=== PATIENT | female | born 1965 | race Caucasian/White ===

== ENCOUNTER → 2020-03-28 | Outpatient (CLI) | payer OTHER ==
--- NOTE | 2020-03-28 10:11 | US ---
EXAMINATION TYPE: US abdomen limited DATE OF EXAM: 03/28/2020 COMPARISON: NONE CLINICAL HISTORY: Cellulitis RLQ L03.90. Patient states possible bug bite on RLQ abdomen. Area appea rs red with scab. Area of concern scanned. No masses or fluid collections visualized at time of scan. IMPRESSION: No evidence of mass or fluid collection.
== END | disposition home or self-care (01) ==
LOC: RADUSWWP 09:42
PROVIDERS: ATTEND Pediatrics
DX: L03.90 Cellulitis, unspecified (principal)
CPT/HCPCS: 76705

== ENCOUNTER 2020-09-26 09:57 | Emergency (ER) | payer OTHER ==
[2020-09-26] MEDS ORDERED: SODIUM CHLORIDE 0.9% 1,000 ML IV STA ×2 (10:41)
--- NOTE | 2020-09-26 10:44 | ED ---
General Adult HPI - General Chief complaint: Neuro Symptoms/Deficit Stated complaint: numbness in legs & arms Time Seen by Provider: 09/26/20 10:32 Source: patient, RN notes reviewed, old records reviewed Mode of arrival: wheelchair Limitations: no limitations - History of Present Illness Initial comments: [id number] female presents to the ER today for evaluation with complaints of left arm shooting pain from her elbow towards her shoulder and neck. Patient states that she has had 2 weeks of intermittent bilateral leg numbness and tingling. Patient states that last week she also had shooting similar pains down her right arm. Patient denies any chest pain or shortness of breath. Denies any acute headaches. She states she hasn't seen her PCP for migraines. She does report history of TIAs in the past. - Related Data Home Medications Medication Instructions Recorded Confirmed Ibuprofen [Motrin] 800 mg PO TID PRN 07/04/15 09/26/20 Albuterol Inhaler [Ventolin Hfa 1 puff INHALATION RT-Q4H PRN 09/26/20 09/26/20 Inhaler] Aspirin EC [Ecotrin Low Dose] 81 mg PO DAILY 09/26/20 09/26/20 Atorvastatin [Lipitor] 40 mg PO HS 09/26/20 09/26/20 Beclomethasone Dip 80 Mcg/Puff 2 puff INHALATION RT-BID PRN 09/26/20 09/26/20 [Qvar 80 mcg] Enalapril [Vasotec] 10 mg PO BID 09/26/20 09/26/20 Nitroglycerin Sl Tabs [Nitrostat] 0.4 mg SL Q5M PRN 09/26/20 09/26/20 SUMAtriptan succinate [Imitrex] 50 mg PO BID PRN 09/26/20 09/26/20 Topiramate [Topamax] 100 mg PO BID 09/26/20 09/26/20 Venlafaxine HCl ER [Effexor Xr] 75 mg PO DAILY 09/26/20 09/26/20 Previous Rx's Medication Instructions Recorded Metoprolol Tartrate [Lopressor] 25 mg PO BID #60 tab 07/07/15 Allergies Allergy/AdvReac Type Severity Reaction Status Date / Time amoxicillin trihydrate AdvReac Nausea & Verified 09/26/20 12:04 [From Augmentin] Vomiting potassium clavulanate AdvReac Nausea & Verified 09/26/20 12:04 [From Augmentin] Vomiting Review of Systems ROS Statement: Those systems with pertinent positive or pertinent negative responses have been documented in the HPI. ROS Other: All systems not noted in ROS Statement are negative. Past Medical History Past Medical History: CVA/TIA, Fibromyalgia, Hyperlipidemia, Osteoarthritis (OA) Additional Past Medical History / Comment(s): 07-04-15 ADMITTED TO [facility] WITH NSTEMI. PAST MEDICAL HX: MIGRAINES, HEMORRHOIDS, INCONT OF URINE, TIA X2, fibromyalgia, hypercholesterolemia. History of Any Multi-Drug Resistant Organisms: None Reported Past Surgical History: Hysterectomy, Tubal Ligation Additional Past Surgical History / Comment(s): RECENTLT HAD TEETH EXTRACTED AND HAS NEW DENTURES ,MYRINGTOMY/TUBES 03 LOST 30% OF HEARING EV, SINUS SX 04, COLONOSCOPY CLEAR, Past Anesthesia/Blood Transfusion Reactions: Previous Problems w/ Anesthesia Additional Past Anesthesia/Blood Transfusion Reaction / Comment(s): DIFFICULTY WAKING FROM AA. Past Psychological History: No Psychological Hx Reported Smoking Status: Current every day smoker Past Alcohol Use History: Rare Past Drug Use History: None Reported - Past Family History Father Family Medical History: Diabetes Mellitus (Father at age 77 from diabetes mellitus competition.) Mother Family Medical History: Cancer (Mother at age of 67 from lung cancer) Additional Family Medical History / Comment(s): LUNG CANCER Brother(s) Family Medical History: Coronary Artery Disease (CAD) (Patient has 4 brothers one of her brothers has history of coronary artery disease underwent coronary artery bypass graft) Sister(s) Family Medical History: No Reported History (Patient has 6 sisters no major med ical problems.) Son(s) Family Medical History: No Reported History (Patient has 2 sons no major medical problems.) General Exam - General Exam Comments Initial Comments: 55-year-old female. Alert and oriented. No distress. Limitations: no limitations General appearance: alert, in no apparent distress Head exam: Present: atraumatic, normocephalic, normal inspection Eye exam: Present: normal appearance, PERRL, EOMI. Absent: scleral icterus, conjunctival injection, periorbital swelling ENT exam: Present: normal exam, mucous membranes moist Neck exam: Present: normal inspection. Absent: tenderness, meningismus, lymphadenopathy Respiratory exam: Present: normal lung sounds bilaterally. Absent: respiratory distress, wheezes, rales, rhonchi, stridor Cardiovascular Exam: Present: regular rate, normal rhythm, normal heart sounds. Absent: systolic murmur, diastolic murmur, rubs, gallop, clicks GI/Abdominal exam: Present: soft, normal bowel sounds. Absent: distended, tenderness, guarding, rebound, rigid Extremities exam: Present: normal inspection, full ROM, normal capillary refill, other (She describes shooting pain down left elbow towards his shoulder. Full range of motion noted. Radial pulse is 2+ bilaterally. She has normal sens ation to light touch. No erythema. No rashes.). Absent: tenderness, pedal edema, joint swelling, calf tenderness Back exam: Present: normal inspection Neurological exam: Present: alert, oriented X3, CN II-XII intact Psychiatric exam: Present: normal affect, normal mood Skin exam: Present: warm, dry, intact, normal color. Absent: rash Course Vital Signs 09/26/20 09/26/20 09/26/20 10:03 10:41 11:00 Temperature 98.1 F Pulse Rate 65 Respiratory 18 Rate Blood Pressure 154/88 135/76 O2 Sat by Pulse 100 100 Oximetry 09/26/20 09/26/20 09/26/20 11:30 12:00 12:50 Temperature 98.2 F Pulse Rate 57 L 58 L 60 Respiratory 17 13 18 Rate Blood Pressure 132/80 148/78 139/72 O2 Sat by Pulse 98 98 99 Oximetry EKG Findings - EKG Comments: EKG Findings:: EKG performed at 1042 shows sinus bradycardia septal infarct age- indeterminate. Abnormal EKG ventricular rate of 57 bpm. Was 192 ms. QRS duration 76 ms. QT QTc is 426/440 ms. No evidence of ST elevation. Medical Decision Making - Medical Decision Making 55-year-old feel presents respiratory 2 weeks of bilateral lower extremity tingling usual weakness intermittently as well as shooting pain is bilateral arms. She reports sedation shooting pain in her left arm. She has no signs of falls or trauma. She is no rashes reproducible tenderness with them. Patient has history of TIAs head CT scan completed showing no acute process. Patient has no palsies or other neurological deficits. I discussed findings Patient is a neurologic nature and may benefit from EMG studies but no acute neuro deficits or concerns for stroke or she did this time. Patient understands this plan. Labs are otherwise unremarkable EKG was reviewed and normal. Discussed return parameters. - Lab Data Result diagrams: 09/26/20 10:41 09/26/20 10:41 Lab Results 09/26/20 09/26/20 09/26/20 Range/Units 10:41 10:41 10:41 WBC 7.7 (3.8-10.6) k/uL RBC 4.39 (3.80-5.40) m/uL Hgb 14.1 (11.4-16.0) gm/dL Hct 41.4 (34.0-46.0) % MCV 94.3 (80.0-100.0) fL MCH 32.0 (25.0-35.0) pg MCHC 33.9 (31.0-37.0) g/dL RDW 13.1 (11.5-15.5) % Plt Count 311 (150-450) k/uL MPV 6.9 Neutrophils % 70 % Lymphocytes % 22 % Monocytes % 4 % Eosinophils % 2 % Basophils % 1 % Neutrophils # 5.4 (1.3-7.7) k/uL Lymphocytes # 1.7 (1.0-4.8) k/uL Monocytes # 0.3 (0-1.0) k/uL Eosinophils # 0.2 (0-0.7) k/uL Basophils # 0.0 (0-0.2) k/uL PT 9.8 (9.0-12.0) sec INR 0.9 (<1.2) APTT 26.5 (22.0-30.0) sec Sodium 133 L (137-145) mmol/L Potassium 4.3 (3.5-5.1) mmol/L Chloride 103 (98-107) mmol/L Carbon Dioxide 24 (22-30) mmol/L Anion Gap 6 mmol/L BUN 11 (7-17) mg/dL Creatinine 0.75 (0.52-1.04) mg/dL Est GFR (CKD-EPI)AfAm >90 (>60 ml/min/1.73 sqM) Est GFR (CKD-EPI)NonAf >90 (>60 ml/min/1.73 sqM) Glucose 124 H (74-99) mg/dL POC Glucose (mg/dL) (75-99) mg/dL POC Glu Ornament Maker Hand ID Calcium 9.2 (8.4-10.2) mg/dL Total Bilirubin 0.4 (0.2-1.3) mg/dL AST 30 (14-36) U/L ALT 33 (4-34) U/L Alkaline Phosphatase 67 (38-126) U/L Troponin I (0.000-0.034) ng/mL Total Protein 7.0 (6.3-8.2) g/dL Albumin 4.2 (3.5-5.0) g/dL 09/26/20 09/26/20 Range/Units 10:41 10:46 WBC (3.8-10.6) k/uL RBC (3.80-5.40) m/uL Hgb (11.4-16.0) gm/dL Hct (34.0-46.0) % MCV (80.0-100.0) fL MCH (25.0-35.0) pg MCHC (31.0-37.0) g/dL RDW (11.5-15.5) % Plt Count (150-450) k/uL MPV Neutrophils % % Lymphocytes % % Monocytes % % Eosinophils % % Basophils % % Neutrophils # (1.3-7.7) k/uL Lymphocytes # (1.0-4.8) k/uL Monocytes # (0-1.0) k/uL Eosinophils # (0-0.7) k/uL Basophils # (0-0.2) k/uL PT (9.0-12.0) sec INR (<1.2) APTT (22.0-30.0) sec Sodium (137-145) mmol/L Potassium (3.5-5.1) mmol/L Chloride (98-107) mmol/L Carbon Dioxide (22-30) mmol/L Anion Gap mmol/L BUN (7-17) mg/dL Creatinine (0.52-1.04) mg/dL Est GFR (CKD-EPI)AfAm (>60 ml/min/1.73 sqM) Est GFR (CKD-EPI)NonAf (>60 ml/min/1.73 sqM) Glucose (74-99) mg/dL POC Glucose (mg/dL) 112 H (75-99) mg/dL POC Glu Ornament Maker Hand ID Jeffrey Beck Calcium (8.4-10.2) mg/dL Total Bilirubin (0.2-1.3) mg/dL AST (14-36) U/L ALT (4-34) U/L Alkaline Phosphatase (38-126) U/L Troponin I <0.012 (0.000-0.034) ng/mL Total Protein (6.3-8.2) g/dL Albumin (3.5-5.0) g/dL - Radiology Data Radiology results: report reviewed Normal CT brain. If symptoms persist MRI can be performed for additional evaluation. Disposition Clinical Impression: Paresthesia of bilateral legs, Paresthesia and pain of left extremity Disposition: HOME SELF-CARE Condition: Good Instructions (If sedation given, give patient instructions): Paresthesia (ED) Additional Instructions: Patient advised follow-up with neurology and PCP. Return to the ED if any alarming signs or symptoms occur. Is patient prescribed a controlled substance at d/c from ED?: No Referrals: Nish Lew MD [Primary Care Provider] - 1-2 days Time of Disposition: 12:59
[2020-09-26 10:48] LABS: Glucose,Whole Blood 112 mg/dL (75-99)
[2020-09-26 11:04] LABS: Basophils % (A) 1 %; Eosinophils # (A) 0.2 k/uL (0-0.7); Eosinophils % (A) 2 %; HCT 41.4 % (34.0-46.0); HGB 14.1 gm/dL (11.4-16.0); Lymphocytes # (A) 1.7 k/uL (1.0-4.8); Lymphocytes % (A) 22 %; MCHC 33.9 g/dL (31.0-37.0); MCV 94.3 fL (80.0-100.0); Mean Platelet Volume 6.9; Monocytes # (A) 0.3 k/uL (0-1.0); Monocytes % (A) 4 %; Neutrophils # (A) 5.4 k/uL (1.3-7.7); Neutrophils % (A) 70 %; Platelet Count 311 k/uL (150-450); RBC 4.39 m/uL (3.80-5.40); RDW 13.1 % (11.5-15.5); WBC 7.7 k/uL (3.8-10.6)
--- NOTE | 2020-09-26 11:13 | CT ---
EXAMINATION TYPE: CT brain wo con DATE OF EXAM: 09/26/2020 COMPARISON: 11/29/2008 INDICATION: Neuro deficit DLP: 1082.4 mGycm, Automated exposure control for dose reduction was used. CONTRAST: None CT of the brain is performed utilizing 3 mm thick sections through the posterior fossa and 3 mm thick sections through the remaining calvarium. Study is performed within 24 hours of arrival to the hosp ital. No abnormal hyperdensity is present to suggest an acute intracranial hemorrhage. No mass lesion is evident. No acute infarcts are evident. Ventricles and sulci are appropriate for the patient age. Paranasal sinuses and mastoid air cells within the [id number] are clear. IMPRESSIONS: 1. Normal CT Brain 2. If symptoms persist, MRI could be performed for additional evaluation.
--- NOTE | 2020-09-26 11:24 | XR ---
EXAMINATION TYPE: XR chest 2V DATE OF EXAM: 09/26/2020 COMPARISON: NONE TECHNIQUE: PA and lateral views submitted. HISTORY: altered mental status FINDINGS: The lungs are clear and there is no pneumothorax, pleural effusion, or focal pneumonia. IMPRESSION: 1. No acute process.
[2020-09-26 11:33] LABS: ALT 33 U/L (4-34); AST 30 U/L (14-36); African American GFR (CKD) >90 (>60 ml/min/1.73 sqM); Albumin 4.2 g/dL (3.5-5.0); Alkaline Phosphatase 67 U/L (38-126); Anion Gap 6 mmol/L; Blood Urea Nitrogen 11 mg/dL (7-17); Calcium 9.2 mg/dL (8.4-10.2); Carbon Dioxide 24 mmol/L (22-30); Chloride 103 mmol/L (98-107); Glucose 124 mg/dL (74-99); Non-African American GFR(CKD) >90 (>60 ml/min/1.73 sqM); Potassium 4.3 mmol/L (3.5-5.1); Sodium 133 mmol/L (137-145); Total Bilirubin 0.4 mg/dL (0.2-1.3)
[2020-09-26 11:37] LABS: INR 0.9 (<1.2); Partial Thromboplastin Time 26.5 sec (22.0-30.0); Prothrombin Time 9.8 sec (9.0-12.0)
[2020-09-26 12:51] VITALS: RESP 18
[2020-09-26 13:50] VITALS: BP 152/80; PULSE 62; TEMP 97.1
== END 2020-09-26 13:50 | disposition home or self-care (01) ==
LOC: EC 09:57
DX: R20.2 Paresthesia of skin (principal); R20.0 Anesthesia of skin; E78.5 Hyperlipidemia, unspecified; E78.00 Pure hypercholesterolemia, unspecified; F17.200 Nicotine dependence, unspecified, uncomplicated; Z79.82 Long term (current) use of aspirin; Z79.899 Other long term (current) drug therapy; Z88.0 Allergy status to penicillin; Z88.1 Allergy status to other antibiotic agents; Z86.73 Personal history of transient ischemic attack (TIA), and cerebral infarction without residual deficits
CPT/HCPCS: 36415; 70450; 71046; 80053; 84484; 85025; 85610; 85730; 93005; 96360; 96361; 99285

== ENCOUNTER → 2021-06-21 | Outpatient (CLI) | payer OTHER ==
--- NOTE | 2021-06-26 08:25 | MM ---
Reason for exam: screening (asymptomatic). Last mammogram was performed 2 years and 10 months ago. History: Patient is postmenopausal. Took estrogen for 1 year 6 months beginning at age 42. Took progesterone for 1 year 6 months beginning at age 42. Physical Findings: A clinical breast exam by your physician is recommended on an annual basis and results should be correlated with mammographic findings. MG 3D Screening Mammo W/Cad Bilateral CC and MLO view(s) were taken. Prior study comparison: August 31, 2018, bilateral MG screening mammo w CAD. There are scattered fibroglandular densities. There is chronic nodularity in the right breast. Focal asymmetry left upper MLO view. ASSESSMENT: Probably benign, BI-RAD 3 RECOMMENDATION: Follow-up diagnostic mammogram of the left breast in 6 months.
== END | disposition home or self-care (01) ==
LOC: RADMAMWWP 12:44
PROVIDERS: ATTEND Pediatrics
DX: Z12.31 Encounter for screening mammogram for malignant neoplasm of breast (principal); Z78.0 Asymptomatic menopausal state; Z79.818 Long term (current) use of other agents affecting estrogen receptors and estrogen levels
CPT/HCPCS: 77063; 77067

== ENCOUNTER → 2021-11-26 | Outpatient (CLI) | payer BC ==
--- NOTE | 2021-11-26 12:03 | XR ---
EXAMINATION TYPE: XR chest 2V DATE OF EXAM: 11/26/2021 COMPARISON: 10/06/2020 TECHNIQUE: PA and lateral views submitted. HISTORY: Cough FINDINGS: The lungs are clear and there is no pneumothorax, pleural effusion, or focal pneumonia. Heart size normal. No overt failure. IMPRESSION: 1. No acute process.
== END | disposition home or self-care (01) ==
LOC: RADXRMAIN 11:41
PROVIDERS: ATTEND Pediatrics
DX: J44.1 Chronic obstructive pulmonary disease with (acute) exacerbation (principal)
CPT/HCPCS: 71046

== ENCOUNTER → 2021-12-24 | Outpatient (CLI) | payer BC ==
--- NOTE | 2021-12-24 09:04 | MM ---
Reason for exam: follow-up at short interval from prior study. Last mammogram was performed 6 months ago. History: Patient is postmenopausal. Took estrogen for 1 year 6 months beginning at age 42. Took progesterone for 1 year 6 months beginning at age 42. Physical Findings: A clinical breast exam by your physician is recommended on an annual basis and results should be correlated with mammographic findings. MG 3D Diag Mammo W/Cad LT CC, MLO, LM, and spot compression CC view(s) were taken of the left breast. Prior study comparison: June 21, 2021, bilateral MG 3d screening mammo w/cad. August 31, 2018, bilateral MG screening mammo w CAD. There are scattered fibroglandular densities. The superior global asymmetry is less defined. Lateral anterior asymmetric density disperses on additional view. These results were verbally communicated with the patient and result sheet given to the patient on 12/24/21. ASSESSMENT: Benign, BI-RAD 2 RECOMMENDATION: Return to routine screening mammogram schedule for both breasts. Back on schedule for June 2022.
== END | disposition home or self-care (01) ==
LOC: RADMAMWWP 08:03
PROVIDERS: ATTEND Pediatrics
DX: R92.8 Other abnormal and inconclusive findings on diagnostic imaging of breast (principal); Z78.0 Asymptomatic menopausal state
CPT/HCPCS: 77061; 77065

== ENCOUNTER → 2023-06-05 | Outpatient (CLI) | payer BC ==
--- NOTE | 2023-06-08 20:41 | MM ---
Reason for Exam: Screening (asymptomatic). Last mammogram was performed 1 year(s) and 11 month(s) ago. Patient History: Menarche at age 11. First Full-Term at age 18. Left ovary removed at age 42. Right ovary removed at age 42. Hysterectomy at age 42. Postmenopausal. Estrogen, starting at age 42 for 1 year, 6 months. Progesterone, starting at age 42 for 1 year, 6 months. Risk Values: Lucy 5 year model risk: 1.1%. NCI Lifetime model risk: 6.1%. Prior Study Comparison: 08/31/2018 Bilateral Screening Mammogram, [facility]. 06/21/2021 Bilateral Screening Mammogram, [facility]. 12/24/2021 Left Diagnostic Mammogram, [facility]. Tissue Density: There are scattered fibroglandular densities. Findings: Analyzed By CAD. There is no suspicious group of microcalcifications or new suspicious mass in either breast. Overall Assessment: Negative, BI-RAD 1 Management: Screening Mammogram of both breasts in 1 year. . Patient should continue monthly self-breast exams. A clinical breast exam by your physician is recommended on an annual basis. This exam should not preclude additional follow-up of suspicious palpable abnormalities. Note on Lucy scores and lifetime risk: 1. A Lucy score greater than 3% is considered moderate risk. If this is the case, consider specialist referral to assess eligibility for a risk reducing agent. 2. If overall lifetime risk for the development of breast cancer is 20% or higher, the patient may qualify for future screening with alternating mammogram and breast MRI. Electronically signed and approved by: Tariq Ashraf M.D. Radiologist
== END | disposition home or self-care (01) ==
LOC: RADMAMWWP 13:07
PROVIDERS: ATTEND Pediatrics
DX: Z12.31 Encounter for screening mammogram for malignant neoplasm of breast (principal); Z78.0 Asymptomatic menopausal state
CPT/HCPCS: 77063; 77067

== ENCOUNTER 2023-06-10 10:03 | Day surgery (SDC) | payer BC ==
[~2023-06-10 10:03] MED LIST: LACTATED RINGERS 1,000 ML IV SCH
[2023-06-10 11:02] VITALS: TEMP 97
[2023-06-10] MEDS ORDERED: MIDAZOLAM 2 MG/2 ML VIAL IVP ONE (11:10)
[2023-06-10] MEDS ORDERED: LIDOCAINE 2% INJ 20 MG/ML (2 ML VIAL) ONE (12:05)
[2023-06-10] MEDS ORDERED: PROPOFOL 10 MG/ML 20 ML VIAL IV ONE (12:05)
--- NOTE | 2023-06-10 12:21 | P.PCN ---
Date of Procedure: 06/10/23 Procedure(s) Performed: BRIEF HISTORY: Patient is a 58-year-old pleasant white female scheduled for an elective colonoscopy as a part of screening for colon cancer/positive cologuard. PROCEDURE PERFORMED: Colonoscopy with snare polypectomy. PREOPERATIVE DIAGNOSIS: Screening for colon cancer/positive cologuard. IV sedation per Anesthesia. PROCEDURE: After informed consent was obtained, the patient, was brought into the endoscopy unit. IV sedation was administered by Anesthesia under continuous monitoring. Digital rectal examination was normal. Initially the Olympus CF-160 flexible video colonoscope was then inserted in the rectum, gradually advanced into the cecum without any difficulty. Careful examination was performed as the scope was gradually being withdrawn. Ileocecal valve and the appendiceal orifice were visualized and appeared normal. Prep was excellent. Mucosa of the cecum, ascending colon, transverse colon, descending colon, sigmoid colon, and rectum appeared normal. The proximal rectum there was a 1 cm polyp removed by snare polypectomy. Retroflexion was performed in the rectum and no lesions were seen. The patient tolerated the procedure well. IMPRESSION: 1 cm proximal rectal polyp status post polypectomy Rest of the colon appeared normal. RECOMMENDATIONS: Findings of this examination were discussed with the patient as well as a family. She was advised to follow with the biopsy. The biopsy result adenoma she can have a repeat colonoscopy in 3 years.
[2023-06-10 12:29] VITALS: RESP 16
[2023-06-10 12:54] VITALS: BP 148/70; PULSE 59
== END 2023-06-10 13:21 | disposition home or self-care (01) ==
LOC: ORWHC2ENDO 10:03
PROVIDERS: ATTEND Internal Medicine Gastroenterology
DX: D12.8 Benign neoplasm of rectum (principal); I25.2 Old myocardial infarction; I10 Essential (primary) hypertension; E78.5 Hyperlipidemia, unspecified; J44.9 Chronic obstructive pulmonary disease, unspecified; Z79.899 Other long term (current) drug therapy; Z86.73 Personal history of transient ischemic attack (TIA), and cerebral infarction without residual deficits; Z90.710 Acquired absence of both cervix and uterus
CPT/HCPCS: 88305; 45385; J2250; J2704; J2001

== ENCOUNTER → 2023-06-25 | Outpatient (CLI) | payer BC ==
--- NOTE | 2023-06-25 11:56 | US ---
EXAMINATION TYPE: US abdomen complete DATE OF EXAM: 06/25/2023 COMPARISON: NONE CLINICAL INDICATION: Female, 58 years old with history of K76.0 FATTY (CHANGE OF) LIVER, NOT ELSEWHER E CLASS; elevated LFTs TECHNIQUE: Multiple sonographic images of the abdomen are obtained. FINDINGS: EXAM MEASUREMENTS: Liver Length: 12.4 cm Gallbladder Wall: 0.2 cm CBD: 0.5 cm Spleen: 7.8 cm Right Kidney: 9.0x3.6x4.1 cm Left Kidney: 9.5x4.5x4.3 cm Pancreas: Tail partially obscured by overlying bowel gas. Visualized portions show no gross abnormal ity. Liver: Some images suggest slight contour nodularity. Unclear if this is technical. No focal lesion. Gallbladder: wnl Evidence for sonographic Mora's sign: No CBD: wnl Spleen: wnl Right Kidney: Inferior pole partially obscured by bowel gas Left Kidney: Inferior pole partially obscured by bowel gas, mild fullness of the renal pelvis. No hy dronephrosis on either side. Upper IVC: wnl Abd Aorta: Mild atherosclerotic irregularity. IMPRESSION: 1. Some images of the liver suggests slight contour nodularity. Unclear if this is technical. Correla te to exclude the possibility of underlying cirrhosis. No focal lesion seen. 2. No gallstones or biliary ductal dilatation.
== END | disposition home or self-care (01) ==
LOC: RADUSWWP 06:47
PROVIDERS: ATTEND Pediatrics
DX: K76.0 Fatty (change of) liver, not elsewhere classified (principal); R79.89 Other specified abnormal findings of blood chemistry
CPT/HCPCS: 76700

== ENCOUNTER → 2023-08-17 | Outpatient (CLI) | payer BC ==
[2023-08-17 16:04] LABS: % Iron Saturation 25.17 (12.00-45.00); ALT 33 U/L (8-44); AST 23 U/L (13-35); Alkaline Phosphatase 70 U/L (41-126); Blood Urea Nitrogen 13.2 mg/dL (9.0-27.0); Carbon Dioxide 29.6 mmol/L (21.6-31.8); Chloride 96 mmol/L (96-109); Globulin 2.5 d/dL (1.6-3.3); Glucose 108 mg/dL (70-110); Iron 75 UG/DL (50-170); Potassium 4.7 mmol/L (3.5-5.5); Sodium 136 mmol/L (135-145); Total Bilirubin 0.5 mg/dL (0.3-1.2); Total Iron Binding Capacity 298 UG/DL (228-460); Total Protein 6.5 d/dL (6.2-8.2)
[2023-08-17 16:07] LABS: Ceruloplasmin 26.2 mg/dL (20.0-60.0)
[2023-08-17 16:09] LABS: Protein, Total 6.4 d/dL (6.2-8.2)
[2023-08-17 16:18] LABS: Basophils # (A) 0.04 X 10*3/uL (0.00-0.10); Basophils % (A) 0.4 %; Eosinophils # (A) 0.21 X 10*3/uL (0.04-0.35); Eosinophils % (A) 2.2 %; HCT 45.7 % (37.2-46.3); HGB 14.6 d/dL (12.0-15.0); Lymphocytes # (A) 1.89 X 10*3/uL (0.90-5.00); Lymphocytes % (A) 20.2 %; MCH 31.5 pg (27.0-32.0); MCHC 31.9 d/dL (32.0-37.0); MCV 98.5 FL (80.0-97.0); Mean Platelet Volume 10.1 FL (9.5-12.2); Monocytes # (A) 0.71 X 10*3/uL (0.20-1.00); Monocytes % (A) 7.6 %; NRBC Per 100 WBC 0 X 10*3/uL (0.00-0.01); Neutrophils # (A) 6.45 X 10*3/uL (1.80-7.70); Neutrophils % (A) 69.1 %; Platelet Count 325 X 10*3/uL (140-440); RBC 4.64 X 10*6/uL (4.10-5.20); RDW 14.6 % (11.5-14.5); WBC 9.35 X 10*3/uL (4.50-10.00)
[2023-08-17 16:54] LABS: Hepatitis C IgG Antibody Nonreactive
[2023-08-18 17:40] LABS: Gamma Globulin 0.81 d/dL (0.70-1.50)
== END | disposition home or self-care (01) ==
LOC: LABWHC1 09:32
PROVIDERS: ATTEND Internal Medicine Gastroenterology
DX: R94.5 Abnormal results of liver function studies (principal)
CPT/HCPCS: 36415; 80053; 82103; 82390; 82728; 83516; 83540; 83550; 84165; 85025; 86038; 86803

== ENCOUNTER 2024-02-24 12:55 | Inpatient (IN) | payer BC ==
--- NOTE | 2024-02-24 14:49 | CT ---
EXAMINATION TYPE: CT brain wo con CT DLP: 1103.4 mGycm, Automated exposure control for dose reduction was used. DATE OF EXAM: 02/24/2024 2:43 PM COMPARISON: 09/26/2020. CLINICAL INDICATION:Female, 58 years old with history of Neuro deficit, acute, stroke suspected, blur ry vision and balance issues TECHNIQUE: Brain: Axial CT images of the brain were obtained with coronal and sagittal reformats created and rev iewed. Contrast used: None. Oral contrast used: None. FINDINGS: Brain: Extra-axial spaces: No abnormal extra-axial fluid collections. Ventricular system: Within normal limits Cerebral parenchyma: No acute intraparenchymal hemorrhage or mass effect. The duarte-white junction is well differentiated. Cerebellum: Unremarkable. Mass effect: No evidence of midline shift. Intracranial vasculature: unremarkable Soft tissues: Normal. Calvarium/osseous structures: No depressed skull fracture. Paranasal sinuses and mastoid air cells: Mild scattered paranasal sinus disease. Visualized orbits: Orbital contents are intact. IMPRESSION: No acute intracranial process.
[2024-02-24 15:03] LABS: Basophils # (A) 0.1 k/uL (0-0.2); Basophils % (A) 1 %; Eosinophils # (A) 0.3 k/uL (0-0.7); Eosinophils % (A) 6 %; HCT 43.7 % (34.0-46.0); HGB 14.3 gm/dL (11.4-16.0); Lymphocytes # (A) 1.8 k/uL (1.0-4.8); Lymphocytes % (A) 35 %; MCH 30.2 pg (25.0-35.0); MCHC 32.6 g/dL (31.0-37.0); MCV 92.5 fL (80.0-100.0); Mean Platelet Volume 7.7; Monocytes # (A) 0.3 k/uL (0-1.0); Monocytes % (A) 5 %; Neutrophils # (A) 2.6 k/uL (1.3-7.7); Neutrophils % (A) 51 %; Platelet Count 259 k/uL (150-450); RBC 4.73 m/uL (3.80-5.40); RDW 13.2 % (11.5-15.5); WBC 5.1 k/uL (3.8-10.6)
--- NOTE | 2024-02-24 15:10 | ED ---
General Adult HPI - General Chief complaint: Recheck/Abnormal Lab/Rx Stated complaint: Visual issue/dizziness Time Seen by Provider: 02/24/24 13:57 Source: patient, RN notes reviewed Mode of arrival: wheelchair Limitations: no limitations - History of Present Illness Initial comments: 58-year female presents emergency department with multiple complaints. Patient states that this started several months ago with hand and feet pain which is no ascended up for her extremities she states she gets sharp stabbing type pain that comes and goes. Unprovoked. Patient states since the weekend she has now developed blurred vision bilaterally. She states she has difficulty ambulating and is extremely dizzy. She states that she does not feel like she can walk straight she states she has difficulty ambulating she denies any fevers no trauma no rashes she has any focal weakness no complaints of chest pain or shortness of breath she states she is seeing neurology for extremity symptoms is scheduled for an MRI states it keeps getting canceled. She had no prior CT. - Related Data Home Medications Medication Instructions Recorded Confirmed Albuterol Inhaler [Ventolin Hfa 1 puff INHALATION RT-Q4H PRN 09/26/20 02/24/24 Inhaler] Aspirin EC [Ecotrin Low Dose] 81 mg PO W/BRKFST 09/26/20 02/24/24 Nitroglycerin Sl Tabs [Nitrostat] 0.4 mg SL Q5M PRN 09/26/20 02/24/24 Albuterol Nebulized [Ventolin 2.5 mg INHALATION RT-Q6H PRN 06/08/23 02/24/24 Nebulized] amLODIPine [Norvasc] 5 mg PO W/BRKFST 06/08/23 02/24/24 lisinopriL [Zestril] 20 mg PO W/BRKFST 06/08/23 02/24/24 Baclofen [Lioresal] 10 mg PO BID 02/24/24 02/24/24 Cholecalciferol [Vitamin D3 (25 50 mcg PO W/LUNCH 02/24/24 02/24/24 Mcg = 1000 Iu)] Cyanocobalamin (Vitamin B-12) 1,000 mcg PO W/LUNCH 02/24/24 02/24/24 [Vitamin B-12] Esomeprazole Magnesium [NexIUM 20 mg PO W/BRKFST 02/24/24 02/24/24 24Hr] Ezetimibe [Zetia] 10 mg PO W/BRKFST 02/24/24 02/24/24 Formoterol Fumarate [Perforomist] 20 mcg INHALATION RT-BID 02/24/24 02/24/24 Ibuprofen [Motrin] 800 mg PO Q8H PRN 02/24/24 02/24/24 Magnesium 250 mg PO W/LUNCH 02/24/24 02/24/24 Meclizine [Antivert] 12.5 - 25 mg PO BID-W/MEALS 02/24/24 02/24/24 Metoprolol Tartrate [Lopressor] 50 mg PO BID 02/24/24 02/24/24 Potassium Gluconate 90 mg PO W/LUNCH 02/24/24 02/24/24 Pregabalin [Lyrica] 150 mg PO TID 02/24/24 02/24/24 Pyridoxine [Vitamin B-6] 25 mg PO W/LUNCH 02/24/24 02/24/24 Ubidecarenone [Coenzyme Q10] 200 mg PO W/LUNCH 02/24/24 02/24/24 Allergies Allergy/AdvReac Type Severity Reaction Status Date / Time amoxicillin trihydrate AdvReac Nausea & Verified 02/24/24 13:59 [From Augmentin] Vomiting potassium clavulanate AdvReac Nausea & Verified 02/24/24 13:59 [From Augmentin] Vomiting Review of Systems ROS Statement: Those systems with pertinent positive or pertinent negative responses have been documented in the HPI. ROS Other: All systems not noted in ROS Statement are negative. Past Medical History Past Medical History: CVA/TIA, Fibromyalgia, Hyperlipidemia, Osteoarthritis (OA) Additional Past Medical History / Comment(s): 07-04-15 ADMITTED TO [facility] WITH NSTEMI. PAST MEDICAL HX: MIGRAINES, HEMORRHOIDS, INCONT OF URINE, TIA X2, fibromyalgia, hypercholesterolemia. History of Any Multi-Drug Resistant Organisms: None Reported Past Surgical History: Hysterectomy, Tubal Ligation Additional Past Surgical History / Comment(s): RECENTLT HAD TEETH EXTRACTED AND HAS NEW DENTURES ,MYRINGTOMY/TUBES 03 LOST 30% OF HEARING EV, SINUS SX 04, COLONOSCOPY CLEAR, Past Anesthesia/Blood Transfusion Reactions: Previous Problems w/ Anesthesia Additional Past Anesthesia/Blood Transfusion Reaction / Comment(s): DIFFICULTY WAKING FROM AA. Past Psychological History: No Psychological Hx Reported Smoking Status: Current every day smoker Past Alcohol Use History: None Reported Past Drug Use History: Marijuana - Past Family History Father Family Medical History: Diabetes Mellitus Mother Family Medical History: Cancer Additional Family Medical History / Comment(s): LUNG CANCER Brother(s) Family Medical History: Coronary Artery Disease (CAD) Sister(s) Family Medical History: No Reported History Son(s) Family Medical History: No Reported History General Exam Limitations: no limitations General appearance: alert, in no apparent distress Head exam: Present: atraumatic, normocephalic, normal inspection Eye exam: Present: normal appearance, PERRL, EOMI. Absent: scleral icterus, conjunctival injection, periorbital swelling ENT exam: Present: normal exam, normal oropharynx, mucous membranes moist Neck exam: Present: normal inspection, full ROM. Absent: tenderness, m eningismus, lymphadenopathy Respiratory exam: Present: normal lung sounds bilaterally. Absent: respiratory distress, wheezes, rales, rhonchi, stridor Cardiovascular Exam: Present: regular rate, normal rhythm, normal heart sounds. Absent: systolic murmur, diastolic murmur, rubs, gallop, clicks GI/Abdominal exam: Present: soft, normal bowel sounds. Absent: distended, tenderness, guarding, rebound, rigid Neurological exam: Present: alert, oriented X3, CN II-XII intact, reflexes normal. Absent: motor sensory deficit Skin exam: Present: warm, dry, intact, normal color. Absent: rash Course Vital Signs 02/24/24 02/24/24 02/24/24 13:06 15:15 18:19 Temperature 97.9 F 98.1 F Pulse Rate 66 63 70 Respiratory 18 18 18 Rate Blood Pressure 104/60 120/78 155/86 O2 Sat by Pulse 97 99 98 Oximetry 02/24/24 02/24/24 02/24/24 20:03 20:34 20:41 Temperature Pulse Rate 68 76 74 Respiratory 16 Rate Blood Pressure 140/81 O2 Sat by Pulse 97 Oximetry Medical Decision Making - Medical Decision Making Was pt. sent in by a medical professional or institution (, PA, TRACTOR MECHANIC APPRENTICE, urgent care, hospital, or retirement...) When possible be specific @ -No Did you speak to anyone other than the patient for history (EMS, parent, family, police, friend...)? What history was obtained from this source @ -No Did you review nursing and triage notes (agree or disagree)? Why? @ -I reviewed and agree with nursing and triage notes Were old charts reviewed (outside hosp., previous admission, EMS record, old EKG, old radiological studies, urgent care reports/EKG's, retirement records)? Report findings @ -No old charts were reviewed Differential Diagnosis (chest pain, altered mental status, abdominal pain women, abdominal pain men, vaginal bleeding, weakness, fever, dyspnea, syncope, headache, dizziness, GI bleed, back pain, seizure, CVA, palpatations, mental health, musculoskeletal)? @ -Differential CVA Ischemic stroke, hemorrhagic stroke, brain tumor, atypical migraine, Wernicke's encephalopathy, seizure, multiple sclerosis, meningitis, encephalitis, hypoglycemia, Guillain-Lewis, electrolytes disturbance, myasthenia gravis.... This is not meant to be an all-inclusive list EKG interpreted by me (3pts min.). @ -As above X-rays interpreted by me (1pt min.). @ -Chest x-ray shows no acute cardiopulmonary process CT interpreted by me (1pt min.). @ -CT brain without contrast showing no intracranial hemorrhage, mass effect or acute process U/S interpreted by me (1pt. min.). @ -None done What testing was considered but not performed or refused? (CT, X-rays, U/S, labs)? Why? @ -None What meds were considered but not given or refused? Why? @ -None Did you discuss the management of the patient with other professionals ( professionals i.e. , PA, TRACTOR MECHANIC APPRENTICE, lab, RT, psych nurse, social media campaign manager, custom frame assembler, teacher, cavalry officer, behavioral health case manager)? Give summary @ -EM H for admission Was smoking cessation discussed for >3mins.? @ -No Was critical care preformed (if so, how long)? @ -No Were there social determinants of health that impacted care today? How? (Homelessness, low income, unemployed, alcoholism, drug addiction, trans portation, low edu. Level, literacy, decrease access to med. care, correction, rehab)? @ -No Was there de-escalation of care discussed even if they declined (Discuss DNR or withdrawal of care, Hospice)? DNR status @ -No What co-morbidities impacted this encounter? (DM, HTN, Smoking, COPD, CAD, Cancer, CVA, ARF, Chemo, Hep., AIDS, mental health diagnosis, sleep apnea, morbid obesity)? @ -None Was patient admitted / discharged? Hospital course, mention meds given and route, prescriptions, significant lab abnormalities, going to OR and other pertinent info. @ -[Admitted patient presented for dizziness, ataxia and visual disturbance concerning for CVA or underlying logical issue symptoms started over the weekend code stroke was not called as is greater than 24 hours. Patient will be admitted with neurology consult possible MRI and further testing. Undiagnosed new problem with uncertain prognosis? @ -No Drug Therapy requiring intensive monitoring for toxicity (Heparin, Nitro, Insulin, Cardizem)? @ -No Were any procedures done? @ -No Diagnosis/symptom? @ -Dizziness, ataxia, visual disturbance Acute, or Chronic, or Acute on Chronic? @ -Acute Uncomplicated (without systemic symptoms) or Complicated (systemic symptoms)? @ -Complicated Side effects of treatment? @ -No Exacerbation, Progression, or Severe Exacerbation? @ -No Poses a threat to life or bodily function? How? (Chest pain, [place], [place], pneumonia, PE, COPD, DKA, ARF, appy, cholecystitis, CVA, Diverticulitis, Homicidal, Suicidal, threat to staff... and all critical care pts) @Yes CVA - Lab Data Result diagrams: 02/24/24 14:50 02/24/24 14:50 Lab Results 02/24/24 02/24/24 02/24/24 Range/Units 14:50 14:50 14:50 WBC 5.1 (3.8-10.6) k/uL RBC 4.73 (3.80-5.40) m/uL Hgb 14.3 (11.4-16.0) gm/dL Hct 43.7 (34.0-46.0) % MCV 92.5 (80.0-100.0) fL MCH 30.2 (25.0-35.0) pg MCHC 32.6 (31.0-37.0) g/dL RDW 13.2 (11.5-15.5) % Plt Count 259 (150-450) k/uL MPV 7.7 Neutrophils % 51 % Lymphocytes % 35 % Monocytes % 5 % Eosinophils % 6 % Basophils % 1 % Neutrophils # 2.6 (1.3-7.7) k/uL Lymphocytes # 1.8 (1.0-4.8) k/uL Monocytes # 0.3 (0-1.0) k/uL Eosinophils # 0.3 (0-0.7) k/uL Basophils # 0.1 (0-0.2) k/uL PT 10.4 (10.0-12.5) sec INR 0.9 (<1.2) APTT 24.0 (22.0-30.0) sec Sodium 139 (137-145) mmol/L Potassium 4.4 (3.5-5.1) mmol/L Chloride 107 (98-107) mmol/L Carbon Dioxide 28 (22-30) mmol/L Anion Gap 4 mmol/L BUN 17 (7-17) mg/dL Creatinine 0.83 (0.52-1.04) mg/dL Est GFR (CKD-EPI)AfAm >90 (>60 ml/min/1.73 sqM) Est GFR (CKD-EPI)NonAf 78 (>60 ml/min/1.73 sqM) Glucose 101 H (74-99) mg/dL Calcium 9.4 (8.4-10.2) mg/dL Magnesium 2.1 (1.6-2.3) mg/dL Total Bilirubin 0.6 (0.2-1.3) mg/dL AST 22 (14-36) U/L ALT 14 (4-34) U/L Alkaline Phosphatase 53 (38-126) U/L Creatine Kinase 75 (30-135) U/L Troponin I (0.000-0.034) ng/mL Total Protein 6.6 (6.3-8.2) g/dL Albumin 3.9 (3.5-5.0) g/dL 02/24/24 Range/Units 14:50 WBC (3.8-10.6) k/uL RBC (3.80-5.40) m/uL Hgb (11.4-16.0) gm/dL Hct (34.0-46.0) % MCV (80.0-100.0) fL MCH (25.0-35.0) pg MCHC (31.0-37.0) g/dL RDW (11.5-15.5) % Plt Count (150-450) k/uL MPV Neutrophils % % Lymphocytes % % Monocytes % % Eosinophils % % Basophils % % Neutrophils # (1.3-7.7) k/uL Lymphocytes # (1.0-4.8) k/uL Monocytes # (0-1.0) k/uL Eosinophils # (0-0.7) k/uL Basophils # (0-0.2) k/uL PT (10.0-12.5) sec INR (<1.2) APTT (22.0-30.0) sec Sodium (137-145) mmol/L Potassium (3.5-5.1) mmol/L Chloride (98-107) mmol/L Carbon Dioxide (22-30) mmol/L Anion Gap mmol/L BUN (7-17) mg/dL Creatinine (0.52-1.04) mg/dL Est GFR (CKD-EPI)AfAm (>60 ml/min/1.73 sqM) Est GFR (CKD-EPI)NonAf (>60 ml/min/1.73 sqM) Glucose (74-99) mg/dL Calcium (8.4-10.2) mg/dL Magnesium (1.6-2.3) mg/dL Total Bilirubin (0.2-1.3) mg/dL AST (14-36) U/L ALT (4-34) U/L Alkaline Phosphatase (38-126) U/L Creatine Kinase (30-135) U/L Troponin I <0.012 (0.000-0.034) ng/mL Total Protein (6.3-8.2) g/dL Albumin (3.5-5.0) g/dL - EKG Data -: EKG Interpreted by Me EKG Comments: EKG performed at 15: 07 sinus bradycardia rate of 57 [place] 193 QRS 78 QT/QTc 412/406 Disposition Clinical Impression: Ataxia, Dizziness, Visual disturbance Disposition: ADMITTED IP TO THIS [facility] Condition: Fair Time of Disposition: 16:06
[2024-02-24 15:11] LABS: INR 0.9 (<1.2); Prothrombin Time 10.4 sec (10.0-12.5)
[2024-02-24 15:14] LABS: ALT 14 U/L (4-34); AST 22 U/L (14-36); African American GFR (CKD) >90 (>60 ml/min/1.73 sqM); Albumin 3.9 g/dL (3.5-5.0); Alkaline Phosphatase 53 U/L (38-126); Anion Gap 4 mmol/L; Blood Urea Nitrogen 17 mg/dL (7-17); Calcium 9.4 mg/dL (8.4-10.2); Carbon Dioxide 28 mmol/L (22-30); Chloride 107 mmol/L (98-107); Creatine Kinase 75 U/L (30-135); Glucose 101 mg/dL (74-99); Magnesium 2.1 mg/dL (1.6-2.3); Non-African American GFR(CKD) 78 (>60 ml/min/1.73 sqM); Potassium 4.4 mmol/L (3.5-5.1); Sodium 139 mmol/L (137-145); Total Bilirubin 0.6 mg/dL (0.2-1.3); Total Protein 6.6 g/dL (6.3-8.2)
--- NOTE | 2024-02-24 15:21 | XR ---
EXAMINATION TYPE: XR chest 2V DATE OF EXAM: 02/24/2024 COMPARISON: 08/01/2023 TECHNIQUE: PA and lateral views submitted. HISTORY: Altered mental status FINDINGS: The lungs are clear and there is no pneumothorax, pleural effusion, or focal pneumonia. Heart size normal and no overt failure. Osseous structures demonstrate hypertrophic and degenerative changes of the spine. IMPRESSION: 1. No acute process.
[2024-02-24] MEDS ORDERED: NALOXONE 0.4 MG/ML 1 ML VIAL IV PRN (16:06)
[2024-02-24] MEDS ORDERED: ALBUTEROL HFA INHALER INHALATION PRN (16:09)
[2024-02-24] MEDS ORDERED: ALBUTEROL NEBULIZED 2.5 MG/3 ML INHALATION PRN (16:09)
[2024-02-24] MEDS: METOPROLOL TARTRATE 50 MG TAB PO SCH (19:59)
[2024-02-24] MEDS: BACLOFEN 10 MG TAB PO SCH (19:59)
[2024-02-24] MEDS: PREGABALIN 75 MG CAP PO SCH (19:59)
[2024-02-24] MEDS: FORMOTEROL FUMARATE 20 MCG/2 ML NEBU INHALATION SCH (20:32)
[2024-02-24] MEDS: ALBUTEROL NEBULIZED 2.5 MG/3 ML INHALATION PRN (20:32)
[2024-02-25] MEDS: PANTOPRAZOLE 40 MG TABLET PO SCH (06:23)
[2024-02-25] MEDS: EZETIMIBE 10 MG TAB PO SCH (06:23)
[2024-02-25] MEDS: amLODIPine 5 MG TAB PO SCH (06:23)
[2024-02-25] MEDS: lisinopriL 20 MG TAB PO SCH (06:23)
[2024-02-25] MEDS: ASPIRIN 81 MG PO SCH (06:23)
[2024-02-25] MEDS ORDERED: POTASSIUM GLUCONATE 90 MG PO SCH (12:30)
[2024-02-25] MEDS ORDERED: NON FORMULARY DRUG (Ubidecarenone [Coenzyme Q10] 200 MG Capsule) PO SCH (12:30)
[2024-02-25] MEDS: MAGNESIUM OXIDE 400 MG TAB PO SCH (12:51)
[2024-02-25] MEDS: ENOXAPARIN 40 MG/0.4 ML SYRINGE SQ SCH (12:51)
[2024-02-25] MEDS: PYRIDOXINE 50 MG TAB PO SCH (12:51)
--- NOTE | 2024-02-25 17:10 | P.CNNES ---
History of Present Illness Consult date: 02/25/24 Requesting physician: Sushant Cruz Reason for Consult: visual disturbance, dizziness, ataxia History of Present Illness: This is a 58-year-old woman who presents emergency department because of blurred vision since this past Thursday with unsteady gait. Is accompanied with her who is at bedside. She also has unsteady gait for the last 1 month and the stated in his own words " equilibrium is off". She feels both her eyes and she is having blurry vision since Thursday. She denies any focal weakness, difficulty getting words out, difficulty swallowing. She stated that she follows up with neurology team, Dr. Ramirez's P.A. and that she had the MRI canceled because the machine is a maintenance. She denies any history of stroke or seizure. She does have underlying history of hypertension hype rcholesteremia. She is on aspirin 81 mg daily. Patient stated that she has pain in the hands and feet since 2022 and she had EMG with nerve conduction of upper and lower and that she was on it was normal. She denies any history of diabetes Some of the workup during this hospital visit consisted of: CBC with differential is unremarkable Chemistry panel is unremarkable next CT of the head is reported as no acute intracranial process. Patient reviewed the CT and agree with the report. Review of Systems The positive and negative as per HPI. Past Medical History Past Medical History: CVA/TIA, Fibromyalgia, Hyperlipidemia, Osteoarthritis (OA) Additional Past Medical History / Comment(s): 07-04-15 ADMITTED TO [facility] WITH NSTEMI. PAST MEDICAL HX: MIGRAINES, HEMORRHOIDS, INCONT OF URINE, TIA X2, fibromyalgia, hypercholesterolemia. History of Any Multi-Drug Resistant Organisms: None Reported Past Surgical History: Hysterectomy, Tubal Ligation Additional Past Surgical History / Comment(s): RECENTLT HAD TEETH EXTRACTED AND HAS NEW DENTURES ,MYRINGTOMY/TUBES 03 LOST 30% OF HEARING EV, SINUS SX 04, COLONOSCOPY CLEAR, Past Anesthesia/Blood Transfusion Reactions: Previous Problems w/ Anesthesia Additional Past Anesthesia/Blood Transfusion Reaction / Comment(s): DIFFICULTY WAKING FROM AA. Past Psychological History: No Psychological Hx Reported Smoking Status: Current every day smoker Past Alcohol Use History: None Reported Past Drug Use History: Marijuana - Past Family History Father Family Medical History: Diabetes Mellitus Mother Family Medical History: Cancer Additional Family Medical History / Comment(s): LUNG CANCER Brother(s) Family Medical History: Coronary Artery Disease (CAD) Sister(s) Family Medical History: No Reported History Son(s) Family Medical History: No Reported History Medications and Allergies Home Medications Medication Instructions Recorded Confirmed Type Albuterol Inhaler [Ventolin Hfa 1 puff INHALATION RT-Q4H PRN 09/26/20 02/24/24 History Inhaler] Aspirin EC [Ecotrin Low Dose] 81 mg PO W/BRKFST 09/26/20 02/24/24 History Nitroglycerin Sl Tabs [Nitrostat] 0.4 mg SL Q5M PRN 09/26/20 02/24/24 History Albuterol Nebulized [Ventolin 2.5 mg INHALATION RT-Q6H PRN 06/08/23 02/24/24 History Nebulized] amLODIPine [Norvasc] 5 mg PO W/BRKFST 06/08/23 02/24/24 History lisinopriL [Zestril] 20 mg PO W/BRKFST 06/08/23 02/24/24 History Baclofen [Lioresal] 10 mg PO BID 02/24/24 02/24/24 History Cholecalciferol [Vitamin D3 (25 50 mcg PO W/LUNCH 02/24/24 02/24/24 History Mcg = 1000 Iu)] Cyanocobalamin (Vitamin B-12) 1,000 mcg PO W/LUNCH 02/24/24 02/24/24 History [Vitamin B-12] Esomeprazole Magnesium [NexIUM 20 mg PO W/BRKFST 02/24/24 02/24/24 History 24Hr] Ezetimibe [Zetia] 10 mg PO W/BRKFST 02/24/24 02/24/24 History Formoterol Fumarate [Perforomist] 20 mcg INHALATION RT-BID 02/24/24 02/24/24 History Ibuprofen [Motrin] 800 mg PO Q8H PRN 02/24/24 02/24/24 History Magnesium 250 mg PO W/LUNCH 02/24/24 02/24/24 History Meclizine [Antivert] 12.5 - 25 mg PO BID-W/MEALS 02/24/24 02/24/24 History Metoprolol Tartrate [Lopressor] 50 mg PO BID 02/24/24 02/24/24 History Potassium Gluconate 90 mg PO W/LUNCH 02/24/24 02/24/24 History Pregabalin [Lyrica] 150 mg PO TID 02/24/24 02/24/24 History Pyridoxine [Vitamin B-6] 25 mg PO W/LUNCH 02/24/24 02/24/24 History Ubidecarenone [Coenzyme Q10] 200 mg PO W/LUNCH 02/24/24 02/24/24 History Allergies Allergy/AdvReac Type Severity Reaction Status Date / Time amoxicillin trihydrate AdvReac Nausea & Verified 02/24/24 13:59 [From Augmentin] Vomiting potassium clavulanate AdvReac Nausea & Verified 02/24/24 13:59 [From Augmentin] Vomiting Physical Examination - Vital Signs Vital Signs: Vital Signs Temp Pulse Pulse Resp BP BP Pulse Ox 02/25/24 15:23 68 02/25/24 15:17 64 02/25/24 14:47 97.6 F 65 16 127/77 97 02/25/24 11:51 64 02/25/24 11:43 60 02/25/24 09:26 61 15 02/25/24 08:53 61 02/25/24 08:45 60 02/25/24 07:10 98.2 F 61 15 133/77 97 02/25/24 02:38 78 02/25/24 02:28 68 02/25/24 02:21 61 16 02/25/24 02:00 98.7 F 20 117/63 97 02/24/24 21:33 98.4 F 61 16 113/62 96 02/24/24 21:30 98.4 F 61 16 113/62 96 02/24/24 20:41 74 02/24/24 20:34 76 02/24/24 20:03 68 16 140/81 97 02/24/24 18:19 98.1 F 70 18 155/86 98 Intake and Output 02/25/24 02/25/24 02/25/24 06:59 14:59 22:59 Intake Total 480 118 Balance 480 118 Intake: Oral 480 118 Other: Voiding Method Toilet Toilet # Voids 2 2 GENERAL: The patient is lying in bed and is not in acute distress. NEUROLOGICAL: Higher mental function: The patient is awake, alert, oriented to self, place and time. Patient is following commands. No aphasia and no neglect. Cranial nerves: The pupils are round, equal and reactive to light and accommoda tion. Visual [place] are full to confrontation throughout. Extraocular movement is rotatory nystagmus is noted looking to right and left. Facial sensation is normal to touch throughout. The facial strength is normal throughout. Hearing is normal bilaterally to hand rub. Tongue is midline and moved [id number] without any difficulty. No dysarthria is noted. Shoulder shrug is normal bilaterally. Motor: Gait is unsteady walking but does not need any assistance. The strength is 5 over 5 throughout. Normal tone and bulk. Cerebellum: Normal finger to nose heel to brown bilaterally. Sensation: Sensation is normal to touch throughout. Reflexes (right/left):2+ throughout Plantars is unable to assess because of her cooperation even with multiple tries. Results - Laboratory Findings CBC and BMP: 02/24/24 14:50 02/24/24 14:50 Abnormal Lab Findings: Abnormal Labs 02/24/24 14:50 Glucose 101 H Assessment and Plan Assessment: This a 58-year-old woman who presents because of unsteady gait for the last 1 month with blurred vision since this past Thursday. feels her equilibrium is off. On examination she had nystagmus looking to the right as well as left and that she had unsteady gait. Unsteady gait with nystagmus looking to the right and left and symptoms: Rule out any subacute cerebellar lesion Underlying history of hypertension Hypercholesterolemia Plan: I ordered MRI of the brain with and without I ordered carotid duplex Currently the patient is on aspirin 81 mg daily. Patient does have a stroke we will get rest of the stroke workup 2D echo, lipid panel. I consulted PT and OT Order TSH, vitamin B12 and folate. I also ordered hemoglobin A1c for Will defer the rest of the medical management to primary team Plan discussed with the patient and her is at bedside Thank for the consultation. Time with Patient: Greater than 30
--- NOTE | 2024-02-25 19:44 | US ---
EXAMINATION TYPE: US carotid duplex BILAT DATE OF EXAM: 02/25/2024 COMPARISON: NONE CLINICAL INDICATION: Female, 58 years old with history of stroke; vision issues TECHNIQUE: Carotid duplex ultrasound examination. Indirect Doppler criteria was utilized. FINDINGS: EXAM MEASUREMENTS: RIGHT: Peak Systolic Velocity (PSV) cm/sec ----- Right CCA: 55.6 ----- Right ICA: 81.3 ----- Right ECA: 83.4 ICA/CCA ratio: 1.46 RIGHT: End Diastole cm/sec ----- Right CCA: 19.4 ----- Right ICA: 34.1 ----- Right ECA: 16.3 LEFT: Peak Systolic Velocity (PSV) cm/sec ----- Left CCA: 71.9 ----- Left ICA: 116 ----- Left ECA: 80.3 ICA/CCA ratio: 1.6 LEFT: End Diastole cm/sec ----- Left CCA: 21.5 ----- Left ICA: 38.0 ----- Left ECA: 17.8 VERTEBRALS (direction of flow): Right Vertebral: Antegrade Left Vertebral: Antegrade Rhythm: Normal IMPRESSION: Scattered atherosclerotic disease without sonographic evidence of significant stenosis.
--- NOTE | 2024-02-25 20:20 | P.HPIM ---
History of Present Illness H&P Date: 02/25/24 Chief Complaint: Unsteady This is a 58-year-old patient, follows with Dr. Lew. Patient is accompanied by at the bedside. 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 CAD with stent, fibromyalgia, hyperlipidemia, osteoarthritis, migraines hemorrhoids urine incontinence. Patient is also following with DUDE WRANGLER Swapna Pathak at Dr. Ramirez's office. Unable to have MRI as the machine has been broken down there. Patient presented with them somewhere before September. Patient been having burning sensation in the hand and feet. Sometimes gets sharp pains in the legs. For more than a month patient is also having some blurry vision. 5 6 days ago patient noticed some double vision. Denies any fever and chills. Gilbert es any headaches. Has decided to come in. Patient is also having trouble walking and balance is not good. Is also going on for some time. Review of systems: GEN.: None EYES: As above e HEENT: None NECK: None RESPIRATORY: None CARDIOVASCULAR: None GASTROINTESTINAL: None GENITOURINARY: None MUSCULOSKELETAL: None LYMPHATICS: None HEMATOLOGICAL: None PSYCHIATRY: None NEUROLOGICAL: As above e Social history: Smoked a pack a day for 34 years. Stopped a year ago. . No alcohol. Physical examination: VITAL SIGNS: 97.6, 65, 16, 127 x 77, 97% room air GENERAL: BMI 26.1, reclining in bed. EYES: Pupils equal. Conjunctiva kami l. HEENT: External appearance of nose and ears normal, oral cavity grossly normal. NECK: JVD not raised; masses not palpable. HEART: First and second heart sounds are normal; no edema. LUNGS: Respiratory rate normal; decreased breath sounds. ABDOMEN: Soft, nontender, liver spleen not palpable, no masses palpable. PSYCH: Alert and oriented x3; mood and affect kami l. MUSCULOSKELETAL:No Clubbing/cyanosis;muscles-grossly intact NEUROLOGICAL: Cranial nerves grossly intact; no facial asymmetry, decreased motion picture equipment supervisor in both the hands. Some hyperreflexia noted in all 4 limbs. Sensation grossly normal. LYMPHATICS: No lymph nodes palpable in the axilla and neck INVESTIGATIONS, reviewed in the clinical context: February 24, 2024: White count 5.1 hemoglobin 14.3 platelets 259 sodium 139 potassium 4.4 creatinine 0.83 Troponin I less than 0.012 EKG tracing personally reviewed by me-normal sinus rhythm. Poor R wave progression. Chest x-ray film personally reviewed by me-hyperinflation CT brain without contrast: Unremarkable Assessment plan: -Patient has neurological symptoms going on for few months. Apparently before September. Some have been progressive. She has been following at Dr. Ramirez neurology's office. MRI was pending outpatient. Finally decided to come in. Currently no clear-cut diagnosis. Neurology consulted. MRI brain with and without contrast. -Chronic fibromyalgia Lyrica 150 mg 3 times daily -Hyperlipidemia Zetia 10 mg with breakfast -Primary osteoarthritis Motrin as needed -Chronic urine incontinence -COPD in a previous smoker Peroforomist-nebulizer. Albuterol as needed. -CAD with stent Lopressor. Aspirin. -Essential hypertension Amlodipine 5 mg. Zestril 20 mg. Lopressor 50 mg twice daily -GERD PPI Care was discussed with the patient and . Questions answered. Follow-up with neurology. Past Medical History Past Medical History: CVA/TIA, Fibromyalgia, Hyperlipidemia, Osteoarthritis (OA) Additional Past Medical History / Comment(s): 07-04-15 ADMITTED TO [facility] WITH NSTEMI. PAST MEDICAL HX: MIGRAINES, HEMORRHOIDS, INCONT OF URINE, TIA X2, fibromyalgia, hypercholesterolemia. History of Any Multi-Drug Resistant Organisms: None Reported Past Surgical History: Hysterectomy, Tubal Ligation Additional Past Surgical History / Comment(s): RECENTLT HAD TEETH EXTRACTED AND HAS NEW DENTURES ,MYRINGTOMY/TUBES 03 LOST 30% OF HEARING EV, SINUS SX 04, COLONOSCOPY CLEAR, Past Anesthesia/Blood Transfusion Reactions: Previous Problems w/ Anesthesia Additional Past Anesthesia/Blood Transfusion Reaction / Comment(s): DIFFICULTY WAKING FROM AA. Past Psychological History: No Psychological Hx Reported Smoking Status: Current every day smoker Past Alcohol Use History: None Reported Past Drug Use History: Marijuana - Past Family History Father Family Medical History: Diabetes Mellitus Mother Family Medical History: Cancer Additional Family Medical History / Comment(s): LUNG CANCER Brother(s) Family Medical History: Coronary Artery Disease (CAD) Sister(s) Family Medical History: No Reported History Son(s) Family Medical History: No Reported History Medications and Allergies Home Medications Medication Instructions Recorded Confirmed Type Albuterol Inhaler [Ventolin Hfa 1 puff INHALATION RT-Q4H PRN 09/26/20 02/24/24 History Inhaler] Aspirin EC [Ecotrin Low Dose] 81 mg PO W/BRKFST 09/26/20 02/24/24 History Nitroglycerin Sl Tabs [Nitrostat] 0.4 mg SL Q5M PRN 09/26/20 02/24/24 History Albuterol Nebulized [Ventolin 2.5 mg INHALATION RT-Q6H PRN 06/08/23 02/24/24 History Nebulized] amLODIPine [Norvasc] 5 mg PO W/BRKFST 06/08/23 02/24/24 History lisinopriL [Zestril] 20 mg PO W/BRKFST 06/08/23 02/24/24 History Baclofen [Lioresal] 10 mg PO BID 02/24/24 02/24/24 History Cholecalciferol [Vitamin D3 (25 50 mcg PO W/LUNCH 02/24/24 02/24/24 History Mcg = 1000 Iu)] Cyanocobalamin (Vitamin B-12) 1,000 mcg PO W/LUNCH 02/24/24 02/24/24 History [Vitamin B-12] Esomeprazole Magnesium [NexIUM 20 mg PO W/BRKFST 02/24/24 02/24/24 History 24Hr] Ezetimibe [Zetia] 10 mg PO W/BRKFST 02/24/24 02/24/24 History Formoterol Fumarate [Perforomist] 20 mcg INHALATION RT-BID 02/24/24 02/24/24 History Ibuprofen [Motrin] 800 mg PO Q8H PRN 02/24/24 02/24/24 History Magnesium 250 mg PO W/LUNCH 02/24/24 02/24/24 History Meclizine [Antivert] 12.5 - 25 mg PO BID-W/MEALS 02/24/24 02/24/24 History Metoprolol Tartrate [Lopressor] 50 mg PO BID 02/24/24 02/24/24 History Potassium Gluconate 90 mg PO W/LUNCH 02/24/24 02/24/24 History Pregabalin [Lyrica] 150 mg PO TID 02/24/24 02/24/24 History Pyridoxine [Vitamin B-6] 25 mg PO W/LUNCH 02/24/24 02/24/24 History Ubidecarenone [Coenzyme Q10] 200 mg PO W/LUNCH 02/24/24 02/24/24 History Allergies Allergy/AdvReac Type Severity Reaction Status Date / Time amoxicillin trihydrate AdvReac Nausea & Verified 02/24/24 13:59 [From Augmentin] Vomiting potassium clavulanate AdvReac Nausea & Verified 02/24/24 13:59 [From Augmentin] Vomiting Physical Exam Vitals: Vital Signs Temp Pulse Pulse Resp BP BP Pulse Ox 02/25/24 09:26 61 15 02/25/24 08:53 61 02/25/24 07:10 98.2 F 61 15 133/77 97 02/25/24 02:38 78 02/25/24 02:28 68 02/25/24 02:21 61 16 02/25/24 02:00 98.7 F 20 117/63 97 02/24/24 21:33 98.4 F 61 16 113/62 96 02/24/24 21:30 98.4 F 61 16 113/62 96 02/24/24 20:41 74 02/24/24 20:34 76 02/24/24 20:03 68 16 140/81 97 02/24/24 18:19 98.1 F 70 18 155/86 98 02/24/24 15:15 63 18 120/78 99 02/24/24 13:06 97.9 F 66 18 104/60 97 Intake and Output 02/24/24 02/25/24 02/25/24 22:59 06:59 14:59 Intake Total 480 118 Balance 480 118 Intake: Oral 480 118 Other: Voiding Method Toilet Toilet Toilet # Voids 2 Weight 68.946 kg Results CBC & Chem 7: 02/24/24 14:50 02/24/24 14:50 Labs: Abnormal Lab Results - Last 24 Hours (Table) 02/24/24 Range/Units 14:50 Glucose 101 H (74-99) mg/dL Thrombosis Risk Factor Assmnt - Choose All That Apply Any of the Below Risk Factors Present?: Yes Each Factor Represents 1 point: Age 41-60 years Other Risk Factors: No Thrombosis Risk Factor Assessment Total Risk Factor Score: 1 Thrombosis Risk Factor Assessment Level: Low Risk
--- NOTE | 2024-02-26 11:42 | P.PN ---
Subjective Progress Note Date: 02/26/24 I am following-up with patient and feels about the same. Denies any worsening of her neurological issues. She is asking if she can go home today after MRI Brain. Objective - Vital Signs Vital signs: Vital Signs Temp 97.9 F 02/26/24 07:30 Pulse 75 02/26/24 10:31 Resp 16 02/26/24 07:30 BP 127/73 02/26/24 07:30 Pulse Ox 97 02/26/24 07:30 FiO2 Intake & Output 02/25/24 02/26/24 02/26/24 18:59 06:59 18:59 Intake Total 354 480 236 Balance 354 480 236 Intake: Oral 354 480 236 Other: Voiding Method Toilet Toilet # Voids 2 1 - Exam Some of the workup during this hospital visit consisted of: CBC with differential is unremarkable Chemistry panel is unremarkable Vitamin B12: 1139 Serum folate: 4.70 (normal is 4.4-31) TSH: 3.62 HbA1c: 5.9 CT of the head is reported as no acute intracranial process. Patient reviewed the CT and agree with the report. Carotid duplex: It is reported as scattered atherosclerotic disease without sonographic evidence of significant stenosis. - Labs CBC & Chem 7: 02/24/24 14:50 02/24/24 14:50 Labs: Abnormal Lab Results - Last 24 Hours (Table) 02/25/24 Range/Units 18:13 Vitamin B12 1139.0 H (200.0-944.0) pg/mL Assessment and Plan Assessment: This a 58-year-old woman who presents because of unsteady gait for the last 1 month with blurred vision since this past Thursday. feels her equilibrium is off. On examination she had nystagmus looking to the right as well as left and that she had unsteady gait. Unsteady gait with nystagmus looking to the right and left and symptoms: Rule out any subacute cerebellar lesion Very low folate and is borderline normal level is 4.70 (normal is 4.4-31) Underlying history of hypertension Hypercholesterolemia Plan: MRI of the brain with and without is pending. Currently the patient is on aspirin 81 mg daily. If patient does have a stroke we will get rest of the stroke workup 2D echo, lipid panel. PT and OT are consulted. Very low folate and is borderline normal level is 4.70 (normal is 4.4-31). I started the patient on folic acid 1mg daily. Will defer the rest of the medical management to primary team Plan discussed with the patient Dr. De León will resume neurology service tomorrow A.M. Time with Patient: Less than 30
--- NOTE | 2024-02-26 14:48 | MR ---
EXAMINATION TYPE: MR brain wo/w con DATE OF EXAM: 02/26/2024 1:08 PM CLINICAL INDICATION:Female, 58 years old with history of visual disturbance and dizzy; PHH, Visual di sturbance, dizziness. COMPARISON: 02/24/2024. TECHNIQUE: Multi planar, multi sequence imaging was performed through the brain including: T1, T2, In version recovery, susceptibility weighted imaging and gradient echo imaging and Diffusion weighted im aging. The patient was then given intravenous contrast and multi planar, T1 fat-saturation images wer e obtained. IV Contrast: 7 cc Gadavist FINDINGS: The duarte-white junctions, ventricular system, basal cisterns appear unremarkable. Diffusion-weighted imaging shows no evidence of restricted diffusion to suggest acute/subacute infarct. Intracranial ar terial flow voids are maintained. Midline structures show no abnormality. The susceptibility weighted images do not reveal any evidence for micro-hemorrhage. After administration of gadolinium, no abnor mal enhancement is seen. The bone marrow signal is within normal limits. Paranasal sinuses and mastoid air cells: No significant paranasal sinus disease. Visualized orbits: Orbital contents are intact. IMPRESSION: 1. No evidence of intracranial mass, acute/subacute infarct, or abnormal enhancement.
--- NOTE | 2024-02-26 16:40 | P.PN ---
Progress Note - Text Progress Note Date: 02/26/24 Chief Complaint: Unsteady This is a 58-year-old patient, follows with Dr. Lew. Patient is accompanied by at the bedside. 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 CAD with stent, fibromyalgia, hyperlipidemia, osteoarthritis, migraines hemorrhoids urine incontinence. Patient is also following with AUTOMOTIVE PARTS MANAGER Swapna Pathak at Dr. Ramirez's office. Unable to have MRI as the machine has been broken down there. Patient presented with them somewhere before September. Patient been having burning sensation in the hand and feet. Sometimes gets sharp pains in the legs. For more than a month patient is also having some blurry vision. 5 6 days ago patient noticed some double vision. Denies any fever and chills. Denies any headaches. Has decided to come in. Patient is also having trouble walking and balance is not good. Is also going on for some time. February 25: MRI of the brain came back to be negative. Dr. RAYMOND neurologist ordered a MRI C-spine. Other medications to continue. Active Medications Albuterol Sulfate (Albuterol Nebulized 2.5 Mg/3 Ml) 2.5 mg INHALATION RT-Q4H PRN PRN Reason: Shortness Of Breath Last Admin: 02/26/24 15:47 Dose: 2.5 mg Amlodipine Besylate (Amlodipine 5 Mg Tab) 5 mg PO W/BRKFST [facility] Last Admin: 02/26/24 06:15 Dose: 5 mg Aspirin (Aspirin 81 Mg) 81 mg PO W/BRKFST [facility] Last Admin: 02/26/24 06:15 Dose: 81 mg Baclofen (Baclofen 10 Mg Tab) 10 mg PO BID [facility] Last Admin: 02/26/24 10:34 Dose: 10 mg Ezetimibe (Ezetimibe 10 Mg Tab) 10 mg PO W/BRKFST [facility] Last Admin: 02/26/24 06:15 Dose: 10 mg Enoxaparin Sodium (Enoxaparin 40 Mg/0.4 Ml Syringe) 40 mg SQ DAILY [facility] Last Admin: 02/26/24 10:34 Dose: 40 mg Folic Acid (Folic Acid 1 Mg Tab) 1 mg PO DAILY [facility] Formoterol Fumarate (Formoterol Fumarate 20 Mcg/2 Ml Nebu) 20 mcg INHALATION RT-BID [facility] Last Admin: 02/26/24 09:48 Dose: Not Given Ibuprofen (Ibuprofen 800 Mg Tab) 800 mg PO Q8H PRN PRN Reason: Pain Lisinopril (Lisinopril 20 Mg Tab) 20 mg PO W/BRKFST [facility] Last Admin: 02/26/24 06:15 Dose: 20 mg Magnesium Oxide (Magnesium Oxide 400 Mg Tab) 400 mg PO W/LUNCH [facility] Last Admin: 02/26/24 13:48 Dose: 400 mg Metoprolol Tartrate (Metoprolol Tartrate 50 Mg Tab) 50 mg PO BID [facility] Last Admin: 02/26/24 10:34 Dose: 50 mg Naloxone HCl (Naloxone 0.4 Mg/Ml 1 Ml Vial) 0.2 mg IV Q2M PRN PRN Reason: Opioid Reversal Pantoprazole Sodium (Pantoprazole 40 Mg Tablet) 40 mg PO W/BRKFST [facility] Last Admin: 02/26/24 06:15 Dose: 40 mg Pregabalin (Pregabalin 75 Mg Cap) 150 mg PO TID [facility] Last Admin: 02/26/24 10:34 Dose: 150 mg Pyridoxine HCl (Pyridoxine 50 Mg Tab) 25 mg PO W/LUNCH [facility] Last Admin: 02/26/24 13:48 Dose: 25 mg Social history: Smoked a pack a day for 34 years. Stopped a year ago. . No alcohol. Physical examination: VITAL SIGNS: 97.3, 62, 17, 142 x 78, 98% room air GENERAL: Resting in bed EYES: Pupils equal. Conjunctiva kami l. HEENT: External appearance of nose and ears normal, oral cavity grossly normal. NECK: JVD not raised; masses not palpable. HEART: First and second heart sounds are normal; no edema. LUNGS: Respiratory rate normal; decreased breath sounds. ABDOMEN: Soft, nontender, liver spleen not palpable, no masses palpable. PSYCH: Alert and oriented x3; mood and affect kami l. MUSCULOSKELETAL:No Clubbing/cyanosis;muscles-grossly intact NEUROLOGICAL: Cranial nerves grossly intact; no facial asymmetry, decreased glass cutter in both the hands. Some hyperreflexia noted in all 4 limbs. Sensation grossly normal. INVESTIGATIONS, reviewed in the clinical context: MRI brain-unremarkable February 24, 2024: White count 5.1 hemoglobin 14.3 platelets 259 sodium 139 potassium 4.4 creatinine 0.83 Troponin I less than 0.012 EKG tracing personally reviewed by me-normal sinus rhythm. Poor R wave progression. Chest x-ray film personally reviewed by me-hyperinflation CT brain without contrast: Unremarkable Assessment plan: -Patient has neurological symptoms going on for few months. Apparently before September. Some have been progressive. She has been following at Dr. Ramirez neurology's office. MRI was pending outpatient. Finally decided to come in. Currently no clear-cut diagnosis. Neurology following MRI brain: Unremarkable MRI C-spine ordered -Chronic fibromyalgia Lyrica 150 mg 3 times daily -Hyperlipidemia Zetia 10 mg with breakfast -Primary osteoarthritis Motrin as needed -Chronic urine incontinence -COPD in a previous smoker Peroforomist-nebulizer. Albuterol as needed. -CAD with stent Lopressor. Aspirin. -Essential hypertension Amlodipine 5 mg. Zestril 20 mg. Lopressor 50 mg twice daily -GERD PPI -Full code Per neurology MRI C-spine ordered. Other medications to continue. Past Medical History Past Medical History: CVA/TIA, Fibromyalgia, Hyperlipidemia, Osteoarthritis (OA) Additional Past Medical History / Comment(s): 07-04-15 ADMITTED TO [facility] WITH NSTEMI. PAST MEDICAL HX: MIGRAINES, HEMORRHOIDS, INCONT OF URINE, TIA X2, fibromyalgia, hypercholesterolemia. History of Any Multi-Drug Resistant Organisms: None Reported Past Surgical History: Hysterectomy, Tubal Ligation Additional Past Surgical History / Comment(s): RECENTLT HAD TEETH EXTRACTED AND HAS NEW DENTURES ,MYRINGTOMY/TUBES 03 LOST 30% OF HEARING EV, SINUS SX 04, COLONOSCOPY CLEAR, Past Anesthesia/Blood Transfusion Reactions: Previous Problems w/ Anesthesia Additional Past Anesthesia/Blood Transfusion Reaction / Comment(s): DIFFICULTY WAKING FROM AA. Past Psychological History: No Psychological Hx Reported Smoking Status: Current every day smoker Past Alcohol Use History: None Reported Past Drug Use History: Marijuana
[2024-02-26] MEDS: FOLIC ACID 1 MG TAB PO SCH (18:06)
[2024-02-26] MEDS: IBUPROFEN 800 MG TAB PO PRN (21:33)
--- NOTE | 2024-02-27 15:45 | P.PN ---
Progress Note - Text Progress Note Date: 02/27/24 Chief Complaint: Unsteady This is a 58-year-old patient, follows with Dr. Lew. Patient is accompanied by at the bedside. 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 CAD with stent, fibromyalgia, hyperlipidemia, osteoarthritis, migraines hemorrhoids urine incontinence. Patient is also following with MEASUREMENT PSYCHOLOGIST Swapna Pathak at Dr. Ramirez's office. Unable to have MRI as the machine has been broken down there. Patient presented with them somewhere before September. Patient been having burning sensation in the hand and feet. Sometimes gets sharp pains in the legs. For more than a month patient is also having some blurry vision. 5 6 days ago patient noticed some double vision. Denies any fever and chills. Denies any headaches. Has decided to come in. Patient is also having trouble walking and balance is not good. Is also going on for some time. February 25: MRI of the brain came back to be negative. Dr. RAYMOND neurologist ordered a MRI C-spine. Other medications to continue. February 26: at the bedside. Pending MRI C-spine. I have been informed possibly will take up till Thursday. Getting sharp pains in the left arm. Active Medications Albuterol Sulfate (Albuterol Nebulized 2.5 Mg/3 Ml) 2.5 mg INHALATION RT-Q4H PRN PRN Reason: Shortness Of Breath Last Admin: 02/27/24 07:37 Dose: 2.5 mg Amlodipine Besylate (Amlodipine 5 Mg Tab) 5 mg PO W/BRKFST [facility] Last Admin: 02/27/24 06:25 Dose: 5 mg Aspirin (Aspirin 81 Mg) 81 mg PO W/BRKFST [facility] Last Admin: 02/27/24 06:25 Dose: 81 mg Baclofen (Baclofen 10 Mg Tab) 10 mg PO BID [facility] Last Admin: 02/27/24 10:08 Dose: 10 mg Ezetimibe (Ezetimibe 10 Mg Tab) 10 mg PO W/BRKFST [facility] Last Admin: 02/27/24 06:25 Dose: 10 mg Enoxaparin Sodium (Enoxaparin 40 Mg/0.4 Ml Syringe) 40 mg SQ DAILY [facility] Last Admin: 02/27/24 10:08 Dose: 40 mg Folic Acid (Folic Acid 1 Mg Tab) 1 mg PO DAILY [facility] Last Admin: 02/27/24 10:08 Dose: 1 mg Formoterol Fumarate (Formoterol Fumarate 20 Mcg/2 Ml Nebu) 20 mcg INHALATION RT-BID [facility] Last Admin: 02/27/24 07:37 Dose: 20 mcg Ibuprofen (Ibuprofen 800 Mg Tab) 800 mg PO Q8H PRN PRN Reason: Pain Last Admin: 02/27/24 10:03 Dose: 800 mg Lisinopril (Lisinopril 20 Mg Tab) 20 mg PO W/BRKFST [facility] Last Admin: 02/27/24 06:25 Dose: 20 mg Magnesium Oxide (Magnesium Oxide 400 Mg Tab) 400 mg PO W/LUNCH [facility] Last Admin: 02/27/24 15:03 Dose: 400 mg Metoprolol Tartrate (Metoprolol Tartrate 50 Mg Tab) 50 mg PO BID [facility] Last Admin: 02/27/24 10:08 Dose: 50 mg Naloxone HCl (Naloxone 0.4 Mg/Ml 1 Ml Vial) 0.2 mg IV Q2M PRN PRN Reason: Opioid Reversal Pantoprazole Sodium (Pantoprazole 40 Mg Tablet) 40 mg PO W/BRKFST [facility] Last Admin: 02/27/24 06:25 Dose: 40 mg Pregabalin (Pregabalin 75 Mg Cap) 150 mg PO TID [facility] Last Admin: 02/27/24 10:08 Dose: 150 mg Pyridoxine HCl (Pyridoxine 50 Mg Tab) 25 mg PO W/LUNCH [facility] Last Admin: 02/27/24 15:03 Dose: 25 mg Social history: Smoked a pack a day for 34 years. Stopped a year ago. . No alcohol. Physical examination: VITAL SIGNS: 97.7, 65, 16, 90/59, 96% room air GENERAL: Resting in bed EYES: Pupils equal. Conjunctiva kami l. HEENT: External appearance of nose and ears normal, oral cavity grossly normal. NECK: JVD not raised; masses not palpable. HEART: First and second heart sounds are normal; no edema. LUNGS: Respiratory rate normal; decreased breath sounds. ABDOMEN: Soft, nontender, liver spleen not palpable, no masses palpable. PSYCH: Alert and oriented x3; mood and affect kami l. MUSCULOSKELETAL:No Clubbing/cyanosis;muscles-grossly intact NEUROLOGICAL: Cranial nerves grossly intact; no facial asymmetry, decreased rate reviewer in both the hands. Some hyperreflexia noted in all 4 limbs. Sensation grossly normal. INVESTIGATIONS, reviewed in the clinical context: MRI brain-unremarkable February 24, 2024: White count 5.1 hemoglobin 14.3 platelets 259 sodium 139 potassium 4.4 creatinine 0.83 Troponin I less than 0.012 EKG tracing personally reviewed by me-normal sinus rhythm. Poor R wave progression. Chest x-ray film personally reviewed by me-hyperinflation CT brain without contrast: Unremarkable Assessment plan: -Patient has neurological symptoms going on for few months. Apparently before September. Some have been progressive. She has been following at Dr. Ramirez neurology's office. MRI was pending outpatient. Finally decided to come in. Currently no clear-cut diagnosis. Neurology following MRI brain: Unremarkable MRI C-spine pending -Chronic fibromyalgia Lyrica 150 mg 3 times daily -Hyperlipidemia Zetia 10 mg with breakfast -Primary osteoarthritis Motrin as needed -Chronic urine incontinence -COPD in a previous smoker Peroforomist-nebulizer. Albuterol as needed. -CAD with stent Lopressor. Aspirin. -Essential hypertension Amlodipine 5 mg. Zestril 20 mg. Lopressor 50 mg twice daily -GERD PPI -Full code Poke to patient and . Pending C-spine MRI. Follow-up with neurology. Past Medical History Past Medical History: CVA/TIA, Fibromyalgia, Hyperlipidemia, Osteoarthritis (OA) Additional Past Medical History / Comment(s): 07-04-[address] [facility] WITH NSTEMI. PAST MEDICAL HX: MIGRAINES, HEMORRHOIDS, INCONT OF URINE, TIA X2, fibromyalgia, hypercholesterolemia. History of Any Multi-Drug Resistant Organisms: None Reported Past Surgical History: Hysterectomy, Tubal Ligation Additional Past Surgical History / Comment(s): RECENTLT HAD TEETH EXTRACTED AND HAS NEW DENTURES ,MYRINGTOMY/TUBES 03 LOST 30% OF HEARING EV, SINUS SX 04, COLONOSCOPY CLEAR, Past Anesthesia/Blood Transfusion Reactions: Previous Problems w/ Anesthesia Additional Past Anesthesia/Blood Transfusion Reaction / Comment(s): DIFFICULTY WAKING FROM AA. Past Psychological History: No Psychological Hx Reported Smoking Status: Current every day smoker Past Alcohol Use History: None Reported Past Drug Use History: Marijuana
--- NOTE | 2024-02-28 16:28 | P.PN ---
Progress Note - Text Progress Note Date: 02/28/24 Chief Complaint: Unsteady This is a 58-year-old patient, follows with Dr. Lew. Patient is accompanied by at the bedside. 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 CAD with stent, fibromyalgia, hyperlipidemia, osteoarthritis, migraines hemorrhoids urine incontinence. Patient is also following with DISCOUNT CLERK Swapna Pathak at Dr. Ramirez's office. Unable to have MRI as the machine has been broken down there. Patient presented with them somewhere before September. Patient been having burning sensation in the hand and feet. Sometimes gets sharp pains in the legs. For more than a month patient is also having some blurry vision. 5 6 days ago patient noticed some double vision. Denies any fever and chills. Denies any headaches. Has decided to come in. Patient is also having trouble walking and balance is not good. Is also going on for some time. February 25: MRI of the brain came back to be negative. Dr. RAYMOND neurologist ordered a MRI C-spine. Other medications to continue. February 26: at the bedside. Pending MRI C-spine. I have been informed possibly will take up till Thursday. Getting sharp pains in the left arm. February 27: Pending MRI C-spine. Having sharp pains in different limbs at different times. at the bedside. Being followed by neurology. Active Medications Albuterol Sulfate (Albuterol Nebulized 2.5 Mg/3 Ml) 2.5 mg INHALATION RT-Q4H PRN PRN Reason: Shortness Of Breath Last Admin: 02/28/24 07:19 Dose: 2.5 mg Amlodipine Besylate (Amlodipine 5 Mg Tab) 5 mg PO W/BRKFST [facility] Last Admin: 02/28/24 06:12 Dose: 5 mg Aspirin (Aspirin 81 Mg) 81 mg PO W/BRKFST [facility] Last Admin: 02/28/24 06:12 Dose: 81 mg Baclofen (Baclofen 10 Mg Tab) 10 mg PO BID [facility] Last Admin: 02/28/24 08:53 Dose: 10 mg Ezetimibe (Ezetimibe 10 Mg Tab) 10 mg PO W/BRKFST [facility] Last Admin: 02/28/24 06:12 Dose: 10 mg Enoxaparin Sodium (Enoxaparin 40 Mg/0.4 Ml Syringe) 40 mg SQ DAILY [facility] Last Admin: 02/28/24 08:53 Dose: 40 mg Folic Acid (Folic Acid 1 Mg Tab) 1 mg PO DAILY [facility] Last Admin: 02/28/24 08:53 Dose: 1 mg Formoterol Fumarate (Formoterol Fumarate 20 Mcg/2 Ml Nebu) 20 mcg INHALATION RT-BID [facility] Last Admin: 02/28/24 07:19 Dose: 20 mcg Ibuprofen (Ibuprofen 800 Mg Tab) 800 mg PO Q8H PRN PRN Reason: Pain Last Admin: 02/27/24 10:03 Dose: 800 mg Lisinopril (Lisinopril 20 Mg Tab) 20 mg PO W/BRKFST [facility] Last Admin: 02/28/24 06:12 Dose: 20 mg Magnesium Oxide (Magnesium Oxide 400 Mg Tab) 400 mg PO W/LUNCH [facility] Last Admin: 02/28/24 13:15 Dose: 400 mg Metoprolol Tartrate (Metoprolol Tartrate 50 Mg Tab) 50 mg PO BID [facility] Last Admin: 02/28/24 08:52 Dose: 50 mg Naloxone HCl (Naloxone 0.4 Mg/Ml 1 Ml Vial) 0.2 mg IV Q2M PRN PRN Reason: Opioid Reversal Pantoprazole Sodium (Pantoprazole 40 Mg Tablet) 40 mg PO W/BRKFST [facility] Last Admin: 02/28/24 06:11 Dose: 40 mg Pregabalin (Pregabalin 75 Mg Cap) 150 mg PO TID [facility] Last Admin: 02/28/24 16:22 Dose: 150 mg Pyridoxine HCl (Pyridoxine 50 Mg Tab) 25 mg PO W/LUNCH [facility] Last Admin: 02/28/24 13:15 Dose: 25 mg Social history: Smoked a pack a day for 34 years. Stopped a year ago. . No alcohol. Physical examination: VITAL SIGNS: T7.7, 62, 16, 132 x 77, 97% room air GENERAL: Resting in bed EYES: Pupils equal. Conjunctiva kami l. HEENT: External appearance of nose and ears normal, oral cavity grossly normal. NECK: JVD not raised; masses not palpable. HEART: First and second heart sounds are normal; no edema. LUNGS: Respiratory rate normal; decreased breath sounds. ABDOMEN: Soft, nontender, liver spleen not palpable, no masses palpable. PSYCH: Alert and oriented x3; mood and affect kami l. MUSCULOSKELETAL:No Clubbing/cyanosis;muscles-grossly intact NEUROLOGICAL: Cranial nerves grossly intact; no facial asymmetry, decreased sweeper driver in both the hands. Some hyperreflexia noted in all 4 limbs. Sensation grossly normal. INVESTIGATIONS, reviewed in the clinical context: MRI brain-unremarkable February 24, 2024: White count 5.1 hemoglobin 14.3 platelets 259 sodium 139 potassium 4.4 creatinine 0.83 Troponin I less than 0.012 EKG tracing personally reviewed by me-normal sinus rhythm. Poor R wave progression. Chest x-ray film personally reviewed by me-hyperinflation CT brain without contrast: Unremarkable Assessment plan: -Patient has neurological symptoms going on for few months. Apparently before September. Some have been progressive. She has been following at Dr. Ramirez neurology's office. MRI was pending outpatient. Finally decided to come in. Currently no clear-cut diagnosis. Neurology following MRI brain: Unremarkable MRI C-spine pending -Chronic fibromyalgia Lyrica 150 mg 3 times daily -Hyperlipidemia Zetia 10 mg with breakfast -Primary osteoarthritis Motrin as needed -Chronic urine incontinence -COPD in a previous smoker Peroforomist-nebulizer. Albuterol as needed. -CAD with stent Lopressor. Aspirin. -Essential hypertension Amlodipine 5 mg. Zestril 20 mg. Lopressor 50 mg twice daily -GERD PPI -Full code Pending MRI C-spine. Other medications to continue. Past Medical History Past Medical History: CVA/TIA, Fibromyalgia, Hyperlipidemia, Osteoarthritis (OA) Additional Past Medical History / Comment(s): 07-04-15 ADMITTED TO [facility] WITH NSTEMI. PAST MEDICAL HX: MIGRAINES, HEMORRHOIDS, INCONT OF URINE, TIA X2, fibromyalgia, hypercholesterolemia. History of Any Multi-Drug Resistant Organisms: None Reported Past Surgical History: Hysterectomy, Tubal Ligation Additional Past Surgical History / Comment(s): RECENTLT HAD TEETH EXTRACTED AND HAS NEW DENTURES ,MYRINGTOMY/TUBES 03 LOST 30% OF HEARING EV, SINUS SX 04, COL ONOSCOPY CLEAR, Past Anesthesia/Blood Transfusion Reactions: Previous Problems w/ Anesthesia Additional Past Anesthesia/Blood Transfusion Reaction / Comment(s): DIFFICULTY WAKING FROM AA. Past Psychological History: No Psychological Hx Reported Smoking Status: Current every day smoker Past Alcohol Use History: None Reported Past Drug Use History: Marijuana
[2024-02-28] MEDS: ZOLPIDEM 5 MG TAB PO SCH (21:22)
--- NOTE | 2024-02-29 16:19 | P.PN ---
Subjective Progress Note Date: 02/29/24 Patient initially seen by Dr. Eyal Liz. Please refer to his note for details. Patient is a 58-year-old female came to the hospital with unsteady gait and nystagmus for 1 month. MRI of the brain was negative. Patient awaiting MRI of the cervical spine. Came to see patient, her was also present. Patient is in no acute distress but intermittently gets lancinating pain in the left arm and hand. Patient states that her symptoms started around Thanksgi time, when she developed burning and itching of hands, like hands were on fire. By October 2023, it turned to pain. She developed new onset of diplopia, nystagmus last 02/20/2024. The double vision resolves, if she closes 1 or the other eye. The diplopia is present in all gazes. She continues to have arm and leg pains bilaterally, left much more worse than right. If it is 100% on the left, it is about 10 to 20% on the right side. Both feet feels numb and cold. No history of diabetes, or any history of cancers. Objective - Vital Signs Vital signs: Vital Signs Temp 97.7 F 02/29/24 08:00 Pulse 62 02/29/24 08:00 Resp 16 02/29/24 10:00 BP 125/61 02/29/24 08:00 Pulse Ox 97 02/29/24 08:00 FiO2 Intake & Output 02/28/24 02/29/24 02/29/24 18:59 06:59 18:59 Intake Total 480 Balance 480 Intake: Oral 480 Other: Voiding Method Toilet Toilet # Voids 3 1 - Exam Mental status, speech and language functions are normal.'s voice is slightly hoarse. On cranial examination pupils are equal, round and reactive to light, visual rowland are full, with no neglect, extraocular muscles although intact, but patient has very mild horizontal nystagmus bilaterally on the end gaze. Slight nystagmus in the up-and-down gaze also. Patient has diplopia in the primary gaze. Face is symmetric and tongue protrudes to midline. On muscle strength testing there is no pronator drift and the strength is normal in arms and legs distally and proximally. Sensory to touch is equal. No neglect. No ataxia for [id number] or qarz-[id number] testing bilaterally. Deep tendon reflexes are 2 at the biceps, 2 brachioradialis, 2 at the knees, 0 ankles and plantars are withdrawal. - Labs CBC & Chem 7: 02/24/24 14:50 02/24/24 14:50 Assessment and Plan Assessment: This a 58-year-old woman who developed symptoms of possible peripheral neuropathy since 2022, symptoms have progressed with lancinating pain, left side more than right. Also has developed new onset significant nystagmus and diplopia in the primary gaze, without significant extraocular muscle weakness. Also has developed unsteady gait. Rule out metabolic/inflammatory/nutritional deficiency. Unsteady gait with nystagmus looking to the right and left and symptoms: No evidence of cerebellar mass, CVA or demyelination. Very low folate and is borderline normal level is 4.70 (normal is 4.4-31) Underlying history of hypertension Hypercholesterolemia Plan: MRI of the brain with and without contrast revealed no intracranial mass, acute/subacute infarct or abnormal enhancement. I personally reviewed MRI, agree with the findings. Continue aspirin 81 mg daily. Carotid Doppler revealed scattered atherosclerotic disease without sonographic evidence of significant stenosis. Antegrade flow in both vertebral arteries. Patient has very low folate level, started on folate replacement. Awaiting MRI of the cervical spine. Ordered detailed blood test to evaluate for inflammatory or nutritional deficiency. Vitamin B12: 1139 Serum folate: 4.70 (normal is 4.4-31) TSH: 3.62 HbA1c: 5.9 CT of the head is reported as no acute intracranial process. If the above workup is unrevealing, patient may need lumbar puncture to rule out any inflammatory polyradiculoneuropathy. Patient still has very good preserved reflexes except absent ankle reflexes. No significant ataxia noted of the upper or lower extremities. Patient may need paraneoplastic workup.
--- NOTE | 2024-02-29 17:10 | MR ---
EXAMINATION TYPE: MR cervical spine wo/w con DATE OF EXAM: 02/29/2024 4:55 PM CLINICAL INDICATION:Female, 58 years old with history of ataxia; PHH, Ataxia, COMPARISON: None. TECHNIQUE: Multi planar, multi sequence imaging was performed utilizing: T1-weighted, T2-weighted, an d turbo inversion recovery imaging of the cervical spine. IV Contrast: 7 cc Gadavist (none if empty) FINDINGS: Alignment: The cervical vertebral bodies have preserved heights. Alignment is within normal limits gi edward patient positioning. Bones: Osteophytes and disc space narrowing most pronounced at the C5-C7 vertebral levels. Cord: The spinal cord is unremarkable with regards to their signal intensity and morphology. Discs: Intervertebral disc signal is maintained. C2-C3: No significant disc pathology. The spinal canal is patent. No neural foraminal stenosis. C3-C4: No significant disc pathology. The spinal canal is patent. No neural foraminal stenosis. C4-C5: No significant disc pathology. The spinal canal is patent. No neural foraminal stenosis. C5-C6: No significant disc pathology. The spinal canal is patent. No neural foraminal stenosis. C6-C7: No significant disc pathology. The spinal canal is patent. No neural foraminal stenosis. C7-T1: No significant disc pathology. The spinal canal is patent. No neural foraminal stenosis. Other: None. IMPRESSION: 1. No evidence for disc herniation or significant spinal canal stenosis. No abnormal postcontrast enh ancement. 2. Minimal disc degeneration with associated osteoarthritic changes.
--- NOTE | 2024-02-29 17:52 | P.PN ---
Progress Note - Text Progress Note Date: 02/29/24 Chief Complaint: Unsteady This is a 58-year-old patient, follows with Dr. Lew. Patient is accompanied by at the bedside. 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 CAD with stent, fibromyalgia, hyperlipidemia, osteoarthritis, migraines hemorrhoids urine incontinence. Patient is also following with TRIMMING CUTTER Swapna Pathak at Dr. Ramirez's office. Unable to have MRI as the machine has been broken down there. Patient presented with them somewhere before September. Patient been having burning sensation in the hand and feet. Sometimes gets sharp pains in the legs. For more than a month patient is also having some blurry vision. 5 6 days ago patient noticed some double vision. Denies any fever and chills. Denies any headaches. Has decided to come in. Patient is also having trouble walking and balance is not good. Is also going on for some time. February 25: MRI of the brain came back to be negative. Dr. RAYMOND neurologist ordered a MRI C-spine. Other medications to continue. February 26: at the bedside. Pending MRI C-spine. I have been informed possibly will take up till Thursday. Getting sharp pains in the left arm. February 27: Pending MRI C-spine. Having sharp pains in different limbs at different times. at the bedside. Being followed by neurology. February 28: MRI C-spine came back unremarkable. Lumbar puncture has been ordered by neurology including other testing. Active Medications Albuterol Sulfate (Albuterol Nebulized 2.5 Mg/3 Ml) 2.5 mg INHALATION RT-Q4H PRN PRN Reason: Shortness Of Breath Last Admin: 02/29/24 07:41 Dose: 2.5 mg Amlodipine Besylate (Amlodipine 5 Mg Tab) 5 mg PO W/BRKFST [facility] Last Admin: 02/29/24 06:30 Dose: 5 mg Aspirin (Aspirin 81 Mg) 81 mg PO W/BRKFST [facility] Last Admin: 02/29/24 06:31 Dose: 81 mg Baclofen (Baclofen 10 Mg Tab) 10 mg PO BID [facility] Last Admin: 02/29/24 10:03 Dose: 10 mg Ezetimibe (Ezetimibe 10 Mg Tab) 10 mg PO W/BRKFST [facility] Last Admin: 02/29/24 06:31 Dose: 10 mg Folic Acid (Folic Acid 1 Mg Tab) 1 mg PO DAILY [facility] Last Admin: 02/29/24 10:03 Dose: 1 mg Formoterol Fumarate (Formoterol Fumarate 20 Mcg/2 Ml Nebu) 20 mcg INHALATION RT-BID [facility] Last Admin: 02/29/24 07:40 Dose: 20 mcg Ibuprofen (Ibuprofen 800 Mg Tab) 800 mg PO Q8H PRN PRN Reason: Pain Last Admin: 02/29/24 13:25 Dose: 800 mg Lisinopril (Lisinopril 20 Mg Tab) 20 mg PO W/BRKFST [facility] Last Admin: 02/29/24 06:31 Dose: 20 mg Magnesium Oxide (Magnesium Oxide 400 Mg Tab) 400 mg PO W/LUNCH [facility] Last Admin: 02/29/24 13:20 Dose: 400 mg Metoprolol Tartrate (Metoprolol Tartrate 50 Mg Tab) 50 mg PO BID [facility] Last Admin: 02/29/24 10:04 Dose: 50 mg Naloxone HCl (Naloxone 0.4 Mg/Ml 1 Ml Vial) 0.2 mg IV Q2M PRN PRN Reason: Opioid Reversal Pantoprazole Sodium (Pantoprazole 40 Mg Tablet) 40 mg PO W/BRKFST [facility] Last Admin: 02/29/24 06:31 Dose: 40 mg Pregabalin (Pregabalin 75 Mg Cap) 150 mg PO TID [facility] Last Admin: 02/29/24 17:12 Dose: 150 mg Pyridoxine HCl (Pyridoxine 50 Mg Tab) 25 mg PO W/LUNCH [facility] Last Admin: 02/29/24 13:20 Dose: 25 mg Zolpidem Tartrate (Zolpidem 5 Mg Tab) 5 mg PO HS [facility] Last Admin: 02/28/24 21:22 Dose: 5 mg Social history: Smoked a pack a day for 34 years. Stopped a year ago. . No alcohol. Physical examination: VITAL SIGNS: 98.2, 71, 16, 1 one 9 x 76, 95% room air GENERAL: Resting in bed EYES: Pupils equal. Conjunctiva kami l. HEENT: External appearance of nose and ears normal, oral cavity grossly normal. NECK: JVD not raised; masses not palpable. HEART: First and second heart sounds are normal; no edema. LUNGS: Respiratory rate normal; decreased breath sounds. ABDOMEN: Soft, nontender, liver spleen not palpable, no masses palpable. PSYCH: Alert and oriented x3; mood and affect kami l. MUSCULOSKELETAL:No Clubbing/cyanosis;muscles-grossly intact NEUROLOGICAL: Cranial nerves grossly intact; no facial asymmetry, decreased joint supervisor in both the hands. Some hyperreflexia noted in all 4 limbs. Sensation grossly normal. INVESTIGATIONS, reviewed in the clinical context: MRI C-spine: Negative MRI brain-unremarkable February 24, 2024: White count 5.1 hemoglobin 14.3 platelets 259 sodium 139 potassium 4.4 creatinine 0.83 Troponin I less than 0.012 EKG tracing personally reviewed by me-normal sinus rhythm. Poor R wave progression. Chest x-ray film personally reviewed by me-hyperinflation CT brain without contrast: Unremarkable Assessment plan: -Patient has neurological symptoms going on for few months. Apparently before September. Some have been progressive. She has been following at Dr. Ramirez neurology's office. MRI was pending outpatient. Finally decided to come in. Currently no clear-cut diagnosis. Neurology following MRI brain: Unremarkable MRI [id number] -Chronic fibromyalgia Lyrica 150 mg 3 times daily -Hyperlipidemia Zetia 10 mg with breakfast -Primary osteoarthritis Motrin as needed -Chronic urine incontinence -COPD in a previous smoker Peroforomist-nebulizer. Albuterol as needed. -CAD with stent Lopressor. Aspirin. -Essential hypertension Amlodipine 5 mg. Zestril 20 mg. Lopressor 50 mg twice daily -GERD PPI -Full code LP ordered for tomorrow by neurology. Other blood work ordered. Follow Past Medical History Past Medical History: CVA/TIA, Fibromyalgia, Hyperlipidemia, Osteoarthritis (OA) Additional Past Medical History / Comment(s): 07-04-15 ADMITTED TO [facility] WITH NSTEMI. PAST MEDICAL HX: MIGRAINES, HEMORRHOIDS, INCONT OF URINE, TIA X2, fibromyalgia, hypercholesterolemia. History of Any Multi-Drug Resistant Organisms: None Reported Past Surgical History: Hysterectomy, Tubal Ligation Additional Past Surgical History / Comment(s): RECENTLT HAD TEETH EXTRACTED AND HAS NEW DENTURES ,MYRINGTOMY/TUBES 03 LOST 30% OF HEARING EV, SINUS SX 04, COLONOSCOPY CLEAR, Past Anesthesia/Blood Transfusion Reactions: Previous Problems w/ Anesthesia Additional Past Anesthesia/Blood Transfusion Reaction / Comment(s): DIFFICULTY WAKING FROM AA. Past Psychological History: No Psychological Hx Reported Smoking Status: Current every day smoker Past Alcohol Use History: None Reported Past Drug Use History: Marijuana
[2024-03-01] MEDS: LORazepam 1 MG/0.5 ML VIAL IV STA (12:51)
[2024-03-01] MEDS: LIDOCAINE 1% INJ 10MG/ML (20 ML MDV) SQ ONE (13:43)
--- NOTE | 2024-03-01 15:17 | P.PN ---
Progress Note - Text Progress Note Date: 03/01/24 Chief Complaint: Unsteady This is a 58-year-old patient, follows with Dr. Lew. Patient is accompanied by at the bedside. 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 CAD with stent, fibromyalgia, hyperlipidemia, osteoarthritis, migraines hemorrhoids urine incontinence. Patient is also following with AIRCRAFT PAINTER Swapna Pathak at Dr. Ramirez's office. Unable to have MRI as the machine has been broken down there. Patient presented with them somewhere before September. Patient been having burning sensation in the hand and feet. Sometimes gets sharp pains in the legs. For more than a month patient is also having some blurry vision. 5 6 days ago patient noticed some double vision. Denies any fever and chills. Denies any headaches. Has decided to come in. Patient is also having trouble walking and balance is not good. Is also going on for some time. February 25: MRI of the brain came back to be negative. Dr. RAYMOND neurologist ordered a MRI C-spine. Other medications to continue. February 26: at the bedside. Pending MRI C-spine. I have been informed possibly will take up till Thursday. Getting sharp pains in the left arm. February 27: Pending MRI C-spine. Having sharp pains in different limbs at different times. at the bedside. Being followed by neurology. February 28: MRI C-spine came back unremarkable. Lumbar puncture has been ordered by neurology including other testing. March 01: Seen the patient this morning. Pending lumbar puncture. Neurosymptoms otherwise unchanged. Active Medications Albuterol Sulfate (Albuterol Nebulized 2.5 Mg/3 Ml) 2.5 mg INHALATION RT-Q4H PRN PRN Reason: Shortness Of Breath Last Admin: 03/01/24 03:20 Dose: 2.5 mg Amlodipine Besylate (Amlodipine 5 Mg Tab) 5 mg PO W/BRKFST [facility] Last Admin: 03/01/24 06:30 Dose: 5 mg Aspirin (Aspirin 81 Mg) 81 mg PO W/BRKFST [facility] Last Admin: 03/01/24 06:30 Dose: 81 mg Baclofen (Baclofen 10 Mg Tab) 10 mg PO BID [facility] Last Admin: 03/01/24 09:34 Dose: 10 mg Ezetimibe (Ezetimibe 10 Mg Tab) 10 mg PO W/BRKFST [facility] Last Admin: 03/01/24 06:30 Dose: 10 mg Folic Acid (Folic Acid 1 Mg Tab) 1 mg PO DAILY [facility] Last Admin: 03/01/24 09:34 Dose: 1 mg Formoterol Fumarate (Formoterol Fumarate 20 Mcg/2 Ml Nebu) 20 mcg INHALATION RT-BID [facility] Last Admin: 03/01/24 09:08 Dose: 20 mcg Ibuprofen (Ibuprofen 800 Mg Tab) 800 mg PO Q8H PRN PRN Reason: Pain Last Admin: 03/01/24 06:32 Dose: 800 mg Lisinopril (Lisinopril 20 Mg Tab) 20 mg PO W/BRKFST [facility] Last Admin: 03/01/24 06:30 Dose: 20 mg Magnesium Oxide (Magnesium Oxide 400 Mg Tab) 400 mg PO W/LUNCH [facility] Last Admin: 03/01/24 12:53 Dose: 400 mg Metoprolol Tartrate (Metoprolol Tartrate 50 Mg Tab) 50 mg PO BID [facility] Last Admin: 03/01/24 09:34 Dose: 50 mg Naloxone HCl (Naloxone 0.4 Mg/Ml 1 Ml Vial) 0.2 mg IV Q2M PRN PRN Reason: Opioid Reversal Pantoprazole Sodium (Pantoprazole 40 Mg Tablet) 40 mg PO W/KT [facility] Last Admin: 03/01/24 06:30 Dose: 40 mg Pregabalin (Pregabalin 75 Mg Cap) 150 mg PO TID [facility] Last Admin: 03/01/24 09:38 Dose: 150 mg Pyridoxine HCl (Pyridoxine 50 Mg Tab) 25 mg PO W/LUNCH [facility] Last Admin: 03/01/24 12:54 Dose: 25 mg Zolpidem Tartrate (Zolpidem 5 Mg Tab) 5 mg PO HS [facility] Last Admin: 02/29/24 20:52 Dose: 5 mg Social history: Smoked a pack a day for 34 years. Stopped a year ago. . No alcohol. Physical examination: VITAL SIGNS: 97.9, 55, 15, 118/71, 96% room air GENERAL: Laying in bed EYES: Pupils equal. Conjunctiva kami l. HEENT: External appearance of nose and ears normal, oral cavity grossly normal. NECK: JVD not raised; masses not palpable. HEART: First and second heart sounds are normal; no edema. LUNGS: Respiratory rate normal; decreased breath sounds. ABDOMEN: Soft, nontender, liver spleen not palpable, no masses palpable. PSYCH: Alert and oriented x3; mood and affect kami l. MUSCULOSKELETAL:No Clubbing/cyanosis;muscles-grossly intact NEUROLOGICAL: Cranial nerves grossly intact; no facial asymmetry, decreased tool planner in both the hands. Some hyperreflexia noted in all 4 limbs. Sensation grossly normal. INVESTIGATIONS, reviewed in the clinical context: 9 IgG 903 IgA 131 IgM 109 Lyme screen IgG and IgM negative Treponema pallidum antibody nonreactive MRI C-spine: Negative MRI brain-unremarkable February 24, 2024: White count 5.1 hemoglobin 14.3 platelets 259 sodium 139 potassium 4.4 creatinine 0.83 Troponin I less than 0.012 EKG tracing personally reviewed by me-normal sinus rhythm. Poor R wave progression. Chest x-ray film personally reviewed by me-hyperinflation CT brain without contrast: Unremarkable Assessment plan: -Patient has neurological symptoms going on for few months. Apparently before September. Some have been progressive. She has been following at Dr. Ramirez neurology's office. MRI was pending outpatient. Finally decided to come in. Currently no clear-cut diagnosis. Neurology following MRI brain: Unremarkable MRI [id number] Lumbar puncture pending -Chronic fibromyalgia Lyrica 150 mg 3 times daily -Hyperlipidemia Zetia 10 mg with breakfast -Primary osteoarthritis Motrin as needed -Chronic urine incontinence -COPD in a previous smoker Peroforomist-nebulizer. Albuterol as needed. -CAD with stent Lopressor. Aspirin. -Essential hypertension Amlodipine 5 mg. Zestril 20 mg. Lopressor 50 mg twice daily -GERD PPI -Full code Workup till now including blood work remains negative. Pending lumbar puncture for CSF. Past Medical History Past Medical History: CVA/TIA, Fibromyalgia, Hyperlipidemia, Osteoarthritis (OA) Additional Past Medical History / Comment(s): 07-04-[address] [facility] WITH NSTEMI. PAST MEDICAL HX: MIGRAINES, HEMORRHOIDS, INCONT OF URINE, TIA X2, fibromyalgia, hypercholesterolemia. History of Any Multi-Drug Resistant Organisms: None Reported Past Surgical History: Hysterectomy, Tubal Ligation Additional Past Surgical History / Comment(s): RECENTLT HAD TEETH EXTRACTED AND HAS NEW DENTURES ,MYRINGTOMY/TUBES 03 LOST 30% OF HEARING EV, SINUS SX 04, COLONOSCOPY CLEAR, Past Anesthesia/Blood Transfusion Reactions: Previous Problems w/ Anesthesia Additional Past Anesthesia/Blood Transfusion Reaction / Comment(s): DIFFICULTY WAKING FROM AA. Past Psychological History: No Psychological Hx Reported Smoking Status: Current every day smoker Past Alcohol Use History: None Reported Past Drug Use History: Marijuana
[2024-03-01 15:41] LABS: Glucose,CSF 65 mg/dL (40-70); Total Protein,CSF 139 mg/dL (12-60)
[2024-03-01 18:20] LABS: Appearance,CSF Clear; CSF Tube Number 1; CSF Tube Volume 2.5; Nucleated Cells, CSF 0 u/L (0-5)
[2024-03-01 18:21] LABS: Red Blood Cell,CSF 350 u/L (0-10)
--- NOTE | 2024-03-02 11:16 | P.PN ---
Subjective Progress Note Date: 03/01/24 03/01/2024: Patient was seen for a follow-up. Patient states that since 2:30 AM this morning, the pain is worse, everywhere its rating, from neck to head. Patient feels her symptoms are getting worse, no improvement. She is using a glove in the left hand because it hurts so much. It feels cold. 02/29/2024: Patient initially seen by Dr. Eyal Liz. Please refer to his note for details. Patient is a 58-year-old female came to the hospital with unsteady gait and nystagmus for 1 month. MRI of the brain was negative. Patient awaiting MRI of the cervical spine. Came to see patient, her was also present. Patient is in no acute distress but intermittently gets lancinating pain in the left arm and hand. Patient states that her symptoms started around Thanksgiving time, when she developed burning and itching of hands, like hands were on fire. By October 2023, it turned to pain. She developed new onset of diplopia, nystagmus last 02/20/2024. The double vision resolves, if she closes 1 or the other eye. The diplopia is present in all gazes. She continues to have arm and leg pains bilaterally, left much more worse than right. If it is 100% on the left, it is about 10 to 20% on the right side. Both feet feels numb and cold. No history of diabetes, or any history of cancers. Objective - Vital Signs Vital signs: Vital Signs Temp 97.9 F 03/01/24 07:15 Pulse 62 03/01/24 09:20 Resp 15 03/01/24 08:00 BP 118/71 03/01/24 07:15 Pulse Ox 96 03/01/24 07:15 FiO2 Intake & Output 02/29/24 03/01/24 03/01/24 18:59 06:59 18:59 Intake Total 236 Balance 236 Intake: Oral 236 Other: Voiding Method Toilet Toilet Toilet # Voids 1 - Exam Mental status, speech and language functions are normal.'s voice is slightly hoarse. On cranial examination pupils are equal, round and reactive to light, visual rowland are full, with no neglect, extraocular muscles although intact, but patient has very mild horizontal nystagmus bilaterally on the end gaze. Slight nystagmus in the up-and-down gaze also. Patient has diplopia in the primary gaze. Face is symmetric and tongue protrudes to midline. Patient is using gauze over the left eye for diplopia. On muscle strength testing there is no pronator drift and the strength is normal in arms and legs distally and proximally. Sensory to touch is equal. No neglect. No ataxia for twthyb-nu-covi or mgze-vr-ulim testing bilaterally. Deep tendon reflexes are 2 at the biceps, 2 brachioradialis, 2 at the knees, 0 ankles and plantars are withdrawal. - Labs CBC & Chem 7: 02/24/24 14:50 02/24/24 14:50 Assessment and Plan Assessment: This a 58-year-old woman who developed symptoms of possible peripheral neuropathy since 2022, symptoms have progressed with lancinating pain, left side more than right. Also has developed new onset significant nystagmus and diplopia in the primary gaze, without significant extraocular muscle weakness. Also has developed unsteady gait. Rule out metabolic/inflammatory/nutritional deficiency. Unsteady gait with nystagmus looking to the right and left and symptoms: No evidence of cerebellar mass, CVA or demyelination. Very low folate and is borderline normal level is 4.70 (normal is 4.4-31) Underlying history of hypertension Hypercholesterolemia Ex tobacco use Plan: MRI of the brain with and without contrast revealed no intracranial mass, acute/subacute infarct or abnormal enhancement. I personally reviewed MRI, agree with the findings. Continue aspirin 81 mg daily. Carotid Doppler revealed scattered atherosclerotic disease without sonographic evidence of significant stenosis. Antegrade flow in both vertebral arteries. Patient has very low folate level, started on folate replacement. MRI of the cervical spine revealed no evidence for disc herniation or significant spinal canal stenosis. No abnormal postcontrast enhancement. Minimal disc degeneration with associated osteoarthritic changes. I personally reviewed MRI agree with the findings.. ESR 7, CRP <0.5, quantitative immunoglobulins are normal. Serum immunofixation electrophoresis negative for any monoclonal protein. Sjogren's antibodies negative. RPR negative. Lyme titer negative. Vitamin B12: 1139 Serum folate: 4.70 (normal is 4.4-31) TSH: 3.62 HbA1c: 5.9 Lumbar puncture to evaluate for inflammatory polyneuropathy. Discussed with patient as well as primary physician and agree with proceeding with lumbar puncture. Patient may need paraneoplastic workup.
--- NOTE | 2024-03-02 11:23 | P.PCN ---
Date of Procedure: 03/01/24 Preoperative Diagnosis: Inflammatory polyneuropathy Postoperative Diagnosis: Inflammatory polyneuropathy Procedure(s) Performed: Lumbar puncture Anesthesia: local Surgeon: Christina De León Estimated Blood Loss (ml): 0 Pathology: none sent Condition: stable Disposition: floor Indications for Procedure: Progressive neuropathic pain, rule out polyneuropathy Description of Procedure: Informed consent was obtained from patient. Very detailed risks and benefits of the procedure, and the indication of procedure was explained to the patient in detail in the presence of nurse. She was informed of the risk of infection, bleeding, numbness, back pain, and the features of post spinal headache and the treatment. Patient was given 2 mg Ativan IV 15 minutes prior to procedure because of her severe anxiety. Patient was very groggy during the procedure. Patient was placed in the right lateral recumbent position. The procedure was performed under strict aseptic conditions. L4 lumbar space was identified and marked. Low back region was sterilized with ChloraPrep and then with Betadine, and anesthetized with 1% lidocaine. A spinal needle 20-gauge, 3.5 inch inserted at L4 lumbar space. I was able to enter subarachnoid space in 2nd pass. The spinal fluid was very mildly traumatic, but then cleared up in the second and subsequent tubes. Opening pressure was not checked. About 10 to 12 cc of spinal fluid was collected in 4 tubes. Stylette was reintroduced, spinal needle withdrawn. Band-Aid applied. Patient was recommended to lay flat for half an hour. Patient tolerated the procedure very well.
[2024-03-02] MEDS ORDERED: IOPAMIDOL CONTRAST (ORAL USE) VIAL PO PRN (11:45)
[2024-03-02] MEDS: IMMUNE GLOBULIN (GAMMAGARD) 5 GM in EMPTY BAG 1 BAG IV ONE (15:14)
[2024-03-02] MEDS: ENOXAPARIN 40 MG/0.4 ML SYRINGE SQ SCH (15:43)
[2024-03-02] MEDS: IOPAMIDOL CONTRAST (ORAL USE) VIAL PO PRN (16:11)
--- NOTE | 2024-03-02 16:42 | P.PN ---
Progress Note - Text Progress Note Date: 03/02/24 Chief Complaint: Unsteady This is a 58-year-old patient, follows with Dr. Lew. Patient is accompanied by at the bedside. 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 CAD with stent, fibromyalgia, hyperlipidemia, osteoarthritis, migraines hemorrhoids urine incontinence. Patient is also following with WELFARE CASE WORKER Swapna Pathak at Dr. Ramirez's office. Unable to have MRI as the machine has been broken down there. Patient presented with them somewhere before September. Patient been having burning sensation in the hand and feet. Sometimes gets sharp pains in the legs. For more than a month patient is also having some blurry vision. 5 6 days ago patient noticed some double vision. Denies any fever and chills. Denies any headaches. Has decided to come in. Patient is also having trouble walking and balance is not good. Is also going on for some time. February 25: MRI of the brain came back to be negative. Dr. RAYMOND neurologist ordered a MRI C-spine. Other medications to continue. February 26: at the bedside. Pending MRI C-spine. I have been informed possibly will take up till Thursday. Getting sharp pains in the left arm. February 27: Pending MRI C-spine. Having sharp pains in different limbs at different times. at the bedside. Being followed by neurology. February 28: MRI C-spine came back unremarkable. Lumbar puncture has been ordered by neurology including other testing. March 01: Seen the patient this morning. Pending lumbar puncture. Neurosymptoms otherwise unchanged. March 02: Patient has been out of bed. Does get this sharp pain not constant but different times. In the left arm. Sometimes in both the legs. She also has numbness in both the feet. Discussed with Dr. De León from neurology. Will get a vascular opinion. The patient's pulses are palpable. Could be a small vessel problem. Patient CSF came back showing high protein. Immunoglobulin be started by neurology. Will order a CT scan chest abdomen pelvis to rule out any malignancy for paraneoplastic syndrome. Discussed with patient and . Active Medications Albuterol Sulfate (Albuterol Nebulized 2.5 Mg/3 Ml) 2.5 mg INHALATION RT-Q4H PRN PRN Reason: Shortness Of Breath Last Admin: 03/02/24 12:38 Dose: 2.5 mg Amlodipine Besylate (Amlodipine 5 Mg Tab) 5 mg PO W/BRKFST [facility] Last Admin: 03/02/24 06:03 Dose: 5 mg Aspirin (Aspirin 81 Mg) 81 mg PO W/BRKFST [facility] Last Admin: 03/02/24 06:03 Dose: 81 mg Baclofen (Baclofen 10 Mg Tab) 10 mg PO BID [facility] Last Admin: 03/02/24 08:54 Dose: 10 mg Ezetimibe (Ezetimibe 10 Mg Tab) 10 mg PO W/BRKFST [facility] Last Admin: 03/02/24 06:03 Dose: 10 mg Enoxaparin Sodium (Enoxaparin 40 Mg/0.4 Ml Syringe) 40 mg SQ DAILY [facility] Last Admin: 03/02/24 15:43 Dose: Not Given Folic Acid (Folic Acid 1 Mg Tab) 1 mg PO DAILY [facility] Last Admin: 03/02/24 08:54 Dose: 1 mg Formoterol Fumarate (Formoterol Fumarate 20 Mcg/2 Ml Nebu) 20 mcg INHALATION RT-BID [facility] Last Admin: 03/02/24 08:43 Dose: Not Given Immune Globulin 20 gm/ IV (Solution) 200 mls @ 0 mls/hr IV .Q0M ONE; Protocol Stop: 03/03/24 12:01 Immune Globulin 5 gm/ IV (Solution) 50 mls @ 0 mls/hr IV .Q0M ONE; Protocol Stop: 03/03/24 12:01 Immune Globulin 20 gm/ IV (Solution) 200 mls @ 0 mls/hr IV .Q0M ONE; Protocol Stop: 03/04/24 12:01 Immune Globulin 5 gm/ IV (Solution) 50 mls @ 0 mls/hr IV .Q0M ONE; Protocol Stop: 03/04/24 12:01 Immune Globulin 20 gm/ IV (Solution) 200 mls @ 0 mls/hr IV .Q0M ONE; Protocol Stop: 03/05/24 12:01 Immune Globulin 5 gm/ IV (Solution) 50 mls @ 0 mls/hr IV .Q0M ONE; Protocol Stop: 03/05/24 12:01 Immune Globulin 20 gm/ IV (Solution) 200 mls @ 0 mls/hr IV .Q0M ONE; Protocol Stop: 03/06/24 12:01 Immune Globulin 5 gm/ IV (Solution) 50 mls @ 0 mls/hr IV .Q0M ONE; Protocol Stop: 03/06/24 12:01 Ibuprofen (Ibuprofen 800 Mg Tab) 800 mg PO Q8H PRN PRN Reason: Pain Last Admin: 03/02/24 06:03 Dose: 800 mg Iopamidol (Iopamidol Contrast (Oral Use) Vial) 30 ml PO Q60M PRN PRN Reason: CT Scan Stop: 03/03/24 11:46 Lisinopril (Lisinopril 20 Mg Tab) 20 mg PO W/BRKFST [facility] Last Admin: 03/02/24 06:03 Dose: 20 mg Magnesium Oxide (Magnesium Oxide 400 Mg Tab) 400 mg PO W/LUNCH [facility] Last Admin: 03/02/24 15:43 Dose: Not Given Metoprolol Tartrate (Metoprolol Tartrate 50 Mg Tab) 50 mg PO BID [facility] Last Admin: 03/02/24 08:54 Dose: 50 mg Naloxone HCl (Naloxone 0.4 Mg/Ml 1 Ml Vial) 0.2 mg IV Q2M PRN PRN Reason: Opioid Reversal Pantoprazole Sodium (Pantoprazole 40 Mg Tablet) 40 mg PO W/BRKFST [facility] Last Admin: 03/02/24 06:03 Dose: 40 mg Pregabalin (Pregabalin 75 Mg Cap) 150 mg PO TID [facility] Last Admin: 03/02/24 16:10 Dose: 150 mg Pyridoxine HCl (Pyridoxine 50 Mg Tab) 25 mg PO W/LUNCH [facility] Last Admin: 03/02/24 08:53 Dose: 25 mg Zolpidem Tartrate (Zolpidem 5 Mg Tab) 5 mg PO HS [facility] Last Admin: 03/01/24 20:58 Dose: Not Given Social history: Smoked a pack a day for 34 years. Stopped a year ago. . No alcohol. Physical examination: VITAL SIGNS: 97.5, 64, 16, 100/62, 96% room air Pulse ox: Left radial left ulnar, both dorsalis pedal palpable GENERAL: Laying in bed EYES: Pupils equal. Conjunctiva kami l. HEENT: External appearance of nose and ears normal, oral cavity grossly normal. NECK: JVD not raised; masses not palpable. HEART: First and second heart sounds are normal; no edema. LUNGS: Respiratory rate normal; decreased breath sounds. ABDOMEN: Soft, nontender, liver spleen not palpable, no masses palpable. PSYCH: Alert and oriented x3; mood and affect kami l. MUSCULOSKELETAL:No Clubbing/cyanosis;muscles-grossly intact NEUROLOGICAL: Cranial nerves grossly intact; no facial asymmetry, decreased body hanger in both the hands. Some hyperreflexia noted in all 4 limbs. Sensation grossly normal. INVESTIGATIONS, reviewed in the clinical context: 9 IgG 903 IgA 131 IgM 109 Lyme screen IgG and IgM negative Treponema pallidum antibody nonreactive CSF: Total protein 139 glucose 65 nucleated cells 0 RBC 350 MRI C-spine: Negative MRI brain-unremarkable February 24, 2024: White count 5.1 hemoglobin 14.3 platelets 259 sodium 139 potassium 4.4 creatinine 0.83 Troponin I less than 0.012 EKG tracing personally reviewed by me-normal sinus rhythm. Poor R wave progression. Chest x-ray film personally reviewed by me-hyperinflation CT brain without contrast: Unremarkable Assessment plan: -Patient has neurological symptoms going on for few months. Apparently before September. Some have been progressive. She has been following at Dr. Ramirez neurology's office. MRI was pending outpatient. Finally decided to come in. Differential includes paraneoplastic syndrome. Etc. Neurology following CSF: High protein. MRI brain: Unremarkable MRI [id number] Lumbar puncture pending -Chronic fibromyalgia Lyrica 150 mg 3 times daily -Hyperlipidemia Zetia 10 mg with breakfast -Primary osteoarthritis Motrin as needed -Chronic urine incontinence -COPD in a previous smoker Peroforomist-nebulizer. Albuterol as needed. -CAD with stent Lopressor. Aspirin. -Essential hypertension Amlodipine 5 mg. Zestril 20 mg. Lopressor 50 mg twice daily -GERD PPI -Full code Discussed at length with Dr. De León. Start immunoglobulins. Order CT chest abdo men pelvis for paraneoplastic syndrome. Consult vascular to evaluate small vessel disease. Past Medical History Past Medical History: CVA/TIA, Fibromyalgia, Hyperlipidemia, Osteoarthritis (OA) Additional Past Medical History / Comment(s): 07-04-15 ADMITTED TO [facility] WITH NSTEMI. PAST MEDICAL HX: MIGRAINES, HEMORRHOIDS, INCONT OF URINE, TIA X2, fibromyalgia, hypercholesterolemia. History of Any Multi-Drug Resistant Organisms: None Reported Past Surgical History: Hysterectomy, Tubal Ligation Additional Past Surgical History / Comment(s): RECENTLT HAD TEETH EXTRACTED AND HAS NEW DENTURES ,MYRINGTOMY/TUBES 03 LOST 30% OF HEARING EV, SINUS SX 04, COLONOSCOPY CLEAR, Past Anesthesia/Blood Transfusion Reactions: Previous Problems w/ Anesthesia Additional Past Anesthesia/Blood Transfusion Reaction / Comment(s): DIFFICULTY WAKING FROM AA. Past Psychological History: No Psychological Hx Reported Smoking Status: Current every day smoker Past Alcohol Use History: None Reported Past Drug Use History: Marijuana
--- NOTE | 2024-03-02 17:49 | P.GSCN ---
History of Present Illness Consult date: 03/02/24 Reason for Consult: Numbness/pain bilateral lower extremity, right upper extremity Requesting physician: Nolan Narvaez History of present illness: This is a pleasant 58-year-old female who we were asked to see in consultation regarding numbness and pain to bilateral lower extremity and reported right upper extremity. Patient reports it is numbness and tingling to her left hand. She also states numbness to the bottom of both of her feet. She has a past medical history of coronary artery disease with stenting, fibromyalgia, hyperlipidemia, osteoarthritis, migraines, and former smoker for 40 years. States she quit about 1 year ago. Patient was having weakness in her lower extremities and some difficulty with walking. Apparently she was also having some visual changes. Neurology was consulted and she has had multiple workups including brain CT, carotid duplex and brain as well as cervical spine MRI that shows no acute findings. Patient also underwent lumbar puncture yesterday with neurology for inflammatory polyneuropathy. She is also on IV immunoglobulins. Review of Systems A 14 point review systems was completed all pertinent positives and negatives as stated in the HPI. Past Medical History Past Medical History: CVA/TIA, Fibromyalgia, Hyperlipidemia, Osteoarthritis (OA) Additional Past Medical History / Comment(s): 07-04-15 ADMITTED TO [facility] WITH NSTEMI. PAST MEDICAL HX: MIGRAINES, HEMORRHOIDS, INCONT OF URINE, TIA X2, fibromyalgia, hypercholesterolemia. History of Any Multi-Drug Resistant Organisms: None Reported Past Surgical History: Hysterectomy, Tubal Ligation Additional Past Surgical History / Comment(s): RECENTLT HAD TEETH EXTRACTED AND HAS NEW DENTURES ,MYRINGTOMY/TUBES 03 LOST 30% OF HEARING EV, SINUS SX 04, COLONOSCOPY CLEAR, Past Anesthesia/Blood Transfusion Reactions: Previous Problems w/ Anesthesia Additional Past Anesthesia/Blood Transfusion Reaction / Comm: DIFFICULTY WAKING FROM AA. Past Psychological History: No Psychological Hx Reported Smoking Status: Current every day smoker Past Alcohol Use History: None Reported Past Drug Use History: Marijuana - Past Family History Father Family Medical History: Diabetes Mellitus Mother Family Medical History: Cancer Additional Family Medical History / Comment(s): LUNG CANCER Brother(s) Family Medical History: Coronary Artery Disease (CAD) Sister(s) Family Medical History: No Reported History Son(s) Family Medical History: No Reported History Medications and Allergies Home Medications Medication Instructions Recorded Confirmed Type Albuterol Inhaler [Ventolin Hfa 1 puff INHALATION RT-Q4H PRN 09/26/20 02/24/24 History Inhaler] Aspirin EC [Ecotrin Low Dose] 81 mg PO W/BRKFST 09/26/20 02/24/24 History Nitroglycerin Sl Tabs [Nitrostat] 0.4 mg SL Q5M PRN 09/26/20 02/24/24 History Albuterol Nebulized [Ventolin 2.5 mg INHALATION RT-Q6H PRN 06/08/23 02/24/24 History Nebulized] amLODIPine [Norvasc] 5 mg PO W/BRKFST 06/08/23 02/24/24 History lisinopriL [Zestril] 20 mg PO W/BRKFST 06/08/23 02/24/24 History Baclofen [Lioresal] 10 mg PO BID 02/24/24 02/24/24 History Cholecalciferol [Vitamin D3 (25 50 mcg PO W/LUNCH 02/24/24 02/24/24 History Mcg = 1000 Iu)] Cyanocobalamin (Vitamin B-12) 1,000 mcg PO W/LUNCH 02/24/24 02/24/24 History [Vitamin B-12] Esomeprazole Magnesium [NexIUM 20 mg PO W/BRKFST 02/24/24 02/24/24 History 24Hr] Ezetimibe [Zetia] 10 mg PO W/BRKFST 02/24/24 02/24/24 History Formoterol Fumarate [Perforomist] 20 mcg INHALATION RT-BID 02/24/24 02/24/24 History Ibuprofen [Motrin] 800 mg PO Q8H PRN 02/24/24 02/24/24 History Magnesium 250 mg PO W/LUNCH 02/24/24 02/24/24 History Meclizine [Antivert] 12.5 - 25 mg PO BID-W/MEALS 02/24/24 02/24/24 History Metoprolol Tartrate [Lopressor] 50 mg PO BID 02/24/24 02/24/24 History Potassium Gluconate 90 mg PO W/LUNCH 02/24/24 02/24/24 History Pregabalin [Lyrica] 150 mg PO TID 02/24/24 02/24/24 History Pyridoxine [Vitamin B-6] 25 mg PO W/LUNCH 02/24/24 02/24/24 History Ubidecarenone [Coenzyme Q10] 200 mg PO W/LUNCH 02/24/24 02/24/24 History Allergies Allergy/AdvReac Type Severity Reaction Status Date / Time amoxicillin trihydrate AdvReac Nausea & Verified 02/24/24 13:59 [From Augmentin] Vomiting potassium clavulanate AdvReac Nausea & Verified 02/24/24 13:59 [From Augmentin] Vomiting Surgical - Exam Vital Signs Temp Pulse Resp BP Pulse Ox 97.9 F 66 18 104/60 97 02/24/24 13:06 02/24/24 13:06 02/24/24 13:06 02/24/24 13:06 02/24/24 13:06 General appearance: The patient is alert, oriented, appears in no acute distress. HET: Head is normocephalic and atraumatic. Pupils are equal and reactive. Neck: Supple. Heart: Regular. Lungs: Equal expansion, normal respiratory effort. Abdomen: Soft, nontender, nondistended. Extremities: Normal skin color and turgor. Palpable bilateral radial pulses. 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 Bilateral PT and DP pulses with good capillary refill. Neurological: No focal deficits. Strength and sensation are grossly intact. Results - Labs 02/24/24 14:50 02/24/24 14:50 Abnormal Lab Results - Last 24 Hours (Table) 03/01/24 Range/Units 13:36 CSF RBC 350 H (0-10) u/L CSF Total Protein 139 H (12-60) mg/dL Microbiology - Last 24 Hours (Table) 03/01/24 13:36 CSF Gram Stain - Preliminary Cerebral Spinal Fluid Assessment and Plan Assessment: 1. Left hand numbness and tingling 2. Bilateral lower extremity numbness and tingling to feet 3. Unsteady gait 4. Former nicotine dependence 5. Coronary artery disease 6. History hyperlipidemia Plan: Nursing was asked to take bilateral upper extremity blood pressures at the same time to compare. Patient has palpable radial, PT and DP pulses. Likely we are not dealing with any arterial etiology for symptoms. Will follow-up tomorrow. Continue with recommendations from neurology. Thank you for this consultation. The impression and plan of care has been dictated as directed. Dr. Holguin I performed a history and examination of this patient, discussed the same with the dictator. I agree with the dictator's note ,documented as a scribe. Any additional findings or plans will be noted.
[2024-03-02] MEDS: IMMUNE GLOBULIN (GAMMAGARD) 20 GM in EMPTY BAG 1 BAG IV ONE (18:36)
--- NOTE | 2024-03-02 18:37 | CT ---
EXAMINATION TYPE: CT ChestAbdPelvis wo con CT DLP: 1235 mGycm, Automated exposure control for dose reduction was used. DATE OF EXAM: 03/02/2024 6:10 PM COMPARISON: 07/04/2015 CLINICAL INDICATION:Female, 58 years old with history of r/o malignancy; PHH, r/o malignancy Technique: CT ChestAbdPelvis wo con; Multiple axial images were obtained. Two-dimensional coronal and sagittal reconstructions were obtained. Contrast used: mL of , Oral contrast used: with Oral Contrast Findings: CHEST: LUNGS/ PLEURA: Right middle lobe somewhat groundglass 9 mm pulmonary nodule series 3 image 48 no foca l consolidation, pneumothorax or pleural effusion. AIRWAY: Patent and unremarkable. HEART: Size within normal limits. MEDIASTINUM: No gross evidence of adenopathy. VASCULATURE: No aortic aneurysm. MUSCULOSKELETAL: No acute osseous abnormalities. SOFT TISSUES/LYMPH NODES: Unremarkable. LOWER NECK: No significant findings. ABDOMEN: ABDOMEN LIVER: Unremarkable GALLBLADDER AND BILE DUCTS: Unremarkable. PANCREAS: Unremarkable. SPLEEN: Unremarkable. ADRENAL GLANDS: Unremarkable. KIDNEYS AND URETERS: No evidence of hydronephrosis or renal calculus. The ureters are unremarkable. PELVIS BLADDER: Unremarkable REPRODUCTIVE: Unremarkable. ABDOMEN & PELVIS STOMACH AND BOWEL: No evidence of bowel obstruction. PERITONEUM: No evidence of pneumoperitoneum or free fluid. VASCULATURE: Moderate atherosclerotic calcifications are present throughout the abdominal aorta and i ts branches. MUSCULOSKELETAL: No acute osseous abnormalities LYMPH NODES: No gross evidence for lymphadenopathy. SOFT TISSUE/ABDOMINAL WALL: Unremarkable IMPRESSION: 1. No mass or lymphadenopathy identified within the chest abdomen or pelvis. 2. Right middle lobe subsolid/groundglass 9 mm pulmonary nodule. Further evaluation with CT in 3 mon ths versus PET/CTs recommended. Follow up recommendations for incidental pulmonary nodules are per [employer] or [employer].
[2024-03-03 08:22] VITALS: BMI 26.1
--- NOTE | 2024-03-03 08:24 | P.PN ---
Subjective Progress Note Date: 03/03/24 Principal diagnosis: Right hand pain, numbness tingling, lower extremity numbness tingling. Patient is seen and examined today as a follow-up. Vascular surgery was consulted regarding patient having left upper extremity hand pain numbness and tingling as well as bilateral feet numbness and tingling. Patient is with good palpable radial pulses as well as DP pulses. She was up and ambulating with a walker, semiunsteady on her feet. She currently has her left eye covered with a patch and states that it does help with her double vision. Blood pressures were obtained yesterday and both left and right upper extremities without any significant discrepancy or difference. Objective - Vital Signs Vital signs: Vital Signs Temp 98.1 F 03/03/24 07:39 Pulse 64 03/03/24 07:39 Resp 17 03/03/24 07:39 BP 144/84 03/03/24 07:39 Pulse Ox 98 03/03/24 07:39 FiO2 Intake & Output 03/02/24 03/03/24 03/03/24 18:59 06:59 18:59 Intake Total 610 Balance 610 Intake: Oral 610 Other: Voiding Method Toilet # Voids 2 - Exam General appearance: The patient is alert, oriented, appears in no acute distress. HET: Head is normocephalic and atraumatic. Patient with left eye patch. Neck: Supple. Abdomen: Soft, nondistended. Extremities: Normal skin color and turgor. Bilateral +2 palpable radial pulses, bilateral DP pulses. Upper and lower extremities warm to touch with good capillary refill. Neurological: Patient is alert and oriented x 3. - Labs CBC & Chem 7: 02/24/24 14:50 02/24/24 14:50 Labs: Microbiology - Last 24 Hours (Table) 03/01/24 13:36 CSF Gram Stain - Preliminary Cerebral Spinal Fluid Assessment and Plan Assessment: 1. Left hand numbness and tingling 2. Bilateral lower extremity numbness and tingling to feet 3. Unsteady gait 4. Former nicotine dependence 5. Coronary artery disease 6. History hyperlipidemia Plan: Bilateral upper extremity blood pressures without any major discrepancy, unlikely any subclavian stenosis to cause left hand numbness tingling. Also carotid duplex reviewed with no indication of subclavian stenosis. Patient has palpable radial, PT and DP pulses. Likely we are not dealing with any peripheral arterial disease causing symptoms. No further workup indicated by vascular surgery. We will sign off at this time. Thank you for this consultation. The impression and plan of care has been dictated as directed. Dr. Holguin I performed a history and examination of this patient, discussed the same with the dictator. I agree with the dictator's note ,documented as a scribe. Any additional findings or plans will be noted.
--- NOTE | 2024-03-03 08:46 | P.PN ---
Subjective Progress Note Date: 03/02/24 03/02/2024: Patient was seen for a follow-up. Patient states that her whole left hand up to the upper two third of the forearm gets numb and cold. On the right side, only right index finger gets numb and cold and seldom involves the other fingers. She also has numbness and cold sensation in the feet retirement up the calf. Symptoms have been present since October 2023. Patient admits to have smoked 1 pack/day for 42 years, quit 1 year ago. 03/01/2024: Patient was seen for a follow-up. Patient states that since 2:30 AM this morning, the pain is worse, everywhere its rating, from neck to head. Patient feels her symptoms are getting worse, no improvement. She is using a g love in the left hand because it hurts so much. It feels cold. 02/29/2024: Patient initially seen by Dr. Eyal Liz. Please refer to his note for details. Patient is a 58-year-old female came to the hospital with unsteady gait and nystagmus for 1 month. MRI of the brain was negative. Patient awaiting MRI of the cervical spine. Came to see patient, her was also present. Patient is in no acute distress but intermittently gets lancinating pain in the left arm and hand. Patient states that her symptoms started around Thanksgi time, when she developed burning and itching of hands, like hands were on fire. By October 2023, it turned to pain. She developed new onset of diplopia, nystagmus last 02/20/2024. The double vision resolves, if she closes 1 or the other eye. The diplopia is present in all gazes. She continues to have arm and leg pains bilaterally, left much more worse than right. If it is 100% on the left, it is about 10 to 20% on the right side. Both feet feels numb and cold. No history of diabetes, or any history of cancers. Objective - Vital Signs Vital signs: Vital Signs Temp 97.6 F 03/02/24 08:24 Pulse 62 03/02/24 08:24 Resp 17 03/02/24 08:24 BP 132/79 03/02/24 08:24 Pulse Ox 95 03/02/24 08:24 FiO2 Intake & Output 03/01/24 03/02/24 03/02/24 18:59 06:59 18:59 Intake Total 236 130 Balance 236 130 Intake: Oral 236 130 Other: Voiding Method Toilet # Voids 2 2 - Exam Mental status, speech and language functions are normal.'s voice is slightly hoarse. On cranial examination pupils are equal, round and reactive to light, visual rowland are full, with no neglect, extraocular muscles although intact, but patient has very mild horizontal nystagmus bilaterally on the end gaze. Slight nystagmus in the up-and-down gaze also. Patient has diplopia in the primary gaze. Face is symmetric and tongue protrudes to midline. Patient is using gauz e over the left eye for diplopia. On muscle strength testing there is no pronator drift and the strength is normal in arms and legs distally and proximally. Sensory to touch is equal. No neglect. No ataxia for [id number] or [id number] testing bilaterally. Deep tendon reflexes are 2 at the biceps, 2 brachioradialis, 2 at the knees, 0 ankles and plantars are withdrawal. - Labs CBC & Chem 7: 02/24/24 14:50 02/24/24 14:50 Labs: Abnormal Lab Results - Last 24 Hours (Table) 03/01/24 Range/Units 13:36 CSF RBC 350 H (0-10) u/L CSF Total Protein 139 H (12-60) mg/dL Microbiology - Last 24 Hours (Table) 03/01/24 13:36 CSF Gram Stain - Preliminary Cerebral Spinal Fluid Assessment and Plan Assessment: This a 58-year-old woman who developed symptoms of possible peripheral neuropathy since 2022, symptoms have progressed with lancinating pain, left side more than right. Also has developed new onset significant nystagmus and diplopia in the primary gaze, without significant extraocular muscle weakness. Also has developed unsteady gait. Rule out metabolic/inflammatory/nutritional/paraneoplastic etiology. Unsteady gait with nystagmus looking to the right and left and symptoms: No evidence of cerebellar mass, CVA or demyelination. Very low folate and is borderline normal level is 4.70 (normal is 4.4-31) Underlying history of hypertension Hypercholesterolemia Ex tobacco use Plan: MRI of the brain with and without contrast revealed no intracranial mass, ac edi/subacute infarct or abnormal enhancement. I personally reviewed MRI, agree with the findings. Continue aspirin 81 mg daily. Carotid Doppler revealed scattered atherosclerotic disease without sonographic evidence of significant stenosis. Antegrade flow in both vertebral arteries. Patient has very low folate level, started on folate replacement. MRI of the cervical spine revealed no evidence for disc herniation or significant spinal canal stenosis. No abnormal postcontrast enhancement. Min imal disc degeneration with associated osteoarthritic changes. I personally reviewed MRI agree with the findings.. ESR 7, CRP <0.5, quantitative immunoglobulins are normal. Serum immunofixation electrophoresis negative for any monoclonal protein. Sjogren's antibodies negative. RPR negative. Lyme titer negative. Vitamin B12: 1139, methylmalonic acid 0.15 normal Serum folate: 4.70 (normal is 4.4-31) TSH: 3.62 HbA1c: 5.9 CSF with WBC 0, RBC 350, CSF glucose 65 normal, CSF protein 139 (12-60). Patient probably had inflammatory polyneuropathy with burning paresthesias involving the hands feet, and perhaps involving some cranial nerves. Patient needs CT scan of chest abdomen pelvis rule out any occult cancer. Patient is complaining of significant pain and cold sensation in the left hand in the feet. Suggest vascular surgery rule out PAD. As patient's symptoms have been progressing, we will empirically start her on IVIG. Possible side effects were discussed with the patient. Discussed with primary physician. DVT prophylaxis: Lovenox 40 mg subcu daily.
[2024-03-03] MEDS: IMMUNE GLOBULIN (GAMMAGARD) 20 GM in EMPTY BAG 1 BAG IV ONE (12:25)
[2024-03-03 12:43] LABS: IgG - CSF 13.2 mg/dL (0.0 - 3.4); IgG Synthesis Rate 28.55 mg/day (0.00 - 3.00); IgG/Albumin Index (CSF) 0.83 (0.00 - 0.77); Immunoglobulin G 779 mg/dL (700 - 1600)
[2024-03-03] MEDS: IMMUNE GLOBULIN (GAMMAGARD) 5 GM in EMPTY BAG 1 BAG IV ONE (17:14)
--- NOTE | 2024-03-03 20:50 | P.PN ---
Progress Note - Text Progress Note Date: 03/03/24 Chief Complaint: Unsteady This is a 58-year-old patient, follows with Dr. Lew. Patient is accompanied by at the bedside. 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 CAD with stent, fibromyalgia, hyperlipidemia, osteoarthritis, migraines hemorrhoids urine incontinence. Patient is also following with [facility] Swapna Pathak at Dr. Ramirez's office. Unable to have MRI as the machine has been broken down there. Patient presented with them somewhere before September. Patient been having burning sensation in the hand and feet. Sometimes gets sharp pains in the legs. For more than a month patient is also having some blurry vision. 5 6 days ago patient noticed some double vision. Denies any fever and chills. Denies any headaches. Has decided to come in. Patient is also having trouble walking and balance is not good. Is also going on for some time. February 25: MRI of the brain came back to be negative. Dr. RAYMOND neurologist ordered a MRI C-spine. Other medications to continue. February 26: at the bedside. Pending MRI C-spine. I have been informed possibly will take up till Thursday. Getting sharp pains in the left arm. February 27: Pending MRI C-spine. Having sharp pains in different limbs at different times. at the bedside. Being followed by neurology. February 28: MRI C-spine came back unremarkable. Lumbar puncture has been ordered by neurology including other testing. March 01: Seen the patient this morning. Pending lumbar puncture. Neurosymptoms otherwise unchanged. March 02: Patient has been out of bed. Does get this sharp pain not constant but different times. In the left arm. Sometimes in both the legs. She also has numbness in both the feet. Discussed with Dr. De León from neurology. Will get a vascular opinion. The patient's pulses are palpable. Could be a small vessel problem. Patient CSF came back showing high protein. Immunoglobulin be started by neurology. Will order a CT scan chest abdomen pelvis to rule out any malignancy for paraneoplastic syndrome. Discussed with patient and . March 03: Getting immunoglobulins. Patient sharp pains are better. 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 Plan is to give a total of 5 days that is through Thursday. CT scan survey showed a nodule in the lung. Will have the patient follow-up outpatient with pulmonary. Patient seen by vascular Dr. Holguin. No vascular issues. Patient is using a rolling walker to get up to the bathroom. Active Medications Albuterol Sulfate (Albuterol Nebulized 2.5 Mg/3 Ml) 2.5 mg INHALATION RT-Q4H PRN PRN Reason: Shortness Of Breath Last Admin: 03/03/24 19:42 Dose: 2.5 mg Amlodipine Besylate (Amlodipine 5 Mg Tab) 5 mg PO W/[facility] Last Admin: 03/03/24 06:23 Dose: 5 mg Aspirin (Aspirin 81 Mg) 81 mg PO W/[facility] Last Admin: 03/03/24 06:22 Dose: 81 mg Baclofen (Baclofen 10 Mg Tab) 10 mg PO BID [facility] Last Admin: 03/03/24 20:03 Dose: 10 mg Ezetimibe (Ezetimibe 10 Mg Tab) 10 mg PO W/[facility] Last Admin: 03/03/24 06:23 Dose: 10 mg Enoxaparin Sodium (Enoxaparin 40 Mg/0.4 Ml Syringe) 40 mg SQ DAILY [facility] Last Admin: 03/03/24 08:48 Dose: 40 mg Folic Acid (Folic Acid 1 Mg Tab) 1 mg PO DAILY [facility] Last Admin: 03/03/24 08:48 Dose: 1 mg Formoterol Fumarate (Formoterol Fumarate 20 Mcg/2 Ml Nebu) 20 mcg INHALATION RT-BID [facility] Last Admin: 03/03/24 19:42 Dose: 20 mcg Immune Globulin 20 gm/ IV (Solution) 200 mls @ 0 mls/hr IV .Q0M ONE; Protocol Stop: 03/04/24 12:01 Immune Globulin 5 gm/ IV (Solution) 50 mls @ 0 mls/hr IV .Q0M ONE; Protocol Stop: 03/04/24 12:01 Immune Globulin 20 gm/ IV (Solution) 200 mls @ 0 mls/hr IV .Q0M ONE; Protocol Stop: 03/05/24 12:01 Immune Globulin 5 gm/ IV (Solution) 50 mls @ 0 mls/hr IV .Q0M ONE; Protocol Stop: 03/05/24 12:01 Immune Globulin 20 gm/ IV (Solution) 200 mls @ 0 mls/hr IV .Q0M ONE; Protocol Stop: 03/06/24 12:01 Immune Globulin 5 gm/ IV (Solution) 50 mls @ 0 mls/hr IV .Q0M ONE; Protocol Stop: 03/06/24 12:01 Ibuprofen (Ibuprofen 800 Mg Tab) 800 mg PO Q8H PRN PRN Reason: Pain Last Admin: 03/03/24 14:14 Dose: 800 mg Lisinopril (Lisinopril 20 Mg Tab) 20 mg PO W/[facility] Last Admin: 03/03/24 06:23 Dose: 20 mg Magnesium Oxide (Magnesium Oxide 400 Mg Tab) 400 mg PO W/LUNCH [facility] Last Admin: 03/03/24 14:07 Dose: 400 mg Metoprolol Tartrate (Metoprolol Tartrate 50 Mg Tab) 50 mg PO BID [facility] Last Admin: 03/03/24 20:02 Dose: 50 mg Naloxone HCl (Naloxone 0.4 Mg/Ml 1 Ml Vial) 0.2 mg IV Q2M PRN PRN Reason: Opioid Reversal Pantoprazole Sodium (Pantoprazole 40 Mg Tablet) 40 mg PO W/[facility] Last Admin: 03/03/24 06:23 Dose: 40 mg Pregabalin (Pregabalin 75 Mg Cap) 150 mg PO TID [facility] Last Admin: 03/03/24 20:03 Dose: 150 mg Pyridoxine HCl (Pyridoxine 50 Mg Tab) 25 mg PO W/L[facility]CH [facility] Last Admin: 03/03/24 14:07 Dose: 25 mg Zolpidem Tartrate (Zolpidem 5 Mg Tab) 5 mg PO HS [facility] Last Admin: 03/03/24 20:02 Dose: 5 mg Social history: Smoked a pack a day for 34 years. Stopped a year ago. . No alcohol. Physical examination: VITAL SIGNS: 97.8, 60, 16, 137 x 70, 96% room air GENERAL: Comfortable EYES: Pupils equal. Conjunctiva kami l. HEENT: External appearance of nose and ears normal, oral cavity grossly normal. NECK: JVD not raised; masses not palpable. HEART: First and second heart sounds are normal; no edema. LUNGS: Respiratory rate normal; decreased breath sounds. ABDOMEN: Soft, nontender, liver spleen not palpable, no masses palpable. PSYCH: Alert and oriented x3; mood and affect kami l. MUSCULOSKELETAL:No Clubbing/cyanosis;muscles-grossly intact NEUROLOGICAL: Cranial nerves grossly intact; no facial asymmetry, and witnessed to use a rolling walker. INVESTIGATIONS, reviewed in the clinical context: 9 IgG 903 IgA 131 IgM 109 Lyme screen IgG and IgM negative Treponema pallidum antibody nonreactive CSF: IgG MS 13.2 serum albumin 3.7 CSF IgG albumin ratio MS 0.83 CSF IgG synthetic rate MS 28.55 CSF: Total protein 139 glucose 65 nucleated cells 0 RBC 350 MRI C-spine: Negative MRI brain-unremarkable February 24, 2024: White count 5.1 hemoglobin 14.3 platelets 259 sodium 139 potassium 4.4 creatinine 0.83 Troponin I less than 0.012 EKG tracing personally reviewed by me-normal sinus rhythm. Poor R wave progression. Chest x-ray film personally reviewed by me-hyperinflation CT brain without contrast: Unremarkable Assessment plan: -Patient has neurological symptoms going on for few months. Apparently before September. Some have been progressive. She has been following at Dr. Ramirez neurology's office. MRI was pending outpatient. Finally decided to come in. 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 Started on IV immunoglobulins yesterday.-For 5-day course Neurology following CSF: High protein. MRI brain: Unremarkable MRI [id number] Lumbar puncture pending -Chronic fibromyalgia Lyrica 150 mg 3 times daily -Hyperlipidemia Zetia 10 mg with breakfast -Primary osteoarthritis Motrin as needed -Lung nodule Follow-up outpatient with Dr. Brady -Chronic urine incontinence -COPD in a previous smoker Peroforomist-nebulizer. Albuterol as needed. -CAD with stent Lopressor. Aspirin. -Essential hypertension Amlodipine 5 mg. Zestril 20 mg. Lopressor 50 mg twice daily -GERD PPI -Full code Discussed with Dr. De León. Continue immunoglobulins. Past Medical History Past Medical History: CVA/TIA, Fibromyalgia, Hyperlipidemia, Osteoarthritis (OA) Additional Past Medical History / Comment(s): 07-04-15 ADMITTED TO [facility] WITH NSTEMI. PAST MEDICAL HX: MIGRAINES, HEMORRHOIDS, INCONT OF URINE, TIA X2, fibromyalgia, hypercholesterolemia. History of Any Multi-Drug Resistant Organisms: None Reported Past Surgical History: Hysterectomy, Tubal Ligation Additional Past Surgical History / Comment(s): RECENTLT HAD TEETH EXTRACTED AND HAS NEW DENTURES ,MYRINGTOMY/TUBES 03 LOST 30% OF HEARING EV, SINUS SX 04, COLONOSCOPY CLEAR, Past Anesthesia/Blood Transfusion Reactions: Previous Problems w/ Anesthesia Additional Past Anesthesia/Blood Transfusion Reaction / Comment(s): DIFFICULTY WAKING FROM AA. Past Psychological History: No Psychological Hx Reported Smoking Status: Current every day smoker Past Alcohol Use History: None Reported Past Drug Use History: Marijuana
--- NOTE | 2024-03-04 11:20 | P.PN ---
Subjective Progress Note Date: 03/03/24 03/03/2024: Patient was seen for a follow-up. Patient states that she is doing much better. The neuropathic pain is not as sharp and not as lingering. Still has diplopia. Patient is using eye patch only with the left eye. The numbness in the lower limbs has also improved, and only involves from toes up to just above the ankles. Previously up to mid calves. Patient has numbness of the index and middle finger of both hands, left more than right. The left hand is not as symptomatic. Feet are not as numb as was before. 03/02/2024: Patient was seen for a follow-up. Patient states that her whole left hand up to the upper two third of the forearm gets numb and cold. On the right side, only right index finger gets numb and cold and seldom involves the other fingers. She also has numbness and cold sensation in the feet fdc up the calf. Symptoms have been present since October 2023. Patient admits to have smoked 1 pack/day for 42 years, quit 1 year ago. 03/01/2024: Patient was seen for a follow-up. Patient states that since 2:30 AM this morning, the pain is worse, everywhere its rating, from neck to head. Patient feels her symptoms are getting worse, no improvement. She is using a glove in the left hand because it hurts so much. It feels cold. 02/29/2024: Patient initially seen by Dr. Eyal Liz. Please refer to his note for details. Patient is a 58-year-old female came to the hospital with unsteady gait and nystagmus for 1 month. MRI of the brain was negative. Patient awaiting MRI of the cervical spine. Came to see patient, her was also present. Patient is in no acute distress but intermittently gets lancinating pain in the left arm and hand. Patient states that her symptoms started around Thanksgi time, when she developed burning and itching of hands, like hands were on fire. By October 2023, it turned to pain. She developed new onset of diplopia, nystagmus last , 02/20/2024. The double vision resolves, if she closes 1 or the other eye. The diplopia is present in all gazes. She continues to have arm and leg pains bilaterally, left much more worse than right. If it is 100% on the left, it is about 10 to 20% on the right side. Both feet feels numb and cold. No history of diabetes, or any history of cancers. Objective - Vital Signs Vital signs: Vital Signs Temp 97.8 F 03/03/24 14:00 Pulse 60 03/03/24 14:00 Resp 16 03/03/24 14:00 BP 137/70 03/03/24 14:00 Pulse Ox 96 03/03/24 14:00 FiO2 Intake & Output 03/02/24 03/03/24 03/03/24 18:59 06:59 18:59 Intake Total 610 750.000 Balance 610 750.000 Weight 68.946 kg Intake: Intake, IV Titration 250.000 Amount Immune Globulin ( 200.000 Gammagard) 20 gm In Empty Bag 1 bag @ Titrate IV . Q0M ONE Rx#:[id number] Immune Globulin ( 50 Gammagard) 5 gm In Empty Bag 1 bag @ Titrate IV . Q0M ONE Rx#:[id number] Oral 610 500 Other: Voiding Method Toilet Toilet # Voids 2 5 - Exam Mental status, speech and language functions are normal.'s voice is slightly hoarse. On cranial examination pupils are equal, round and reactive to light, visual rowland are full, with no neglect, extraocular muscles although intact, but patient has very mild horizontal nystagmus bilaterally on the end gaze. Slight nystagmus in the up-and-down gaze also. Patient has diplopia in the primary gaze. Face is symmetric and tongue protrudes to midline. Patient is using gauze over the left eye for diplopia. On muscle strength testing there is no pronator drift and the strength is normal in arms and legs distally and proximally. Sensory to touch is equal. No neglect. Patient has mild ataxia for [id number] bilaterally. Patient has mild to moderate ataxia for [id number] testing bilaterally. Deep tendon reflexes are 2 at the biceps, 2 brachioradialis, 2 at the knees, 0 ankles and plantars are downgoing bilaterally. - Labs CBC & Chem 7: 02/24/24 14:50 02/24/24 14:50 Labs: Abnormal Lab Results - Last 24 Hours (Table) 03/01/24 Range/Units 13:36 CSF Albumin 75.5 H (0.0 - 35.0) mg/dL CSF IgG (MS) 13.2 H (0.0 - 3.4) mg/dL CSF IgG/Alb Ratio MS 0.83 H (0.00 - 0.77) CSF IgG Synth Rate MS 28.55 H (0.00 - 3.00) mg/day Microbiology - Last 24 Hours (Table) 03/01/24 13:36 CSF Gram Stain - Preliminary Cerebral Spinal Fluid CSF Culture - Preliminary Assessment and Plan Assessment: 58-year-old female who has developed paresthesias of the hands and feet since 2022. Symptoms suggestive of possible peripheral neuropathy. New onset nystagmus, diplopia and gait ataxia since 02/20/2024. Patient has elevated CSF proteins. Patient has bilateral nystagmus, and ataxia. Possible atypical variant of [place]. MRI of the brain and cervical spine negative for demyelinating disease. Very low folate and is borderline normal level is 4.70 (normal is 4.4-31) Underlying history of hypertension Hypercholesterolemia Ex tobacco use Plan: MRI of the brain with and without contrast revealed no intracranial mass, acute/subacute infarct or abnormal enhancement. I personally reviewed MRI, agree with the findings. Continue aspirin 81 mg daily. Carotid Doppler revealed scattered atherosclerotic disease without sonographic evidence of significant stenosis. Antegrade flow in both vertebral arteries. Patient has very low folate level, started on folate replacement. MRI of the cervical spine revealed no evidence for disc herniation or significant spinal canal stenosis. No abnormal postcontrast enhancement. Minimal disc degeneration with associated osteoarthritic changes. I personally reviewed MRI agree with the findings.. ESR 7, CRP <0.5, quantitative immunoglobulins are normal. Serum immunofixation electrophoresis negative for any monoclonal protein. Sjogren's antibodies negative. RPR negative. Lyme titer negative. Vitamin B12: 1139, methylmalonic acid 0.15 normal Serum folate: 4.70 (normal is 4.4-31) TSH: 3.62 HbA1c: 5.9 CSF with WBC 0, RBC 350, CSF glucose 65 normal, CSF protein 139 (12-60). Await MS panel, viral cultures, CSF BARBIE and CSF NMDA antibodies. CT of the chest abdomen pelvis revealed right middle lobe subsolid/groundglass 9 mm pulmonary nodule. Further evaluation with CT in 3 months versus PET/CT recommended. We will defer to IM. Vascular surgery input appreciated. No evidence of PAD. Patient's symptoms have remarkably improved with IVIG so far. She has completed 2/5 doses of IVIG. We will complete the course. She is tolerating it very well. DVT prophylaxis: Lovenox 40 mg subcu daily.
[2024-03-04] MEDS: SODIUM CHLORIDE 0.9% 1,000 ML IV SCH (11:45)
--- NOTE | 2024-03-04 17:36 | P.PN ---
Progress Note - Text Progress Note Date: 03/04/24 Chief Complaint: Unsteady This is a 58-year-old patient, follows with Dr. Lew. Patient is accompanied by at the bedside. 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 CAD with stent, fibromyalgia, hyperlipidemia, osteoarthritis, migraines hemorrhoids urine incontinence. Patient is also following with [facility] Swapna Pathak at Dr. Ramirez's office. Unable to have MRI as the machine has been broken down there. Patient presented with them somewhere before September. Patient been having burning sensation in the hand and feet. Sometimes gets sharp pains in the legs. For more than a month patient is also having some blurry vision. 5 6 days ago patient noticed some double vision. Denies any fever and chills. Denies any headaches. Has decided to come in. Patient is also having trouble walking and balance is not good. Is also going on for some time. February 25: MRI of the brain came back to be negative. Dr. RAYMOND neurologist ordered a MRI C-spine. Other medications to continue. February 26: at the bedside. Pending MRI C-spine. I have been informed possibly will take up till Thursday. Getting sharp pains in the left arm. February 27: Pending MRI C-spine. Having sharp pains in different limbs at different times. at the bedside. Being followed by neurology. February 28: MRI C-spine came back unremarkable. Lumbar puncture has been ordered by neurology including other testing. March 01: Seen the patient this morning. Pending lumbar puncture. Neurosymptoms otherwise unchanged. February 15: Patient has been out of bed. Does get this sharp pain not constant but different times. In the left arm. Sometimes in both the legs. She also has numbness in both the feet. Discussed with Dr. De León from neurology. Will get a vascular opinion. The patient's pulses are palpable. Could be a small vessel problem. Patient CSF came back showing high protein. Immunoglobulin be started by neurology. Will order a CT scan chest abdomen pelvis to rule out any malignancy for paraneoplastic syndrome. Discussed with patient and . March 03: Getting immunoglobulins. Patient sharp pains are better. 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 Plan is to give a total of 5 days that is through Thursday. CT scan survey showed a nodule in the lung. Will have the patient follow-up outpatient with pulmonary. Patient seen by vascular Dr. Holguin. No vascular issues. Patient is using a rolling walker to get up to the bathroom. March 04: Discussed CSF results with Dr. De León. He feels this is a variant of Guillain-Lewis syndrome. MS was discussed. But he reviewed the images again both of the spine and the brain there is no white matter changes. Patient's blood pressure running low recent unknown. No other new symptoms. Will have recheck manual and automatic blood pressures again. Patient has no other symptoms. Patient does state that her pain is better. Using a walker. Active Medications Albuterol Sulfate (Albuterol Nebulized 2.5 Mg/3 Ml) 2.5 mg INHALATION RT-Q4H PRN PRN Reason: Shortness Of Breath Last Admin: 03/04/24 08:41 Dose: 2.5 mg Amlodipine Besylate (Amlodipine 5 Mg Tab) 5 mg PO W/BRKFST [facility] Last Admin: 03/04/24 05:47 Dose: 5 mg Aspirin (Aspirin 81 Mg) 81 mg PO W/BRKFST [facility] Last Admin: 03/04/24 05:46 Dose: 81 mg Baclofen (Baclofen 10 Mg Tab) 10 mg PO BID [facility] Last Admin: 03/04/24 10:00 Dose: Not Given Ezetimibe (Ezetimibe 10 Mg Tab) 10 mg PO W/BRKFST [facility] Last Admin: 03/04/24 05:46 Dose: 10 mg Enoxaparin Sodium (Enoxaparin 40 Mg/0.4 Ml Syringe) 40 mg SQ DAILY [facility] Last Admin: 03/04/24 10:03 Dose: 40 mg Folic Acid (Folic Acid 1 Mg Tab) 1 mg PO DAILY [facility] Last Admin: 03/04/24 10:02 Dose: 1 mg Formoterol Fumarate (Formoterol Fumarate 20 Mcg/2 Ml Nebu) 20 mcg INHALATION RT-BID [facility] Last Admin: 03/04/24 08:41 Dose: 20 mcg Immune Globulin 20 gm/ IV (Solution) 200 mls @ 0 mls/hr IV .Q0M ONE; Protocol Stop: 03/05/24 12:01 Immune Globulin 5 gm/ IV (Solution) 50 mls @ 0 mls/hr IV .Q0M ONE; Protocol Stop: 03/05/24 12:01 Immune Globulin 20 gm/ IV (Solution) 200 mls @ 0 mls/hr IV .Q0M ONE; Protocol Stop: 03/06/24 12:01 Immune Globulin 5 gm/ IV (Solution) 50 mls @ 0 mls/hr IV .Q0M ONE; Protocol Stop: 03/06/24 12:01 Sodium Chloride (Saline 0.9%) 1,000 mls @ 75 mls/hr IV .[id number] [facility] Last Admin: 03/04/24 11:45 Dose: 75 mls/hr Ibuprofen (Ibuprofen 800 Mg Tab) 800 mg PO Q8H PRN PRN Reason: Pain Last Admin: 03/04/24 10:01 Dose: 800 mg Lisinopril (Lisinopril 20 Mg Tab) 20 mg PO W/BRKFST [facility] Last Admin: 03/04/24 05:46 Dose: 20 mg Magnesium Oxide (Magnesium Oxide 400 Mg Tab) 400 mg PO W/LUNCH [facility] Last Admin: 03/04/24 13:14 Dose: 400 mg Metoprolol Tartrate (Metoprolol Tartrate 50 Mg Tab) 50 mg PO BID [facility] Last Admin: 03/04/24 10:00 Dose: Not Given Naloxone HCl (Naloxone 0.4 Mg/Ml 1 Ml Vial) 0.2 mg IV Q2M PRN PRN Reason: Opioid Reversal Pantoprazole Sodium (Pantoprazole 40 Mg Tablet) 40 mg PO W/BRKFST [facility] Last Admin: 03/04/24 05:47 Dose: 40 mg Pregabalin (Pregabalin 75 Mg Cap) 150 mg PO TID [facility] Last Admin: 03/04/24 16:15 Dose: 150 mg Zolpidem Tartrate (Zolpidem 5 Mg Tab) 5 mg PO HS [facility] Last Admin: 03/03/24 20:02 Dose: 5 mg Social history: Smoked a pack a day for 34 years. Stopped a year ago. . No alcohol. Physical examination: VITAL SIGNS: 8.2, 73, 16, 99 x 49, 96% room air GENERAL: Comfortable EYES: Pupils equal. Conjunctiva kami l. HEENT: External appearance of nose and ears normal, oral cavity grossly normal. NECK: JVD not raised; masses not palpable. HEART: First and second heart sounds are normal; no edema. LUNGS: Respiratory rate normal; decreased breath sounds. ABDOMEN: Soft, nontender, liver spleen not palpable, no masses palpable. PSYCH: Alert and oriented x3; mood and affect kami l. MUSCULOSKELETAL:No Clubbing/cyanosis;muscles-grossly intact NEUROLOGICAL: Cranial nerves grossly intact; no facial asymmetry, and witnessed to use a rolling walker. INVESTIGATIONS, reviewed in the clinical context: 9 IgG 903 IgA 131 IgM 109 Lyme screen IgG and IgM negative Treponema pallidum antibody nonreactive CSF: IgG MS 13.2 serum albumin 3.7 CSF IgG albumin ratio MS 0.83 CSF IgG synthetic rate MS 28.55 CSF: Total protein 139 glucose 65 nucleated cells 0 RBC 350 MRI C-spine: Negative MRI brain-unremarkable February 24, 2024: White count 5.1 hemoglobin 14.3 platelets 259 sodium 139 potassium 4.4 creatinine 0.83 Troponin I less than 0.012 EKG tracing personally reviewed by me-normal sinus rhythm. Poor R wave progression. Chest x-ray film personally reviewed by me-hyperinflation CT brain without contrast: Unremarkable Assessment plan: -Patient has neurological symptoms going on for few months. Apparently before September. Some have been progressive. She has been following at Dr. Ramirez neurology's office. MRI was pending outpatient. Finally decided to come in. 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 Started on IV immunoglobulins yesterday.-For 5-day course Neurology following CSF: High protein. MRI brain: Unremarkable MRI [id number] Lumbar puncture pending -Chronic fibromyalgia Lyrica 150 mg 3 times daily -Hyperlipidemia Zetia 10 mg with breakfast -Primary osteoarthritis Motrin as needed -Lung nodule Follow-up outpatient with Dr. Brady -Chronic urine incontinence -COPD in a previous smoker Peroforomist-nebulizer. Albuterol as needed. -CAD with stent Lopressor. Aspirin. -Essential hypertension: Blood pressure running low. Amlodipine and Zestril. Hold Lopressor 50 mg twice daily -GERD PPI -Full code Stop amlodipine and Zestril. Hold Lopressor. EKG. Recheck blood pressure. Patient has no other symptoms. Past Medical History Past Medical History: CVA/TIA, Fibromyalgia, Hyperlipidemia, Osteoarthritis (OA) Additional Past Medical History / Comment(s): 07-04-15 ADMITTED TO [facility] WITH NSTEMI. PAST MEDICAL HX: MIGRAINES, HEMORRHOIDS, INCONT OF URINE, TIA X2, fibromyalgia, hypercholesterolemia. History of Any Multi-Drug Resistant Organisms: None Reported Past Surgical History: Hysterectomy, Tubal Ligation Additional Past Surgical History / Comment(s): RECENTLT HAD TEETH EXTRACTED AND HAS NEW DENTURES ,MYRINGTOMY/TUBES 03 LOST 30% OF HEARING EV, SINUS SX 04, COLONOSCOPY CLEAR, Past Anesthesia/Blood Transfusion Reactions: Previous Problems w/ Anesthesia Additional Past Anesthesia/Blood Transfusion Reaction / Comment(s): DIFFICULTY WAKING FROM AA. Past Psychological History: No Psychological Hx Reported Smoking Status: Current every day smoker Past Alcohol Use History: None Reported Past Drug Use History: Marijuana
[2024-03-04 18:25] LABS: Basophils % (A) 1 %; Eosinophils # (A) 0.2 k/uL (0-0.7); Eosinophils % (A) 3 %; HCT 40.2 % (34.0-46.0); HGB 13.3 gm/dL (11.4-16.0); Lymphocytes # (A) 1.4 k/uL (1.0-4.8); Lymphocytes % (A) 25 %; MCH 30.8 pg (25.0-35.0); MCV 93.4 fL (80.0-100.0); Mean Platelet Volume 7.8; Monocytes # (A) 0.4 k/uL (0-1.0); Monocytes % (A) 7 %; Neutrophils # (A) 3.5 k/uL (1.3-7.7); Neutrophils % (A) 63 %; Platelet Count 220 k/uL (150-450); RDW 13.3 % (11.5-15.5); WBC 5.6 k/uL (3.8-10.6)
[2024-03-04 18:37] LABS: ALT 16 U/L (4-34); AST 22 U/L (14-36); African American GFR (CKD) 66 (>60 ml/min/1.73 sqM); Albumin 3.2 g/dL (3.5-5.0); Albumin/Globulin Ratio 0.9; Alkaline Phosphatase 49 U/L (38-126); Anion Gap 3 mmol/L; Blood Urea Nitrogen 24 mg/dL (7-17); Calcium 8.7 mg/dL (8.4-10.2); Carbon Dioxide 25 mmol/L (22-30); Chloride 110 mmol/L (98-107); Globulin 3.4 g/dL; Glucose 103 mg/dL (74-99); Non-African American GFR(CKD) 57 (>60 ml/min/1.73 sqM); Potassium 4.1 mmol/L (3.5-5.1); Sodium 138 mmol/L (137-145); Total Bilirubin 0.4 mg/dL (0.2-1.3); Total Protein 6.6 g/dL (6.3-8.2)
[2024-03-04] MEDS: IMMUNE GLOBULIN (GAMMAGARD) 20 GM in EMPTY BAG 1 BAG IV ONE (18:58)
[2024-03-04] MEDS: IMMUNE GLOBULIN (GAMMAGARD) 5 GM in EMPTY BAG 1 BAG IV ONE (18:58)
[2024-03-04] MEDS: METOPROLOL TARTRATE 12.5 MG TAB PO SCH (20:12)
[2024-03-04] MEDS: LACTATED RINGERS 1,000 ML IV SCH (22:54)
[2024-03-05 09:59] LABS: Blood Urea Nitrogen 16.4 mg/dL (9.0-27.0); Calcium 8.6 mg/dL (8.7-10.3); Chloride 108 mmol/L (96-109); Glucose 94 mg/dL (70-110); Potassium 3.8 mmol/L (3.5-5.5); Sodium 141 mmol/L (135-145)
--- NOTE | 2024-03-05 11:12 | P.PN ---
Subjective Progress Note Date: 03/04/24 03/04/2024: Patient was seen for a follow-up. 11:22 AM that patient's blood pressure was very low 84/58. I came to see patient, she and she was very somnolent, allergic. Patient would respond to calling her name but very groggy. Patient was started on normal saline at 75 cc/h. Manual blood pressure was 88/62. After 4 hours of IV fluid, the blood pressure improved to 99/49. I did order stat CBC and CMP to consider before IVIG can be resumed. CBC was normal, but CMP showed BUN was 24, creatinine 1.08. Troponin negative. Due to worsening renal function, IVIG was put on hold and patient was continued on IV fluids. We will repeat basic metabolic panel in the morning and if stable, will resume IVIG. 03/03/2024: Patient was seen for a follow-up. Patient states that she is doing much better. The neuropathic pain is not as sharp and not as lingering. Still has diplopia. Patient is using eye patch only with the left eye. The numbness in the lower limbs has also improved, and only involves from toes up to just above the ankles. Previously up to mid calves. Patient has numbness of the index and middle finger of both hands, left more than right. The left hand is not as symptomatic. Feet are not as numb as was before. 03/02/2024: Patient was seen for a follow-up. Patient states that her whole left hand up to the upper two third of the forearm gets numb and cold. On the right side, only right index finger gets numb and cold and seldom involves the other fingers. She also has numbness and cold sensation in the feet retirement up the calf. Symptoms have been present since October 2023. Patient admits to have smoked 1 pack/day for 42 years, quit 1 year ago. 03/01/2024: Patient was seen for a follow-up. Patient states that since 2:30 AM this morning, the pain is worse, everywhere its rating, from neck to head. Patient feels her symptoms are getting worse, no improvement. She is using a glove in the left hand because it hurts so much. It feels cold. 02/29/2024: Patient initially seen by Dr. Eyal Liz. Please refer to his note for details. Patient is a 58-year-old female came to the hospital with unsteady gait and nystagmus for 1 month. MRI of the brain was negative. Patient awaiting MRI of the cervical spine. Came to see patient, her was also present. Patient is in no acute distress but intermittently gets lancinating pain in the left arm and hand. Patient states that her symptoms started around Thanksgiving time, when she developed burning and itching of hands, like hands were on fire. By October 2023, it turned to pain. She developed new onset of diplopia, nystagmus last 02/20/2024. The double vision resolves, if she closes 1 or the other eye. The diplopia is present in all gazes. She continues to have arm and leg pains bilaterally, left much more worse than right. If it is 100% on the left, it is about 10 to 20% on the right side. Both feet feels numb and cold. No history of diabetes, or any history of cancers. Objective - Vital Signs Vital signs: Vital Signs Temp 97.8 F 03/04/24 07:15 Pulse 64 03/04/24 09:06 Resp 17 03/04/24 07:15 BP 88/62 03/04/24 11:38 Pulse Ox 95 03/04/24 07:15 FiO2 Intake & Output 03/03/24 03/04/24 03/04/24 18:59 06:59 18:59 Intake Total 868.000 236 Balance 868.000 236 Weight 68.946 kg Intake: Intake, IV Titration 250.000 Amount Immune Globulin ( 200.000 Gammagard) 20 gm In Empty Bag 1 bag @ Titrate IV . Q0M ONE Rx#:[id number] Immune Globulin ( 50 Gammagard) 5 gm In Empty Bag 1 bag @ Titrate IV . Q0M ONE Rx#:[id number] Oral 618 236 Other: Voiding Method Toilet # Voids 5 2 - Exam Mental status, patient is very somnolent, lethargic. Patient does wake up, but very somnolent. On cranial examination pupils are equal, round and reactive to light, visual rowland are full, with no neglect, extraocular muscles although intact, but patient has very prominent horizontal nystagmus bilaterally on the end gaze. Slight nystagmus in the up-and-down gaze also. Patient has diplopia in the primary gaze. Face is symmetric and tongue protrudes to midline. Patient is using gauze over the left eye for diplopia. On muscle strength testing there is no pronator drift and the strength is normal in arms and legs distally and proximally. Sensory to touch is equal. No neglect. Patient has mild ataxia for [id number]-[id number] bilaterally. Patient has mild to moderate ataxia for vbvi-lx-jvhe testing bilaterally. Deep tendon reflexes are 2 at the biceps, 2 brachioradialis, 2 at the knees, 0 ankles and plantars are downgoing bilaterally. - Labs CBC & Chem 7: 03/04/24 18:11 03/05/24 05:39 Labs: Abnormal Lab Results - Last 24 Hours (Table) 02/29/24 Range/Units 20:33 Vitamin B6 145 H (5-50) ug/L Microbiology - Last 24 Hours (Table) 03/01/24 13:36 CSF Gram Stain - Preliminary Cerebral Spinal Fluid CSF Culture - Preliminary Assessment and Plan Assessment: 58-year-old female who has developed paresthesias of the hands and feet since 2022. Symptoms suggestive of possible peripheral neuropathy. New onset nystagmus, diplopia and gait ataxia since 02/20/2024. Patient has elevated CSF proteins. Patient has bilateral nystagmus, and ataxia. 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 Abnormal CSF, with positive oligoclonal bands, IgG index and IgG synthesis rate. MRI of the brain and cervical spine negative for demyelinating disease. Very low folate and is borderline normal level is 4.70 (normal is 4.4-31) Underlying history of hypertension Hypercholesterolemia Ex tobacco use Plan: MRI of the brain with and without contrast revealed no intracranial mass, acute/subacute infarct or abnormal enhancement. I personally reviewed MRI, agree with the findings. Continue aspirin 81 mg daily. Carotid Doppler revealed scattered atherosclerotic disease without sonographic evidence of significant stenosis. Antegrade flow in both vertebral arteries. Patient has very low folate level, started on folate replacement. MRI of the cervical spine revealed no evidence for disc herniation or sig nificant spinal canal stenosis. No abnormal postcontrast enhancement. Minimal disc degeneration with associated osteoarthritic changes. I personally reviewed MRI agree with the findings.. ESR 7, CRP <0.5, quantitative immunoglobulins are normal. Serum immunofixation electrophoresis negative for any monoclonal protein. Sjogren's antibodies negative. RPR negative. Lyme titer negative. Vitamin B12: 1139, methylmalonic acid 0.15 normal Serum folate: 4.70 (normal is 4.4-31) TSH: 3.62 HbA1c: 5.9 CSF with WBC 0, RBC 350, CSF glucose 65 normal, CSF protein 139 (12-60). MS panel came positive for oligoclonal bands. They were 2 or more oligoclonal bands seen, which were not seen in the corresponding serum therefore is considered a positive oligoclonal banding study. IgG index 0.83/0.77, IgG synthesis rate 28.55/3.0. Although MS panel is positive in the CSF, but radiographically, there are no lesions to support central demyelination. Question is between Lowndes Lewis syndrome versus MS. 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 Hold off on steroids. Await viral cultures, CSF BARBIE and CSF NMDA antibodies. CT of the chest abdomen pelvis revealed right middle lobe subsolid/groundglass 9 mm pulmonary nodule. Further evaluation with CT in 3 months versus PET/CT recommended. We will defer to IM. Vascular surgery input appreciated. No evidence of PAD. Patient's symptoms have remarkably improved with IVIG so far. She has completed 2/5 doses of IVIG. We will hold off on IVIG today and if the renal functions improve tomorrow, then we will resume IVIG. Discussed with the nursing staff, primary physician multiple times during the day. DVT prophylaxis: Lovenox 40 mg subcu daily. Time with Patient: Greater than 30
[2024-03-05] MEDS: IMMUNE GLOBULIN (GAMMAGARD) 20 GM in EMPTY BAG 1 BAG IV ONE (13:55)
--- NOTE | 2024-03-05 16:01 | P.PN ---
Subjective Progress Note Date: 03/05/24 This is a pleasant 58-year-old female with medical history of stroke, coronary artery disease, fibromyalgia. Patient is currently admitted secondary to upper and lower extremity paresthesias and weakness. 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 Patient did miss her dose yesterday and has having worsening symptoms today with pain and paresthesias up to her knees now. Patient reports the pain is sharp in nature. Review of Systems Constitutional: Denied any fatigue denied any fever. Cardio vascular: denied any chest pain, palpitations Gastrointestinal: denied any nausea, vomiting, diarrhea Pulmonary: Denied any shortness of breath cough Neurologic denied any new focal deficits All inpatient medications were reviewed and appropriate changes in these medications as dictated in the interval history and assessment and plan. PHYSICAL EXAMINATION: GENERAL: The patient is alert and oriented x3, not in any acute distress. Well developed, well nourished. HEENT: Pupils are round and equally reacting to light. EOMI. No scleral icterus. No conjunctival pallor. Normocephalic, atraumatic. No pharyngeal erythema. No thyromegaly. CARDIOVASCULAR: S1 and S2 present. No murmurs, rubs, or gallops. PULMONARY: Chest is clear to auscultation, no wheezing or crackles. ABDOMEN: Soft, nontender, nondistended, normoactive bowel sounds. No palpable organomegaly. MUSCULOSKELETAL: No joint swelling or deformity. EXTREMITIES: No cyanosis, clubbing, or pedal edema. NEUROLOGICAL: Gross neurological examination did not reveal any focal deficits. SKIN: No rashes. Assessment and Plan -Patient has neurological symptoms going on for few months. Apparently before September. Some have been progressive. She has been following at Dr. Ramirez neurology's office. MRI was pending outpatient. Finally decided to come in. 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 Started on IV immunoglobulins -For 5-day course missed a day yesterday and had worsening symptoms. Resumed on IVIG Neurology following CSF: High protein. MRI brain: Unremarkable MRI [id number] Lumbar puncture pending -Chronic fibromyalgia Lyrica 150 mg 3 times daily -Hyperlipidemia Zetia 10 mg with breakfast -Primary osteoarthritis Motrin as needed -Lung nodule Follow-up outpatient with Dr. Brady -Chronic urine incontinence -COPD in a previous smoker Peroforomist-nebulizer. Albuterol as needed. -CAD with stent Lopressor. Aspirin. -Essential hypertension: Blood pressure running low. Amlodipine and Zestril. Hold Lopressor 50 mg twice daily -GERD PPI -Full code Continue on amlodipine, lisinopril and lopressor, blood pressure 120s systolic. Patient to continue on course of IVIG and neurology following closely. The impression and plan of care has been dictated by Meredith Carter, Nurse Practitioner as directed. Dr. Tereza MD I have performed a history and physical examination and medical decision making of this patient, discussed the same with the dictator, and agree with the dictators assessment and plan as written, documented as a scribe. Based on total visit time, I have performed more than 50% of this visit. Objective - Vital Signs Vital signs: Vital Signs Temp 97.9 F 03/05/24 07:15 Pulse 66 03/05/24 07:57 Resp 15 03/05/24 07:15 BP 132/80 03/05/24 07:15 Pulse Ox 94 L 03/05/24 07:15 FiO2 Intake & Output 03/04/24 03/05/24 03/05/24 18:59 06:59 18:59 Intake Total 354 118 Balance 354 118 Intake: Oral 354 118 Other: Voiding Method Toilet # Voids 3 1 # Bowel Movements 4 - Labs CBC & Chem 7: 03/04/24 18:11 03/05/24 05:39 Labs: Abnormal Lab Results - Last 24 Hours (Table) 02/29/24 03/04/24 Range/Units 20:33 18:11 Chloride 110 H (98-107) mmol/L BUN 24 H (7-17) mg/dL Creatinine 1.08 H (0.52-1.04) mg/dL Glucose 103 H (74-99) mg/dL Albumin 3.2 L (3.5-5.0) g/dL Vitamin B6 145 H (5-50) ug/L Microbiology - Last 24 Hours (Table) 03/01/24 13:36 CSF Gram Stain - Preliminary Cerebral Spinal Fluid CSF Culture - Preliminary Assessment and Plan Time with Patient: Less than 30
[2024-03-05] MEDS: IMMUNE GLOBULIN (GAMMAGARD) 5 GM in EMPTY BAG 1 BAG IV ONE (16:16)
--- NOTE | 2024-03-05 17:56 | CA ---
Transthoracic Echo Report Name: Xiao Mckeon Age: 58 Gender: F : 1965 Exam Date: 03/05/2024 12:23 Exam Location: [facility] Ht (in): 64 Wt (lb): 152 Ordering Physician: Nolan Narvaez MD Attending/Referring Phys: Registered Nurse Surgical Services Jade Canchola RDCS Procedure CPT: Indications: decreased BP Cardiac Hx: Technical Quality: Fair Contrast 1: Total Dose (mL): Contrast 2: Total Dose (mL): MEASUREMENTS (Male / Female) Normal Values 2D ECHO LV Diastolic Diameter PLAX 4.0 cm 4.2 - 5.9 / 3.9 - 5.3 cm LV Systolic Diameter PLAX 3.0 cm IVS Diastolic Thickness 1.0 cm 0.6 - 1.0 / 0.6 - 0.9 cm LVPW Diastolic Thickness 1.1 cm 0.6 - 1.0 / 0.6 - 0.9 cm LV Relative Wall Thickness 0.5 RV Internal Dim ED PLAX 2.2 cm LVOT Diameter 2.0 cm LA Systolic Diameter LX 2.8 cm 3.0 - 4.0 / 2.7 - 3.8 cm LV Diastolic Volume MOD BP 46.6 cm??? 67 - 155 / 56 - 104 cm??? LV Systolic Volume MOD BP 15.7 cm??? - 58 / 19 - 49 cm??? LV Ejection Fraction MOD BP 66.2 % >= 55 % LV Cardiac Index MOD BP 1212.5 cm???/min???m??? LV Diastolic Volume MOD 4C 42.2 cm??? LV Systolic Volume MOD 4C 15.0 cm??? LV Ejection Fraction MOD 4C 64.3 % LV Cardiac Index MOD 4C 1068.2 cm???/min???m??? LV Diastolic Length 4C 6.9 cm LV Systolic Length 4C 5.2 cm LV Diastolic Volume MOD 2C 48.3 cm??? LV Systolic Volume MOD 2C 15.6 cm??? LV Ejection Fraction MOD 2C 67.7 % LV Cardiac Index MOD 2C 1287.1 cm???/min???m??? LV Diastolic Length 2C 7.5 cm LV Systolic Length 2C 5.7 cm LA Volume 47.4 cm??? 18 - 58 / 22 - 52 cm??? LA Volume Index 26.6 cm???/m??? 16 - 28 cm???/m??? M-MODE Aortic Root Diameter MM 2.5 cm LA Systolic Diameter MM 2.7 cm LA Ao Ratio MM 1.1 AV Cusp Separation MM 1.6 cm DOPPLER AV Peak Velocity 194.0 cm/s AV Peak Gradient 15.1 mmHg AV Mean Velocity 121.7 cm/s AV Mean Gradient 7.2 mmHg AV Velocity Time Integral 39.4 cm MV Area PHT 3.2 cm??? Mitral E Point Velocity 64.6 cm/s Mitral A Point Velocity 87.4 cm/s Mitral E to A Ratio 0.7 MV Deceleration Time 237.4 ms FINDINGS Left Ventricle Left ventricular ejection fraction is estimated at 55-60 %. Mildly increased septal wall thickness. Mildly increased posterior wall thickness. Normal left ventricular systolic function with no obvious regional wall motion abnormalities. Left ventricular cavity size normal. Right Ventricle Normal right ventricular size and function. Right Atrium Normal right atrial size. Left Atrium Normal left atrial size. Mitral Valve Structurally normal mitral valve. Trace to mild mitral regurgitation. Aortic Valve Trileaflet aortic valve. Trileaflet aortic valve. Diffuse thickening (sclerosis) of the aortic valve cusps without reduced excursion. Tricuspid Valve Structurally normal tricuspid valve. Trace tricuspid regurgitation. Pulmonic Valve Structurally normal pulmonic valve. Trace pulmonic regurgitation. No pulmonic stenosis. Pericardium No pericardial or pleural effusion. Aorta Normal size aortic root and proximal ascending aorta. CONCLUSIONS Left ventricular ejection fraction is estimated at 55-60 %. Normal left ventricular systolic function with no obvious regional wall motion abnormalities. Aortic sclerosis but no stenosis Normal right ventricular size and function. Previewed by: Dr Fish Samuel (Electronically Signed) Final Date: 05 Mar 2024 17:55
--- NOTE | 2024-03-06 11:56 | P.PN ---
Subjective Progress Note Date: 03/05/24 03/05/2024: Patient was seen for a follow-up. Patient is laying in the bed. She is much more alert and awake. Patient complaining of neuropathic pain in the arms and legs. She keeps on changing her symptoms. Now she is complaining of both hands and feet affected. 03/04/2024: Patient was seen for a follow-up. 11:22 AM that patient's blood pressure was very low 84/58. I came to see patient, she and she was very somnolent, allergic. Patient would respond to calling her name but very groggy. Patient was started on normal saline at 75 cc/h. Manual blood pressure was 88/62. After 4 hours of IV fluid, the blood pressure improved to 99/49. I did order stat CBC and CMP to consider before IVIG can be resumed. CBC was normal, but CMP showed BUN was 24, creatinine 1.08. Troponin negative. Due to worsening renal function, IVIG was put on hold and patient was continued on IV fluids. We will repeat basic metabolic panel in the morning and if stable, will resume IVIG. 03/03/2024: Patient was seen for a follow-up. Patient states that she is doing much better. The neuropathic pain is not as sharp and not as lingering. Still has diplopia. Patient is using eye patch only with the left eye. The numbness in the lower limbs has also improved, and only involves from toes up to just above the ankles. Previously up to mid calves. Patient has numbness of the index and middle finger of both hands, left more than right. The left hand is not as symptomatic. Feet are not as numb as was before. 03/02/2024: Patient was seen for a follow-up. Patient states that her whole left hand up to the upper two third of the forearm gets numb and cold. On the right side, only right index finger gets numb and cold and seldom involves the other fingers. She also has numbness and cold sensation in the feet skilled nursing up the calf. Symptoms have been present since October 2023. Patient admits to have smoked 1 pack/day for 42 years, quit 1 year ago. 03/01/2024: Patient was seen for a follow-up. Patient states that since 2:30 AM this morning, the pain is worse, everywhere its rating, from neck to head. Patient feels her symptoms are getting worse, no improvement. She is using a glove in the left hand because it hurts so much. It feels cold. 02/29/2024: Patient initially seen by Dr. Eyal Liz. Please refer to his note for details. Patient is a 58-year-old female came to the hospital with unsteady gait and nystagmus for 1 month. MRI of the brain was negative. Patient awaiting MRI of the cervical spine. Came to see patient, her was also present. Patient is in no acute distress but intermittently gets lancinating pain in the left arm and hand. Patient states that her symptoms started around Thanksgi time, when she developed burning and itching of hands, like hands were on fire. By October 2023, it turned to pain. She developed new onset of diplopia, nystagmus last 02/20/2024. The double vision resolves, if she closes 1 or the other eye. The diplopia is present in all gazes. She continues to have arm and leg pains bilaterally, left much more worse than right. If it is 100% on the left, it is about 10 to 20% on the right side. Both feet feels numb and cold. No history of diabetes, or any history of cancers. Objective - Vital Signs Vital signs: Vital Signs Temp 97.9 F 03/05/24 07:15 Pulse 66 03/05/24 11:50 Resp 15 03/05/24 07:15 BP 132/80 03/05/24 07:15 Pulse Ox 94 L 03/05/24 07:15 FiO2 Intake & Output 03/04/24 03/05/24 03/05/24 18:59 06:59 18:59 Intake Total 354 118 Balance 354 118 Intake: Oral 354 118 Other: Voiding Method Toilet # Voids 3 1 # Bowel Movements 4 - Exam Mental status, patient is very somnolent, lethargic. Patient does wake up, but very somnolent. On cranial examination pupils are equal, round and reactive to light, visual rowland are full, with no neglect, extraocular muscles although intact, but p atient has very prominent horizontal nystagmus bilaterally on the end gaze. Slight nystagmus in the up-and-down gaze also. Patient has diplopia in the primary gaze. Face is symmetric and tongue protrudes to midline. Patient is using gauze over the left eye for diplopia. On muscle strength testing there is no pronator drift and the strength is normal in arms and legs distally and proximally. Sensory to touch is equal. No neglect. Patient has mild ataxia for [id number] bilaterally. Patient has mild to moderate ataxia for [id number] testing bilaterally. Deep tendon reflexes are 2 at the biceps, 2 brachioradialis, 2 at the knees, 0 ankles and plantars are downgoing bilaterally. - Labs CBC & Chem 7: 03/04/24 18:11 03/05/24 05:39 Labs: Abnormal Lab Results - Last 24 Hours (Table) 03/04/24 03/05/24 Range/Units 18:11 05:39 Chloride 110 H (98-107) mmol/L BUN 24 H (7-17) mg/dL Creatinine 1.08 H (0.52-1.04) mg/dL BUN/Creatinine Ratio 20.50 H (12.00-20.00) Ratio Glucose 103 H (74-99) mg/dL Calcium 8.6 L (8.7-10.3) mg/dL Albumin 3.2 L (3.5-5.0) g/dL Microbiology - Last 24 Hours (Table) 03/01/24 13:36 CSF Gram Stain - Preliminary Cerebral Spinal Fluid CSF Culture - Preliminary Assessment and Plan Assessment: 58-year-old female who has developed paresthesias of the hands and feet since 2022. Symptoms suggestive of possible peripheral neuropathy. New onset nystagmus, diplopia and gait ataxia since 02/20/2024. Patient has elevated CSF proteins. Patient has bilateral nystagmus, and ataxia. Possible atypical variant of [place] Lewis. Abnormal CSF, with positive oligoclonal bands, IgG index and IgG synthesis rate, suggestive of multiple sclerosis. No abnormal lesions seen in the brain MRI however. MRI of the brain and cervical spine negative for demyelinating disease. Very low folate and is borderline normal level is 4.70 (normal is 4.4-31) Underlying history of hypertension Hypercholesterolemia Ex tobacco use Plan: MRI of the brain with and without contrast revealed no intracranial mass, acute/subacute infarct or abnormal enhancement. I personally reviewed MRI, agree with the findings. Continue aspirin 81 mg daily. Carotid Doppler revealed scattered atherosclerotic disease without sonographic evidence of significant stenosis. Antegrade flow in both vertebral arteries. Patient has very low folate level, started on folate replacement. MRI of the cervical spine revealed no evidence for disc herniation or significant spinal canal stenosis. No abnormal postcontrast enhancement. Minimal disc degeneration with associated osteoarthritic changes. I personally reviewed MRI agree with the findings.. ESR 7, CRP <0.5, quantitative immunoglobulins are normal. Serum immunofixation electrophoresis negative for any monoclonal protein. Sjogren's antibodies negative. RPR negative. Lyme titer negative. Vitamin B12: 1139, methylmalonic acid 0.15 normal Serum folate: 4.70 (normal is 4.4-31) TSH: 3.62 HbA1c: 5.9 CSF with WBC 0, RBC 350, CSF glucose 65 normal, CSF protein 139 (12-60). MS panel came positive for oligoclonal bands. They were 2 or more oligoclonal bands seen, which were not seen in the corresponding serum therefore is considered a positive oligoclonal banding study. IgG index 0.83/0.77, IgG synthesis rate 28.55/3.0. Although MS panel is positive in the CSF, but radiographically, there are no lesions to support central demyelination. 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 Hold off on steroids. CSF BARBIE level normal <5. Await viral cultures and CSF NMDA antibodies. CT of the chest abdomen pelvis revealed right middle lobe subsolid/groundglass 9 mm pulmonary nodule. Further evaluation with CT in 3 months versus PET/CT recommended. We will defer to IM. Vascular surgery input appreciated. No evidence of PAD. Patient's symptoms have remarkably improved with IVIG so far. Today patient will receive 3/5 doses of IVIG. Renal functions back to normal. BUN 16, creatinine 0.8. Discussed with the nursing staff, and cleared for IVIG. DVT prophylaxis: Lovenox 40 mg subcu daily.
[2024-03-06] MEDS: IMMUNE GLOBULIN (GAMMAGARD) 20 GM in EMPTY BAG 1 BAG IV ONE (12:47)
--- NOTE | 2024-03-06 14:22 | P.PN ---
Subjective Progress Note Date: 03/06/24 03/06/2024: Patient was seen for a follow-up. Patient feels the IVIG is helping. The pain is not as often, and not as long-lasting. Patient states the left hand is involved from mid forearm down to the fingertips. The right hand is not involved. She has sharp pain in the feet from toes up to just above the ankles bilaterally. But then said that it "comes and goes". She patient continues to have nystagmus and diplopia, using eye patch over the right eye now. She is tolerating IVIG very well with no side effect. 03/05/2024: Patient was seen for a follow-up. Patient is laying in the bed. She is much more alert and awake. Patient complaining of neuropathic pain in the arms and legs. She keeps on changing her symptoms. Now she is complaining of both hands and feet affected. 03/04/2024: Patient was seen for a follow-up. 11:22 AM that patient's blood pressure was very low 84/58. I came to see patient, she and she was very somnolent, allergic. Patient would respond to calling her name but very groggy. Patient was started on normal saline at 75 cc/h. Manual blood pressure was 88/62. After 4 hours of IV fluid, the blood pressure improved to 99/49. I did order stat CBC and CMP to consider before IVIG can be resumed. CBC was normal, but CMP showed BUN was 24, creatinine 1.08. Troponin negative. Due to worsening renal function, IVIG was put on hold and patient was continued on IV fluids. We will repeat basic metabolic panel in the morning and if stable, will resume IVIG. 03/03/2024: Patient was seen for a follow-up. Patient states that she is doing much better. The neuropathic pain is not as sharp and not as lingering. Still has diplopia. Patient is using eye patch only with the left eye. The numbness in the lower limbs has also improved, and only involves from toes up to just above the ankles. Previously up to mid calves. Patient has numbness of the index and middle finger of both hands, left more than right. The left hand is not as symptomatic. Feet are not as numb as was before. 03/02/2024: Patient was seen for a follow-up. Patient states that her whole left hand up to the upper two third of the forearm gets numb and cold. On the right side, only right index finger gets numb and cold and seldom involves the other fingers. She also has numbness and cold sensation in the feet prison up the calf. Symptoms have been present since October 2023. Patient admits to have smoked 1 pack/day for 42 years, quit 1 year ago. 03/01/2024: Patient was seen for a follow-up. Patient states that since 2:30 AM this morning, the pain is worse, everywhere its rating, from neck to head. Patient feels her symptoms are getting worse, no improvement. She is using a glove in the left hand because it hurts so much. It feels cold. 02/29/2024: Patient initially seen by Dr. Eyal Liz. Please refer to his note for details. Patient is a 58-year-old female came to the hospital with unsteady gait and nystagmus for 1 month. MRI of the brain was negative. Patient awaiting MRI of the cervical spine. Came to see patient, her was also present. Patient is in no acute distress but intermittently gets lancinating pain in the left arm and hand. Patient states that her symptoms started around Thanksgiving time, when she developed burning and itching of hands, like hands were on fire. By October 2023, it turned to pain. She developed new onset of diplopia, nystagmus last 02/20/2024. The double vision resolves, if she closes 1 or the other eye. The diplopia is present in all gazes. She continues to have arm and leg pains bilaterally, left much more worse than right. If it is 100% on the left, it is about 10 to 20% on the right side. Both feet feels numb and cold. No history of diabetes, or any history of cancers. Objective - Vital Signs Vital signs: Vital Signs Temp 97.8 F 03/06/24 07:10 Pulse 72 03/06/24 13:20 Resp 14 03/06/24 13:20 BP 134/81 03/06/24 13:20 Pulse Ox 97 03/06/24 13:20 FiO2 Intake & Output 03/05/24 03/06/24 03/06/24 18:59 06:59 18:59 Intake Total 401.042 164.291 Balance 401.042 164.291 Intake: Intake, IV Titration 165.042 46.291 Amount Immune Globulin ( 115.042 Gammagard) 20 gm In Empty Bag 1 bag @ Titrate IV . Q0M ONE Rx#:[id number] Immune Globulin ( 46.291 Gammagard) 20 gm In Empty Bag 1 bag @ Titrate IV . Q0M ONE Rx#:[id number] Immune Globulin ( 50 Gammagard) 5 gm In Empty Bag 1 bag @ Titrate IV . Q0M ONE Rx#:[id number] Oral 236 118 Other: Voiding Method Toilet # Voids 3 1 - Exam Mental status, patient is fully alert and awake. Speech and language functions are normal. Her speech is slightly hoarse at baseline. On cranial examination pupils are equal, round and reactive to light, visual rowland are full, with no neglect, extraocular muscles although intact, but patient has very prominent horizontal nystagmus bilaterally on the end gaze. Slight nystagmus in the down gaze also, but not noted in the upgaze. Patient has diplopia in the primary gaze. Face is symmetric and tongue protrudes to midline. Patient is using gauze over the right eye for diplopia. On muscle strength testing there is no pronator drift and the strength is normal in arms and legs distally and proximally. Sensory to touch is equal. No neglect. Patient has mild ataxia for [id number] bilaterally. Patient has mild ataxia for [id number]-[id number] testing bilaterally. The ataxia is better in the arms and legs. Deep tendon reflexes are 2 at the biceps, 2 brachioradialis, 2 at the knees, 0 ankles and plantars are downgoing bilaterally. - Labs CBC & Chem 7: 03/04/24 18:11 03/05/24 05:39 Labs: Microbiology - Last 24 Hours (Table) 03/01/24 13:36 CSF Gram Stain - Final Cerebral Spinal Fluid CSF Culture - Final Assessment and Plan Assessment: 58-year-old female who has developed paresthesias of the hands and feet since 2022. Symptoms suggestive of possible peripheral neuropathy. New onset nystagmus, diplopia and gait ataxia since 02/20/2024. Patient has elevated CSF proteins. Patient has bilateral nystagmus, and ataxia. Possible atypical variant of [place] Lewis. Abnormal CSF, with positive oligoclonal bands, IgG index and IgG synthesis rate, suggestive of multiple sclerosis. No abnormal lesions seen in the brain MRI however. MRI of the brain and cervical spine negative for demyelinating disease. Very low folate and is borderline normal level is 4.70 (normal is 4.4-31) Vitamin B6 toxicity with B6 level 145. Underlying history of hypertension Hypercholesterolemia Ex tobacco use Plan: MRI of the brain with and without contrast revealed no intracranial mass, acute/subacute infarct or abnormal enhancement. I personally reviewed MRI, agree with the findings. Continue aspirin 81 mg daily. Carotid Doppler revealed scattered atherosclerotic disease without sonographic evidence of significant stenosis. Antegrade flow in both vertebral arteries. Patient has very low folate level, started on folate replacement. MRI of the cervical spine revealed no evidence for disc herniation or significant spinal canal stenosis. No abnormal postcontrast enhancement. Minimal disc degeneration with associated osteoarthritic changes. I personally reviewed MRI agree with the findings.. ESR 7, CRP <0.5, quantitative immunoglobulins are normal. Serum immunofixation electrophoresis negative for any monoclonal protein. Sjogren's antibodies negative. RPR negative. Lyme titer negative. Vitamin B6 145 (5-50). Vitamin B6 level is in toxic range. B6 toxicity can produce significant neuropathy/paresthesia. Stop vitamin B6 replacement. Check vitamin B1 level. Empirically started on thiamine 100 mg daily. Vitamin B12: 1139, methylmalonic acid 0.15 normal Serum folate: 4.70 (normal is 4.4-31) TSH: 3.62 HbA1c: 5.9 CSF with WBC 0, RBC 350, CSF glucose 65 normal, CSF protein 139 (12-60). MS panel came positive for oligoclonal bands. They were 2 or more oligoclonal bands seen, which were not seen in the corresponding serum therefore is considered a positive oligoclonal banding study. IgG index 0.83/0.77, IgG synthesis rate 28.55/3.0. Although MS panel is positive in the CSF, but radiographically, there are no lesions to support central demyelination. 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 Patient's nystagmus is not getting better. Consider empiric treatment with high-dose steroids. CSF BARBIE level normal <5. Await viral cultures and CSF NMDA antibodies. CT of the chest abdomen pelvis revealed right middle lobe subsolid/groundglass 9 mm pulmonary nodule. Further evaluation with CT in 3 months versus PET/CT recommended. We will defer to IM. Vascular surgery input appreciated. No evidence of PAD. Patient's symptoms have remarkably improved with IVIG so far. Today patient will receive 4/5 doses of IVIG. Renal functions back to normal. BUN 16, creatinine 0.8. DVT prophylaxis: Lovenox [address] Eyal Liz to start neurology service from the morning.
[2024-03-06] MEDS: IMMUNE GLOBULIN (GAMMAGARD) 5 GM in EMPTY BAG 1 BAG IV ONE (14:29)
--- NOTE | 2024-03-06 14:32 | P.PN ---
Subjective Progress Note Date: 03/06/24 This is a pleasant 58-year-old female with medical history of stroke, coronary artery disease, fibromyalgia. Patient is currently admitted secondary to upper and lower extremity paresthesias and weakness. 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 Patient did miss her dose yesterday and has having worsening symptoms today with pain and paresthesias up to her knees now. Patient reports the pain is sharp in nature. 03/06/2024 Patient is evaluated in follow-up today on the medical floor. She is status post IVIG and does report improvement in her lower extremity and left hand paresthesias. Patient was taken off her amlodipine and lisinopril due to low blood pressures currently 134/81. Echocardiogram reveals an EF of 55-60%, normal LV systolic function, aortic sclerosis but no stenosis. Review of Systems Constitutional: Denied any fatigue denied any fever. Cardio vascular: denied any chest pain, palpitations Gastrointestinal: denied any nausea, vomiting, diarrhea Pulmonary: Denied any shortness of breath cough Neurologic denied any new focal deficits All inpatient medications were reviewed and appropriate changes in these medications as dictated in the interval history and assessment and plan. PHYSICAL EXAMINATION: GENERAL: The patient is alert and oriented x3, not in any acute distress. Well developed, well nourished. HEENT: Pupils are round and equally reacting to light. EOMI. No scleral icterus. No conjunctival pallor. Normocephalic, atraumatic. No pharyngeal erythema. No thyromegaly. CARDIOVASCULAR: S1 and S2 present. No murmurs, rubs, or gallops. PULMONARY: Chest is clear to auscultation, no wheezing or crackles. ABDOMEN: Soft, nontender, nondistended, normoactive bowel sounds. No palpable organomegaly. MUSCULOSKELETAL: No joint swelling or deformity. EXTREMITIES: No cyanosis, clubbing, or pedal edema. NEUROLOGICAL: Gross neurological examination did not reveal any focal deficits. SKIN: No rashes. Assessment and Plan -Patient has neurological symptoms going on for few months. Apparently before September. Some have been progressive. She has been following at Dr. Ramirez neurology's office. MRI was pending outpatient. Finally decided to come in. 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 Started on IV immunoglobulins -For 5-day course missed a day yesterday and had worsening symptoms. Resumed on IVIG Neurology following CSF: High protein. MRI brain: Unremarkable MRI [id number] Lumbar puncture pending -Chronic fibromyalgia Lyrica 150 mg 3 times daily -Hyperlipidemia Zetia 10 mg with breakfast -Primary osteoarthritis Motrin as needed -Lung nodule Follow-up outpatient with Dr. Brady -Chronic urine incontinence -COPD in a previous smoker Peroforomist-nebulizer. Albuterol as needed. -CAD with stent Lopressor. Aspirin. -Essential hypertension: Blood pressure running low, now improved Resumed on amlodipine, continue to hold lisinopril. Hold Lopressor 50 mg twice daily -GERD PPI -Full code Continue on course of IVIG, neurology following closely. Resume amlodipine. The impression and plan of care has been dictated by Meredith Carter, Nurse Practitioner as directed. Dr. Tereza MD I have performed a history and physical examination and medical decision making of this patient, discussed the same with the dictator, and agree with the dictators assessment and plan as written, documented as a scribe. Based on total visit time, I have performed more than 50% of this visit. Objective - Vital Signs Vital signs: Vital Signs Temp 97.8 F 03/06/24 07:10 Pulse 72 03/06/24 13:20 Resp 14 03/06/24 13:20 BP 134/81 03/06/24 13:20 Pulse Ox 97 03/06/24 13:20 FiO2 Intake & Output 03/05/24 03/06/24 03/06/24 18:59 06:59 18:59 Intake Total 401.042 164.291 Balance 401.042 164.291 Intake: Intake, IV Titration 165.042 46.291 Amount Immune Globulin ( 115.042 Gammagard) 20 gm In Empty Bag 1 bag @ Titrate IV . Q0M ONE Rx#:[id number] Immune Globulin ( 46.291 Gammagard) 20 gm In Empty Bag 1 bag @ Titrate IV . Q0M ONE Rx#:[id number] Immune Globulin ( 50 Gammagard) 5 gm In Empty Bag 1 bag @ Titrate IV . Q0M ONE Rx#:[id number] Oral 236 118 Other: Voiding Method Toilet # Voids 3 1 - Labs CBC & Chem 7: 03/04/24 18:11 03/05/24 05:39 Labs: Microbiology - Last 24 Hours (Table) 03/01/24 13:36 CSF Gram Stain - Final Cerebral Spinal Fluid CSF Culture - Final Assessment and Plan Time with Patient: Less than 30
[2024-03-06] MEDS: THIAMINE 100 MG TAB PO SCH (14:35)
[2024-03-06] MEDS: amLODIPine 5 MG TAB PO SCH (15:15)
[2024-03-07 09:08] VITALS: RESP 15; TEMP 97.9
[2024-03-07 11:52] LABS: African American GFR (CKD) >90 (>60 ml/min/1.73 sqM); Anion Gap 9 mmol/L; Blood Urea Nitrogen 11 mg/dL (7-17); Calcium 9.2 mg/dL (8.4-10.2); Carbon Dioxide 21 mmol/L (22-30); Chloride 110 mmol/L (98-107); Glucose 90 mg/dL (74-99); Non-African American GFR(CKD) 85 (>60 ml/min/1.73 sqM); Sodium 140 mmol/L (137-145)
[2024-03-07] MEDS: IMMUNE GLOBULIN (GAMMAGARD) 20 GM in EMPTY BAG 1 BAG IV ONE (14:21)
[2024-03-07] MEDS: IMMUNE GLOBULIN (GAMMAGARD) 5 GM in EMPTY BAG 1 BAG IV ONE (16:44)
[2024-03-07 17:04] VITALS: BP 171/78; PULSE 67
--- NOTE | 2024-03-08 16:09 | P.DS ---
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 Patient needs to follow-up with pulmonology regarding the lung nodule and is given information for Dr. Brady's office. Patient to follow-up with her known counsellors at [facility] in 1 to 2 weeks. Patient to also follow-up with her primary care provider Dr. Nish Lew 1 to 2 days. Patient does continue with symptoms of diplopia and nystagmus she is recommended to continue to patch the alternating left and right eyes as the diplopia resolves with eye patching. She is given information for Dr. Price's office recommended to follow-up within the next week. Hospital Course This is a pleasant 58-year-old female with medical history of stroke, coronary artery disease, fibromyalgia. Patient is currently admitted secondary to upper and lower extremity paresthesias and weakness. Undergone significant evaluation by neurology. Patient had a brain CT on admission showing no acute intracranial process. Carotid Doppler showing scattered atherosclerotic disease without sonographic evidence of significant stenosis. MRI reveals no evidence of intracranial mass/subacute/acute infarct or abnormal enhancement. MRI reveals no evidence for disc herniation or significant spinal canal stenosis there is no abnormal postcontrast enhancement. There is minimal disc generation with associated osteoarthritic changes. On March 01 patient had a lumbar puncture performed by neurology with a suspected diagnosis of an inflammatory polyneuropathy. Diagnostics from the lumbar puncture reveal a red blood cell count of 350, total protein 139, albumin of 75.5, IgG of 13.2. She also had mild acute kidney injury on admission which has been improved with IV hydration. 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 Patient received 3 doses and then a dose was held due to hypotension which then improved. R Patient did miss her dose yesterday and has having worsening symptoms today with pain and paresthesias up to her knees now. Patient reports the pain is sharp in nature. This has improved after 2 more doses of IVIG. Patient needs close follow up with neurologist at [facility] on discharge. She was also evaluated by vascular due to the parasthesia with no current recommendations for further diagnostics ordered. A CT of the chest abdomen and pelvis was done to rule out underlying malignancy which reveals no mass or lymphadenopathy identified within the chest abdomen or pelvis. Right middle lobe subsolid groundglass 9 mm pulmonary nodule was noted further evaluation with CT in 3 months versus PET/CT recommended. Patient was referred to Attending pulmonary services on discharge. Cardiogram was done which reveals LV function of 55 to 60% ejection fraction aortic sclerosis but no stenosis. Not reporting any chest pain no shortness of breath no nausea vomiting or diarrhea. The pain to her lower extremities has improved as well as the numbness to her left hand has improved. Patient will be discharged home with close follow-up with her neurologist and primary care provider. Please see medication reconciliation for a list of current medications. Thank you for allowing us to participate in the care of this patient. The impression and plan of care has been dictated by Meredith Carter, Nurse Practitioner as directed. Dr. Tereza MD I have performed a history and physical examination and medical decision making of this patient, discussed the same with the dictator, and agree with the dictators assessment and plan as written, documented as a scribe. Based on total visit time, I have performed more than 50% of this visit. Patient Condition at Discharge: Good Plan - Discharge Summary Discharge Rx Participant: No New Discharge Prescriptions: New Folic Acid 1 mg PO DAILY #30 tab Thiamine [Vitamin B-1] 100 mg PO DAILY #30 tab Continue Albuterol Inhaler [Ventolin Hfa Inhaler] 1 puff INHALATION RT-Q4H PRN PRN Reason: Shortness Of Breath Nitroglycerin Sl Tabs [Nitrostat] 0.4 mg SL Q5M PRN PRN Reason: Chest Pain Aspirin EC [Ecotrin Low Dose] 81 mg PO W/BRKFST amLODIPine [Norvasc] 5 mg PO W/BRKFST lisinopriL [Zestril] 20 mg PO W/BRKFST Albuterol Nebulized [Ventolin Nebulized] 2.5 mg INHALATION RT-Q6H PRN PRN Reason: Shortness Of Breath Ubidecarenone [Coenzyme Q10] 200 mg PO W/LUNCH Magnesium 250 mg PO W/LUNCH Pyridoxine [Vitamin B-6] 25 mg PO W/LUNCH Cyanocobalamin (Vitamin B-12) [Vitamin B-12] 1,000 mcg PO W/LUNCH Metoprolol Tartrate [Lopressor] 50 mg PO BID Ibuprofen [Motrin] 800 mg PO Q8H PRN PRN Reason: Pain Pregabalin [Lyrica] 150 mg PO TID Ezetimibe [Zetia] 10 mg PO W/BRKFST Baclofen [Lioresal] 10 mg PO BID Formoterol Fumarate [Perforomist] 20 mcg INHALATION RT-BID Esomeprazole Magnesium [NexIUM 24Hr] 20 mg PO W/BRKFST Cholecalciferol [Vitamin D3 (25 Mcg = 1000 Iu)] 50 mcg PO W/LUNCH Meclizine [Antivert] 12.5 - 25 mg PO BID-W/MEALS Potassium Gluconate 90 mg PO W/LUNCH Discharge Medication List Albuterol Inhaler [Ventolin Hfa Inhaler] 1 puff INHALATION RT-Q4H PRN 09/26/20 [ History] Aspirin EC [Ecotrin Low Dose] 81 mg PO W/BRKFST 09/26/20 [History] Nitroglycerin Sl Tabs [Nitrostat] 0.4 mg SL Q5M PRN 09/26/20 [History] Albuterol Nebulized [Ventolin Nebulized] 2.5 mg INHALATION RT-Q6H PRN 06/08/23 [History] amLODIPine [Norvasc] 5 mg PO W/BRKFST 06/08/23 [History] lisinopriL [Zestril] 20 mg PO W/BRKFST 06/08/23 [History] Baclofen [Lioresal] 10 mg PO BID 02/24/24 [History] Cholecalciferol [Vitamin D3 (25 Mcg = 1000 Iu)] 50 mcg PO W/LUNCH 02/24/24 [History] Cyanocobalamin (Vitamin B-12) [Vitamin B-12] 1,000 mcg PO W/LUNCH 02/24/24 [History] Esomeprazole Magnesium [NexIUM 24Hr] 20 mg PO W/BRKFST 02/24/24 [History] Ezetimibe [Zetia] 10 mg PO W/BRKFST 02/24/24 [History] Formoterol Fumarate [Perforomist] 20 mcg INHALATION RT-BID 02/24/24 [History] Ibuprofen [Motrin] 800 mg PO Q8H PRN 02/24/24 [History] Magnesium 250 mg PO W/LUNCH 02/24/24 [History] Meclizine [Antivert] 12.5 - 25 mg PO BID-W/MEALS 02/24/24 [History] Metoprolol Tartrate [Lopressor] 50 mg PO BID 02/24/24 [History] Potassium Gluconate 90 mg PO W/LUNCH 02/24/24 [History] Pregabalin [Lyrica] 150 mg PO TID 02/24/24 [History] Pyridoxine [Vitamin B-6] 25 mg PO W/LUNCH 02/24/24 [History] Ubidecarenone [Coenzyme Q10] 200 mg PO W/LUNCH 02/24/24 [History] Folic Acid 1 mg PO DAILY #30 tab 03/07/24 [Rx] Thiamine [Vitamin B-1] 100 mg PO DAILY #30 tab 03/07/24 [Rx] Follow up Appointment(s)/Referral(s): Coni Price MD [STAFF PHYSICIAN] - 1 Week (diplopia and nystagmus) Nish Lew MD [Primary Care Provider] - 1-2 days Britany Ramirez MD [Medical Doctor] - 1 Week Chely Brady MD [STAFF PHYSICIAN] - 2 Weeks (Follow-up pulmonary nodule) Ambulatory/Diagnostic Orders: Basic Metabolic Panel [LAB.AMB] Time Frame: 3 Days, Location: None Selected Patient Instructions/Handouts: Guillain-Fordyce Syndrome (ED) Discharge Disposition: HOME SELF-CARE
== END 2024-03-07 18:14 | disposition home or self-care (01) | DRG 96 ==
LOC: EC 12:55 → 6NMEDSUR 15:49 → OBSVTOIN 02-25 10:19 → 3SCARD 03-02 15:13 → 6NMEDSUR 03-02 15:21
PROVIDERS: ADMIT Hospitalist; ATTEND Hospitalist
PROC: 009U3ZX Drainage of Spinal Canal, Percutaneous Approach, Diagnostic (ICD-10-PCS; principal; 2024-03-01)
DX: G61.0 Guillain-Barre syndrome (principal); E78.00 Pure hypercholesterolemia, unspecified; I95.9 Hypotension, unspecified; J44.9 Chronic obstructive pulmonary disease, unspecified; I10 Essential (primary) hypertension; H55.00 Unspecified nystagmus; R26.9 Unspecified abnormalities of gait and mobility; R32 Unspecified urinary incontinence; E78.5 Hyperlipidemia, unspecified; M79.7 Fibromyalgia; F41.9 Anxiety disorder, unspecified; H91.93 Unspecified hearing loss, bilateral; K21.9 Gastro-esophageal reflux disease without esophagitis; I25.10 Atherosclerotic heart disease of native coronary artery without angina pectoris; Z95.5 Presence of coronary angioplasty implant and graft; R91.1 Solitary pulmonary nodule; M19.91 Primary osteoarthritis, unspecified site; Z71.3 Dietary counseling and surveillance; Z28.21 Immunization not carried out because of patient refusal; Z86.73 Personal history of transient ischemic attack (TIA), and cerebral infarction without residual deficits; Z79.82 Long term (current) use of aspirin; Z87.891 Personal history of nicotine dependence; Z79.899 Other long term (current) drug therapy; Z79.51 Long term (current) use of inhaled steroids; Z88.0 Allergy status to penicillin; Z88.8 Allergy status to other drugs, medicaments and biological substances
CPT/HCPCS: 36415; 70450; 70553; 71046; 71250; 72156; 74176; 80048; 80053; 82040; 82042; 82164; 82550; 82607; 82746; 82784; 82945; 83036; 83735; 83916; 83921; 84157; 84207; 84425; 84443; 84484; 85025; 85610; 85652; 85730; 86140; 86235; 86255; 86334; 86618; 86780; 87070; 87205; 89050; 93005; 93306; 93880; 94640; 99285

== ENCOUNTER 2024-04-04 11:02 | Inpatient (IN) | payer BC ==
[2024-04-04 11:22] LABS: Glucose,Whole Blood 110 mg/dL (70-110)
[2024-04-04 12:04] LABS: Basophils # (A) 0.1 k/uL (0-0.2); Basophils % (A) 1 %; Eosinophils # (A) 0.2 k/uL (0-0.7); Eosinophils % (A) 4 %; HCT 38.5 % (34.0-46.0); HGB 12.7 gm/dL (11.4-16.0); Lymphocytes # (A) 1.2 k/uL (1.0-4.8); Lymphocytes % (A) 29 %; MCH 31.8 pg (25.0-35.0); MCHC 32.9 g/dL (31.0-37.0); MCV 96.8 fL (80.0-100.0); Macrocytosis Slight; Mean Platelet Volume 7.8; Monocytes # (A) 0.2 k/uL (0-1.0); Monocytes % (A) 5 %; Neutrophils # (A) 2.3 k/uL (1.3-7.7); Neutrophils % (A) 59 %; Platelet Count 267 k/uL (150-450); Poikilocytosis Slight; RBC 3.98 m/uL (3.80-5.40); RDW 15.9 % (11.5-15.5)
--- NOTE | 2024-04-04 12:07 | ED ---
General Adult HPI - General Chief complaint: Weakness Stated complaint: Neuro Symptoms Time Seen by Provider: 04/04/24 11:22 Source: patient, family, RN notes reviewed, old records reviewed Mode of arrival: wheelchair - History of Present Illness Initial comments: 59-year-old female with progressive weakness over the past 1 to 2 months. Patient has been following with neurology as an outpatient and was admitted with the same symptoms recently. Patient states she has received outpatient testing including MRI. Patient was informed that she is being worked up for Guillain-B arr syndrome and possible MS. She had developed slurred speech at least 2 weeks ago this is according to the patient and her . No fever. No chest pain. Legs are more weak than her arms. - Related Data Home Medications Medication Instructions Recorded Confirmed Albuterol Inhaler [Ventolin Hfa 1 puff INHALATION RT-Q4H PRN 09/26/20 04/04/24 Inhaler] Aspirin EC [Ecotrin Low Dose] 81 mg PO W/BRKFST 09/26/20 04/04/24 Nitroglycerin Sl Tabs [Nitrostat] 0.4 mg SL Q5M PRN 09/26/20 04/04/24 Albuterol Nebulized [Ventolin 2.5 mg INHALATION RT-Q6H PRN 06/08/23 04/04/24 Nebulized] amLODIPine [Norvasc] 5 mg PO W/BRKFST 06/08/23 04/04/24 lisinopriL [Zestril] 20 mg PO W/BRKFST 06/08/23 04/04/24 Baclofen [Lioresal] 10 mg PO BID 02/24/24 04/04/24 Cholecalciferol [Vitamin D3 (25 50 mcg PO W/LUNCH 02/24/24 04/04/24 Mcg = 1000 Iu)] Cyanocobalamin (Vitamin B-12) 1,000 mcg PO W/LUNCH 02/24/24 04/04/24 [Vitamin B-12] Esomeprazole Magnesium [NexIUM 20 mg PO W/BRKFST 02/24/24 04/04/24 24Hr] Ezetimibe [Zetia] 10 mg PO W/BRKFST 02/24/24 04/04/24 Formoterol Fumarate [Perforomist] 20 mcg INHALATION RT-BID 02/24/24 04/04/24 Ibuprofen [Motrin] 800 mg PO Q8H PRN 02/24/24 04/04/24 Magnesium 250 mg PO W/LUNCH 02/24/24 04/04/24 Meclizine [Antivert] 12.5 - 25 mg PO BID-W/MEALS 02/24/24 04/04/24 Metoprolol Tartrate [Lopressor] 50 mg PO BID 02/24/24 04/04/24 Potassium Gluconate 90 mg PO W/LUNCH 02/24/24 04/04/24 Pregabalin [Lyrica] 150 mg PO TID 02/24/24 04/04/24 Pyridoxine [Vitamin B-6] 25 mg PO W/LUNCH 02/24/24 04/04/24 Ubidecarenone [Coenzyme Q10] 200 mg PO W/LUNCH 02/24/24 04/04/24 Previous Rx's Medication Instructions Recorded Folic Acid 1 mg PO DAILY #30 tab 03/07/24 Thiamine [Vitamin B-1] 100 mg PO DAILY #30 tab 03/07/24 Allergies Allergy/AdvReac Type Severity Reaction Status Date / Time amoxicillin trihydrate AdvReac Nausea & Verified 04/04/24 11:20 [From Augmentin] Vomiting potassium clavulanate AdvReac Nausea & Verified 04/04/24 11:20 [From Augmentin] Vomiting Review of Systems ROS Statement: Those systems with pertinent positive or pertinent negative responses have been documented in the HPI. ROS Other: All systems not noted in ROS Statement are negative. Past Medical History Past Medical History: CVA/TIA, Fibromyalgia, Hyperlipidemia, Osteoarthritis (OA) Additional Past Medical History / Comment(s): 07-04-15 ADMITTED TO [facility] WITH NSTEMI. PAST MEDICAL HX: MIGRAINES, HEMORRHOIDS, INCONT OF URINE, TIA X2, fibromyalgia, hypercholesterolemia. History of Any Multi-Drug Resistant Organisms: None Reported Past Surgical History: Hysterectomy, Tubal Ligation Additional Past Surgical History / Comment(s): RECENTLT HAD TEETH EXTRACTED AND HAS NEW DENTURES ,MYRINGTOMY/TUBES 03 LOST 30% OF HEARING EV, SINUS SX 04, COLONOSCOPY CLEAR, Past Anesthesia/Blood Transfusion Reactions: Previous Problems w/ Anesthesia Additional Past Anesthesia/Blood Transfusion Reaction / Comment(s): DIFFICULTY WAKING FROM AA. Past Psychological History: No Psychological Hx Reported Smoking Status: Current every day smoker Past Alcohol Use History: None Reported Past Drug Use History: None Reported - Past Family History Father Family Medical History: Diabetes Mellitus Mother Family Medical History: Cancer Additional Family Medical History / Comment(s): LUNG CANCER Brother(s) Family Medical History: Coronary Artery Disease (CAD) Sister(s) Family Medical History: No Reported History Son(s) Family Medical History: No Reported History General Exam General appearance: alert, in no apparent distress Head exam: Present: atraumatic, normocephalic Eye exam: Present: PERRL, other (Patient wearing a patch over her left eye because she has had double vision over the past several weeks as well) Neck exam: Present: normal inspection Respiratory exam: Present: normal lung sounds bilaterally. Absent: respiratory distress, wheezes Cardiovascular Exam: Present: regular rate, normal rhythm GI/Abdominal exam: Present: soft. Absent: distended, tenderness, guarding, rebound Extremities exam: Present: normal inspection, normal capillary refill Neurological exam: Present: alert, motor sensory deficit (Patient has dy sarthria. She has weakness in the upper extremities with bilateral ataxia. Patient is barely able to lift her lower extremities off the bed.). Absent: CN II-XII intact Skin exam: Present: warm, dry, intact Course Vital Signs 04/04/24 04/04/24 04/04/24 11:13 11:19 13:02 Temperature 97.9 F Pulse Rate 58 L 68 52 L Respiratory 18 16 20 Rate Blood Pressure 114/72 131/76 130/68 O2 Sat by Pulse 99 97 98 Oximetry Medical Decision Making - Medical Decision Making Was pt. sent in by a medical professional or institution (, PA, TRIAL MANAGER, urgent care, hospital, or residential...) When possible be specific @ -No Did you speak to anyone other than the patient for history (EMS, parent, family, police, friend...)? What history was obtained from this source @ -No Did you review nursing and triage notes (agree or disagree)? Why? @ -I reviewed and agree with nursing and triage notes Were old charts reviewed (outside hosp., previous admission, EMS record, old EKG, old radiological studies, urgent care reports/EKG's, residential records)? Report findings @ -No old charts were reviewed Differential CVA Ischemic stroke, hemorrhagic stroke, brain tumor, atypical migraine, Wernicke's encephalopathy, seizure, multiple sclerosis, meningitis, encephalitis, hypoglycemia, Guillain-Lewis, electrolytes disturbance, myasthenia gravis.... This is not meant to be an all-inclusive list EKG interpreted by me (3pts min.). @EKG: Sinus bradycardia rate of 56, MI interval 183, QRS duration 80, QTc 414, T wave inversion in lead III no ST segment elevation. X-rays interpreted by me (1pt min.). @Chest x-ray negative for acute cardiopulmonary finding CT interpreted by me (1pt min.). @ -CT brain without contrast negative for acute hemorrhage or mass effect U/S interpreted by me (1pt. min.). @ -None done What testing was considered but not performed or refused? (CT, X-rays, U/S, labs)? Why? @ -None What meds were considered but not given or refused? Why? @ -None Did you discuss the management of the patient with other professionals (professionals i.e. , PA, TRIAL MANAGER, lab, RT, psych nurse, healthcare social worker, brazer controlled atmospheric furnace, teacher, recreation officer, casework manager)? Give summary @ -No Was smoking cessation discussed for >3mins.? @ -No Was critical care preformed (if so, how long)? @ -No Were there social determinants of health that impacted care today? How? (Homelessness, low income, unemployed, alcoholism, drug addiction, transportation, low edu. Level, literacy, decrease access to med. care, long-term, rehab)? @ -No Was there de-escalation of care discussed even if they declined (Discuss DNR or withdrawal of care, Hospice)? DNR status @ -No What co-morbidities impacted this encounter? (DM, HTN, Smoking, COPD, CAD, Cancer, CVA, ARF, Chemo, Hep., AIDS, mental health diagnosis, sleep apnea, morbid obesity)? @ -None Was patient admitted / discharged? Hospital course, mention meds given and route, prescriptions, significant lab abnormalities, going to OR and other pertinent info. @ -59 yo female presents with progressive weakness over the past 1 month. Patient has global weakness but this is worse in the lower extremities. She has upper extremity drift and ataxia. She can barely lift her legs off the bed. She is having increased difficulty ambulating. Patient has slurred speech on exam her states this has been present for at least the past 2 weeks. Patient is on several potential sedating medications and these medications sh ould be held. She will be admitted with neurology on consult for evaluation of this progressive weakness and dysarthria. Case discussed with Dr. Curtis who will admit. Undiagnosed new problem with uncertain prognosis? @ -No Drug Therapy requiring intensive monitoring for toxicity (Heparin, Nitro, In sulin, Cardizem)? @ -No Were any procedures done? @ -No Diagnosis/symptom? @ -[Progressive weakness, ataxia, dysarthria Acute, or Chronic, or Acute on Chronic? @ -Acute Uncomplicated (without systemic symptoms) or Complicated (systemic symptoms)? @ -Default Side effects of treatment? @ -No Exacerbation, Progression, or Severe Exacerbation? @ -No Poses a threat to life or bodily function? How? (Chest pain, USA, ME, pneumonia, PE, COPD, DKA, ARF, appy, cholecystitis, CVA, Diverticulitis, Homicidal, Suicidal, threat to staff... and all critical care pts) @ -Yes, progressive weakness - Lab Data Result diagrams: 04/04/24 11:47 04/04/24 11:47 Lab Results 04/04/24 04/04/24 04/04/24 Range/Units 11:20 11:47 11:47 WBC 4.0 (3.8-10.6) k/uL RBC 3.98 (3.80-5.40) m/uL Hgb 12.7 (11.4-16.0) gm/dL Hct 38.5 (34.0-46.0) % MCV 96.8 (80.0-100.0) fL MCH 31.8 (25.0-35.0) pg MCHC 32.9 (31.0-37.0) g/dL RDW 15.9 H (11.5-15.5) % Plt Count 267 (150-450) k/uL MPV 7.8 Neutrophils % 59 % Lymphocytes % 29 % Monocytes % 5 % Eosinophils % 4 % Basophils % 1 % Neutrophils # 2.3 (1.3-7.7) k/uL Lymphocytes # 1.2 (1.0-4.8) k/uL Monocytes # 0.2 (0-1.0) k/uL Eosinophils # 0.2 (0-0.7) k/uL Basophils # 0.1 (0-0.2) k/uL Poikilocytosis Slight Macrocytosis Slight PT 10.0 (10.0-12.5) sec INR 0.9 (<1.2) APTT 22.7 (22.0-30.0) sec Sodium (137-145) mmol/L Potassium (3.5-5.1) mmol/L Chloride (98-107) mmol/L Carbon Dioxide (22-30) mmol/L Anion Gap mmol/L BUN (7-17) mg/dL Creatinine (0.52-1.04) mg/dL Est GFR (CKD-EPI)AfAm (>60 ml/min/1.73 sqM) Est GFR (CKD-EPI)NonAf (>60 ml/min/1.73 sqM) Glucose (74-99) mg/dL POC Glucose (mg/dL) 110 (70-110) mg/dL POC Glu Electric[employer] ID Jade Franklin Plasma Lactic Acid Nishant (0.7-2.0) mmol/L Calcium (8.4-10.2) mg/dL Magnesium (1.6-2.3) mg/dL Total Bilirubin (0.2-1.3) mg/dL AST (14-36) U/L ALT (4-34) U/L Alkaline Phosphatase (38-126) U/L Troponin I (0.000-0.034) ng/mL Total Protein (6.3-8.2) g/dL Albumin (3.5-5.0) g/dL Urine Color Urine Appearance (Clear) Urine pH (5.0-8.0) Ur Specific [place] (1.001-1.035) Urine Protein (Negative) Urine Glucose (UA) (Negative) Urine Ketones (Negative) Urine Blood (Negative) Urine Nitrite (Negative) Urine Bilirubin (Negative) Urine Urobilinogen (<2.0) mg/dL Ur Leukocyte Esterase (Negative) 04/04/24 04/04/24 04/04/24 Range/Units 11:47 11:47 11:47 WBC (3.8-10.6) k/uL RBC (3.80-5.40) m/uL Hgb (11.4-16.0) gm/dL Hct (34.0-46.0) % MCV (80.0-100.0) fL MCH (25.0-35.0) pg MCHC (31.0-37.0) g/dL RDW (11.5-15.5) % Plt Count (150-450) k/uL MPV Neutrophils % % Lymphocytes % % Monocytes % % Eosinophils % % Basophils % % Neutrophils # (1.3-7.7) k/uL Lymphocytes # (1.0-4.8) k/uL Monocytes # (0-1.0) k/uL Eosinophils # (0-0.7) k/uL Basophils # (0-0.2) k/uL Poikilocytosis Macrocytosis PT (10.0-12.5) sec INR (<1.2) APTT (22.0-30.0) sec Sodium 140 (137-145) mmol/L Potassium 4.1 (3.5-5.1) mmol/L Chloride 108 H (98-107) mmol/L Carbon Dioxide 27 (22-30) mmol/L Anion Gap 5 mmol/L BUN 14 (7-17) mg/dL Creatinine 0.85 (0.52-1.04) mg/dL Est GFR (CKD-EPI)AfAm 87 (>60 ml/min/1.73 sqM) Est GFR (CKD-EPI)NonAf 76 (>60 ml/min/1.73 sqM) Glucose 130 H (74-99) mg/dL POC Glucose (mg/dL) (70-110) mg/dL POC Glu Electrician Control Equipment ID Plasma Lactic Acid Nishant 1.1 (0.7-2.0) mmol/L Calcium 9.4 (8.4-10.2) mg/dL Magnesium 2.0 (1.6-2.3) mg/dL Total Bilirubin 0.7 (0.2-1.3) mg/dL AST 25 (14-36) U/L ALT 13 (4-34) U/L Alkaline Phosphatase 54 (38-126) U/L Troponin I <0.012 (0.000-0.034) ng/mL Total Protein 7.3 (6.3-8.2) g/dL Albumin 4.0 (3.5-5.0) g/dL Urine Color Urine Appearance (Clear) Urine pH (5.0-8.0) Ur Specific [place] (1.001-1.035) Urine Protein (Negative) Urine Glucose (UA) (Negative) Urine Ketones (Negative) Urine Blood (Negative) Urine Nitrite (Negative) Urine Bilirubin (Negative) Urine Urobilinogen (<2.0) mg/dL Ur Leukocyte Esterase (Negative) 04/04/24 Range/Units 13:02 WBC (3.8-10.6) k/uL RBC (3.80-5.40) m/uL Hgb (11.4-16.0) gm/dL Hct (34.0-46.0) % MCV (80.0-100.0) fL MCH (25.0-35.0) pg MCHC (31.0-37.0) g/dL RDW (11.5-15.5) % Plt Count (150-450) k/uL MPV Neutrophils % % Lymphocytes % % Monocytes % % Eosinophils % % Basophils % % Neutrophils # (1.3-7.7) k/uL Lymphocytes # (1.0-4.8) k/uL Monocytes # (0-1.0) k/uL Eosinophils # (0-0.7) k/uL Basophils # (0-0.2) k/uL Poikilocytosis Macrocytosis PT (10.0-12.5) sec INR (<1.2) APTT (22.0-30.0) sec Sodium (137-145) mmol/L Potassium (3.5-5.1) mmol/L Chloride (98-107) mmol/L Carbon Dioxide (22-30) mmol/L Anion Gap mmol/L BUN (7-17) mg/dL Creatinine (0.52-1.04) mg/dL Est GFR (CKD-EPI)AfAm (>60 ml/min/1.73 sqM) Est GFR (CKD-EPI)NonAf (>60 ml/min/1.73 sqM) Glucose (74-99) mg/dL POC Glucose (mg/dL) (70-110) mg/dL POC Glu Electrician Control Equipment ID Plasma Lactic Acid Nishant (0.7-2.0) mmol/L Calcium (8.4-10.2) mg/dL Magnesium (1.6-2.3) mg/dL Total Bilirubin (0.2-1.3) mg/dL AST (14-36) U/L ALT (4-34) U/L Alkaline Phosphatase (38-126) U/L Troponin I (0.000-0.034) ng/mL Total Protein (6.3-8.2) g/dL Albumin (3.5-5.0) g/dL Urine Color Light Yellow Urine Appearance Clear (Clear) Urine pH 6.0 (5.0-8.0) Ur Specific [place] 1.018 (1.001-1.035) Urine Protein Negative (Negative) Urine Glucose (UA) Negative (Negative) Urine Ketones Negative (Negative) Urine Blood Negative (Negative) Urine Nitrite Negative (Negative) Urine Bilirubin Negative (Negative) Urine Urobilinogen <2.0 (<2.0) mg/dL Ur Leukocyte Esterase Negative (Negative) Disposition Clinical Impression: Ataxia, Dysarthria, Weakness Disposition: ADMITTED IP TO THIS [facility] Condition: Stable Is patient prescribed a controlled substance at d/c from ED?: No Referrals: Nish Lew MD [Primary Care Provider] - 1-2 days Time of Disposition: 14:07
[2024-04-04 12:15] LABS: ALT 13 U/L (4-34); AST 25 U/L (14-36); African American GFR (CKD) 87 (>60 ml/min/1.73 sqM); Alkaline Phosphatase 54 U/L (38-126); Anion Gap 5 mmol/L; Blood Urea Nitrogen 14 mg/dL (7-17); Calcium 9.4 mg/dL (8.4-10.2); Carbon Dioxide 27 mmol/L (22-30); Chloride 108 mmol/L (98-107); Glucose 130 mg/dL (74-99); Non-African American GFR(CKD) 76 (>60 ml/min/1.73 sqM); Potassium 4.1 mmol/L (3.5-5.1); Sodium 140 mmol/L (137-145); Total Bilirubin 0.7 mg/dL (0.2-1.3); Total Protein 7.3 g/dL (6.3-8.2)
--- NOTE | 2024-04-04 12:21 | CT ---
EXAMINATION TYPE: CT brain wo con DATE OF EXAM: 04/04/2024 COMPARISON: 824 HISTORY: weakness. poss gullian barre syndrome prior on pacs. CT DLP: 1119.[address] of the brain was performed. The ventricles, basal cisterns and sulci overlying the cerebral convexities demonstrate mild enlargem ent. There is no evidence for intracranial hemorrhage or sulcal effacement. There is decreased attenuation about the periventricular white matter and deep white matter of both c erebral hemispheres, compatible with chronic small vessel ischemia. Differential diagnosis does inclu de demyelination. No mass effects are seen.No midline shift. Osseous calvarium is intact. If symptoms persist consider MRI. IMPRESSION: 1. Age related atrophic and chronic small vessel ischemic change without acute intracranial process s een at this time.
[2024-04-04 12:26] LABS: INR 0.9 (<1.2); Partial Thromboplastin Time 22.7 sec (22.0-30.0)
--- NOTE | 2024-04-04 12:40 | XR ---
EXAMINATION TYPE: XR chest 2V DATE OF EXAM: 04/04/2024 12:11 PM CLINICAL INDICATION:Female, 59 years old with history of Weakness; [facility] COMPARISON: Chest radiographs from 02/24/2024 TECHNIQUE: XR chest 2V Frontal and lateral views of the chest. FINDINGS: Lungs/Pleura: There is no evidence of pleural effusion, focal consolidation, or pneumothorax. Pulmonary vascularity: Unremarkable. Heart/mediastinum: Cardiomediastinal silhouette is unremarkable. Musculoskeletal: No acute osseous pathology. IMPRESSION: No acute cardiopulmonary disease/process.
[2024-04-04 13:22] LABS: Appearance,Urine Clear (Clear); Bilirubin,Urine Negative (Negative); Blood,Urine Negative (Negative); Color,Urine Light Yellow; Glucose,Urine (UA) Negative (Negative); Ketones,Urine Negative (Negative); Leukocyte Esterase,Urine Negative (Negative); Nitrite,Urine Negative (Negative); Protein,Urine Negative (Negative); Specific Gravity,Urine 1.018 (1.001-1.035); Urobilinogen,Urine <2.0 mg/dL (<2.0)
[2024-04-04] MEDS ORDERED: NALOXONE 0.4 MG/ML 1 ML VIAL IV PRN (13:53)
[2024-04-04] MEDS: ASPIRIN 325 MG TAB PO STA (14:43)
[2024-04-04] MEDS: SODIUM CHLORIDE 0.9% 1,000 ML IV SCH (14:43)
[2024-04-04] MEDS: methylPREDNISolone SOD SUCCI 125 MG/2 ML VIAL IV STA (14:44)
[2024-04-04] MEDS ORDERED: ALBUTEROL HFA INHALER INHALATION PRN (17:49)
[2024-04-04] MEDS ORDERED: NITROGLYCERIN SL TABS 0.4 MG TAB SUBLINGUAL PRN (17:49)
[2024-04-04] MEDS: methylPREDNISolone SOD SUCCIN 750 MG in SODIUM CHLORIDE 0.9% 250 ML IVPB STA (18:31)
[2024-04-04] MEDS: PANTOPRAZOLE 40 MG/10 ML VIAL IVP SCH (18:32)
[2024-04-04] MEDS: ALBUTEROL NEBULIZED 2.5 MG/3 ML INHALATION PRN (19:45)
[2024-04-04] MEDS: FORMOTEROL FUMARATE 20 MCG/2 ML NEBU INHALATION SCH (19:45)
[2024-04-04] MEDS: METOPROLOL TARTRATE 50 MG TAB PO SCH (19:58)
[2024-04-04] MEDS: BACLOFEN 10 MG TAB PO SCH (19:58)
[2024-04-04] MEDS: PREGABALIN 75 MG CAP PO SCH (19:58)
[2024-04-05] MEDS: PANTOPRAZOLE 40 MG TABLET PO SCH (08:19)
[2024-04-05] MEDS: THIAMINE 100 MG TAB PO SCH (08:21)
[2024-04-05] MEDS: EZETIMIBE 10 MG TAB PO SCH (08:21)
[2024-04-05] MEDS: lisinopriL 20 MG TAB PO SCH (08:22)
[2024-04-05] MEDS: GABAPENTIN 300 MG CAP PO SCH (11:04)
[2024-04-05] MEDS: PYRIDOXINE 50 MG TAB PO SCH (13:12)
[2024-04-05] MEDS: CHOLECALCIFEROL 25 MCG (1000 IU) TABLET PO SCH (13:12)
[2024-04-05] MEDS: CYANOCOBALAMIN 500 MCG TAB PO SCH (13:12)
--- NOTE | 2024-04-05 14:11 | P.CNNES ---
History of Present Illness Consult date: 04/05/24 Requesting physician: Teo Tanner Reason for Consult: progressive weakness and dysarthria History of Present Illness: This is a 59 year-old woman who presents to the emergency department because of worsening speech difficulty in which more slurred, balance problems and feels her legs are weak. Patient is known to our neurology team and she had extensive workup in the past and was last seen by Dr. 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 He stated that she followed up with Dr. Blanco's nurse practitioner and she was supposed to have MRI but unable to be performed since the machine was down. She stated recently for the last month to couple weeks she feels her speech is worse and she is learning more and very slow is hard to get her words out. She is having visual disturbance and she feels her vision is blurry and cannot see things. She also feels her legs are very weak. Patient notified me that she has paresthesia of the left ulnar distribution in the last 3 fingers up to the elbows as well as paresthesia of the right index finger and on the left lateral aspect of the foot. She is on Lyrica but is not improving. And she had EMG with nerve conduction study in January [address] Ramirez and was told normal. She denies any infection prior to the symptoms or her original symptoms that started in August or September 2023. Of note patient developed paresthesia of the hands and feet since 2022 patient has done which was suggestive of peripheral neuropathy. Then she had new onset nystagmus, diplopia, gait ataxia on 02/20/2024 and she had CSF study which showed elevated protein. Also the CSF was positive for oligoclonal bands IgG index and IgG synthesis rate. She had MRI of the brain and cervical spine which was negative for demyelinating disease. She had vitamin B6 toxicity level 145. Very low folate. 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 She was treated with IVIG for possible GBS but seems the patient's symptoms moving other than nystagmus. Please note he stated that she was receiving her 4/5 dose of IVIG and she was making remarkable improvement so far per his note but in his note also he mentioned nystagmus not get getting better so consider empiric treatment with high-dose steroids. It seems that the patient had CT chest abdomen pelvis which revealed right mid dle lobe subsolid/groundglass 9 mm pulmonary nodule and further evaluation with a CT within 3 months versus PET scan. Please refer to Dr. De León's note for further details . Some of the workup during this hospital visit consisted of: CBC with differential is unremarkable. ESR is 12 CK level is 87 Chemistry panel sodium is 140, glucose is 130, calcium is 9.4 Magnesium is 2.0 AST ALT is within normal limits CT of the head is reported as age-related atrophy and chronic small vessel ischemic change without acute intracranial process seen at this time. I personally reviewed CT and agree with report. Review of Systems The positive and negative as per HPI. Past Medical History Past Medical History: CVA/TIA, Fibromyalgia, Hyperlipidemia, Myocardial Infarction ([place]), Osteoarthritis (OA) Additional Past Medical History / Comment(s): 07-04-15 ADMITTED TO [facility] WITH NSTEMI. PAST MEDICAL HX: MIGRAINES, HEMORRHOIDS, INCONT OF URINE, TIA X2 Last Myocardial Infarction Date:: 2013 History of Any Multi-Drug Resistant Organisms: None Reported Past Surgical History: Hysterectomy, Tubal Ligation Additional Past Surgical History / Comment(s): RECENTLT HAD TEETH EXTRACTED AND HAS NEW DENTURES ,MYRINGTOMY/TUBES 03 LOST 30% OF HEARING EV, SINUS SX 04, COLONOSCOPY CLEAR, heart cath with stent Past Anesthesia/Blood Transfusion Reactions: Previous Problems w/ Anesthesia Additional Past Anesthesia/Blood Transfusion Reaction / Comment(s): DIFFICULTY WAKING FROM AA. Past Psychological History: No Psychological Hx Reported Additional Psychological History / Comment(s): PT LIVES AT HOME WITH HER SPOUSE SANCHEZ, IS INDEPENDANT, NO OUTSIDE SERVICES. Smoking Status: Former smoker Past Alcohol Use History: None Reported Past Drug Use History: None Reported - Past Family History Father Family Medical History: Diabetes Mellitus Mother Family Medical History: Cancer Additional Family Medical History / Comment(s): LUNG CANCER Brother(s) Family Medical History: Coronary Artery Disease (CAD) Sister(s) Family Medical History: No Reported History Son(s) Family Medical History: No Reported History Medications and Allergies Home Medications Medication Instructions Recorded Confirmed Type Albuterol Inhaler [Ventolin Hfa 1 puff INHALATION RT-Q4H PRN 09/26/20 04/04/24 History Inhaler] Aspirin EC [Ecotrin Low Dose] 81 mg PO W/BRKFST 09/26/20 04/04/24 History Nitroglycerin Sl Tabs [Nitrostat] 0.4 mg SL Q5M PRN 09/26/20 04/04/24 History Albuterol Nebulized [Ventolin 2.5 mg INHALATION RT-Q6H PRN 06/08/23 04/04/24 History Nebulized] lisinopriL [Zestril] 20 mg PO W/BRKFST 06/08/23 04/04/24 History Baclofen [Lioresal] 10 mg PO BID 02/24/24 04/04/24 History Cholecalciferol [Vitamin D3 (25 50 mcg PO W/LUNCH 02/24/24 04/04/24 History Mcg = 1000 Iu)] Cyanocobalamin (Vitamin B-12) 1,000 mcg PO W/LUNCH 02/24/24 04/04/24 History [Vitamin B-12] Esomeprazole Magnesium [NexIUM 20 mg PO W/BRKFST 02/24/24 04/04/24 History 24Hr] Ezetimibe [Zetia] 10 mg PO W/BRKFST 02/24/24 04/04/24 History Formoterol Fumarate [Perforomist] 20 mcg INHALATION RT-BID 02/24/24 04/04/24 History Ibuprofen [Motrin] 800 mg PO Q8H PRN 02/24/24 04/04/24 History Magnesium 250 mg PO W/LUNCH 02/24/24 04/04/24 History Meclizine [Antivert] 12.5 - 25 mg PO BID-W/MEALS 02/24/24 04/04/24 History Metoprolol Tartrate [Lopressor] 50 mg PO BID 02/24/24 04/04/24 History Potassium Gluconate 90 mg PO W/LUNCH 02/24/24 04/04/24 History Pregabalin [Lyrica] 150 mg PO TID 02/24/24 04/04/24 History Pyridoxine [Vitamin B-6] 25 mg PO W/LUNCH 02/24/24 04/04/24 History Ubidecarenone [Coenzyme Q10] 200 mg PO W/LUNCH 02/24/24 04/04/24 History Folic Acid 1 mg PO DAILY #30 tab 03/07/24 04/04/24 Rx Thiamine [Vitamin B-1] 100 mg PO DAILY #30 tab 03/07/24 04/04/24 Rx Allergies Allergy/AdvReac Type Severity Reaction Status Date / Time amoxicillin trihydrate AdvReac Nausea & Verified 04/04/24 11:20 [From Augmentin] Vomiting potassium clavulanate AdvReac Nausea & Verified 04/04/24 11:20 [From Augmentin] Vomiting Physical Examination - Vital Signs Vital Signs: Vital Signs Temp Pulse Pulse Resp BP BP Pulse Ox 04/05/24 12:37 97.2 F L 70 16 134/67 98 04/05/24 11:41 72 04/05/24 11:33 71 04/05/24 07:32 97.4 F L 63 16 159/75 95 04/05/24 00:56 97.6 F 68 17 154/71 98 04/04/24 20:11 65 04/04/24 20:02 20 04/04/24 19:55 64 04/04/24 19:54 64 04/04/24 19:44 60 04/04/24 19:28 98.0 F 60 17 149/70 96 04/04/24 17:07 97.8 F 58 L 16 146/90 97 04/04/24 16:41 998.1 F H 68 16 148/89 98 04/04/24 15:00 68 16 140/68 98 04/04/24 14:00 68 16 141/68 98 Intake and Output 04/04/24 04/05/24 04/05/24 22:59 06:59 14:59 Other: Voiding Method Bedside Commode # Voids 2 Weight 63.049 kg GENERAL: The patient is lying in bed and is not in acute distress. HENT: Supple neck. NEUROLOGICAL: Higher mental function: The patient is awake, alert, oriented to self, place and time. Patient is following commands. No aphasia and no neglect. I feels speech is delayed because of severe spastic voice. Cranial nerves: The pupils are round, equal and reactive to light and accommodation. Visual [place] seems diplopia side to side and sees two of everything but normal to confrontation throughout. Primary gaze has nystagmus up and down. EOM has nystamgus that is rotatory looking to right then looking to left. Has no appreciable nystagmus looking upward by had some nystagmus looking downward. Has mild to moderate facial weakness (when puffed her cheeks it seems somewhat weak). Tongue is midline and moves side to side without difficulty. Shoulder shrug is normal bilaterally. Motor: The strength is left hand electrician locomotive is 4+. Lowers strength knee extension is 4+ to 5- but otherwise 5/5. Has atrophy in hand muscles. Normal tone. Cerebellum: Has ataxia and dysmetria over the bilateral finger to nose and heel to brown (appear left a bit more worse than right). Sensation: Sensation is decrease to touch over the left lateral aspect of ulnar distribution to touch.. Reflexes (right/left): Biceps 2+/1+; triceps 1+/1+; brachioradialis1-2+/2-3+; patellar 3+; ankles 1+. Plantars are down going bilaterally. Results - Laboratory Findings CBC and BMP: 04/04/24 11:47 04/04/24 11:47 Abnormal Lab Findings: Abnormal Labs 04/04/24 04/04/24 11:47 11:47 RDW 15.9 H Chloride 108 H Glucose 130 H Assessment and Plan Assessment: Is a 58-year-old woman who developed paresthesia of the hands and feet since 2022 then had new onset nystagmus, diplopia and ataxia on 02/20/2024. She had a stroke workup on 02/2024 in our facility and had CSF study in which showed elevated CSF protein of 139 0 nucleated. Patient had positive oligoclonal band, IgG index and IgG synthesis rate. 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 Patient had IVIG in which she had improvement in her symptoms except nystagmus. She presents because of worsening of her speech, progressive weakness in her legs and visual disturbance in the last 1 month to couple weeks. She notified me that she has paresthesia over the left ulnar distribution as well as right index finger as well as the left lateral aspect of the foot. She had EMG with nerve conduction study there is extremity in January 2024 by her outpatient neurologist and she was notified was normal. She also had a CT of the abdomen which revealed right middle lobe subsolid/groundglass 9 mm pulmonary nodule at that time and 02/2024. Had NDMDA receptor ab which is negative Ataxia of the upper and lower extremity bilaterally, diplopia, nystagmus, dysarthria seems more cerebellar: My differential is multiple sclerosis. Also rule out paraneoplastic especially with reported pulmonary nodule on her recent CT of the abdomen on 02/2024. I cannot exclude atypical Chronic inflammatory polyneuropathy (CIDP) but I doubt it since some of her reflexes were hyper- reflexia and her symptoms does not seem it is clear for that condition. Had vitamin B6 toxicity on 02/2024 as high as 145. Her neuropathy can be due to Vitamin B6 toxicity. History of very low folate of 4.7 History of right middle lobe subsolid/groundglass 9 mm pulmonary nodule at that time and 02/[address] History of NSTEMI Plan: * on 02/2024 work-up: SSA/SSB negative, Serum immunofixation was no monoclonal paraprotein, NMDA negative, B12: 1139, TSH: 3.620. CSF is clear, colorless, nucleated cells 0, rbc 350, total protein is 139 (normal is 12-60), glucose 65. Positive oligoclonal band, BARBIE <5. Syphilis negative, Lyme negative, HSV, VZV, CMV are negative. HbA1c: 5.9, MMA was normal * Will obtain repeat Brain MRI of the brain and cervical spine with and without is ordered and pending. * If MRI is negative then will order paraneosplastic panel. * I ordered HERVE, antiDNA, C-ANCA. * Patient received methylprednisone 125 mg IV by the ED physician and then in addition I also added another 750 mg for concern of MS. I will hold any further steroids until MRI of the brain and cervical spine comes back. * I ordered repeat vitamin B6 level. I stopped Vitamin B6 supplement since was toxic last month. * I started patient on folic acid 1mg daily for her very low normal folic acid recently. * Recommend EMG with NCS as outpatient of uppers and lowers. I understand she had EMG of uppers in 01/2024 of uppers by her neurologist as outpatient and she stated was told normal. 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 * PT and OT are consulted * Inpatient rehab is consulted * I stop Lyrica since patient is not having any benefit and I started the patient on gabapentin 300 mg 1 tablet 3 times daily * Defer the rest of the medical management to primary team and other specialist The plan is discussed with the patient, primary attending and her nurse Thank for the consultation Total care was 60 minutes. Time with Patient: Greater than 30
--- NOTE | 2024-04-05 15:10 | P.HPIM ---
History of Present Illness H&P Date: 04/05/24 History of present illness; patient is a 58-year-old female with medical history of stroke, coronary artery disease, fibromyalgia who presented to the ER with complaint of progressive weakness. Patient was recently admitted to the hospital couple of weeks ago with similar complaints at which time patient had brain CT showing no acute intracranial process,Carotid Doppler showing scattered atherosclerotic disease without sonographic evidence of significant stenosis, MRI brain reviewed reveals no evidence of intracranial mass/subacute/acute infarct or abnormal enhancement, MRI cervical spine revealed no evidence for disc herniation or significant spinal canal stenosis there is no abnormal post contrast enhancement. Patient did had an LP done at the time and was given IVIG for suspicion of Guillain-Lewis syndrome. Patient was discharged but states that ever since discharge she has having worsening slurred speech. Patient also having problems with her balance. Patient also complaining of blurred vision. Patient denies any weakness of any extremity. Patient is complaining of numbness of her left hand. Because of the symptoms, patient came to the ER Initial lab work done in the ER showed WBC 4, hemoglobin 12.7, platelet count 267, sodium 140, potassium 4.1, BUN 14, creatinine 0.85, lactate 1.1 calcium 9.4, magnesium 2, AST 25, ALT 13, UA negative for infection EKG done in the ER showed heart rate of56 , no ST segment elevation or depression seen, no T-wave inversions seen. Chest x-ray done in the ER no acute cardiopulmonary process CT head done showed age-related atrophic and chronic small vessel ischemic changes without acute intracranial process Patient admitted to internal medicine service REVIEW OF SYSTEMS: CONSTITUTIONAL: No fever, no malaise, no fatigue. HEENT: No recent visual problems or hearing problems. Denied any sore throat. CARDIOVASCULAR: No chest pain, orthopnea, PND, no palpitations, no syncope. PULMONARY: No shortness of breath, no cough, no hemoptysis. GASTROINTESTINAL: No diarrhea, no nausea, no vomiting, no abdominal pain. NEUROLOGICAL: As mentioned above HEMATOLOGICAL: Denies any bleeding or petechiae. GENITOURINARY: Denies any burning micturition, frequency, or urgency. MUSCULOSKELETAL/RHEUMATOLOGICAL: Denies any joint pain, swelling, or any muscle pain. ENDOCRINE: Denies any polyuria or polydipsia. The rest of the 14-point review of systems is negative. PHYSICAL EXAMINATION: GENERAL: The patient is alert and oriented x3, not in any acute distress. Well developed, well nourished. HEENT: Pupils are round and equally reacting to light. EOMI. No scleral icterus. No conjunctival pallor. Normocephalic, atraumatic. No pharyngeal erythema. No thyromegaly. CARDIOVASCULAR: S1 and S2 present. No murmurs, rubs, or gallops. PULMONARY: Chest is clear to auscultation, no wheezing or crackles. ABDOMEN: Soft, nontender, nondistended, normoactive bowel sounds. No palpable organomegaly. MUSCULOSKELETAL: No joint swelling or deformity. EXTREMITIES: No cyanosis, clubbing, or pedal edema. NEUROLOGICAL: Muscle strength is 5 x 5 in all extremities. Bilateral nystagmus seen. Cranial nerves II to XII intact, reflexes are symmetrical bilaterally SKIN: No rashes. Assessment and plan Paresthesias of upper extremities Blurred vision Ataxia History of vitamin B6 toxicity right middle lobe subsolid/groundglass 9 mm pulmonary nodule Hyperlipidemia hypertension Monitor vital signs Monitor CBC Monitor CMP Continue telemetry monitoring Continue neurochecks MRI brain ordered MRI cervical spine ordered PT ordered OT ordered speech ordered Neurology consulted Labs and medication were reviewed.. Continue same treatment. Continue with symptomatic treatment. Resume home medication. Monitor labs and vitals. DVT and GI prophylaxis. Further recommendations as per clinical course of the patient Dictation was produced using [employer] dictation software. please excuse any grammatical, word or spelling errors. Past Medical History Past Medical History: CVA/TIA, Fibromyalgia, Hyperlipidemia, Myocardial Infarction ([place]), Osteoarthritis (OA) Additional Past Medical History / Comment(s): 07-04-15 ADMITTED TO [facility] WITH NSTEMI. PAST MEDICAL HX: MIGRAINES, HEMORRHOIDS, INCONT OF URINE, TIA X2 Last Myocardial Infarction Date:: 2013 History of Any Multi-Drug Resistant Organisms: None Reported Past Surgical History: Hysterectomy, Tubal Ligation Additional Past Surgical History / Comment(s): RECENTLT HAD TEETH EXTRACTED AND HAS NEW DENTURES ,MYRINGTOMY/TUBES 03 LOST 30% OF HEARING EV, SINUS SX 04, COLONOSCOPY CLEAR, heart cath with stent Past Anesthesia/Blood Transfusion Reactions: Previous Problems w/ Anesthesia Additional Past Anesthesia/Blood Transfusion Reaction / Comment(s): DIFFICULTY WAKING FROM AA. Past Psychological History: No Psychological Hx Reported Additional Psychological History / Comment(s): PT LIVES AT HOME WITH HER SPOUSE SANCHEZ, IS INDEPENDANT, NO OUTSIDE SERVICES. Smoking Status: Former smoker Past Alcohol Use History: None Reported Past Drug Use History: None Reported - Past Family History Father Family Medical History: Diabetes Mellitus Mother Family Medical History: Cancer Additional Family Medical History / Comment(s): LUNG CANCER Brother(s) Family Medical History: Coronary Artery Disease (CAD) Sister(s) Family Medical History: No Reported History Son(s) Family Medical History: No Reported History Medications and Allergies Home Medications Medication Instructions Recorded Confirmed Type Albuterol Inhaler [Ventolin Hfa 1 puff INHALATION RT-Q4H PRN 09/26/20 04/04/24 History Inhaler] Aspirin EC [Ecotrin Low Dose] 81 mg PO W/BRKFST 09/26/20 04/04/24 History Nitroglycerin Sl Tabs [Nitrostat] 0.4 mg SL Q5M PRN 09/26/20 04/04/24 History Albuterol Nebulized [Ventolin 2.5 mg INHALATION RT-Q6H PRN 06/08/23 04/04/24 History Nebulized] lisinopriL [Zestril] 20 mg PO W/BRKFST 06/08/23 04/04/24 History Baclofen [Lioresal] 10 mg PO BID 02/24/24 04/04/24 History Cholecalciferol [Vitamin D3 (25 50 mcg PO W/LUNCH 02/24/24 04/04/24 History Mcg = 1000 Iu)] Cyanocobalamin (Vitamin B-12) 1,000 mcg PO W/LUNCH 02/24/24 04/04/24 History [Vitamin B-12] Esomeprazole Magnesium [NexIUM 20 mg PO W/BRKFST 02/24/24 04/04/24 History 24Hr] Ezetimibe [Zetia] 10 mg PO W/BRKFST 02/24/24 04/04/24 History Formoterol Fumarate [Perforomist] 20 mcg INHALATION RT-BID 02/24/24 04/04/24 History Ibuprofen [Motrin] 800 mg PO Q8H PRN 02/24/24 04/04/24 History Magnesium 250 mg PO W/LUNCH 02/24/24 04/04/24 History Meclizine [Antivert] 12.5 - 25 mg PO BID-W/MEALS 02/24/24 04/04/24 History Metoprolol Tartrate [Lopressor] 50 mg PO BID 02/24/24 04/04/24 History Potassium Gluconate 90 mg PO W/LUNCH 02/24/24 04/04/24 History Pregabalin [Lyrica] 150 mg PO TID 02/24/24 04/04/24 History Pyridoxine [Vitamin B-6] 25 mg PO W/LUNCH 02/24/24 04/04/24 History Ubidecarenone [Coenzyme Q10] 200 mg PO W/LUNCH 02/24/24 04/04/24 History Folic Acid 1 mg PO DAILY #30 tab 03/07/24 04/04/24 Rx Thiamine [Vitamin B-1] 100 mg PO DAILY #30 tab 03/07/24 04/04/24 Rx Allergies Allergy/AdvReac Type Severity Reaction Status Date / Time amoxicillin trihydrate AdvReac Nausea & Verified 04/04/24 11:20 [From Augmentin] Vomiting potassium clavulanate AdvReac Nausea & Verified 04/04/24 11:20 [From Augmentin] Vomiting Physical Exam Vitals: Vital Signs Temp Pulse Pulse Resp BP BP Pulse Ox 04/05/24 12:37 97.2 F L 70 16 134/67 98 04/05/24 11:41 72 04/05/24 11:33 71 04/05/24 07:32 97.4 F L 63 16 159/75 95 04/05/24 00:56 97.6 F 68 17 154/71 98 04/04/24 20:11 65 04/04/24 20:02 20 04/04/24 19:55 64 04/04/24 19:54 64 04/04/24 19:44 60 04/04/24 19:28 98.0 F 60 17 149/70 96 04/04/24 17:07 97.8 F 58 L 16 146/90 97 04/04/24 16:41 998.1 F H 68 16 148/89 98 04/04/24 15:00 68 16 140/68 98 Intake and Output 04/04/24 04/05/24 04/05/24 22:59 06:59 14:59 Other: Voiding Method Bedside Commode # Voids 2 Weight 63.049 kg Results CBC & Chem 7: 04/04/24 11:47 04/04/24 11:47 Thrombosis Risk Factor Assmnt - Choose All That Apply Any of the Below Risk Factors Present?: Yes Each Factor Represents 1 point: Age 41-60 years, Swollen legs (current) Other Risk Factors: No Other congenital or acquired thrombophilia - If yes, enter type in comment: No Thrombosis Risk Factor Assessment Total Risk Factor Score: 2 Thrombosis Risk Factor Assessment Level: Low Risk
--- NOTE | 2024-04-05 15:34 | P.CNPUL ---
History of Present Illness Consult date: 04/05/24 Requesting physician: Jimi Garcia Reason for consult: other (9 mm lung nodule) Chief complaint: Progressive weakness History of present illness: This is a 59-year-old female, [id number] smoking history, quit smoking few years ago. Patient had history of fibromyalgia, dyslipidemia, degenerative joint disease, previous DC, presented to the hospital with progressive weakness for the last 6 months. Patient also describes slurred speech, weakness in the legs, and she is at a point she cannot even ambulate on her own. Her weakness has been again very progressive over the last 6 months, and she is following up with the neurology clinic supposed to have further workup for her weakness. Donovan emerson considering the worsening of her symptoms, patient was admitted this time and she was seen by neurology again. On her last visit she was seen by Dr. De León, and now she is being seen by Dr. Liz. In addition to her weakness, patient has been complaining of diplopia, poor balance/dysarthria, workup so far included spinal fluid study which showed elevated protein and the CSF was positive for oligoclonal bands. MRI of the brain did not show any evidence of demyelinating disease. Patient did receive IVIG, she received 4 out of 5 doses of IVIG, however no significant improvement. On this admission the patient had a CT of the chest abdomen and pelvis and there was evidence of a right middle lobe nodule, measuring 9 mm in size, hence this consult was initiated. Patient has no significant pulmonary symptoms, she has mostly symptoms of occasional cough and congestion. No hemoptysis no fever no chills no chest pain, no wheezing. I reviewed the CT of the chest, noted 9 mm nodule, and my recommendation for this nodule is to have a PET scan on outpatient basis or possibly repeat CT of the chest in 3 months Review of Systems REVIEW OF SYSTEMS: CONSTITUTIONAL: Generalized weakness EYES: Positive symptoms of diplopia ENT: Negative CARDIAC: Negative. PULMONARY: As noted in HPI. GI: Negative. GENITOURINARY: Negative. MUSCULOSKELETAL: Difficulty with balance, ataxia SKIN: Negative. NEUROPSYCH: Negative. ENDOCRINE: Negative. HEMATOLOGIC: Negative. Past Medical History Past Medical History: CVA/TIA, Fibromyalgia, Hyperlipidemia, Myocardial Infarction (DC), Osteoarthritis (OA) Additional Past Medical History / Comment(s): 07-04-15 ADMITTED TO [facility] WITH NSTEMI. PAST MEDICAL HX: MIGRAINES, HEMORRHOIDS, INCONT OF URINE, TIA X2 Last Myocardial Infarction Date:: 2013 History of Any Multi-Drug Resistant Organisms: None Reported Past Surgical History: Hysterectomy, Tubal Ligation Additional Past Surgical History / Comment(s): RECENTLT HAD TEETH EXTRACTED AND HAS NEW DENTURES ,MYRINGTOMY/TUBES 03 LOST 30% OF HEARING EV, SINUS SX 04, COLONOSCOPY CLEAR, heart cath with stent Past Anesthesia/Blood Transfusion Reactions: Previous Problems w/ Anesthesia Additional Past Anesthesia/Blood Transfusion Reaction / Comment(s): DIFFICULTY WAKING FROM AA. Past Psychological History: No Psychological Hx Reported Additional Psychological History / Comment(s): PT LIVES AT HOME WITH HER SPOUSE SANCHEZ, IS INDEPENDANT, NO OUTSIDE SERVICES. Smoking Status: Former smoker Past Alcohol Use History: None Reported Past Drug Use History: None Reported - Past Family History Father Family Medical History: Diabetes Mellitus Mother Family Medical History: Cancer Additional Family Medical History / Comment(s): LUNG CANCER Brother(s) Family Medical History: Coronary Artery Disease (CAD) Sister(s) Family Medical History: No Reported History Son(s) Family Medical History: No Reported History Medications and Allergies Home Medications Medication Instructions Recorded Confirmed Type Albuterol Inhaler [Ventolin Hfa 1 puff INHALATION RT-Q4H PRN 09/26/20 04/04/24 History Inhaler] Aspirin EC [Ecotrin Low Dose] 81 mg PO W/BRKFST 09/26/20 04/04/24 History Nitroglycerin Sl Tabs [Nitrostat] 0.4 mg SL Q5M PRN 09/26/20 04/04/24 History Albuterol Nebulized [Ventolin 2.5 mg INHALATION RT-Q6H PRN 06/08/23 04/04/24 History Nebulized] lisinopriL [Zestril] 20 mg PO W/BRKFST 06/08/23 04/04/24 History Baclofen [Lioresal] 10 mg PO BID 02/24/24 04/04/24 History Cholecalciferol [Vitamin D3 (25 50 mcg PO W/LUNCH 02/24/24 04/04/24 History Mcg = 1000 Iu)] Cyanocobalamin (Vitamin B-12) 1,000 mcg PO W/LUNCH 02/24/24 04/04/24 History [Vitamin B-12] Esomeprazole Magnesium [NexIUM 20 mg PO W/BRKFST 02/24/24 04/04/24 History 24Hr] Ezetimibe [Zetia] 10 mg PO W/BRKFST 02/24/24 04/04/24 History Formoterol Fumarate [Perforomist] 20 mcg INHALATION RT-BID 02/24/24 04/04/24 History Ibuprofen [Motrin] 800 mg PO Q8H PRN 02/24/24 04/04/24 History Magnesium 250 mg PO W/LUNCH 02/24/24 04/04/24 History Meclizine [Antivert] 12.5 - 25 mg PO BID-W/MEALS 02/24/24 04/04/24 History Metoprolol Tartrate [Lopressor] 50 mg PO BID 02/24/24 04/04/24 History Potassium Gluconate 90 mg PO W/LUNCH 02/24/24 04/04/24 History Pregabalin [Lyrica] 150 mg PO TID 02/24/24 04/04/24 History Pyridoxine [Vitamin B-6] 25 mg PO W/LUNCH 02/24/24 04/04/24 History Ubidecarenone [Coenzyme Q10] 200 mg PO W/LUNCH 02/24/24 04/04/24 History Folic Acid 1 mg PO DAILY #30 tab 03/07/24 04/04/24 Rx Thiamine [Vitamin B-1] 100 mg PO DAILY #30 tab 03/07/24 04/04/24 Rx Allergies Allergy/AdvReac Type Severity Reaction Status Date / Time amoxicillin trihydrate AdvReac Nausea & Verified 04/04/24 11:20 [From Augmentin] Vomiting potassium clavulanate AdvReac Nausea & Verified 04/04/24 11:20 [From Augmentin] Vomiting Physical Exam Vitals: Vital Signs Temp Pulse Pulse Resp BP BP Pulse Ox 04/05/24 12:37 97.2 F L 70 16 134/67 98 04/05/24 11:41 72 04/05/24 11:33 71 04/05/24 07:32 97.4 F L 63 16 159/75 95 04/05/24 00:56 97.6 F 68 17 154/71 98 04/04/24 20:11 65 04/04/24 20:02 20 04/04/24 19:55 64 04/04/24 19:54 64 04/04/24 19:44 60 04/04/24 19:28 98.0 F 60 17 149/70 96 04/04/24 17:07 97.8 F 58 L 16 146/90 97 04/04/24 16:41 998.1 F H 68 16 148/89 98 Intake and Output 04/05/24 04/05/24 04/05/24 06:59 14:59 22:59 Other: # Voids 2 General: Revealed 59-year-old female in no distress, extremely pleasant Head: Atraumatic, normocephalic Skin: Skin is warm and dry and no rashes or lesions are noted. Eye: Patient has a black patch on her left eye to avoid diplopia. Ears, nose, mouth and throat: There are moist mucous membranes and no oral lesions. Neck: The neck is supple, there is no tenderness or JVD. Cardiovascular: There is a regular rate and rhythm. No murmur, rub or gallop is appreciated. Respiratory: Clear throughout no crackles rhonchi or wheezes Gastrointestinal: Soft, non-distended, non-tender abdomen without masses or organomegaly noted. There is no rebound or guarding present. Bowel sounds are unremarkable. Back: There is no tenderness to palpation in the midline. There is no obvious deformity. Musculoskeletal: Normal ROM, no tenderness, There is no pedal edema. There is no calf tenderness or swelling. No cords were appreciated. Neurological: Patient is alert and oriented x 3, no difficulty with the speech, cranial nerves are intact. Patient does have diplopia no evidence of nystagmus patient had generalized weakness 4/5, please refer to detailed neurological exam by neurology Results - Laboratory Findings CBC and BMP: 04/04/24 11:47 04/04/24 11:47 PT/INR, D-dimer PT 10.0 sec (10.0-12.5) 04/04/24 11:47 INR 0.9 (<1.2) 04/04/24 11:47 Abnormal lab findings: Abnormal Labs 04/04/24 04/04/24 11:47 11:47 RDW 15.9 H Chloride 108 H Glucose 130 H - Diagnostic Findings CT scan - chest: image reviewed (As noted in HPI) Assessment and Plan Assessment: Impression: Progressive weakness, strongly suspect multiple sclerosis, workup is in progress, MRI is pending. Doubt paraneoplastic syndrome as the nodule is not highly suspicious for malignancy although malignancy is not entirely ruled out, and my recommendation as far as the nodule is concerned is to either PET scan on outpatient basis or repeat CT of the chest in 3 to 4 months. Solitary lung nodule, needs outpatient workup, low index of suspicion for malignancy, although patient is made aware that malignancy is not entirely ruled out but felt to be less likely and will definitely need further follow-up on outpatient basis History of fibromyalgia Degenerative joint disease Ex-smoker but no clear-cut evidence of COPD symptoms Benign essential hypertension GERD without esophagitis Degenerative joint disease Recommendation: Continue present workup as recommended by neurology Patient to be seen on outpatient basis regarding her right lung nodule paraneoplastic syndrome from lung nodule is felt to be extremely unlikely Will continue to follow Time with Patient: Greater than 30
--- NOTE | 2024-04-05 15:43 | MR ---
EXAMINATION TYPE: MR brain/cspine wo/w DATE OF EXAM: 04/05/2024 3:28 PM CLINICAL INDICATION:Female, 59 years old with history of multiple sclerosis; PHH, MS, weakness. COMPARISON: 02/28 and 02/26/2024. TECHNIQUE: Multi planar, multi sequence imaging was performed through the brain including: T1, T2, Inversion rec overy, Diffusion weighted imaging, and gradient echo imaging. No gadolinium was given. Multi planar, multi sequence imaging was performed utilizing: T1-weighted, T2-weighted, and turbo inv ersion recovery imaging of the cervical spine. IV Contrast: 6 cc Gadavist FINDINGS: The duarte-white junctions, ventricular system, basal cisterns appear unremarkable. Scattered punctat e foci of white matter changes. No abnormal postcontrast enhancement. Midline structures show no abno rmality. Diffusion-weighted imaging shows no evidence of restricted diffusion. Left frontal lobe punc stovall focus of blooming artifact suspicious for microhemorrhage.. The bone marrow signal is within normal limits. Paranasal sinuses and mastoid air cells: No significant paranasal sinus disease. Visualized orbits: Orbital contents are intact. Alignment: The cervical vertebral bodies have preserved heights. Alignment is within normal limits gi edward patient positioning. Bones: Bone signal is within normal limits. No abnormal bone marrow edema on inversion recovery seque nces. Cord: The spinal cord is unremarkable with regards to their signal intensity and morphology. Discs: Intervertebral disc signal is maintained. C2-C3: No significant disc pathology. The spinal canal is patent. No neural foraminal stenosis. C3-C4: No significant disc pathology. The spinal canal is patent. No neural foraminal stenosis. C4-C5: No significant disc pathology. The spinal canal is patent. No neural foraminal stenosis. C5-C6: No significant disc pathology. The spinal canal is patent. No neural foraminal stenosis. C6-C7: A disc osteophyte complex is present with mild spinal canal stenosis. Bilateral facet and unc overtebral joint arthropathy are present with mild bilateral neural foraminal stenosis. C7-T1: No significant disc pathology. The spinal canal is patent. No neural foraminal stenosis. Other: None. IMPRESSION: * Scattered punctate foci of white matter changes. No evidence for active demyelination within the b rain or spine. * No evidence for disc herniation or significant spinal canal stenosis. * Multilevel disc degeneration with associated osteoarthritic changes. * No evidence of intracranial mass or acute/subacute infarct.
[2024-04-05] MEDS: FOLIC ACID 1 MG TAB PO SCH (16:19)
--- NOTE | 2024-04-05 17:06 | P.CONS ---
History of Present Illness - Reason for Consult Consult date: 04/05/24 Rehab Needs - History of Present Illness PMR Consult Mrs. Mckeon is She has a past medical history of stroke, coronary artery disease, fibromyalgia who presented to the ER with complaint of progressive weakness. Patient was recently admitted to the hospital couple of weeks ago with similar complaints at which time patient had brain CT showing no acute intracranial process,Carotid Doppler showing scattered atherosclerotic disease without sonographic evidence of significant stenosis, MRI brain reviewed reveals no evidence of intracranial mass/subacute/acute infarct or abnormal enhancement, MRI cervical spine revealed no evidence for disc herniation or significant spinal canal stenosis there is no abnormal postcontrast enhancement. Patient did had an LP done at the time and was given IVIG for suspicion of Guillain-Lewis syndrome. Patient was discharged but states that ever since discharge she has having worsening slurred speech. Patient also having problems with her balance. Patient also complaining of blurred vision. Patient denies any weakness of any extremity. Patient is complaining of numbness of her left hand. Because of the symptoms, patient came to the ER Initial lab work done in the ER showed WBC 4, hemoglobin 12.7, platelet count 267, sodium 140, potassium 4.1, BUN 14, creatinine 0.85, lactate 1.1 calcium 9.4, magnesium 2, AST 25, ALT 13, UA negative for infection. EKG done in the ER showed heart rate of56 , no ST segment elevation or depression seen, no T-wave inversions seen. Chest x-ray done in the ER no acute cardiopulmonary process CT head done showed age-related atrophic and chronic small vessel ischemic changes without acute intracranial process Per Neurology: Patient seen by neurology team and she had extensive workup in the past and was last seen by Dr. 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 He stated that she followed up with Dr. Blanco's nurse practitioner and she was supposed to have MRI but unable to be performed since the machine was down. She stated recently for the last month to couple weeks she feels her speech is worse and she is learning more and very slow is hard to get her words out. She is having visual disturbance and she feels her vision is blurry and cannot see things. She also feels her legs are very weak. Patient notified me that she has paresthesia of the left ulnar distribution in the last 3 fingers up to the elbows as well as paresthesia of the right index finger and on the left lateral aspect of the foot. She is on Lyrica but is not improving. And she had EMG with nerve conduction study in January [address] Ramirez and was told normal. Of note patient developed paresthesia of the hands and feet since 2022 patient has done which was suggestive of peripheral neuropathy. Then she had new onset nystagmus, diplopia, gait ataxia on 02/20/2024 and she had CSF study which showed elevated protein. Also the CSF was positive for oligoclonal bands IgG index and IgG synthesis rate. She had MRI of the brain and cervical spine which was negative for demyelinating disease. She had vitamin B6 toxicity level 145. Very low folate. 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 She was treated with IVIG for possible GBS but seems the patient's symptoms moving other than nystagmus. Please note he stated that she was receiving her 4/5 dose of IVIG and she was making remarkable improvement so far per his note but in his note also he mentioned nystagmus not get getting better so consider empiric treatment with high-dose steroids. It seems that the patient had CT chest abdomen pelvis which revealed right middle lobe subsolid/groundglass 9 mm pulmonary nodule and further evaluation with a CT within 3 months versus PET scan. PMR consulted for rehab needs. As above, she notes progressive weakness and speech difficulties. She denies pain per se, but as a tightness feeling. Having double vision, is tired, SOB with activity, heartburn and numbness at times in her hands/ankles/feet. Her LBM was 2 days ago. Denies bladder issues. Therapies have just worked with her, needing support for her ataxia. Neurology work up in progress Review of Systems + per above, o/w all systems reviewed negative. Past Medical History Past Medical History: CVA/TIA, Fibromyalgia, Hyperlipidemia, Myocardial Infarction (SD), Osteoarthritis (OA) Additional Past Medical History / Comment(s): 07-04-15 ADMITTED TO [facility] WITH NSTEMI. PAST MEDICAL HX: MIGRAINES, HEMORRHOIDS, INCONT OF URINE, TIA X2 Last Myocardial Infarction Date:: 2013 History of Any Multi-Drug Resistant Organisms: None Reported Past Surgical History: Hysterectomy, Tubal Ligation Additional Past Surgical History / Comment(s): RECENTLT HAD TEETH EXTRACTED AND HAS NEW DENTURES ,MYRINGTOMY/TUBES 03 LOST 30% OF HEARING EV, SINUS SX 04, COLONOSCOPY CLEAR, heart cath with stent Past Anesthesia/Blood Transfusion Reactions: Previous Problems w/ Anesthesia Additional Past Anesthesia/Blood Transfusion Reaction / Comm: DIFFICULTY WAKING FROM AA. Past Psychological History: No Psychological Hx Reported Additional Psychological History / Comment(s): PT LIVES AT HOME WITH HER SPOUSE SANCHEZ, IS INDEPENDANT, NO OUTSIDE SERVICES. Smoking Status: Former smoker Past Alcohol Use History: None Reported Past Drug Use History: None Reported - Past Family History Father Family Medical History: Diabetes Mellitus Mother Family Medical History: Cancer Additional Family Medical History / Comment(s): LUNG CANCER Brother(s) Family Medical History: Coronary Artery Disease (CAD) Sister(s) Family Medical History: No Reported History Son(s) Family Medical History: No Reported History Medications and Allergies Home Medications Medication Instructions Recorded Confirmed Type Albuterol Inhaler [Ventolin Hfa 1 puff INHALATION RT-Q4H PRN 09/26/20 04/04/24 History Inhaler] Aspirin EC [Ecotrin Low Dose] 81 mg PO W/BRKFST 09/26/20 04/04/24 History Nitroglycerin Sl Tabs [Nitrostat] 0.4 mg SL Q5M PRN 09/26/20 04/04/24 History Albuterol Nebulized [Ventolin 2.5 mg INHALATION RT-Q6H PRN 06/08/23 04/04/24 History Nebulized] lisinopriL [Zestril] 20 mg PO W/BRKFST 06/08/23 04/04/24 History Baclofen [Lioresal] 10 mg PO BID 02/24/24 04/04/24 History Cholecalciferol [Vitamin D3 (25 50 mcg PO W/LUNCH 02/24/24 04/04/24 History Mcg = 1000 Iu)] Cyanocobalamin (Vitamin B-12) 1,000 mcg PO W/LUNCH 02/24/24 04/04/24 History [Vitamin B-12] Esomeprazole Magnesium [NexIUM 20 mg PO W/BRKFST 02/24/24 04/04/24 History 24Hr] Ezetimibe [Zetia] 10 mg PO W/BRKFST 02/24/24 04/04/24 History Formoterol Fumarate [Perforomist] 20 mcg INHALATION RT-BID 02/24/24 04/04/24 History Ibuprofen [Motrin] 800 mg PO Q8H PRN 02/24/24 04/04/24 History Magnesium 250 mg PO W/LUNCH 02/24/24 04/04/24 History Meclizine [Antivert] 12.5 - 25 mg PO BID-W/MEALS 02/24/24 04/04/24 History Metoprolol Tartrate [Lopressor] 50 mg PO BID 02/24/24 04/04/24 History Potassium Gluconate 90 mg PO W/LUNCH 02/24/24 04/04/24 History Pregabalin [Lyrica] 150 mg PO TID 02/24/24 04/04/24 History Pyridoxine [Vitamin B-6] 25 mg PO W/LUNCH 02/24/24 04/04/24 History Ubidecarenone [Coenzyme Q10] 200 mg PO W/LUNCH 02/24/24 04/04/24 History Folic Acid 1 mg PO DAILY #30 tab 03/07/24 04/04/24 Rx Thiamine [Vitamin B-1] 100 mg PO DAILY #30 tab 03/07/24 04/04/24 Rx Allergies Allergy/AdvReac Type Severity Reaction Status Date / Time amoxicillin trihydrate AdvReac Nausea & Verified 04/04/24 11:20 [From Augmentin] Vomiting potassium clavulanate AdvReac Nausea & Verified 04/04/24 11:20 [From Augmentin] Vomiting Physical Exam Vitals: Vital Signs Temp Pulse Pulse Resp BP BP Pulse Ox 04/05/24 12:37 97.2 F L 70 16 134/67 98 04/05/24 11:41 72 04/05/24 11:33 71 04/05/24 07:32 97.4 F L 63 16 159/75 95 04/05/24 00:56 97.6 F 68 17 154/71 98 04/04/24 20:11 65 04/04/24 20:02 20 04/04/24 19:55 64 04/04/24 19:54 64 04/04/24 19:44 60 04/04/24 19:28 98.0 F 60 17 149/70 96 04/04/24 17:07 97.8 F 58 L 16 146/90 97 04/04/24 16:41 998.1 F H 68 16 148/89 98 Intake and Output 04/05/24 04/05/24 04/05/24 06:59 14:59 22:59 Other: # Voids 2 GENERAL: NAD, alert, pleasnt HEENT: neck supple CARDIOVASCULAR: Regular rate. PULMONARY: Non-labored respirations ABDOMEN: Soft, nontender, nondistended, MUSCULOSKELETAL: No joint swelling or deformity. EXTREMITIES: No cyanosis, clubbing, or pedal edema. NEUROLOGICAL: A&O x4. Speech dysarthric. Able to repeat no ifs ands or buts. Follows 3 step commands. CN2-12 intact with nystagmus. MMT 4+/5 UE except 4/5 bilateral shoulders, LE 4+/5. Tone normal DTR 2-3+ UE/3+ patellar, 1+ achilles bilaterally Sensation light touch intact UE/LE Finger to nose and heel to brown with dysmetria SKIN: No rashes. Results CBC & Chem 7: 04/04/24 11:47 04/04/24 11:47 Assessment and Plan Assessment: # Gait impairment # Paresthesias of upper extremities # Blurred vision # Ataxia - seen by neurology, work up in progress. Unclear etiology: per their note, differential: is multiple sclerosis. Also rule out paraneoplastic especially with reported pulmonary nodule on her recent CT of the abdomen on 02/2024. I cannot exclude atypical Chronic inflammatory polyneuropathy (CIDP) but I doubt it since some of her reflexes were hyper-reflexia and her symptoms does not seem it is clear for that condition. Had vitamin B6 toxicity on 02/2024 as high as 145. Her neuropathy can be due to Vitamin B6 toxicity. - Lyrica discontinued # History of vitamin B6 toxicity # right middle lobe subsolid/groundglass 9 mm pulmonary nodule # Hyperlipidemia # hypertension Recommendations: - per your medical management - continue therapies Anticipate will need skilled therapies when medically stable. Will continue to follow and reassess as workup continues (ideally most of work up complete before anticipated need for IPR)
[2024-04-05 20:33] LABS: DNA Double-Stranded Negative (Negative)
--- NOTE | 2024-04-06 11:01 | P.PN ---
Subjective Progress Note Date: 04/06/24 This is a 59-year-old female, [id number] smoking history, quit smoking few years ago. Patient had history of fibromyalgia, dyslipidemia, degenerative joint disease, previous [place], presented to the hospital with progressive weakness for the last 6 months. Patient also describes slurred speech, weakness in the legs, and she is at a point she cannot even ambulate on her own. Her weakness has been again very progressive over the last 6 months, and she is following up with the neurology clinic supposed to have further workup for her weakness. However considering the worsening of her symptoms, patient was admitted this time and she was seen by neurology again. On her last visit she was seen by Dr. De León, and now she is being seen by Dr. Liz. In addition to her weakness, patient has been complaining of diplopia, poor balance/dysarthria, workup so far included spinal fluid study which showed elevated protein and the CSF was positive for oligoclonal bands. MRI of the brain did not show any evidence of demyelinating disease. Patient did receive IVIG, she received 4 out of 5 doses of IVIG, however no significant improvement. On this admission the patient had a CT of the chest abdomen and pelvis and there was evidence of a right middle lobe nodule, measuring 9 mm in size, hence this consult was initiated. Patient has no significant pulmonary symptoms, she has mostly symptoms of occasional cough and congestion. No hemoptysis no fever no chills no chest pain, no wheezing. I reviewed the CT of the chest, noted 9 mm nodule, and my recommendation for this nodule is to have a PET scan on outpatient basis or possibly repeat CT of the chest in 3 months The patient is seen today April 06, 2024 in follow-up on the regular medical floor. She is currently sitting up in bed. Awake and alert in no acute distress. Maintaining O2 saturation in the upper 90s on room air. She has been afebrile. Hemodynamically stable. She has been worked up for possible multiple sclerosis. She is feeling a bit stronger today compared to yesterday. She is being initiated on high-dose steroids per neurology. She remains on normal saline at 75 MLS per hour. HERVE screen was negative. Double-stranded DNA antibodies were negative. Anti-DNA antibodies were 1.0. MRI revealed scattered punctate foci of white matter changes. No evidence for active demyelination within the brain or spine. No evidence for disc herniation or significant spinal canal stenosis. No evidence of intracranial mass or acute/subacute infarct. Objective - Vital Signs Vital signs: Vital Signs Temp 97.6 F 04/06/24 07:18 Pulse 56 L 04/06/24 07:18 Resp 16 04/06/24 08:00 BP 183/80 04/06/24 07:18 Pulse Ox 98 04/06/24 07:18 FiO2 Intake & Output 04/05/24 04/06/24 04/06/24 18:59 06:59 18:59 Intake Total 900 1180 Balance 900 1180 Intake: Intake, IV Titration 900 Amount Sodium Chloride 0.9% 1, 900 000 ml @ 75 mls/hr IV . [id number] [facility] Rx#:[id number] Oral 1180 Other: Voiding Method Bedside Commode Bedside Commode # Voids 3 4 - Exam General: Revealed a pleasant 59-year-old female in no distress, on room air Head: Atraumatic, normocephalic Skin: Skin is warm and dry and no rashes or lesions are noted. Eye: Patient has a black patch on her left eye to avoid diplopia. Ears, nose, mouth and throat: There are moist mucous membranes and no oral lesions. Neck: The neck is supple, there is no tenderness or JVD. Cardiovascular: There is a regular rate and rhythm. No murmur, rub or gallop is appreciated. Respiratory: Clear throughout no crackles rhonchi or wheezes Gastrointestinal: Soft, non-distended, non-tender abdomen without masses or organomegaly noted. Bowel sounds are unremarkable. Back: There is no tenderness to palpation in the midline. There is no obvious deformity. Musculoskeletal: Normal ROM, no tenderness, There is no pedal edema. There is no calf tenderness or swelling. Generalized weakness Neurological: Patient is alert and oriented x 3, no difficulty with the speech, cranial nerves are intact. Patient does have diplopia, no evidence of nystagmus - Labs CBC & Chem 7: 04/04/24 11:47 04/04/24 11:47 Assessment and Plan Assessment: Progressive weakness, strongly suspect multiple sclerosis, workup is in progress, MRI revealed scattered punctate foci of white matter changes. No evidence for active demyelination within the brain or spine. No evidence for disc herniation or significant spinal canal stenosis. No evidence of intracranial mass or acute/subacute infarct Doubt paraneoplastic syndrome as the nodule is not highly suspicious for malignancy although malignancy is not entirely ruled out, either a PET scan on outpatient basis or repeat CT of the chest in 3 to 4 months Solitary lung nodule, needs outpatient workup, low index of suspicion for malignancy, although patient is made aware that malignancy is not entirely ruled out but felt to be less likely and will definitely need further follow-up on outpatient basis History of fibromyalgia Degenerative joint disease Ex-smoker but no clear-cut evidence of COPD symptoms Benign essential hypertension GERD without esophagitis Degenerative joint disease Plan: The patient was seen and evaluated MRI of the brain, labs and medications reviewed Initiated on high-dose steroids per neurology Pulmonary nodule measuring 9 mm Doubt neoplastic syndrome Plan is for outpatient PET scan or repeat CT scan in 3 months She remains stable and on room air I have personally seen and examined the patient, performed the documentation and the assessment and plan as written. Number of minutes spent on the visit: 10.
[2024-04-06] MEDS: methylPREDNISolone SOD SUCCIN 500 MG in SODIUM CHLORIDE 0.9% 100 ML IVPB SCH (12:29)
--- NOTE | 2024-04-06 13:41 | P.PN ---
Subjective Progress Note Date: 04/06/24 patient is a 58-year-old female with medical history of stroke, coronary artery disease, fibromyalgia who presented to the ER with complaint of progressive weakness. Patient was recently admitted to the hospital couple of weeks ago with similar complaints at which time patient had brain CT showing no acute intracranial process,Carotid Doppler showing scattered atherosclerotic disease without sonographic evidence of significant stenosis, MRI brain reviewed reveals no evidence of intracranial mass/subacute/acute infarct or abnormal enhancement, MRI cervical spine revealed no evidence for disc herniation or significant spinal canal stenosis there is no abnormal postcontrast enhancement. Patient di gerry had an LP done at the time and was given IVIG for suspicion of Guillain-Lewis syndrome. Patient was discharged but states that ever since discharge she has having worsening slurred speech. Patient also having problems with her balance. Patient also complaining of blurred vision. Patient denies any weakness of any extremity. Patient is complaining of numbness of her left hand. Because of the symptoms, patient came to the ER Initial lab work done in the ER showed WBC 4, hemoglobin 12.7, platelet count 267, sodium 140, potassium 4.1, BUN 14, creatinine 0.85, lactate 1.1 calcium 9.4, magnesium 2, AST 25, ALT 13, UA negative for infection EKG done in the ER showed heart rate of56 , no ST segment elevation or depression seen, no T-wave inversions seen. Chest x-ray done in the ER no acute cardiopulmonary process CT head done showed age-related atrophic and chronic small vessel ischemic changes without acute intracranial process Patient admitted to internal medicine service 04/06. Patient seen and examined. Still have lethargy and weakness. Still complaining of numbness of her extremities. MRI brain done showed scattered punctate foci of white matter changes, no evidence for active demyelination within the brain or spine. MRI cervical spine negative for any evidence of disc herniation or spinal stenosis REVIEW OF SYSTEMS: CONSTITUTIONAL: No fever, no malaise,. CARDIOVASCULAR: No chest pain, no palpitations, no syncope. PULMONARY: No shortness of breath, no cough, GASTROINTESTINAL: No diarrhea, no nausea, no vomiting, no abdominal pain. NEUROLOGICAL: No headaches, no weakness, PHYSICAL EXAMINATION: GENERAL: The patient is alert and oriented x3, not in any acute distress. Well developed, well nourished. HEENT: Pupils are round and equally reacting to light. EOMI. No scleral icterus. No conjunctival pallor. Normocephalic, atraumatic. No pharyngeal erythema. No thyromegaly. CARDIOVASCULAR: S1 and S2 present. No murmurs, rubs, or gallops. PULMONARY: Chest is clear to auscultation, no wheezing or crackles. ABDOMEN: Soft, nontender, nondistended, normoactive bowel sounds. No palpable organomegaly. MUSCULOSKELETAL: No joint swelling or deformity. EXTREMITIES: No cyanosis, clubbing, or pedal edema. NEUROLOGICAL: Muscle strength is 5 x 5 all extremities. Reflexes are symmetrical bilaterally, cranials 2-12 intact SKIN: No rashes. Assessment and plan Paresthesias of upper extremities Blurred vision Ataxia History of vitamin B6 toxicity right middle lobe subsolid/groundglass 9 mm pulmonary nodule Hyperlipidemia hypertension Monitor vital signs Monitor CBC Monitor CMP Continue telemetry monitoring Continue neurochecks Results of MRI brain noted. Currently on high-dose steroids, 5 mg of Solu-Medrol twice a day PT and OT following Neurology following Pulmonology consulted for lung nodule, recommend outpatient PET scan Labs and medication were reviewed.. Continue same treatment. Continue with symptomatic treatment. Resume home medication. Monitor labs and vitals. DVT and GI prophylaxis. Further recommendations as per clinical course of the patient Dictation was produced using [employer] dictation software. please excuse any grammatical, word or spelling errors. Objective - Vital Signs Vital signs: Vital Signs Temp 97.6 F 04/06/24 12:53 Pulse 56 L 04/06/24 12:53 Resp 16 04/06/24 12:53 BP 190/77 04/06/24 12:53 Pulse Ox 97 04/06/24 12:53 FiO2 Intake & Output 04/05/24 04/06/24 04/06/24 18:59 06:59 18:59 Intake Total 900 1180 Balance 900 1180 Intake: Intake, IV Titration 900 Amount Sodium Chloride 0.9% 1, 900 000 ml @ 75 mls/hr IV . [id number] [facility] Rx#:[id number] Oral 1180 Other: Voiding Method Bedside Commode Bedside Commode # Voids 3 4 - Labs CBC & Chem 7: 04/04/24 11:47 04/04/24 11:47
[2024-04-06 14:21] LABS: C-ANCA <1:20 Titer (<1:20)
--- NOTE | 2024-04-06 14:32 | P.PN ---
Subjective Progress Note Date: 04/06/24 I am seeing the patient and she feels about the same. Yesterday very late in afternoon, she was working with physical therapy and she was able to take few step and needed some assistance. Again feels about the same. Had MRI Brain and Cervical which was negative for acute/subacute stroke or any enhancement. I spoke with patient and her and they stated in 02/2024 while she had IVIG treatment for 5 days she had no improvement. Objective - Vital Signs Vital signs: Vital Signs Temp 97.6 F 04/06/24 12:53 Pulse 56 L 04/06/24 12:53 Resp 16 04/06/24 12:53 BP 190/77 04/06/24 12:53 Pulse Ox 97 04/06/24 12:53 FiO2 Intake & Output 04/05/24 04/06/24 04/06/24 18:59 06:59 18:59 Intake Total 900 1180 Balance 900 1180 Intake: Intake, IV Titration 900 Amount Sodium Chloride 0.9% 1, 900 000 ml @ 75 mls/hr IV . [id number] ON LICENSE OF [facility] Rx#:[id number] Oral 1180 Other: Voiding Method Bedside Commode Bedside Commode # Voids 3 4 - Exam GENERAL: The patient is lying in bed and is not in acute distress. NEUROLOGICAL: Higher mental function: The patient is awake, alert, oriented to self, place and time. Patient is following commands. No aphasia and no neglect. I feels speech is delayed because of severe spastic voice. Cranial nerves: The pupils are round, equal and reactive to light and accommodation. Visual rowland seems diplopia side to side and sees two of everything but normal to confrontation throughout. Primary gaze has nystagmus up and down. EOM has nystamgus that is rotatory looking to right then looking to left. Has no appreciable nystagmus looking upward by had some nystagmus looking downward. Has mild to moderate facial weakness (when puffed her cheeks it seems somewhat weak). Tongue is midline and moves side to side without difficulty. Shoulder shrug is normal bilaterally. 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 Lowers strength knee extension is 4+ to 5- but otherwise 5/5. Has atrophy in hand muscles. Normal tone. Cerebellum: Has ataxia and dysmetria over the bilateral finger to nose and heel to brown (appear left a bit more worse than right). Sensation: Sensation is decrease to touch over the left lateral aspect of ulnar distribution to touch.. Reflexes (right/left): Biceps 2+/1+; triceps 1+/1+; brachioradialis1-2+/2-3+; patellar 3+; ankles 1+. Plantars are down going bilaterally. Some of the workup during this hospital visit consisted of: CBC with differential is unremarkable. ESR is 12 CK level is 87 Chemistry panel sodium is 140, glucose is 130, calcium is 9.4 Magnesium is 2.0 AST ALT is within normal limits HERVE and anti-dsDNA is negative. C-ANCA and P-ANCA are negative. CT of the head is reported as age-related atrophy and chronic small vessel ischemic change without acute intracranial process seen at this time. I personally reviewed CT and agree with report. MRI Brain and Cervical spine: Scattered punctated foci of white matter changes. No evidence for acite demyelination within the brain or spine. No evidence for disc herniation or significant spinal canal stenosis. Multilevel disc degeneration with assoiciated osteoarthric changes. No evidence of intracrnail mass or acute/subacute infarct. - Labs CBC & Chem 7: 04/04/24 11:47 04/04/24 11:47 Assessment and Plan Assessment: Is a 58-year-old woman who developed paresthesia of the hands and feet since 2022 then had new onset nystagmus, diplopia and ataxia on 4. She had a stroke workup on 02/2024 in our facility and had CSF study in which showed elevated CSF protein of 139 0 nucleated. Patient had positive oligoclonal band, IgG index and IgG synthesis rate. 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 Patient had IVIG in which she had improvement in her symptoms except nystagmus but per patient and she had no improvement. She presents because of worsening of her speech, progressive weakness in her legs and visual disturbance in the last 1 month to couple weeks. She notified me that she has paresthesia over the left ulnar distribution as well as right index finger as well as the left lateral aspect of the foot. She had EMG with nerve conduction study there is extremity in January 2024 by her outpatient neurologist and she was notified was normal. She also had a CT of the abdomen which revealed right middle lobe subsolid/groundglass 9 mm pulmonary nodule at that time and 02/2024. 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 MRI Brain and Cervical is negative for acute or subacute stroke or any demylination. I cannot exclude viral in etiology leading to Perez Ba Syndrome presenting with cerebellar syndrome but patient is not areflexia or typical GBS picture. Another possibility is Iatrogenic but others causes needs to be rule out first. Had vitamin B6 toxicity on 02/2024 as high as 145. Her neuropathy can be due to Vitamin B6 toxicity. History of very low folate of 4.7 History of right middle lobe subsolid/groundglass 9 mm pulmonary nodule at that time and 02/[address] History of NSTEMI Plan: * on 02/2024 work-up: SSA/SSB negative, Serum immunofixation was no monoclonal paraprotein, NMDA negative, B12: 1139, TSH: 3.620. CSF is clear, colorless, nucleated cells 0, rbc 350, total protein is 139 (normal is 12-60), glucose 65. Positive oligoclonal band, BARBIE <5. Syphilis negative, Lyme negative, HSV, VZV, CMV are negative. HbA1c: 5.9, MMA was normal * Order paraneosplastic panel yesterday and take a porlonged time to come back.. * I ordered HERVE, antiDNA, C-ANCA. * Patient received methylprednisone 125 mg IV by the ED physician and then in addition I also added another 750 mg for concern of MS on 04/04/2024. I will start patient on IV Solumedrol 500mg bid or next 4 days. . * Pending repeat vitamin B6 level. I stopped Vitamin B6 supplement since was toxic last month. * I started patient on folic acid 1mg daily for her very low normal folic acid recently. * Recommend EMG with NCS as outpatient of uppers and lowers. I understand she had EMG of uppers in 01/2024 of uppers by her neurologist as outpatient and she stated was told normal. 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 * PT and OT are consulted * Pulmonary team is consulted for lung nodule. They recommend outpatient PET scan. * Inpatient rehab is consulted * I stopped Lyrica since patient is not having any benefit and I started the patient on gabapentin 300 mg 1 tablet 3 times daily * Defer the rest of the medical management to primary team and other specialist. ADDENDUM: I called the lab and they provided info about the details of paraneoplastic panel. Will also obtain additional antibodies: Ri, Yo, Ma/Ma2, SoX1, Tr, KLH11, P/Q VGCC, SHAILA A, HNK-1, Gly R antibodies I ordered Vitamin E, HIV, Herpes 1/2, Hepatitis panel, thiamine level. The plan is discussed with the patient and primary attending. Time with Patient: Less than 30
[2024-04-06] MEDS: ACETAMINOPHEN TAB 325 MG TAB PO PRN (15:55)
[2024-04-07 02:45] LABS: Hepatitis A Antibody IgM Nonreactive (Nonreactive); Hepatitis B Core IgM Nonreactive (Nonreactive); Hepatitis B Surface Antigen Nonreactive (Nonreactive); Hepatitis C IgG Antibody Nonreactive (Nonreactive)
[2024-04-07 04:31] LABS: Basophils % (A) 0 %; Eosinophils % (A) 0 %; HCT 40.1 % (34.0-46.0); HGB 13.1 gm/dL (11.4-16.0); Lymphocytes # (A) 0.6 k/uL (1.0-4.8); Lymphocytes % (A) 14 %; MCH 31.8 pg (25.0-35.0); MCHC 32.7 g/dL (31.0-37.0); MCV 97.2 fL (80.0-100.0); Macrocytosis Slight; Mean Platelet Volume 8.3; Monocytes # (A) 0.1 k/uL (0-1.0); Monocytes % (A) 3 %; Neutrophils # (A) 3.5 k/uL (1.3-7.7); Neutrophils % (A) 83 %; Platelet Count 312 k/uL (150-450); Poikilocytosis Slight; RBC 4.12 m/uL (3.80-5.40); RDW 15.8 % (11.5-15.5); WBC 4.2 k/uL (3.8-10.6)
[2024-04-07 04:31] LABS: HIV 2 AB Non-Reactive (Non-Reactive); HIV AB P24 Non-Reactive (Non-Reactive); HIV P24 AG Non-Reactive (Non-Reactive)
[2024-04-07 05:00] LABS: Carbon Dioxide 22 mmol/L (22-30); Chloride 108 mmol/L (98-107); Glucose 161 mg/dL (74-99); Potassium 3.7 mmol/L (3.5-5.1); Sodium 138 mmol/L (137-145)
[2024-04-07 05:01] LABS: ALT 19 U/L (4-34); AST 27 U/L (14-36); African American GFR (CKD) >90 (>60 ml/min/1.73 sqM); Albumin 4.2 g/dL (3.5-5.0); Alkaline Phosphatase 55 U/L (38-126); Anion Gap 8 mmol/L; Blood Urea Nitrogen 20 mg/dL (7-17); Non-African American GFR(CKD) >90 (>60 ml/min/1.73 sqM); Total Bilirubin 0.8 mg/dL (0.2-1.3); Total Protein 7.2 g/dL (6.3-8.2)
--- NOTE | 2024-04-07 12:02 | P.PN ---
Subjective Progress Note Date: 04/07/24 Principal diagnosis: Progressive weakness, exact etiology is not clear, solitary lung nodule This is a 59-year-old female, [id number] smoking history, quit smoking few years ago. Patient had history of fibromyalgia, dyslipidemia, degenerative joint disease, previous [place], presented to the hospital with progressive weakness for the last 6 months. Patient also describes slurred speech, weakness in the legs, and she is at a point she cannot even ambulate on her own. Her weakness has been again very progressive over the last 6 months, and she is following up with the neurology clinic supposed to have further workup for her weakness. However considering the worsening of her symptoms, patient was admitted this time and she was seen by neurology again. On her last visit she was seen by Dr. De León, and now she is being seen by Dr. Liz. In addition to her weakness, gil yates has been complaining of diplopia, poor balance/dysarthria, workup so far included spinal fluid study which showed elevated protein and the CSF was positive for oligoclonal bands. MRI of the brain did not show any evidence of demyelinating disease. Patient did receive IVIG, she received 4 out of 5 doses of IVIG, however no significant improvement. On this admission the patient had a CT of the chest abdomen and pelvis and there was evidence of a right middle lobe nodule, measuring 9 mm in size, hence this consult was initiated. Patient has no significant pulmonary symptoms, she has mostly symptoms of occasional cough and congestion. No hemoptysis no fever no chills no chest pain, no wheezing. I reviewed the CT of the chest, noted 9 mm nodule, and my recommendation for this nodule is to have a PET scan on outpatient basis or possibly repeat CT of the chest in 3 months The patient is seen today April 06, 2024 in follow-up on the regular medical floor. She is currently sitting up in bed. Awake and alert in no acute distress. Maintaining O2 saturation in the upper 90s on room air. She has been afebrile. Hemodynamically stable. She has been worked up for possible multiple sclerosis. She is feeling a bit stronger today compared to yesterday. She is being initiated on high-dose steroids per neurology. She remains on normal saline at 75 MLS per hour. HERVE screen was negative. Double-stranded DNA antibodies were negative. Anti-DNA antibodies were 1.0. MRI revealed scattered punctate foci of white matter changes. No evidence for active demyelination within the brain or spine. No evidence for disc herniation or significant spinal canal stenosis. No evidence of intracranial mass or acute/subacute infarct. Patient was evaluated today on 04/07/2024, patient is basically about the same. So far the workup again remains nondiagnostic, there is no evidence of d emyelination noted on the MRI of the brain. Pulmonary guardado, patient has no active pulmonary symptoms whatsoever. No cough no wheezing no shortness of breath, patient continues to develop progressive muscle weakness. CBC is normal basic metabolic profile is normal renal profile is normal Objective - Vital Signs Vital signs: Vital Signs Temp 97.9 F 04/07/24 07:00 Pulse 62 04/07/24 09:00 Resp 18 04/07/24 08:00 BP 186/70 04/07/24 07:00 Pulse Ox 97 04/07/24 08:44 FiO2 Intake & Output 04/06/24 04/07/24 04/07/24 18:59 06:59 18:59 Intake Total 590 Balance 590 Intake: Oral 590 Other: Voiding Method Bedside Commode Bedside Commode Bedside Commode Diaper # Voids 4 3 - Exam General: Revealed 59-year-old female in no distress, extremely pleasant Head: Atraumatic, normocephalic Skin: Skin is warm and dry and no rashes or lesions are noted. Eye: Patient has a black patch on her left eye to avoid diplopia. Ears, nose, mouth and throat: There are moist mucous membranes and no oral lesions. Neck: The neck is supple, there is no tenderness or JVD. Cardiovascular: There is a regular rate and rhythm. No murmur, rub or gallop is appreciated. Respiratory: Clear throughout no crackles rhonchi or wheezes Gastrointestinal: Soft, non-distended, non-tender abdomen without masses or organomegaly noted. There is no rebound or guarding present. Bowel sounds are unremarkable. Back: There is no tenderness to palpation in the midline. There is no obvious deformity. Musculoskeletal: Normal ROM, no tenderness, There is no pedal edema. There is no calf tenderness or swelling. No cords were appreciated. Neurological: Patient is alert and oriented x 3, no difficulty with the speech, cranial nerves are intact. Patient does have diplopia no evidence of nystagmus patient had generalized weakness 4/5, please refer to detailed neurological exam by neurology - Labs CBC & Chem 7: 04/07/24 03:58 04/07/24 03:58 Labs: Abnormal Lab Results - Last 24 Hours (Table) 04/07/24 04/07/24 Range/Units 03:58 03:58 RDW 15.8 H (11.5-15.5) % Lymphocytes # 0.6 L (1.0-4.8) k/uL Chloride 108 H (98-107) mmol/L BUN 20 H (7-17) mg/dL Glucose 161 H (74-99) mg/dL Assessment and Plan Assessment: Impression: Progressive weakness, strongly suspect multiple sclerosis Doubt paraneoplastic syndrome as the nodule is not highly suspicious for malignancy although malignancy is not entirely ruled out, and my recommendation as far as the nodule is concerned is to either PET scan on outpatient basis or repeat CT of the chest in 3 to 4 months. Solitary lung nodule, needs outpatient workup, low index of suspicion for malignancy, although patient is made aware that malignancy is not entirely ruled out but felt to be less likely and will definitely need further follow-up on out patient basis History of fibromyalgia Degenerative joint disease Ex-smoker but no clear-cut evidence of COPD symptoms Benign essential hypertension GERD without esophagitis Degenerative joint disease Recommendation: Continue present workup as recommended by neurology Patient to be seen on outpatient basis regarding her right lung nodule paraneoplastic syndrome from lung nodule is felt to be extremely unlikely Will continue to follow Time with Patient: Less than 30
--- NOTE | 2024-04-07 15:03 | P.PN ---
Subjective Progress Note Date: 04/07/24 I am following-up with patient and she feels minimally better but feels she is worse. The wants to take her to [facility]. Objective - Vital Signs Vital signs: Vital Signs Temp 97.6 F 04/07/24 14:00 Pulse 56 L 04/07/24 14:00 Resp 20 04/07/24 14:00 BP 169/79 04/07/24 14:00 Pulse Ox 98 04/07/24 14:00 FiO2 Intake & Output 04/06/24 04/07/24 04/07/24 18:59 06:59 18:59 Intake Total 590 Balance 590 Intake: Oral 590 Other: Voiding Method Bedside Commode Bedside Commode Bedside Commode Diaper # Voids 4 3 - Exam GENERAL: The patient is lying in bed and is not in acute distress. NEUROLOGICAL: Higher mental function: The patient is awake, alert, oriented to self, place and time. Patient is following commands. No aphasia and no neglect. I feels speech is delayed because of severe spastic voice. Cranial nerves: The pupils are round, equal and reactive to light and accommodation. Visual rowland seems diplopia side to side and sees two of everything but normal to confrontation throughout. Primary gaze has nystagmus up and down. EOM has nystamgus that is rotatory looking to right then looking to left. Has no appreciable nystagmus looking upward by had some nystagmus looking downward. Has mild to moderate facial weakness (when puffed her cheeks it seems somewhat weak). Tongue is midline and moves side to side without difficulty. Shoulder shrug is normal bilaterally. Motor: The strength is left hand treasury associate is 4+. Lowers strength knee extension is 4+ to 5- but otherwise 5/5. Has atrophy in hand muscles. Normal tone. Cerebellum: Has ataxia and dysmetria over the bilateral finger to nose and heel to brown (appear left a bit more worse than right). Sensation: Sensation is decrease to touch over the left lateral aspect of ulnar distribution to touch.. Reflexes (right/left): Biceps 2+/1+; triceps 1+/1+; brachioradialis1-2+/2-3+; patellar 3+; ankles 1+. Plantars are down going bilaterally. Some of the workup during this hospital visit consisted of: CBC with differential is unremarkable. ESR is 12 CK level is 87 Chemistry panel sodium is 140, glucose is 130, calcium is 9.4 Magnesium is 2.0 Vitamin B6: 5 (normal is 5-50). AST ALT is within normal limits HERVE and anti-dsDNA is negative. C-ANCA and P-ANCA are negative. Hepatitis panel are nonreactive HIV is non reactive SARS-CoV-[address] PCR is not detected. CT of the head is reported as age-related atrophy and chronic small vessel ischemic change without acute intracranial process seen at this time. I personally reviewed CT and agree with report. MRI Brain and Cervical spine: Scattered punctated foci of white matter changes. No evidence for acite demyelination within the brain or spine. No evidence for disc herniation or significant spinal canal stenosis. Multilevel disc degeneration with assoiciated osteoarthric changes. No evidence of intracrnail mass or acute/subacute infarct. - Labs CBC & Chem 7: 04/07/24 03:58 04/07/24 03:58 Labs: Abnormal Lab Results - Last 24 Hours (Table) 04/07/24 04/07/24 Range/Units 03:58 03:58 RDW 15.8 H (11.5-15.5) % Lymphocytes # 0.6 L (1.0-4.8) k/uL Chloride 108 H (98-107) mmol/L BUN 20 H (7-17) mg/dL Glucose 161 H (74-99) mg/dL Assessment and Plan Assessment: Is a 58-year-old woman who developed paresthesia of the hands and feet since 2022 then had new onset nystagmus, diplopia and ataxia on 024. She had a stroke workup on 02/2024 in our facility and had CSF study in which showed elevated CSF protein of 139 0 nucleated. Patient had positive oligoclonal band, IgG index and IgG synthesis rate. 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 Patient had IVIG in which she had improvement in her symptoms except nystagmus but per patient and she had no improvement. She presents because of worsening of her speech, progressive weakness in her legs and visual disturbance in the last 1 month to couple weeks. She notified me that she has paresthesia over the left ulnar distribution as well as right index finger as well as the left lateral aspect of the foot. She had EMG with nerve conduction study there is extremity in January 2024 by her outpatient neurologist and she was notified was normal. She also had a CT of the abdomen which revealed right middle lobe subsolid/groundglass 9 mm pulmonary nodule at that time and 02/2024. 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 MRI Brain and Cervical is negative for acute or subacute stroke or any demylination. I cannot exclude viral in etiology leading to Perez Ba Syndrome presenting with cerebellar syndrome but patient is not areflexia or typical GBS picture. Another possibility is idiopathic but others causes needs to be rule out first. Had vitamin B6 toxicity on 02/2024 as high as 145. Her neuropathy can be due to Vitamin B6 toxicity. Repeat level during this admission is borderline normal 5 History of very low folate of 4.7 History of right middle lobe subsolid/groundglass 9 mm pulmonary nodule at that time and 02/[address] History of NSTEMI Plan: * on 02/2024 work-up: SSA/SSB negative, Serum immunofixation was no monoclonal paraprotein, NMDA negative, B12: 1139, TSH: 3.620. CSF is clear, colorless, nucleated cells 0, rbc 350, total protein is 139 (normal is 12-60), glucose 65. Positive oligoclonal band, BARBIE <5. Syphilis negative, Lyme negative, HSV, VZV, CMV are negative. HbA1c: 5.9, MMA was normal * Pending paraneosplastic panel yesterday and take a porlonged time to come back.. Also ordered additional antibodies testing on 04/06/2024 since not tested on paraneoplastic panel: Ri, Yo, Ma/Ma2, SoX1, Tr, KLH11, P/Q VGCC, SHAILA A, HNK-1, Gly R antibodies. * Pending Vitamin E, Herpes 1/2, thiamine level. * Patient received methylprednisone 125 mg IV by the ED physician and then in addition I also added another 750 mg for concern of MS on 04/04/2024 then resumed on 04/06/2024. She will have total of 5 days IV Solumedrol 500mg bid. Today is day#3/5. * Continue folic acid 1mg daily. * Recommend EMG with NCS as outpatient of uppers and lowers. I understand she had EMG of uppers in 01/2024 of uppers by her neurologist as outpatient and she stated was told normal. 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 * PT and OT are consulted * Pulmonary team is consulted for lung nodule. They recommend outpatient PET scan. * Inpatient rehab is consulted * I stopped Lyrica since patient is not having any benefit and I started the patient on gabapentin 300 mg 1 tablet 3 times daily * Defer the rest of the medical management to primary team and other specialist. The plan is discussed with the patient, her who is at bedside and primary attending. The wanted to take the patient to [facility] for further evaluation initially. Then after talking to him he was in agreement by this weekend if not improved then he will take her to [facility]. The patient was in agreement of continuing steroids during this admission. Time with Patient: Less than 30
--- NOTE | 2024-04-07 15:50 | P.PN ---
Progress Note - Text Progress Note Date: 04/07/24 patient is a 58-year-old female with medical history of stroke, coronary artery disease, fibromyalgia who presented to the ER with complaint of progressive weakness. Patient was recently admitted to the hospital couple of weeks ago with similar complaints at which time patient had brain CT showing no acute intracranial process,Carotid Doppler showing scattered atherosclerotic disease without sonographic evidence of significant stenosis, MRI brain reviewed reveals no evidence of intracranial mass/subacute/acute infarct or abnormal enhancement, MRI cervical spine revealed no evidence for disc herniation or significant spinal canal stenosis there is no abnormal postcontrast enhancement. Patient did had an LP done at the time and was given IVIG for suspicion of Guillain- Lewis syndrome. Patient was discharged but states that ever since discharge she has having worsening slurred speech. Patient also having problems with her balance. Patient also complaining of blurred vision. Patient denies any weakness of any extremity. Patient is complaining of numbness of her left hand. Because of the symptoms, patient came to the ER Initial lab work done in the ER showed WBC 4, hemoglobin 12.7, platelet count 267, sodium 140, potassium 4.1, BUN 14, creatinine 0.85, lactate 1.1 calcium 9.4, magnesium 2, AST 25, ALT 13, UA negative for infection EKG done in the ER showed heart rate of56 , no ST segment elevation or depression seen, no T-wave inversions seen. Chest x-ray done in the ER no acute cardiopulmonary process CT head done showed age-related atrophic and chronic small vessel ischemic changes without acute intracranial process Patient admitted to internal medicine service 04/06. Patient seen and examined. Still have lethargy and weakness. Still complaining of numbness of her extremities. MRI brain done showed scattered punctate foci of white matter changes, no evidence for active demyelination within the brain or spine. MRI cervical spine negative for any evidence of disc herniation or spinal stenosis April 07: Recent admission in February to the hospital patient was seen by Dr. De León from neurology. 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 Patient received IV immunoglobulin a 5-day course. Patient CSF had shown high protein. Patient this admission be seen by Dr. RAYMOND from neurology. Getting IV methylprednisolone 500 mg every 12. Paraneoplastic syndrome workup sent out by neurology. Pulmonary nodule for outpatient PET scan by pulmonary. From her left eye patient can visualize shapes. On the right eye she does see double. Speech is slow. Also has paresthesia of hand and feet. Also nystagmus. Ataxia. Active Medications Acetaminophen (Acetaminophen Tab 325 Mg Tab) 650 mg PO Q6HR PRN PRN Reason: Mild Pain or Fever > 100.5 Last Admin: 04/06/24 15:55 Dose: 650 mg Albuterol Sulfate (Albuterol Hfa Inhaler) 1 puff INHALATION RT-Q4H PRN PRN Reason: Shortness Of Breath Albuterol Sulfate (Albuterol Nebulized 2.5 Mg/3 Ml) 2.5 mg INHALATION RT-Q6H PRN PRN Reason: Shortness Of Breath Last Admin: 04/07/24 08:41 Dose: 2.5 mg Baclofen (Baclofen 10 Mg Tab) 10 mg PO BID [facility] Last Admin: 04/07/24 09:14 Dose: 10 mg Cholecalciferol (Cholecalciferol 25 Mcg (1000 Iu) Tablet) 50 mcg PO W/LUNCH [facility] Last Admin: 04/07/24 13:44 Dose: 50 mcg Cyanocobalamin (Cyanocobalamin 500 Mcg Tab) 1,000 mcg PO W/LUNCH [facility] Last Admin: 04/07/24 13:44 Dose: 1,000 mcg Ezetimibe (Ezetimibe 10 Mg Tab) 10 mg PO W/BRKFST [facility] Last Admin: 04/07/24 05:46 Dose: 10 mg Folic Acid (Folic Acid 1 Mg Tab) 1 mg PO DAILY [facility] Last Admin: 04/07/24 09:13 Dose: 1 mg Formoterol Fumarate (Formoterol Fumarate 20 Mcg/2 Ml Nebu) 20 mcg INHALATION RT-BID [facility] Last Admin: 04/07/24 08:41 Dose: 20 mcg Gabapentin (Gabapentin 300 Mg Cap) 300 mg PO TID [facility] Last Admin: 04/07/24 09:13 Dose: 300 mg Sodium Chloride (Saline 0.9%) 1,000 mls @ 75 mls/hr IV .[id number] [facility] Last Admin: 04/07/24 09:12 Dose: 75 mls/hr Methylprednisolone Sodium Succinate 500 mg/ Sodium Chloride 100 mls @ 100 mls/hr IVPB Q12HR [facility] Stop: 04/10/24 11:01 Last Admin: 04/07/24 09:25 Dose: 100 mls/hr Lisinopril (Lisinopril 20 Mg Tab) 20 mg PO W/BRKFST [facility] Last Admin: 04/07/24 05:32 Dose: 20 mg Metoprolol Tartrate (Metoprolol Tartrate 50 Mg Tab) 50 mg PO BID [facility] Last Admin: 04/07/24 09:13 Dose: 50 mg Naloxone HCl (Naloxone 0.4 Mg/Ml 1 Ml Vial) 0.2 mg IV Q2M PRN PRN Reason: Opioid Reversal Nitroglycerin (Nitroglycerin Sl Tabs 0.4 Mg Tab) 0.4 mg SUBLINGUAL Q5M PRN PRN Reason: Chest Pain Pantoprazole Sodium (Pantoprazole 40 Mg/10 Ml Vial) 40 mg IVP DAILY [facility] Last Admin: 04/07/24 09:13 Dose: 40 mg Thiamine HCl (Thiamine 100 Mg Tab) 100 mg PO DAILY [facility] Last Admin: 04/07/24 09:13 Dose: 100 mg Physical examination: VITAL SIGNS: 97.6, 56, 20, 116/79, 98% room air GENERAL: Laying in bed EYES: Pupils equal. Conjunctiva kami l. HEENT: External appearance of nose and ears normal, oral cavity grossly normal. NECK: JVD not raised; masses not palpable. HEART: First and second heart sounds are normal; no edema. LUNGS: Respiratory rate normal; decreased breath sounds. ABDOMEN: Soft, nontender, liver spleen not palpable, no masses palpable. PSYCH: Alert and oriented x3; mood and affect kami l. MUSCULOSKELETAL:No Clubbing/cyanosis;muscles-grossly intact NEUROLOGICAL: Left eye: She can see shapes. Right eye: Double vision. Numbness in hand and feet. INVESTIGATIONS, reviewed in the clinical context: April 07: White count 4.2 hemoglobin 13.1 platelets 312 potassium 3.7 creatinine 0.71 From recent admission IgG 903 IgA 131 IgM 109 Lyme screen IgG and IgM negative Treponema pallidum antibody nonreactive CSF: IgG MS 13.2 serum albumin 3.7 CSF IgG albumin ratio MS 0.83 CSF IgG synthetic rate MS 28.55 CSF: Total protein 139 glucose 65 nucleated cells 0 RBC 350 MRI C-spine: Negative MRI brain-unremarkable Assessment and plan: -Neurological disorder complaining of nystagmus, slurred speech, paresthesia and 11 feet, as ataxia. Extensive workup done on recent admission. Outpatient worked up by Dr. Ramirez. On this admission being followed by Dr. Koo from neurology. On IV steroids. Day 3 of day 5 -History of vitamin B6 toxicity -Right middle lobe subsolid/groundglass 9 mm pulmonary nodule Outpatient PET scan by pulmonary -Chronic fibromyalgia Lyrica switched over to Neurontin -Hyperlipidemia Zetia 10 mg with breakfast -Primary osteoarthritis Motrin as needed -Chronic urine incontinence -COPD in a previous smoker Albuterol as needed. -CAD with stent Lopressor. Resume aspirin -Essential hypertension: Lopressor Zestril -GERD PPI -Full code Follow-up with neurology. Medications to continue. Add subcu Lovenox.
[2024-04-07] MEDS: ASPIRIN 81 MG PO SCH (17:16)
[2024-04-07] MEDS: ENOXAPARIN 40 MG/0.4 ML SYRINGE SQ SCH (17:16)
[2024-04-07] MEDS: lisinopriL 20 MG TAB PO SCH (18:34)
--- NOTE | 2024-04-08 11:01 | P.PN ---
Subjective Progress Note Date: 04/08/24 This is a 59-year-old female, [id number] smoking history, quit smoking few years ago. Patient had history of fibromyalgia, dyslipidemia, degenerative joint disease, previous OR, presented to the hospital with progressive weakness for the last 6 months. Patient also describes slurred speech, weakness in the legs, and she is at a point she cannot even ambulate on her own. Her weakness has been again very progressive over the last 6 months, and she is following up with the neurology clinic supposed to have further workup for her weakness. However considering the worsening of her symptoms, patient was admitted this time and she was seen by neurology again. On her last visit she was seen by Dr. De León, and now she is being seen by Dr. Liz. In addition to her weakness, patient has been complaining of diplopia, poor balance/dysarthria, workup so far included spinal fluid study which showed elevated protein and the CSF was positive for oligoclonal bands. MRI of the brain did not show any evidence of demyelinating disease. Patient did receive IVIG, she received 4 out of 5 doses of IVIG, however no significant improvement. On this admission the patient had a CT of the chest abdomen and pelvis and there was evidence of a right middle lobe nodule, measuring 9 mm in size, hence this consult was initiated. Patient has no significant pulmonary symptoms, she has mostly symptoms of occasional cough and congestion. No hemoptysis no fever no chills no chest pain, no wheezing. I reviewed the CT of the chest, noted 9 mm nodule, and my recommendation for this nodule is to have a PET scan on outpatient basis or possibly repeat CT of the chest in 3 months The patient is seen today April 06, 2024 in follow-up on the regular medical floor. She is currently sitting up in bed. Awake and alert in no acute distress. Maintaining O2 saturation in the upper 90s on room air. She has been afebrile. Hemodynamically stable. She has been worked up for possible multiple sclerosis. She is feeling a bit stronger today compared to yesterday. She is being initiated on high-dose steroids per neurology. She remains on normal saline at 75 MLS per hour. HERVE screen was negative. Double-stranded DNA antibodies were negative. Anti-DNA antibodies were 1.0. MRI revealed scattered punctate foci of white matter changes. No evidence for active demyelination within the brain or spine. No evidence for disc herniation or significant spinal canal stenosis. No evidence of intracranial mass or acute/subacute infarct. Patient was evaluated today on 04/07/2024, patient is basically about the same. So far the workup again remains nondiagnostic, there is no evidence of demyelination noted on the MRI of the brain. Pulmonary guardado, patient has no active pulmonary symptoms whatsoever. No cough no wheezing no shortness of breath, patient continues to develop progressive muscle weakness. CBC is normal basic metabolic profile is normal renal profile is normal The patient is seen today April 08, 2024 in follow-up on the regular medical floor. She is currently awake and alert in no acute distress. Resting in bed. She denies any shortness of breath, cough or congestion. No difficulty in breathing. Afebrile. Hemodynamically stable. Neurologically she has not shown much improvement. She is continued on IV Solu-Medrol 500 mg twice daily. No new labs today. Objective - Vital Signs Vital signs: Vital Signs Temp 98.5 F 04/08/24 07:25 Pulse 64 04/08/24 08:29 Resp 15 04/08/24 07:25 BP 177/77 04/08/24 07:25 Pulse Ox 94 L 04/08/24 08:20 FiO2 21 04/08/24 08:20 Intake & Output 04/07/24 04/08/24 04/08/24 18:59 06:59 18:59 Intake Total 0 Balance 0 Intake: Oral 0 Other: Voiding Method Bedside Commode Bedside Commode Bedside Commode Diaper Diaper Diaper # Voids 1 1 - Exam General: Revealed a pleasant 59-year-old female, sitting up in bed, in no distress, on room air. Head: Atraumatic, normocephalic Skin: Skin is warm and dry and no rashes or lesions are noted. Eye: Patient has a black patch on her right eye to avoid diplopia, nystagmus. Ears, nose, mouth and throat: There are moist mucous membranes and no oral lesions. Neck: The neck is supple, there is no tenderness or JVD. Cardiovascular: There is a regular rate and rhythm. No murmur, rub or gallop is appreciated. Respiratory: Clear throughout no crackles, rhonchi or wheezes Gastrointestinal: Soft, non-distended, non-tender abdomen without masses or organomegaly noted. Bowel sounds are unremarkable. Back: There is no tenderness to palpation in the midline. There is no obvious deformity. Musculoskeletal: Normal ROM, no tenderness, There is no pedal edema. There is no calf tenderness or swelling. Generalized weakness Neurological: A ataxia of the upper and lower extremities bilaterally. Patient does have diplopia, no evidence of nystagmus - Labs CBC & Chem 7: 04/07/24 03:58 04/07/24 03:58 Labs: Abnormal Lab Results - Last 24 Hours (Table) 04/07/24 Range/Units 03:58 Cortisol 26.1 H (3.1-22.4) UG/DL Assessment and Plan Assessment: Progressive weakness, ataxia of the upper and lower extremities bilaterally, diplopia, nystagmus, suspect multiple sclerosis, workup is in progress, MRI revealed scattered punctate foci of white matter changes. No evidence for active demyelination within the brain or spine. No evidence for disc herniation or significant spinal canal stenosis. No evidence of intracranial mass or acute/subacute infarct. Currently on IV Solu-Medrol 500 mg twice daily Doubt paraneoplastic syndrome as the nodule is not highly suspicious for malignancy although malignancy is not entirely ruled out, either a PET scan on outpatient basis or repeat CT of the chest in 3 to 4 months Solitary lung nodule, needs outpatient workup, low index of suspicion for malignancy, although patient is made aware that malignancy is not entirely ruled out but felt to be less likely and will definitely need further follow-up on outpatient basis History of fibromyalgia Degenerative joint disease Ex-smoker but no clear-cut evidence of COPD symptoms Benign essential hypertension GERD without esophagitis Degenerative joint disease Plan: The patient was seen and evaluated Medications reviewed Remains on IV Solu-Medrol 500 mg twice daily If no improvement once the steroids are completed, the patient's may take her to [facility] Plan is for outpatient PET scan or repeat CT scan in 3 months regarding the pulmonary nodule She remains stable and on room air This patient was seen independently by the pulmonary nurse practitioner addressing pulmonary issues I have personally seen and examined the patient, performed the documentation and the assessment and plan as written. Number of minutes spent on the visit: 24.
--- NOTE | 2024-04-08 12:39 | P.CONS ---
History of Present Illness - Reason for Consult Consult date: 04/08/24 - History of Present Illness Patient lives in a double wide modular home. There are 3 VARGAS. She was using a 4 ww for the last few months. She did require help bathing and dressing for the last one month, minimally though. She was previously driving up until 2 months ago. She has a past medical history of stroke, coronary artery disease, fibromyalgia who presented to the ER with complaint of progressive weakness. Patient was recently admitted to the hospital couple of weeks ago with similar complaints at which time patient had brain CT showing no acute intracranial process,Carotid Doppler showing scattered atherosclerotic disease without sonographic evidence of significant stenosis, MRI brain reviewed reveals no evidence of intracranial mass/subacute/acute infarct or abnormal enhancement, MRI cervical spine revealed no evidence for disc herniation or significant spinal canal stenosis there is no abnormal postcontrast enhancement. Patient did had an LP done at the time and was given IVIG for suspicion of Guillain-Lewis syndrome. Patient was discharged but states that ever since discharge she has having worsening slurred speech. Patient also having problems with her balance. Patient also complaining of blurred vision. Patient denies any weakness of any extremity. Patient is complaining of numbness of her left hand. Because of the symptoms, patient came to the ER Initial lab work done in the ER showed WBC 4, hemoglobin 12.7, platelet count 267, sodium 140, potassium 4.1, BUN 14, creatinine 0.85, lactate 1.1 calcium 9.4, magnesium 2, AST 25, ALT 13, UA negative for infection. EKG done in the ER showed heart rate of56 , no ST segment elevation or depression seen, no T-wave inversions seen. Chest x-ray done in the ER no acute cardiopulmonary process CT head done showed age-related atrophic and chronic small vessel ischemic changes without acute intracranial process Per Neurology: Patient seen by neurology team and she had extensive workup in the past and was last seen by Dr. 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 He stated that she followed up with Dr. Blanco's nurse practitioner and she was supposed to have MRI but unable to be performed since the machine was down. She stated recently for the last month to couple weeks she feels her speech is worse and she is learning more and very slow is hard to get her words out. She is having visual disturbance and she feels her vision is blurry and cannot see things. She also feels her legs are very weak. Patient notified me that she has paresthesia of the left ulnar distribution in the last 3 fingers up to the elbows as well as paresthesia of the right index finger and on the left lateral aspect of the foot. She is on Lyrica but is not improving. And she had EMG with nerve conduction study in January [address] Ramirez and was told normal. Of note patient developed paresthesia of the hands and feet since 2022 patient has done which was suggestive of peripheral neuropathy. Then she had new onset nystagmus, diplopia, gait ataxia on 02/20/2024 and she had CSF study which showed elevated protein. Also the CSF was positive for oligoclonal bands IgG index and IgG synthesis rate. She had MRI of the brain and cervical spine which was negative for demyelinating disease. She had vitamin B6 toxicity level 145. Very low folate. 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 She was treated with IVIG for possible GBS but seems the patient's symptoms moving other than nystagmus. Please note he stated that she was receiving her 4/5 dose of IVIG and she was making remarkable improvement so far per his note but in his note also he mentioned nystagmus not get getting better so consider empiric treatment with high-dose steroids. It seems that the patient had CT chest abdomen pelvis which revealed right middle lobe subsolid/groundglass 9 mm pulmonary nodule and further evaluation with a CT within 3 months versus PET scan. Per further chart review she was started on high-dose steroids per neurology. She remains on normal saline at 75 MLS per hour. HERVE screen was negative. Double-stranded DNA antibodies were negative. Anti-DNA antibodies were 1.0. MRI revealed scattered punctate foci of white matter changes. No evidence for active demyelination within the brain or spine. No evidence for disc herniation or significant spinal canal stenosis. No evidence of intracranial mass or acute/subacute infarct. She is continued on IV Solu-Medrol 500 mg twice daily. No decision has been made to transfer at this time She will continue on steroids and monitor improvement over the weekend. PMR consulted for rehab needs. Therapy notes reviewed: Pt. required mod assist to come to sitting from supine position. Continues to required assist to maintain dyamic sitting balance. Pt. required assist with standing balance, min improve coordination with decreased speed of movement with stepping activity. Pt. had increased LE fatigue with standing activity, requiring to sit down after 5 feet ambulation with mod assist RW. Therapies have just worked with her, needing support for her ataxia. Neurology work up in progress Past Medical History Past Medical History: CVA/TIA, Fibromyalgia, Hyperlipidemia, Myocardial Infarction ([place]), Osteoarthritis ([place]) Additional Past Medical History / Comment(s): 07-04-15 ADMITTED TO [facility] WITH NSTEMI. PAST MEDICAL HX: MIGRAINES, HEMORRHOIDS, INCONT OF URINE, TIA X2 Last Myocardial Infarction Date:: 2013 History of Any Multi-Drug Resistant Organisms: None Reported Past Surgical History: Hysterectomy, Tubal Ligation Additional Past Surgical History / Comment(s): RECENTLT HAD TEETH EXTRACTED AND HAS NEW DENTURES ,MYRINGTOMY/TUBES 03 LOST 30% OF HEARING EV, SINUS SX 04, COL ONOSCOPY CLEAR, heart cath with stent Past Anesthesia/Blood Transfusion Reactions: Previous Problems w/ Anesthesia Additional Past Anesthesia/Blood Transfusion Reaction / Comm: DIFFICULTY WAKING FROM AA. Past Psychological History: No Psychological Hx Reported Additional Psychological History / Comment(s): PT LIVES AT HOME WITH HER SPOUSE SANCHEZ, IS INDEPENDANT, NO OUTSIDE SERVICES. Smoking Status: Former smoker Past Alcohol Use History: None Reported Past Drug Use History: None Reported - Past Family History Father Family Medical History: Diabetes Mellitus Mother Family Medical History: Cancer Additional Family Medical History / Comment(s): LUNG CANCER Brother(s) Family Medical History: Coronary Artery Disease (CAD) Sister(s) Family Medical History: No Reported History Son(s) Family Medical History: No Reported History Medications and Allergies Home Medications Medication Instructions Recorded Confirmed Type Albuterol Inhaler [Ventolin Hfa 1 puff INHALATION RT-Q4H PRN 09/26/20 04/04/24 History Inhaler] Aspirin EC [Ecotrin Low Dose] 81 mg PO W/BRKFST 09/26/20 04/04/24 History Nitroglycerin Sl Tabs [Nitrostat] 0.4 mg SL Q5M PRN 09/26/20 04/04/24 History Albuterol Nebulized [Ventolin 2.5 mg INHALATION RT-Q6H PRN 06/08/23 04/04/24 History Nebulized] lisinopriL [Zestril] 20 mg PO W/BRKFST 06/08/23 04/04/24 History Baclofen [Lioresal] 10 mg PO BID 02/24/24 04/04/24 History Cholecalciferol [Vitamin D3 (25 50 mcg PO W/LUNCH 02/24/24 04/04/24 History Mcg = 1000 Iu)] Cyanocobalamin (Vitamin B-12) 1,000 mcg PO W/LUNCH 02/24/24 04/04/24 History [Vitamin B-12] Esomeprazole Magnesium [NexIUM 20 mg PO W/BRKFST 02/24/24 04/04/24 History 24Hr] Ezetimibe [Zetia] 10 mg PO W/BRKFST 02/24/24 04/04/24 History Formoterol Fumarate [Perforomist] 20 mcg INHALATION RT-BID 02/24/24 04/04/24 History Ibuprofen [Motrin] 800 mg PO Q8H PRN 02/24/24 04/04/24 History Magnesium 250 mg PO W/LUNCH 02/24/24 04/04/24 History Meclizine [Antivert] 12.5 - 25 mg PO BID-W/MEALS 02/24/24 04/04/24 History Metoprolol Tartrate [Lopressor] 50 mg PO BID 02/24/24 04/04/24 History Potassium Gluconate 90 mg PO W/LUNCH 02/24/24 04/04/24 History Pregabalin [Lyrica] 150 mg PO TID 02/24/24 04/04/24 History Pyridoxine [Vitamin B-6] 25 mg PO W/LUNCH 02/24/24 04/04/24 History Ubidecarenone [Coenzyme Q10] 200 mg PO W/LUNCH 02/24/24 04/04/24 History Folic Acid 1 mg PO DAILY #30 tab 03/07/24 04/04/24 Rx Thiamine [Vitamin B-1] 100 mg PO DAILY #30 tab 03/07/24 04/04/24 Rx Allergies Allergy/AdvReac Type Severity Reaction Status Date / Time amoxicillin trihydrate AdvReac Nausea & Verified 04/04/24 11:20 [From Augmentin] Vomiting potassium clavulanate AdvReac Nausea & Verified 04/04/24 11:20 [From Augmentin] Vomiting Physical Exam Vitals: Vital Signs Temp Pulse Pulse Resp BP BP Pulse Ox 04/08/24 08:29 64 04/08/24 08:20 60 94 L 04/08/24 07:25 98.5 F 61 15 177/77 95 04/08/24 03:16 97.8 F 53 L 16 172/85 94 L 04/07/24 20:59 97.7 F 61 16 167/77 97 04/07/24 20:00 18 04/07/24 19:58 64 04/07/24 19:47 67 04/07/24 18:24 97.7 F 57 L 17 172/73 96 04/07/24 14:00 97.6 F 56 L 20 169/79 98 FiO2 04/08/24 08:29 04/08/24 08:20 21 04/08/24 07:25 04/08/24 03:16 04/07/24 20:59 04/07/24 20:00 04/07/24 19:58 04/07/24 19:47 04/07/24 18:24 04/07/24 14:00 Intake and Output 04/07/24 04/08/24 04/08/24 22:59 06:59 14:59 Intake Total 0 Balance 0 Intake: Oral 0 Other: Voiding Method Bedside Commode Bedside Commode Diaper Diaper # Voids 1 1 GENERAL: NAD, alert, pleasant HEENT: neck supple CARDIOVASCULAR: Regular rate. PULMONARY: Non-labored respirations ABDOMEN: Soft, nontender, nondistended, MUSCULOSKELETAL: No joint swelling or deformity. EXTREMITIES: No cyanosis, clubbing, or pedal edema. NEUROLOGICAL: A&O x4. Speech dysarthric. Able to repeat no ifs ands or buts but is slow. Follows 3 step commands. CN2-12 intact with nystagmus. MMT 5/5 UE except 5/5 bilateral shoulders, LE 5/5. Tone normal DTR 2-3+ UE/3+ patellar, 1+ achilles bilaterally Sensation light touch intact UE/LE Finger to nose and heel to brown with dysmetria b/l SKIN: No rashes. 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 # Paresthesias of upper extremities # Blurred vision # Ataxia - seen by neurology, work up in progress. Had vitamin B6 toxicity on 02/2024 as high as 145. Her neuropathy can be due to Vitamin B6 toxicity. - Lyrica discontinued # History of vitamin B6 toxicity # right middle lobe subsolid/groundglass 9 mm pulmonary nodule -PET scan outpatient # Hyperlipidemia # hypertension Recommendations: - per your medical management - continue therapies IPR WHEN MEDICALLY STABLE- ataxia is a major barrier and risk for return home. She has great family support. SHe is pending improvement over the weekend on highd ose steroids. If she stays at [facility] would recommend IPR at [facility]. If she transfers for further evaluation at diff facility recommend IPR after hospital stay.
--- NOTE | 2024-04-08 16:54 | P.PN ---
Subjective Progress Note Date: 04/08/24 I am following-up with patient and feels minimally better with IV Steroid in which she feels her dexterity is better. Objective - Vital Signs Vital signs: Vital Signs Temp 98.6 F 04/08/24 14:44 Pulse 63 04/08/24 14:44 Resp 16 04/08/24 14:44 BP 134/84 04/08/24 14:44 Pulse Ox 98 04/08/24 14:44 FiO2 21 04/08/24 08:20 Intake & Output 04/07/24 04/08/24 04/08/24 18:59 06:59 18:59 Intake Total 0 Balance 0 Intake: Oral 0 Other: Voiding Method Bedside Commode Bedside Commode Bedside Commode Diaper Diaper Diaper # Voids 1 1 - Exam GENERAL: The patient is sitting up in a chair and is not in acute distress. NEUROLOGICAL: Higher mental function: The patient is awake, alert, oriented to self, place and time. Patient is following commands. No aphasia and no neglect. I feels speech is delayed because of severe spastic voice. Cranial nerves: The pupils are round, equal and reactive to light and accommodation. Visual rowland seems diplopia side to side and sees two of everything but normal to confrontation throughout. Primary gaze has nystagmus up and down. EOM has nystamgus that is rotatory looking to right then looking to left. Has no appreciable nystagmus looking upward by had some nystagmus looking downward. Has mild to moderate facial weakness (when puffed her cheeks it seems somewhat weak). Tongue is midline and moves side to side without difficulty. Shoulder shrug is normal bilaterally. 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 Lowers strength knee extension is 4+ to 5- but otherwise 5/5. Has atrophy in hand muscles. Normal tone. Cerebellum: Has ataxia and dysmetria over the bilateral finger to nose and heel to brown (appear left a bit more worse than right). Sensation: Sensation is decrease to touch over the left lateral aspect of ulnar distribution to touch.. Reflexes (right/left): Biceps 2+/1+; triceps 1+/1+; brachioradialis1-2+/2-3+; patellar 3+; ankles 1+. Plantars are down going bilaterally. Some of the workup during this hospital visit consisted of: CBC with differential is unremarkable. ESR is 12 CK level is 87 Chemistry panel sodium is 140, glucose is 130, calcium is 9.4 Magnesium is 2.0 Vitamin B6: 5 (normal is 5-50). AST ALT is within normal limits HERVE and anti-dsDNA is negative. C-ANCA and P-ANCA are negative. Hepatitis panel are nonreactive HIV is non reactive SARS-CoV-[address] PCR is not detected. [address] of the head is reported as age-related atrophy and chronic small vessel ischemic change without acute intracranial process seen at this time. I personally reviewed CT and agree with report. MRI Brain and Cervical spine: Scattered punctated foci of white matter changes. No evidence for acite demyelination within the brain or spine. No evidence for disc herniation or significant spinal canal stenosis. Multilevel disc degeneration with assoiciated osteoarthric changes. No evidence of intracrnail mass or acute/subacute infarct. - Labs CBC & Chem 7: 04/07/24 03:58 04/07/24 03:58 Labs: Abnormal Lab Results - Last 24 Hours (Table) 04/07/24 Range/Units 03:58 Cortisol 26.1 H (3.1-22.4) UG/DL Assessment and Plan Assessment: Is a 58-year-old woman who developed paresthesia of the hands and feet since 2022 then had new onset nystagmus, diplopia and ataxia on 02/20/2024. She had a stroke workup on 02/2024 in our facility and had CSF study in which showed elevated CSF protein of 139 0 nucleated. Patient had positive oligoclonal band, IgG index and IgG synthesis rate. 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 Patient had IVIG in which she had improvement in her symptoms except nystagmus but per patient and she had no improvement. She presents because of worsening of her speech, progressive weakness in her legs and visual disturbance in the last 1 month to couple weeks. She notified me that she has paresthesia over the left ulnar distribution as well as right index finger as well as the left lateral aspect of the foot. She had EMG with nerve conduction study there is extremity in January 2024 by her outpatient neurologist and she was notified was normal. She also had a CT of the abdomen which revealed right middle lobe subsolid/groundglass 9 mm pulmonary nodule at that time and 02/2024. 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 MRI Brain and Cervical is negative for acute or subacute stroke or any demylination. I cannot exclude viral in etiology leading to Perez Ba Syndrome presenting with cerebellar syndrome but patient is not areflexia or typical GBS picture. Another possibility is idiopathic but others causes needs to be rule out first. Had vitamin B6 toxicity on 02/2024 as high as 145. Her neuropathy can be due to Vitamin B6 toxicity. Repeat level during this admission is borderline normal 5 History of very low folate of 4.7 History of right middle lobe subsolid/groundglass 9 mm pulmonary nodule at that time and 02/[address] History of NSTEMI Plan: * on 02/2024 work-up: SSA/SSB negative, Serum immunofixation was no monoclonal paraprotein, NMDA negative, B12: 1139, TSH: 3.620. CSF is clear, colorless, nucleated cells 0, rbc 350, total protein is 139 (normal is 12-60), glucose 65. Positive oligoclonal band, BARBIE <5. Syphilis negative, Lyme negative, HSV, VZV, CMV are negative. HbA1c: 5.9, MMA was normal * Pending paraneosplastic panel yesterday and take a porlonged time to come back.. Pending additional antibodies testing on 04/06/2024 since not tested on paraneoplastic panel: Ri, Yo, Ma/Ma2, SoX1, Tr, KLH11, P/Q VGCC, SHAILA A, HNK- 1, Gly R antibodies. * Pending Vitamin E, Herpes 1/2, thiamine level. * Patient received methylprednisone 125 mg IV by the ED physician and then in addition I also added another 750 mg for concern of MS on 04/04/2024 then resumed on 04/06/2024. She will have total of 5 days IV Solumedrol 500mg bid. Today is day#4/5. * Continue folic acid 1mg daily. * Recommend EMG with NCS as outpatient of uppers and lowers. I understand she had EMG of uppers in 01/2024 of uppers by her neurologist as outpatient and she stated was told normal. 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 * PT and OT are consulted * Pulmonary team is consulted for lung nodule. They recommend outpatient PET scan. * Inpatient rehab is consulted * I stopped Lyrica since patient is not having any benefit and I started the patient on gabapentin 300 mg 1 tablet 3 times daily * Defer the rest of the medical management to primary team and other specialist. * Recommend the patient to follow-up with neurologist as outpatient within 1-2 weeks. The plan is discussed with the patient and primary attending. Time with Patient: Less than 30
--- NOTE | 2024-04-08 17:06 | P.PN ---
Progress Note - Text Progress Note Date: 04/08/24 patient is a 58-year-old female with medical history of stroke, coronary artery disease, fibromyalgia who presented to the ER with complaint of progressive weakness. Patient was recently admitted to the hospital couple of weeks ago with similar complaints at which time patient had brain CT showing no acute intracranial process,Carotid Doppler showing scattered atherosclerotic disease without sonographic evidence of significant stenosis, MRI brain reviewed reveals no evidence of intracranial mass/subacute/acute infarct or abnormal enhancement, MRI cervical spine revealed no evidence for disc herniation or significant spinal canal stenosis there is no abnormal postcontrast enhancement. Patient did had an LP done at the time and was given IVIG for suspicion of Guillain- Lewis syndrome. Patient was discharged but states that ever since discharge she has having worsening slurred speech. Patient also having problems with her balance. Patient also complaining of blurred vision. Patient denies any weakness of any extremity. Patient is complaining of numbness of her left hand. Because of the symptoms, patient came to the ER Initial lab work done in the ER showed WBC 4, hemoglobin 12.7, platelet count 267, sodium 140, potassium 4.1, BUN 14, creatinine 0.85, lactate 1.1 calcium 9.4, magnesium 2, AST 25, ALT 13, UA negative for infection EKG done in the ER showed heart rate of56 , no ST segment elevation or depression seen, no T-wave inversions seen. Chest x-ray done in the ER no acute cardiopulmonary process CT head done showed age-related atrophic and chronic small vessel ischemic changes without acute intracranial process Patient admitted to internal medicine service 04/06. Patient seen and examined. Still have lethargy and weakness. Still complaining of numbness of her extremities. MRI brain done showed scattered punctate foci of white matter changes, no evidence for active demyelination within the brain or spine. MRI cervical spine negative for any evidence of disc herniation or spinal stenosis April 07: Recent admission in February to the hospital patient was seen by Dr. De León from neurology. 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 Patient received IV immunoglobulin a 5-day course. Patient CSF had shown high protein. Patient this admission be seen by Dr. RAYMOND from neurology. Getting IV methylprednisolone 500 mg every 12. Paraneoplastic syndrome workup sent out by neurology. Pulmonary nodule for outpatient PET scan by pulmonary. From her left eye patient can visualize shapes. On the right eye she does see double. Speech is slow. Also has paresthesia of hand and feet. Also nystagmus. Ataxia. April 08: Patient being followed by Dr. RAYMOND. Last dose of steroids tomorrow. Family is considering taking the patient home tomorrow. Rehab has been recommended. 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 Morning dose for tomorrow to be changed to 1000 mg. Patient walked with physical therapy about 8 feet. With moderate assist Active Medications Acetaminophen (Acetaminophen Tab 325 Mg Tab) 650 mg PO Q6HR PRN PRN Reason: Mild Pain or Fever > 100.5 Last Admin: 04/06/24 15:55 Dose: 650 mg Albuterol Sulfate (Albuterol Hfa Inhaler) 1 puff INHALATION RT-Q4H PRN PRN Reason: Shortness Of Breath Albuterol Sulfate (Albuterol Nebulized 2.5 Mg/3 Ml) 2.5 mg INHALATION RT-Q6H PRN PRN Reason: Shortness Of Breath Last Admin: 04/07/24 08:41 Dose: 2.5 mg Aspirin (Aspirin 81 Mg) 81 mg PO W/BRKFST [facility] Last Admin: 04/08/24 06:13 Dose: 81 mg Baclofen (Baclofen 10 Mg Tab) 10 mg PO BID [facility] Last Admin: 04/08/24 08:09 Dose: 10 mg Cholecalciferol (Cholecalciferol 25 Mcg (1000 Iu) Tablet) 50 mcg PO W/LUNCH [facility] Last Admin: 04/08/24 12:41 Dose: 50 mcg Cyanocobalamin (Cyanocobalamin 500 Mcg Tab) 1,000 mcg PO W/LUNCH [facility] Last Admin: 04/08/24 12:41 Dose: 1,000 mcg Ezetimibe (Ezetimibe 10 Mg Tab) 10 mg PO W/BRKFST [facility] Last Admin: 04/08/24 06:13 Dose: 10 mg Enoxaparin Sodium (Enoxaparin 40 Mg/0.4 Ml Syringe) 40 mg SQ DAILY [facility] Last Admin: 04/08/24 08:08 Dose: 40 mg Folic Acid (Folic Acid 1 Mg Tab) 1 mg PO DAILY [facility] Last Admin: 04/08/24 08:09 Dose: 1 mg Formoterol Fumarate (Formoterol Fumarate 20 Mcg/2 Ml Nebu) 20 mcg INHALATION RT-BID [facility] Last Admin: 04/08/24 08:18 Dose: 20 mcg Gabapentin (Gabapentin 300 Mg Cap) 300 mg PO TID [facility] Last Admin: 04/08/24 16:34 Dose: 300 mg Methylprednisolone Sodium Succinate 500 mg/ Sodium Chloride 100 mls @ 100 mls/hr IVPB Q12HR [facility] Stop: 04/08/24 23:59 Last Admin: 04/08/24 08:09 Dose: 100 mls/hr Methylprednisolone Sodium Succinate 1,000 mg/ Sodium Chloride 250 mls @ 250 mls/hr IVPB ONCE ONE Stop: 04/09/24 09:59 Lisinopril (Lisinopril 20 Mg Tab) 20 mg PO BID [facility] Last Admin: 04/08/24 08:09 Dose: 20 mg Metoprolol Tartrate (Metoprolol Tartrate 50 Mg Tab) 50 mg PO BID [facility] Last Admin: 04/08/24 08:09 Dose: 50 mg Naloxone HCl (Naloxone 0.4 Mg/Ml 1 Ml Vial) 0.2 mg IV Q2M PRN PRN Reason: Opioid Reversal Nitroglycerin (Nitroglycerin Sl Tabs 0.4 Mg Tab) 0.4 mg SUBLINGUAL Q5M PRN PRN Reason: Chest Pain Pantoprazole Sodium (Pantoprazole 40 Mg/10 Ml Vial) 40 mg IVP DAILY [facility] Last Admin: 04/08/24 08:08 Dose: 40 mg Thiamine HCl (Thiamine 100 Mg Tab) 100 mg PO DAILY [facility] Last Admin: 04/08/24 08:09 Dose: 100 mg Physical examination: VITAL SIGNS: 97.6, 56, 20, 116/79, 98% room air GENERAL: Up in a recliner EYES: Pupils equal. Conjunctiva kami l. HEENT: External appearance of nose and ears normal, oral cavity grossly normal. NECK: JVD not raised; masses not palpable. HEART: First and second heart sounds are normal; no edema. LUNGS: Respiratory rate normal; decreased breath sounds. ABDOMEN: Soft, nontender, liver spleen not palpable, no masses palpable. PSYCH: Alert and oriented x3; mood and affect kami l. MUSCULOSKELETAL:No Clubbing/cyanosis;muscles-grossly intact NEUROLOGICAL: Left eye: She can see shapes. Right eye: Double vision. Numbness in hand and feet. INVESTIGATIONS, reviewed in the clinical context: April 07: White count 4.2 hemoglobin 13.1 platelets 312 potassium 3.7 creatinine 0.71 From recent admission IgG 903 IgA 131 IgM 109 Lyme screen IgG and IgM negative Treponema pallidum antibody nonreactive CSF: IgG MS 13.2 serum albumin 3.7 CSF IgG albumin ratio MS 0.83 CSF IgG synthetic rate MS 28.55 CSF: Total protein 139 glucose 65 nucleated cells 0 RBC 350 MRI C-spine: Negative MRI brain-unremarkable Assessment and plan: -Neurological disorder complaining of nystagmus, slurred speech, paresthesia and 11 feet, as ataxia. Extensive workup done on recent admission. Outpatient worked up by Dr. Ramirez. On this admission being followed by Dr. Koo from neurology. On IV steroids. Day 4 of day 5. Patient to get 1 dose of 1000 mg steroids tomorrow morning Per Dr. 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 -CAD with stent Lopressor. Resume aspirin -Essential hypertension: Lopressor Zestril -GERD PPI -Full code Inpatient rehab at [facility] has been advised. Family will determine after steroid dose tomorrow about disposition. Outpatient follow-up with [facility] is also being considered by the family.
[2024-04-09] MEDS: cloNIDine HCL 0.1 MG TAB PO STA (01:30)
[2024-04-09] MEDS: methylPREDNISolone SOD SUCCIN 1,000 MG in SODIUM CHLORIDE 0.9% 250 ML IVPB ONE (09:00)
--- NOTE | 2024-04-09 10:49 | P.PN ---
Subjective Progress Note Date: 04/09/24 This is a 59-year-old female, [id number] smoking history, quit smoking few years ago. Patient had history of fibromyalgia, dyslipidemia, degenerative joint disease, previous ME, presented to the hospital with progressive weakness for the last 6 months. Patient also describes slurred speech, weakness in the legs, and she is at a point she cannot even ambulate on her own. Her weakness has been again very progressive over the last 6 months, and she is following up with the neurology clinic supposed to have further workup for her weakness. However considering the worsening of her symptoms, patient was admitted this time and she was seen by neurology again. On her last visit she was seen by Dr. De León, and now she is being seen by Dr. Liz. In addition to her weakness, patient has been complaining of diplopia, poor balance/dysarthria, workup so far included spinal fluid study which showed elevated protein and the CSF was positive for oligoclonal bands. MRI of the brain did not show any evidence of demyelinating disease. Patient did receive IVIG, she received 4 out of 5 doses of IVIG, however no significant improvement. On this admission the patient had a CT of the chest abdomen and pelvis and there was evidence of a right middle lobe nodule, measuring 9 mm in size, hence this consult was initiated. Patient has no significant pulmonary symptoms, she has mostly symptoms of occasional cough and congestion. No hemoptysis no fever no chills no chest pain, no wheezing. I reviewed the CT of the chest, noted 9 mm nodule, and my recommendation for this nodule is to have a PET scan on outpatient basis or possibly repeat CT of the chest in 3 months The patient is seen today April 06, 2024 in follow-up on the regular medical floor. She is currently sitting up in bed. Awake and alert in no acute distress. Maintaining O2 saturation in the upper 90s on room air. She has been afebrile. Hemodynamically stable. She has been worked up for possible multiple sclerosis. She is feeling a bit stronger today compared to yesterday. She is being initiated on high-dose steroids per neurology. She remains on normal saline at 75 MLS per hour. HERVE screen was negative. Double-stranded DNA antibodies were negative. Anti-DNA antibodies were 1.0. MRI revealed scattered punctate foci of white matter changes. No evidence for active demyelination within the brain or spine. No evidence for disc herniation or significant spinal canal stenosis. No evidence of intracranial mass or acute/subacute infarct. Patient was evaluated today on 04/07/2024, patient is basically about the same. So far the workup again remains nondiagnostic, there is no evidence of demyelination noted on the MRI of the brain. Pulmonary guardado, patient has no active pulmonary symptoms whatsoever. No cough no wheezing no shortness of breath, patient continues to develop progressive muscle weakness. CBC is normal basic metabolic profile is normal renal profile is normal The patient is seen today April 08, 2024 in follow-up on the regular medical floor. She is currently awake and alert in no acute distress. Resting in bed. She denies any shortness of breath, cough or congestion. No difficulty in breathing. Afebrile. Hemodynamically stable. Neurologically she has not shown much improvement. She is continued on IV Solu-Medrol 500 mg twice daily. No new labs today. The patient is seen today April 09, 2024 in follow-up on the regular medical floor. She is awake and alert in no acute distress. She denies any shortness of breath, cough or congestion. She remains afebrile. Hemodynamically stable. Maintaining good O2 saturations in the 90s on room air. She is feeling a bit stronger today compared to yesterday. Her voice remains weak. Her double vision has improved. She received 1 g of methylprednisone IV piggyback today per neurology. She remains on Lovenox for DVT prophylaxis. Protonix for GI prophylaxis. Objective - Vital Signs Vital signs: Vital Signs Temp 98.3 F 04/09/24 08:00 Pulse 64 04/09/24 08:20 Resp 15 04/09/24 08:00 BP 167/82 04/09/24 08:00 Pulse Ox 97 04/09/24 08:00 FiO2 21 04/08/24 08:20 Intake & Output 04/08/24 04/09/24 04/09/24 18:59 06:59 18:59 Intake Total 0 118 Output Total 196 Balance -196 118 Intake: Oral 0 118 Output: Post Void Residual 196 Other: Voiding Method Bedside Commode Bedside Commode Diaper Diaper # Voids 1 1 - Exam General: Revealed a pleasant 59-year-old female, resting in bed, in no distress, on room air. Head: Atraumatic, normocephalic Skin: Skin is warm and dry and no rashes or lesions are noted. Eye: Eye patch is off currently. Her double vision is improving. Ears, nose, mouth and throat: There are moist mucous membranes and no oral lesions. Neck: The neck is supple, there is no tenderness or JVD. Cardiovascular: There is a regular rate and rhythm. No murmur, rub or gallop is appreciated. Respiratory: Clear throughout no crackles, rhonchi or wheezes Gastrointestinal: Soft, non-distended, non-tender abdomen without masses or organomegaly noted. Bowel sounds are unremarkable. Back: There is no tenderness to palpation in the midline. There is no obvious deformity. Musculoskeletal: Normal ROM, no tenderness, There is no pedal edema. There is no calf tenderness or swelling. Generalized weakness Neurological: A ataxia of the upper and lower extremities bilaterally. Patient does have diplopia, no evidence of nystagmus - Labs CBC & Chem 7: 04/07/24 03:58 04/07/24 03:58 Assessment and Plan Assessment: Progressive weakness, ataxia of the upper and lower extremities bilaterally, diplopia, nystagmus, suspect multiple sclerosis, workup is in progress, MRI revealed scattered punctate foci of white matter changes. No evidence for active demyelination within the brain or spine. No evidence for disc herniation or significant spinal canal stenosis. No evidence of intracranial mass or acute/subacute infarct. Received 1 g of methylprednisone IV piggyback today. Doubt paraneoplastic syndrome as the nodule is not highly suspicious for malignancy although malignancy is not entirely ruled out, either a PET scan on outpatient basis or repeat CT of the chest in 3 to 4 months Solitary lung nodule, needs outpatient workup, low index of suspicion for malignancy, although patient is made aware that malignancy is not entirely ruled out but felt to be less likely and will definitely need further follow-up on outpatient basis History of fibromyalgia Degenerative joint disease Ex-smoker but no clear-cut evidence of COPD symptoms Benign essential hypertension GERD without esophagitis Degenerative joint disease Plan: The patient was seen and evaluated Medications reviewed Received 1 g of methylprednisone IV piggyback today Her symptoms are slowly improving Neurology is following Outpatient PET scan or repeat CT scan in 3 months regarding the pulmonary nodule She remains stable and on room air This patient was seen independently by the pulmonary nurse practitioner addressing pulmonary issues I have personally seen and examined the patient, performed the documentation and the assessment and plan as written. Number of minutes spent on the visit: 25.
--- NOTE | 2024-04-09 15:06 | P.PN ---
Subjective Progress Note Date: 04/09/24 I am following-up with patient and again she feels has minimal improvement in dexterity with IV Steroids compared to initial presentation. Today is last day of IV steroids. It seems her was in agreement for her to go to inpatient rehab. Objective - Vital Signs Vital signs: Vital Signs Temp 98.3 F 04/09/24 08:00 Pulse 64 04/09/24 08:20 Resp 15 04/09/24 08:00 BP 167/82 04/09/24 08:00 Pulse Ox 97 04/09/24 08:00 FiO2 21 04/08/24 08:20 Intake & Output 04/08/24 04/09/24 04/09/24 18:59 06:59 18:59 Intake Total 0 118 Output Total 196 Balance -196 118 Intake: Oral 0 118 Output: Post Void Residual 196 Other: Voiding Method Bedside Commode Bedside Commode Bedside Commode Diaper Diaper Diaper # Voids 1 1 - Exam GENERAL: The patient is sitting up in a chair and is not in acute distress. NEUROLOGICAL: Higher mental function: The patient is awake, alert, oriented to self, place and time. Patient is following commands. No aphasia and no neglect. I feels speech is delayed because of severe spastic voice. Cranial nerves: The pupils are round, equal and reactive to light and accommodation. Visual rowland seems diplopia side to side and sees two of everything but normal to confrontation throughout. Primary gaze has nystagmus up and down. EOM has nystamgus that is rotatory looking to right then looking t o left. Has no appreciable nystagmus looking upward by had some nystagmus looking downward. Has mild to moderate facial weakness (when puffed her cheeks it seems somewhat weak). Tongue is midline and moves side to side without difficulty. Shoulder shrug is normal bilaterally. Motor: The strength is left hand contact center professional is 4+. Lowers strength knee extension is 4+ to 5- but otherwise 5/5. Has atrophy in hand muscles. Cerebellum: Has ataxia and dysmetria over the bilateral finger to nose and heel to brown (appear left a bit more worse than right). Sensation: Sensation is decrease to touch over the left lateral aspect of ulnar distribution to touch.. Some of the workup during this hospital visit consisted of: CBC with differential is unremarkable. ESR is 12 CK level is 87 Chemistry panel sodium is 140, glucose is 130, calcium is 9.4 Magnesium is 2.0 Vitamin B6: 5 (normal is 5-50). AST ALT is within normal limits HERVE and anti-dsDNA is negative. C-ANCA and P-ANCA are negative. Hepatitis panel are nonreactive HIV is non reactive HSV 1/2 PCR DNA is not detected. SARS-CoV-[address] PCR is not detected[address] of the head is reported as age-related atrophy and chronic small vessel ischemic change without acute intracranial process seen at this time. I personally reviewed CT and agree with report. MRI Brain and Cervical spine: Scattered punctated foci of white matter changes. No evidence for acite demyelination within the brain or spine. No evidence for disc herniation or significant spinal canal stenosis. Multilevel disc degeneration with assoiciated osteoarthric changes. No evidence of intracrnail mass or acute/subacute infarct. - Labs CBC & Chem 7: 04/07/24 03:58 04/07/24 03:58 Assessment and Plan Assessment: Is a 58-year-old woman who developed paresthesia of the hands and feet since 2022 then had new onset nystagmus, diplopia and ataxia on 02/20/2024. She had a stroke workup on 02/2024 in our facility and had CSF study in which showed elevated CSF protein of 139 0 nucleated. Patient had positive oligoclonal band, IgG index and IgG synthesis rate. 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 Patient had IVIG in which she had improvement in her symptoms except nystagmus but per patient and she had no improvement. She presents because of worsening of her speech, progressive weakness in her legs and visual disturbance in the last 1 month to couple weeks. She notified me that she has paresthesia over the left ulnar distribution as well as right index finger as well as the left lateral aspect of the foot. She had EMG with nerve conduction study there is extremity in January 2024 by her outpatient neurologist and she was notified was normal. She also had a CT of the abdomen which revealed right middle lobe subsolid/groundglass 9 mm pulmonary nodule at that time and 02/2024. 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 MRI Brain and Cervical is negative for acute or subacute stroke or any demylination. I cannot exclude viral in etiology leading to Perez Ba Syndrome presenting with cerebellar syndrome but patient is not areflexia or typical GBS picture. Another possibility is idiopathic but others causes needs to be rule out first. Had vitamin B6 toxicity on 02/2024 as high as 145. Her neuropathy can be due to Vitamin B6 toxicity. Repeat level during this admission is borderline normal 5 History of very low folate of 4.7 History of right middle lobe subsolid/groundglass 9 mm pulmonary nodule at that time and 02/[address] History of NSTEMI Plan: * on 02/2024 work-up: SSA/SSB negative, Serum immunofixation was no monoclonal paraprotein, NMDA negative, B12: 1139, TSH: 3.620. CSF is clear, colorless, nucleated cells 0, rbc 350, total protein is 139 (normal is 12-60), glucose 65. Positive oligoclonal band, BARBIE <5. Syphilis negative, Lyme negative, HSV, VZV, CMV are negative. HbA1c: 5.9, MMA was normal * Pending paraneosplastic panel yesterday and take a porlonged time to come back.. Pending additional antibodies testing on 04/06/2024 since not tested on paraneoplastic panel: Ri, Yo, Ma/Ma2, SoX1, Tr, KLH11, P/Q VGCC, SHAILA A, HNK- 1, Gly R antibodies. * Pending Vitamin E level. * Patient received methylprednisone 125 mg IV by the ED physician and then in addition I also added another 750 mg for concern of MS on 04/04/2024 then resumed on 04/06/2024. She will have total of 5 days IV Solumedrol 500mg bid. Today is day#5/5. * I will start the patient on Topamax 50mg bid and will titrate up every 3-4 days 50mg bid until 150mg bid. It seems there could be improvement in Opsoclonus Myoclonus Ataxia syndrome on Topamax upon literature and it seems it would help with Opsoclonus. * Continue folic acid 1mg daily. * Recommend EMG with NCS as outpatient of uppers and lowers. I understand she had EMG of uppers in 01/2024 of uppers by her neurologist as outpatient and she stated was told normal. 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 * PT and OT are consulted * Pulmonary team is consulted for lung nodule. They recommend outpatient PET scan. * Inpatient rehab is consulted and they felt she is inpatient candidate. * I stopped Lyrica since patient is not having any benefit and I started the patient on gabapentin 300 mg 1 tablet 3 times daily * Defer the rest of the medical management to primary team and other specialist. * Recommend the patient to follow-up with neurologist as outpatient within 1-2 weeks. She was following-up with Dr. Ramirez's team as outpatient. Her will attempt to have her follow[facility]up with [facility]. The plan is discussed with the patient and primary attending. Time with Patient: Less than 30
--- NOTE | 2024-04-09 15:41 | P.PN ---
Progress Note - Text Progress Note Date: 04/09/24 patient is a 58-year-old female with medical history of stroke, coronary artery disease, fibromyalgia who presented to the ER with complaint of progressive weakness. Patient was recently admitted to the hospital couple of weeks ago with similar complaints at which time patient had brain CT showing no acute intracranial process,Carotid Doppler showing scattered atherosclerotic disease without sonographic evidence of significant stenosis, MRI brain reviewed reveals no evidence of intracranial mass/subacute/acute infarct or abnormal enhancement, MRI cervical spine revealed no evidence for disc herniation or significant spinal canal stenosis there is no abnormal postcontrast enhancement. Patient did had an LP done at the time and was given IVIG for suspicion of Guillain- Lewis syndrome. Patient was discharged but states that ever since discharge she has having worsening slurred speech. Patient also having problems with her balance. Patient also complaining of blurred vision. Patient denies any weakness of any extremity. Patient is complaining of numbness of her left hand. Because of the symptoms, patient came to the ER Initial lab work done in the ER showed WBC 4, hemoglobin 12.7, platelet count 267, sodium 140, potassium 4.1, BUN 14, creatinine 0.85, lactate 1.1 calcium 9.4, magnesium 2, AST 25, ALT 13, UA negative for infection EKG done in the ER showed heart rate of56 , no ST segment elevation or depression seen, no T-wave inversions seen. Chest x-ray done in the ER no acute cardiopulmonary process CT head done showed age-related atrophic and chronic small vessel ischemic changes without acute intracranial process Patient admitted to internal medicine service 04/06. Patient seen and examined. Still have lethargy and weakness. Still complaining of numbness of her extremities. MRI brain done showed scattered punctate foci of white matter changes, no evidence for active demyelination within the brain or spine. MRI cervical spine negative for any evidence of disc herniation or spinal stenosis April 07: Recent admission in February to the hospital patient was seen by Dr. De León from neurology. 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 Patient received IV immunoglobulin a 5-day course. Patient CSF had shown high protein. Patient this admission be seen by Dr. RAYMOND from neurology. Getting IV methylprednisolone 500 mg every 12. Paraneoplastic syndrome workup sent out by neurology. Pulmonary nodule for outpatient PET scan by pulmonary. From her left eye patient can visualize shapes. On the right eye she does see double. Speech is slow. Also has paresthesia of hand and feet. Also nystagmus. Ataxia. April 08: Patient being followed by Dr. RAYMOND. Last dose of steroids tomorrow. Family is considering taking the patient home tomorrow. Rehab has been recommended. 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 Morning dose for tomorrow to be changed to 1000 mg. Patient walked with physical therapy about 8 feet. With moderate assist April 09: Patient finished her last dose of steroids this morning. at the bedside. Patient feels she cannot be taken care of at home. Agreeable to rehab. Other medications to continue.: Overall better blood pressure control change Zestril to Zestoretic /.5 twice daily and add amlodipine 5 mg a day Active Medications Acetaminophen (Acetaminophen Tab 325 Mg Tab) 650 mg PO Q6HR PRN PRN Reason: Mild Pain or Fever > 100.5 Last Admin: 04/06/24 15:55 Dose: 650 mg Albuterol Sulfate (Albuterol Hfa Inhaler) 1 puff INHALATION RT-Q4H PRN PRN Reason: Shortness Of Breath Albuterol Sulfate (Albuterol Nebulized 2.5 Mg/3 Ml) 2.5 mg INHALATION RT-Q6H PRN PRN Reason: Shortness Of Breath Last Admin: 04/07/24 08:41 Dose: 2.5 mg Aspirin (Aspirin 81 Mg) 81 mg PO W/BRKFST [facility] Last Admin: 04/09/24 06:42 Dose: 81 mg Baclofen (Baclofen 10 Mg Tab) 10 mg PO BID [facility] Last Admin: 04/09/24 09:01 Dose: 10 mg Cholecalciferol (Cholecalciferol 25 Mcg (1000 Iu) Tablet) 50 mcg PO W/LUNCH [facility] Last Admin: 04/09/24 12:37 Dose: 50 mcg Cyanocobalamin (Cyanocobalamin 500 Mcg Tab) 1,000 mcg PO W/LUNCH [facility] Last Admin: 04/09/24 12:37 Dose: 1,000 mcg Ezetimibe (Ezetimibe 10 Mg Tab) 10 mg PO W/BRKFST [facility] Last Admin: 04/09/24 06:42 Dose: 10 mg Enoxaparin Sodium (Enoxaparin 40 Mg/0.4 Ml Syringe) 40 mg SQ DAILY [facility] Last Admin: 04/09/24 09:00 Dose: 40 mg Folic Acid (Folic Acid 1 Mg Tab) 1 mg PO DAILY [facility] Last Admin: 04/09/24 09:00 Dose: 1 mg Formoterol Fumarate (Formoterol Fumarate 20 Mcg/2 Ml Nebu) 20 mcg INHALATION RT-BID [facility] Last Admin: 04/09/24 08:09 Dose: 20 mcg Gabapentin (Gabapentin 300 Mg Cap) 300 mg PO TID [facility] Last Admin: 04/09/24 09:00 Dose: 300 mg Lisinopril (Lisinopril 20 Mg Tab) 20 mg PO BID [facility] Last Admin: 04/09/24 09:00 Dose: 20 mg Metoprolol Tartrate (Metoprolol Tartrate 50 Mg Tab) 50 mg PO BID [facility] Last Admin: 04/09/24 09:01 Dose: 50 mg Naloxone HCl (Naloxone 0.4 Mg/Ml 1 Ml Vial) 0.2 mg IV Q2M PRN PRN Reason: Opioid Reversal Nitroglycerin (Nitroglycerin Sl Tabs 0.4 Mg Tab) 0.4 mg SUBLINGUAL Q5M PRN PRN Reason: Chest Pain Pantoprazole Sodium (Pantoprazole 40 Mg/10 Ml Vial) 40 mg IVP DAILY [facility] Last Admin: 04/09/24 09:00 Dose: 40 mg Thiamine HCl (Thiamine 100 Mg Tab) 100 mg PO DAILY [facility] Last Admin: 04/09/24 09:01 Dose: 100 mg Topiramate (Topiramate 25 Mg Tab) 50 mg PO BID [facility] Physical examination: VITAL SIGNS: 97.6, 54, 16, 171 x 71, 95% room air GENERAL: Resting in bed EYES: Pupils equal. Conjunctiva kami l. HEENT: External appearance of nose and ears normal, oral cavity grossly normal. NECK: JVD not raised; masses not palpable. HEART: First and second heart sounds are normal; no edema. LUNGS: Respiratory rate normal; decreased breath sounds. ABDOMEN: Soft, nontender, liver spleen not palpable, no masses palpable. PSYCH: Alert and oriented x3; mood and affect kami l. MUSCULOSKELETAL:No Clubbing/cyanosis;muscles-grossly intact NEUROLOGICAL: Left eye: She can see shapes. Right eye: Double vision. Numbness in hand and feet. INVESTIGATIONS, reviewed in the clinical context: April 07: White count 4.2 hemoglobin 13.1 platelets 312 potassium 3.7 creatinine 0.71 From recent admission IgG 903 IgA 131 IgM 109 Lyme screen IgG and IgM negative Treponema pallidum antibody nonreactive CSF: IgG MS 13.2 serum albumin 3.7 CSF IgG albumin ratio MS 0.83 CSF IgG synthetic rate MS 28.55 CSF: Total protein 139 glucose 65 nucleated cells 0 RBC 350 MRI C-spine: Negative MRI brain-unremarkable Assessment and plan: -Neurological disorder complaining of nystagmus, slurred speech, paresthesia and 11 feet, as ataxia. Extensive workup done on recent admission. Outpatient worked up by Dr. Ramirez. On this admission being followed by Dr. Koo from neurology. On IV steroids. Day 4 of day 5. Patient to get 1 dose of 1000 mg steroids tomorrow morning Per Dr. 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 -CAD with stent Lopressor. Resume aspirin -Essential hypertension:, Uncontrolled Lopressor stopped Zestril. Start Zestoretic 20/12.5 twice daily. Add amlodipine 5 mg a day -GERD PPI -Full code -Disposition: Patient agreeable to inpatient rehab at [facility]
[2024-04-09] MEDS: TOPIRAMATE 25 MG TAB PO SCH (16:45)
[2024-04-09] MEDS: amLODIPine 5 MG TAB PO SCH (16:45)
[2024-04-09] MEDS: LISINOPRIL-HCTZ 20-25 MG 1 EACH TAB PO SCH (20:27)
[2024-04-10 08:49] LABS: Glucose,Whole Blood 131 mg/dL (70-110)
--- NOTE | 2024-04-10 09:20 | CT ---
EXAMINATION TYPE: CT brain wo con DATE OF EXAM: 04/10/2024 COMPARISON: 04/04/2024 INDICATION: Change in mental status, prior on pacs. DLP: 1012.70 mGycm, Automated exposure control for dose reduction was used. CONTRAST: None CT of the brain is performed utilizing 3 mm thick sections through the posterior fossa and 3 mm thick sections through the remaining calvarium. Study is performed within 24 hours of arrival to the hosp [facility]. No abnormal hyperdensity is present to suggest an acute intracranial hemorrhage. No mass lesion is evident. No acute infarcts are evident. Ventricles and sulci are appropriate for the patient age. Postsurgical changes within the Paranasal sinuses. Paranasal sinuses and mastoid air cells within the [id number] are clear. IMPRESSION: 1. No acute intracranial process. Follow-up MRI can be performed as clinically indicated
--- NOTE | 2024-04-10 10:20 | P.PN ---
Subjective Progress Note Date: 04/10/24 This is a 59-year-old female, [id number] smoking history, quit smoking few years ago. Patient had history of fibromyalgia, dyslipidemia, degenerative joint disease, previous [place], presented to the hospital with progressive weakness for the last 6 months. Patient also describes slurred speech, weakness in the legs, and she is at a point she cannot even ambulate on her own. Her weakness has been again very progressive over the last 6 months, and she is following up with the neurology clinic supposed to have further workup for her weakness. However considering the worsening of her symptoms, patient was admitted this time and she was seen by neurology again. On her last visit she was seen by Dr. De León, and now she is being seen by Dr. Liz. In addition to her weakness, patient has been complaining of diplopia, poor balance/dysarthria, workup so far included spinal fluid study which showed elevated protein and the CSF was positive for oligoclonal bands. MRI of the brain did not show any evidence of demyelinating disease. Patient did receive IVIG, she received 4 out of 5 doses of IVIG, however no significant improvement. On this admission the patient had a CT of the chest abdomen and pelvis and there was evidence of a right middle lobe nodule, measuring 9 mm in size, hence this consult was initiated. Patient has no significant pulmonary symptoms, she has mostly symptoms of occasional cough and congestion. No hemoptysis no fever no chills no chest pain, no wheezing. I reviewed the CT of the chest, noted 9 mm nodule, and my recommendation for this nodule is to have a PET scan on outpatient basis or possibly repeat CT of the chest in 3 months The patient is seen today April 06, 2024 in follow-up on the regular medical floor. She is currently sitting up in bed. Awake and alert in no acute distress. Maintaining O2 saturation in the upper 90s on room air. She has been afebrile. Hemodynamically stable. She has been worked up for possible multiple sclerosis. She is feeling a bit stronger today compared to yesterday. She is being initiated on high-dose steroids per neurology. She remains on normal saline at 75 MLS per hour. HERVE screen was negative. Double-stranded DNA antibodies were negative. Anti-DNA antibodies were 1.0. MRI revealed scattered punctate foci of white matter changes. No evidence for active demyelination within the brain or spine. No evidence for disc herniation or significant spinal canal stenosis. No evidence of intracranial mass or acute/subacute infarct. Patient was evaluated today on 04/07/2024, patient is basically about the same. So far the workup again remains nondiagnostic, there is no evidence of demyelination noted on the MRI of the brain. Pulmonary guardado, patient has no active pulmonary symptoms whatsoever. No cough no wheezing no shortness of breath, patient continues to develop progressive muscle weakness. CBC is normal basic metabolic profile is normal renal profile is normal The patient is seen today April 08, 2024 in follow-up on the regular medical floor. She is currently awake and alert in no acute distress. Resting in bed. She denies any shortness of breath, cough or congestion. No difficulty in breathing. Afebrile. Hemodynamically stable. Neurologically she has not shown much improvement. She is continued on IV Solu-Medrol 500 mg twice daily. No new labs today. The patient is seen today April 09, 2024 in follow-up on the regular medical floor. She is awake and alert in no acute distress. She denies any shortness of breath, cough or congestion. She remains afebrile. Hemodynamically stable. Maintaining good O2 saturations in the 90s on room air. She is feeling a bit stronger today compared to yesterday. Her voice remains weak. Her double vision has improved. She received 1 g of methylprednisone IV piggyback today per neurology. She remains on Lovenox for DVT prophylaxis. Protonix for GI prophylaxis. The patient is seen today April 10, 2024 in follow-up on the regular medical floor. She is currently resting comfortably in bed. Awake and alert in no acute distress. She feels she is about the same. Her voice remains weak and slow to respond. She has continued ataxia of the upper and lower extremities. Still having some double vision. She is on Lovenox for DVT prophylaxis. Remains on updraft treatments. No pulmonary complaints. Maintaining good O2 saturations in the 90s on room air. Remains afebrile. Hemodynamically stable. Glucose 131. Follow-up CT scan of the brain revealed no acute intracranial process. Objective - Vital Signs Vital signs: Vital Signs Temp 97.8 F 04/10/24 08:44 Pulse 60 04/10/24 08:44 Resp 16 04/10/24 07:51 BP 182/96 04/10/24 08:44 Pulse Ox 96 04/10/24 08:44 FiO2 21 04/08/24 08:20 Intake & Output 04/09/24 04/10/24 04/10/24 18:59 06:59 18:59 Intake Total 118 118 Balance 118 118 Intake: Oral 118 118 Other: Voiding Method Bedside Commode Bedside Commode Bedside Commode Diaper Diaper Diaper # Voids 1 1 # Bowel Movements 1 1 - Exam General: Revealed a 59-year-old female, continues with weak delayed voice, on room air. Head: Atraumatic, normocephalic Skin: Skin is warm and dry and no rashes or lesions are noted. Eye: Eye patch is off currently. Her double vision remains. Ears, nose, mouth and throat: There are moist mucous membranes and no oral lesions. Neck: The neck is supple, there is no tenderness or JVD. Cardiovascular: There is a regular rate and rhythm. No murmur, rub or gallop is appreciated. Respiratory: Clear throughout no crackles, rhonchi or wheezes Gastrointestinal: Soft, non-distended, non-tender abdomen without masses or organomegaly noted. Bowel sounds are unremarkable. Back: There is no tenderness to palpation in the midline. There is no obvious deformity. Musculoskeletal: Normal ROM, no tenderness, There is no pedal edema. There is no calf tenderness or swelling. Generalized weakness Neurological: A ataxia of the upper and lower extremities bilaterally. Patient does have diplopia, no evidence of nystagmus - Labs CBC & Chem 7: 04/07/24 03:58 04/07/24 03:58 Labs: Abnormal Lab Results - Last 24 Hours (Table) 04/10/24 Range/Units 08:47 POC Glucose (mg/dL) 131 H (70-110) mg/dL Assessment and Plan Assessment: Progressive weakness, ataxia of the upper and lower extremities bilaterally, diplopia, nystagmus, suspect multiple sclerosis, workup is in progress, MRI re vealed scattered punctate foci of white matter changes. No evidence for active demyelination within the brain or spine. No evidence for disc herniation or significant spinal canal stenosis. No evidence of intracranial mass or acute/subacute infarct. Completed a coarse of high dose steroids. Doubt paraneoplastic syndrome as the nodule is not highly suspicious for malignancy although malignancy is not entirely ruled out, either a PET scan on outpatient basis or repeat CT of the chest in 3 to 4 months Solitary lung nodule, needs outpatient workup, low index of suspicion for malignancy, although patient is made aware that malignancy is not entirely ruled out but felt to be less likely and will definitely need further follow-up on outpatient basis History of fibromyalgia Degenerative joint disease Ex-smoker but no clear-cut evidence of COPD symptoms Benign essential hypertension GERD without esophagitis Degenerative joint disease Plan: The patient was seen and evaluated Medications reviewed CT scan of the brain reviewed No acute intracranial process Completed high-dose steroids Her symptoms are waxing and waning She remains stable and on room air This patient was seen independently by the pulmonary nurse practitioner addressing pulmonary issues I have personally seen and examined the patient, performed the documentation and the assessment and plan as written. Number of minutes spent on the visit: 24.
--- NOTE | 2024-04-10 14:56 | P.PN ---
Subjective Progress Note Date: 04/10/24 I am following-up with patient and I was notified by the nurse today in morning was more confused, seems flushed and stiff. Repeat CT head is unremarkable to acute process. Yesterday she was started on Topamax. Objective - Vital Signs Vital signs: Vital Signs Temp 98.4 F 04/10/24 14:00 Pulse 59 L 04/10/24 14:00 Resp 16 04/10/24 14:00 BP 158/84 04/10/24 14:00 Pulse Ox 96 04/10/24 14:00 FiO2 21 04/08/24 08:20 Intake & Output 04/09/24 04/10/24 04/10/24 18:59 06:59 18:59 Intake Total 118 118 Balance 118 118 Intake: Oral 118 118 Other: Voiding Method Bedside Commode Bedside Commode Bedside Commode Diaper Diaper Diaper # Voids 1 1 1 # Bowel Movements 1 1 - Exam GENERAL: The patient is sitting up in a chair and is not in acute distress. NEUROLOGICAL: Higher mental function: The patient is drowsy bit is awakeable to voice. Is o riented to self, place and times. Is following some simple commands but there is limitation today because of drowsiness. Continues to have dysarthria. Has nystagmus looking to right, left, downward. Is lifting uppers briefly above gravity. Some of the workup during this hospital visit consisted of: CBC with differential is unremarkable. ESR is 12 CK level is 87 Chemistry panel sodium is 140, glucose is 130, calcium is 9.4 Magnesium is 2.0 Vitamin B6: 5 (normal is 5-50). AST ALT is within normal limits HERVE and anti-dsDNA is negative. C-ANCA and P-ANCA are negative. Hepatitis panel are nonreactive HIV is non reactive HSV 1/2 PCR DNA is not detected. SARS-CoV-[address] PCR is not detected. [address] of the head is reported as age-related atrophy and chronic small vessel ischemic change without acute intracranial process seen at this time. I personally reviewed CT and agree with report. MRI Brain and Cervical spine: Scattered punctated foci of white matter changes. No evidence for acite demyelination within the brain or spine. No evidence for disc herniation or significant spinal canal stenosis. Multilevel disc degeneration with assoiciated osteoarthric changes. No evidence of intracrnail mass or acute/subacute infarct. Repeat CT head: No acute intracranial process. - Labs CBC & Chem 7: 04/07/24 03:58 04/07/24 03:58 Labs: Abnormal Lab Results - Last 24 Hours (Table) 04/10/24 Range/Units 08:47 POC Glucose (mg/dL) 131 H (70-110) mg/dL Assessment and Plan Assessment: Is a 58-year-old woman who developed paresthesia of the hands and feet since 2022 then had new onset nystagmus, diplopia and ataxia on 02/20/2024. She had a stroke workup on 02/2024 in our facility and had CSF study in which showed elevated CSF protein of 139 0 nucleated. Patient had positive oligoclonal band, IgG index and IgG synthesis rate. 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 Patient had IVIG in which she had improvement in her symptoms except nystagmus but per patient and she had no improvement. She presents because of worsening of her speech, progressive weakness in her legs and visual disturbance in the last 1 month to couple weeks. She notified me that she has paresthesia over the left ulnar distribution as well as right index finger as well as the left lateral aspect of the foot. She had EMG with nerve conduction study there is extremity in January 2024 by her outpatient neurologist and she was notified was normal. She also had a CT of the abdomen which revealed right middle lobe subsolid/groundglass 9 mm pulmonary nodule at that time and 02/2024. Had NDMDA receptor ab which is negative. Today the primary notified me that in past she had improvement with IVIG on last admission but it seems relapsed. 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 MRI Brain and Cervical is negative for acute or subacute stroke or any demylination. I cannot exclude viral in etiology leading to Perez Ba Syndrome presenting with cerebellar syndrome but patient is not areflexia or typical GBS picture. Another possibility is idiopathic but others causes needs to be rule out first. She was making some improvement with IV Steroid during this admission but today is more drowsy. Altered mental status: Unsure if encephalopathy is due medication induced (Topamax which was started yesterday) Had vitamin B6 toxicity on 02/2024 as high as 145. Her neuropathy can be due to Vitamin B6 toxicity. Repeat level during this admission is borderline normal 5 History of very low folate of 4.7 History of right middle lobe subsolid/groundglass 9 mm pulmonary nodule at that time and 02/[address] History of NSTEMI Plan: * on 02/2024 work-up: SSA/SSB negative, Serum immunofixation was no monoclonal paraprotein, NMDA negative, B12: 1139, TSH: 3.620. CSF is clear, colorless, nucleated cells 0, rbc 350, total protein is 139 (normal is 12-60), glucose 65. Positive oligoclonal band, BARBIE <5. Syphilis negative, Lyme negative, HSV, VZV, CMV are negative. HbA1c: 5.9, MMA was normal * Pending paraneosplastic panel yesterday and take a porlonged time to come back.. Pending additional antibodies testing on 04/06/2024 since not tested on paraneoplastic panel: Ri, Yo, Ma/Ma2, SoX1, Tr, KLH11, P/Q VGCC, SHAILA A, HNK- 1, Gly R antibodies. * Pending Vitamin E level. * Patient received methylprednisone 125 mg IV by the ED physician and then in addition I also added another 750 mg for concern of MS on 04/04/2024 then resumed on 04/06/2024. She completed IV steroid 02/20 and last dose was on 04/09/2024. During this admission it was felt she has some improvement with IV steroids. * Today she was more encephalopathic and yesterday I started her on Topamax 50mg bid since on literature it is reported can help with Opsoclonus Myoclonus Ataxia syndrome. I will stop Topamax. * The was her transferred for escalation of care and will attempt to transfer her to [facility]. Primary was notified of that. * If continues to be in our facility will consider possibly repeat IVIG for 5 days. * She will have total of 5 days IV Solumedrol 500mg bid. Today is day#5/5. * I will start the patient on Topamax 50mg bid and will titrate up every 3-4 days 50mg bid until 150mg bid. It seems there could be improvement in Opsoclonus Myoclonus Ataxia syndrome on Topamax upon literature and it seems it would help with Opsoclonus. * Continue folic acid 1mg daily. * Recommend EMG with NCS as outpatient of uppers and lowers. I understand she had EMG of uppers in 01/2024 of uppers by her neurologist as outpatient and she stated was told normal. 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 * PT and OT are consulted * Pulmonary team is consulted for lung nodule. They recommend outpatient PET scan. * Inpatient rehab is consulted and they felt she is inpatient candidate. At this time since is more drowsy cannot cooperate for inpatient rehab. * I stopped Lyrica since patient is not having any benefit and I started the patient on gabapentin 300 mg 1 tablet 3 times daily * Defer the rest of the medical management to primary team and other specialist. * Recommend the patient to follow-up with neurologist as outpatient within 1-2 weeks. She was following-up with Dr. Ramirez's team as outpatient. Her will attempt to have her follow-up with [facility]. The plan is discussed with the patient, her who is at bedside and primary attending. Dr. De León will resume neurology service tomorrow A.M. Time with Patient: Less than 30
[2024-04-11 05:54] LABS: Vitamin E (Alpha Tocopherol) 1327 ug/dL (500-1800)
--- NOTE | 2024-04-11 10:31 | P.PN ---
Progress Note - Text Progress Note Date: 04/10/24 patient is a 58-year-old female with medical history of stroke, coronary artery disease, fibromyalgia who presented to the ER with complaint of progressive weakness. Patient was recently admitted to the hospital couple of weeks ago with similar complaints at which time patient had brain CT showing no acute intracranial process,Carotid Doppler showing scattered atherosclerotic disease without sonographic evidence of significant stenosis, MRI brain reviewed reveals no evidence of intracranial mass/subacute/acute infarct or abnormal enhancement, MRI cervical spine revealed no evidence for disc herniation or significant spinal canal stenosis there is no abnormal postcontrast enhancement. Patient did had an LP done at the time and was given IVIG for suspicion of Guillain- Lewis syndrome. Patient was discharged but states that ever since discharge she has having worsening slurred speech. Patient also having problems with her balance. Patient also complaining of blurred vision. Patient denies any weakness of any extremity. Patient is complaining of numbness of her left hand. Because of the symptoms, patient came to the ER Initial lab work done in the ER showed WBC 4, hemoglobin 12.7, platelet count 267, sodium 140, potassium 4.1, BUN 14, creatinine 0.85, lactate 1.1 calcium 9.4, magnesium 2, AST 25, ALT 13, UA negative for infection EKG done in the ER showed heart rate of56 , no ST segment elevation or depression seen, no T-wave inversions seen. Chest x-ray done in the ER no acute cardiopulmonary process CT head done showed age-related atrophic and chronic small vessel ischemic changes without acute intracranial process Patient admitted to internal medicine service 04/06. Patient seen and examined. Still have lethargy and weakness. Still complaining of numbness of her extremities. MRI brain done showed scattered punctate foci of white matter changes, no evidence for active demyelination within the brain or spine. MRI cervical spine negative for any evidence of disc herniation or spinal stenosis April 07: Recent admission in February to the hospital patient was seen by Dr. De León from neurology. 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 Patient received IV immunoglobulin a 5-day course. Patient CSF had shown high protein. Patient this admission be seen by Dr. LIZ from neurology. Getting IV methylprednisolone 500 mg every 12. Paraneoplastic syndrome workup sent out by neurology. Pulmonary nodule for outpatient PET scan by pulmonary. From her left eye patient can visualize shapes. On the right eye she does see double. Speech is slow. Also has paresthesia of hand and feet. Also nystagmus. Ataxia. April 08: Patient being followed by Dr. LIZ. Last dose of steroids tomorrow. Family is considering taking the patient home tomorrow. Rehab has been recommended. 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 Morning dose for tomorrow to be changed to 1000 mg. Patient walked with physical therapy about 8 feet. With moderate assist April 09: Patient finished her last dose of steroids this morning. at the bedside. Patient feels she cannot be taken care of at home. Agreeable to rehab. Other medications to continue.: Overall better blood pressure control change Zestril to Zestoretic 20/12.5 twice daily and add amlodipine 5 mg a day April 10: Patient is a bit more lethargic. Speech more drawn out. Slow. Dr. Liz spoke to the patient's . Plan is to transfer the patient to [facility] for higher level of care. I spoke to Dr. Grullon the accepting physician at [facility] neurology service. Patient has been accepted. Total time spent today about 1 hour with over 40 minutes of discussion. Medications reviewed Physical examination: VITAL SIGNS: 98.4, 59, 16, 1 5884, 96% room air GENERAL: Resting in bed, lethargic EYES: Pupils equal. Conjunctiva kami l. HEENT: External appearance of nose and ears normal, oral cavity grossly normal. NECK: JVD not raised; masses not palpable. HEART: First and second heart sounds are normal; no edema. LUNGS: Respiratory rate normal; decreased breath sounds. ABDOMEN: Soft, nontender, liver spleen not palpable, no masses palpable. PSYCH: Alert and oriented x3; mood and affect kami l. MUSCULOSKELETAL:No Clubbing/cyanosis;muscles-grossly intact NEUROLOGICAL: Left eye: She can see shapes. Right eye: Double vision. Numbness in hand and feet. Speech drawn out. Decrease in sodium INVESTIGATIONS, reviewed in the clinical context: April 07: White count 4.2 hemoglobin 13.1 platelets 312 potassium 3.7 creatinine 0.71 From recent admission IgG 903 IgA 131 IgM 109 Lyme screen IgG and IgM negative Treponema pallidum antibody nonreactive CSF: IgG MS 13.2 serum albumin 3.7 CSF IgG albumin ratio MS 0.83 CSF IgG synthetic rate MS 28.55 CSF: Total protein 139 glucose 65 nucleated cells 0 RBC 350 MRI C-spine: Negative MRI brain-unremarkable Assessment and plan: -Neurological disorder complaining of nystagmus, slurred speech, paresthesia and 11 feet, as ataxia. Extensive workup done on recent admission. Outpatient worked up by Dr. Ramirez. On this admission being followed by Dr. Koo from neurology. On IV steroids. Patient received 5 days of methylprednisolone. Per Dr. LIZ neurology:Opsoclonus myoclonus ataxia syndrome Topamax being discontinued Patient being transferred to [facility] for higher level of care. Spoke to Dr. Grullon the accepting neurologist. -History of vitamin B6 toxicity -Right middle lobe subsolid/groundglass 9 mm pulmonary nodule Outpatient PET scan by pulmonary -Chronic fibromyalgia Lyrica switched over to Neurontin -Hyperlipidemia Zetia 10 mg with breakfast -Primary osteoarthritis Motrin as needed -Chronic urine incontinence -COPD in a previous smoker Albuterol as needed. -CAD with stent Lopressor. Resume aspirin -Essential hypertension:, Uncontrolled Lopressor stopped Zestril. Start Zestoretic 20/12.5 twice daily. Add amlodipine 5 mg a day -GERD PPI -Full code -Disposition: [facility] for higher level of care and neurology service.
[2024-04-11 11:26] LABS: Vit B1(Thiamine) 124 ug/L (38-122)
--- NOTE | 2024-04-11 12:42 | EEG ---
ELECTROENCEPHALOGRAM REPORT PREAMBLE: This is a 59-year-old female with confusion, rule out seizure. EEG FINDINGS: This is a 21-channel digital EEG recorded with video component, utilizing 10/20 international system with referential and bipolar montages. Background consists of well-developed, but somewhat disorganized, mixed frequencies of 6-7 Hertz theta intermixed with moderate amplitude delta activity seen in bihemispheric region. Background does not seem to be clearly reactive to eye opening or closing. Photic driving response was not seen. Occasional burst of frontal intermittent rhythmic delta activity was seen. Different stages of sleep were not seen. No focal or generalized epileptiform activity was seen. IMPRESSION: This is an abnormal EEG due to background slowing and disorganization, suggestive of moderate encephalopathy. No focal, lateralized, or epileptiform activity was seen. MMGREG / MATEON: [id number] /
--- NOTE | 2024-04-11 14:02 | P.PN ---
Subjective Progress Note Date: 04/11/24 This is a 59-year-old female, [id number] smoking history, quit smoking few years ago. Patient had history of fibromyalgia, dyslipidemia, degenerative joint disease, previous DC, presented to the hospital with progressive weakness for the last 6 months. Patient also describes slurred speech, weakness in the legs, and she is at a point she cannot even ambulate on her own. Her weakness has been again very progressive over the last 6 months, and she is following up with the neurology clinic supposed to have further workup for her weakness. However considering the worsening of her symptoms, patient was admitted this time and she was seen by neurology again. On her last visit she was seen by Dr. De León, and now she is being seen by Dr. Liz. In addition to her weakness, patient has been complaining of diplopia, poor balance/dysarthria, workup so far included spinal fluid study which showed elevated protein and the CSF was positive for oligoclonal bands. MRI of the brain did not show any evidence of demyelinating disease. Patient did receive IVIG, she received 4 out of 5 doses of IVIG, however no significant improvement. On this admission the patient had a CT of the chest abdomen and pelvis and there was evidence of a right middle lobe nodule, measuring 9 mm in size, hence this consult was initiated. Patient has no significant pulmonary symptoms, she has mostly symptoms of occasional cough and congestion. No hemoptysis no fever no chills no chest pain, no wheezing. I reviewed the CT of the chest, noted 9 mm nodule, and my recommendation for this nodule is to have a PET scan on outpatient basis or possibly repeat CT of the chest in 3 months The patient is seen today April 06, 2024 in follow-up on the regular medical floor. She is currently sitting up in bed. Awake and alert in no acute distress. Maintaining O2 saturation in the upper 90s on room air. She has been afebrile. Hemodynamically stable. She has been worked up for possible multiple sclerosis. She is feeling a bit stronger today compared to yesterday. She is being initiated on high-dose steroids per neurology. She remains on normal saline at 75 MLS per hour. HERVE screen was negative. Double-stranded DNA antibodies were negative. Anti-DNA antibodies were 1.0. MRI revealed scattered punctate foci of white matter changes. No evidence for active demyelination within the brain or spine. No evidence for disc herniation or significant spinal canal stenosis. No evidence of intracranial mass or acute/subacute infarct. Patient was evaluated today on 04/07/2024, patient is basically about the same. So far the workup again remains nondiagnostic, there is no evidence of demyelination noted on the MRI of the brain. Pulmonary guardado, patient has no active pulmonary symptoms whatsoever. No cough no wheezing no shortness of breath, patient continues to develop progressive muscle weakness. CBC is normal basic metabolic profile is normal renal profile is normal The patient is seen today April 08, 2024 in follow-up on the regular medical floor. She is currently awake and alert in no acute distress. Resting in bed. She denies any shortness of breath, cough or congestion. No difficulty in breathing. Afebrile. Hemodynamically stable. Neurologically she has not shown much improvement. She is continued on IV Solu-Medrol 500 mg twice daily. No new labs today. The patient is seen today April 09, 2024 in follow-up on the regular medical floor. She is awake and alert in no acute distress. She denies any shortness of breath, cough or congestion. She remains afebrile. Hemodynamically stable. Maintaining good O2 saturations in the 90s on room air. She is feeling a bit stronger today compared to yesterday. Her voice remains weak. Her double vision has improved. She received 1 g of methylprednisone IV piggyback today per neurology. She remains on Lovenox for DVT prophylaxis. Protonix for GI prophylaxis. The patient is seen today April 10, 2024 in follow-up on the regular medical floor. She is currently resting comfortably in bed. Awake and alert in no acute distress. She feels she is about the same. Her voice remains weak and slow to respond. She has continued ataxia of the upper and lower extremities. Still having some double vision. She is on Lovenox for DVT prophylaxis. Remains on updraft treatments. No pulmonary complaints. Maintaining good O2 saturations in the 90s on room air. Remains afebrile. Hemodynamically stable. Glucose 131. Follow-up CT scan of the brain revealed no acute intracranial process. The patient is seen today April 11, 2024 in follow-up on the regular medical floor. She is awake and alert in no acute distress. Maintaining O2 saturations in the 90s on room air. Afebrile. Hemodynamically stable. She states she fee ls about the same today as compared to yesterday. No significant improvement. She still has a weak voice, delayed, ataxia of the upper and lower extremities. Her double vision may have improved somewhat. No new labs today. EEG reveals background slowing and disorganization, suggestive of moderate encephalopathy. She remains on Lovenox for DVT prophylaxis. Objective - Vital Signs Vital signs: Vital Signs Temp 98.0 F 04/11/24 08:00 Pulse 68 04/11/24 12:20 Resp 18 04/11/24 08:00 BP 123/75 04/11/24 08:00 Pulse Ox 96 04/11/24 08:00 FiO2 21 04/08/24 08:20 Intake & Output 04/10/24 04/11/24 04/11/24 18:59 06:59 18:59 Intake Total 118 0 Balance 118 0 Intake: Oral 118 0 Other: Voiding Method Bedside Commode Bedside Commode Bedside Commode Diaper Diaper Bedpan Diaper # Voids 1 2 # Bowel Movements 1 - Exam General: Revealed a pleasant 59-year-old female, continues with weak delayed voice, resting in bed, on room air. Head: Atraumatic, normocephalic Skin: Skin is warm and dry and no rashes or lesions are noted. Eye: Eye patch is off currently. Her double vision remains. Ears, nose, mouth and throat: There are moist mucous membranes and no oral lesions. Neck: The neck is supple, there is no tenderness or JVD. Cardiovascular: There is a regular rate and rhythm. No murmur, rub or gallop is appreciated. Respiratory: Clear throughout no crackles, rhonchi or wheezes Gastrointestinal: Soft, non-distended, non-tender abdomen without masses or organomegaly noted. Bowel sounds are unremarkable. Back: There is no tenderness to palpation in the midline. There is no obvious deformity. Musculoskeletal: Normal ROM, no tenderness, There is no pedal edema. There is no calf tenderness or swelling. Generalized weakness Neurological: Ataxia of the upper and lower extremities bilaterally. Patient does have diplopia, no evidence of nystagmus - Labs CBC & Chem 7: 04/07/24 03:58 04/07/24 03:58 Labs: Abnormal Lab Results - Last 24 Hours (Table) 04/06/24 Range/Units 18:43 Vitamin B1 124 H (38-122) ug/L Assessment and Plan Assessment: Progressive weakness, ataxia of the upper and lower extremities bilaterally, diplopia, nystagmus, suspect multiple sclerosis, workup is in progress, MRI revealed scattered punctate foci of white matter changes. No evidence for active demyelination within the brain or spine. No evidence for disc herniation or significant spinal canal stenosis. No evidence of intracranial mass or acute/subacute infarct. Completed a coarse of high dose steroids. EEG reveals background slowing and disorganization, consistent with moderate encephalopathy. 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 Doubt paraneoplastic syndrome as the nodule is not highly suspicious for malignancy although malignancy is not entirely ruled out, either a PET scan on outpatient basis or repeat CT of the chest in 3 to 4 months Solitary lung nodule, low index of suspicion for malignancy, although patient is made aware that malignancy is not entirely ruled out will definitely need further follow-up on outpatient basis History of fibromyalgia Degenerative joint disease Ex-smoker but no clear-cut evidence of COPD symptoms Benign essential hypertension GERD without esophagitis Degenerative joint disease Plan: The patient was seen and evaluated She remains stable and on room air Medications reviewed EEG results reviewed Completed high-dose steroids No significant improvement in her symptoms Plan is for transfer to [facility] for higher level of care This patient was seen independently by the pulmonary nurse practitioner addressing pulmonary issues I have personally seen and examined the patient, performed the documentation and the assessment and plan as written. Number of minutes spent on the visit: 25.
[2024-04-11 14:24] VITALS: BMI 23.8
[2024-04-11 14:30] LABS: ALT 78 U/L (4-34); AST 24 U/L (14-36); African American GFR (CKD) 72 (>60 ml/min/1.73 sqM); Albumin 3.6 g/dL (3.5-5.0); Albumin/Globulin Ratio 1.3; Alkaline Phosphatase 49 U/L (38-126); Anion Gap 4 mmol/L; Blood Urea Nitrogen 34 mg/dL (7-17); Carbon Dioxide 27 mmol/L (22-30); Chloride 102 mmol/L (98-107); Globulin 2.8 g/dL; Glucose 146 mg/dL (74-99); Non-African American GFR(CKD) 63 (>60 ml/min/1.73 sqM); Sodium 133 mmol/L (137-145); Total Bilirubin 1.3 mg/dL (0.2-1.3); Total Protein 6.4 g/dL (6.3-8.2)
[2024-04-11 14:35] LABS: HCT 42.4 % (34.0-46.0); HGB 14.3 gm/dL (11.4-16.0); MCHC 33.6 g/dL (31.0-37.0); MCV 95.2 fL (80.0-100.0); Mean Platelet Volume 7.7; Platelet Count 365 k/uL (150-450); RBC 4.46 m/uL (3.80-5.40); RDW 14.6 % (11.5-15.5); WBC 6.5 k/uL (3.8-10.6)
[2024-04-11 14:37] LABS: Potassium 2.6 mmol/L (3.5-5.1)
[2024-04-11] MEDS: POTASSIUM CHLORIDE ER 20 MEQ TAB.ER PO SCH (15:31)
[2024-04-12 07:23] VITALS: RESP 18; TEMP 97.7
--- NOTE | 2024-04-12 09:12 | P.PN ---
Subjective Progress Note Date: 04/11/24 Patient was seen for follow-up. Patient initially seen by Dr. Eyal Liz. Please refer to his note for details. Patient was recently admitted to our facility for cerebellar ataxia, nystagmus on 02/25/2024. Patient was treated with IVIG, discharged home on 03/07/2024. Patient has very minimal improvement with IVIG and then slowly started getting worse, readmitted on 04/04/2024, has received 5-day treatment with high-dose steroids, which was completed on Thursday, 2 days ago. Patient's has not noticed any improvement with it. She had some seizure-like episode in which she stiffened up and could not talk. CT head showed no acute process. Dr. Liz has recommended transfer to higher level of care. Patient accepted in [facility], awaiting bed placement. Objective - Vital Signs Vital signs: Vital Signs Temp 98.0 F 04/11/24 08:00 Pulse 68 04/11/24 12:20 Resp 18 04/11/24 08:00 BP 123/75 04/11/24 08:00 Pulse Ox 96 04/11/24 08:00 FiO2 21 04/08/24 08:20 Intake & Output 04/10/24 04/11/24 04/11/24 18:59 06:59 18:59 Intake Total 118 0 Balance 118 0 Intake: Oral 118 0 Other: Voiding Method Bedside Commode Bedside Commode Bedside Commode Diaper Diaper Bedpan Diaper # Voids 1 2 # Bowel Movements 1 - Exam Mental status, patient is quite groggy, somnolent but does wake up and answers appropriately. Speech has moderate cerebellar dysarthria and language functions are normal. On cranial examination pupils are equal, round and reactive to light, visual rowland are full, with no neglect, extraocular muscles has very prominent horizontal nystagmus bilaterally on the end gaze. Slight vertical nystagmus in the vertical gazes. Face is symmetric and tongue protrudes to midline. On muscle strength testing there is no pronator drift and the strength is normal in arms and legs distally and proximally, except hip flexion which may be 5- bilaterally. Sensory to touch is equal. No neglect. Patient has subjective numbness of the left hand up to the elbow but not the right upper limb. Patient has numbness of both feet past the ankles. Patient has moderate to severe ataxia for [id number] bilaterally. Patient has very mild ataxia for [id number] testing bilaterally. Deep tendon reflexes are (right/left) 1+2/2+ at the biceps, 1+2/2 brachioradialis, 2/2 at the knees, 0/trace ankles and plantars are downgoing bilaterally. - Labs CBC & Chem 7: 04/11/24 14:03 04/11/24 19:23 Labs: Abnormal Lab Results - Last 24 Hours (Table) 04/06/24 Range/Units 18:43 Vitamin B1 124 H (38-122) ug/L Assessment and Plan Assessment: 58-year-old female who has developed paresthesias of the hands and feet since 2022. Symptoms suggestive of possible peripheral neuropathy. New onset nystagmus, diplopia and gait ataxia since 02/20/2024. Patient has elev ated CSF proteins. Patient has bilateral nystagmus, and ataxia. 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 Abnormal CSF, with positive oligoclonal bands, IgG index and IgG synthesis rate, suggestive of multiple sclerosis. No abnormal lesions seen in the brain MRI however. MRI of the brain and cervical spine negative for demyelinating disease. Very low folate and is borderline normal level is 4.70 (normal is 4.4-31) Underlying history of hypertension Hypercholesterolemia Ex tobacco use Altered mental status: Unsure if encephalopathy is due medication induced (Topamax which was started day before yesterday, now discontinued) Had vitamin B6 toxicity on 02/2024 as high as 145. Her neuropathy can be due to Vitamin B6 toxicity. Repeat level during this admission is borderline normal 5 History of very low folate of 4.7 History of right middle lobe subsolid/groundglass 9 mm pulmonary nodule at that time and 02/[address] History of NSTEMI Plan: * on 02/2024 work-up: SSA/SSB negative, Serum immunofixation was no monoclonal paraprotein, NMDA negative, B12: 1139, TSH: 3.620. CSF is clear, colorless, nucleated cells 0, rbc 350, total protein is 139 (normal is 12-60), glucose 65. Positive oligoclonal band, BARBIE <5. Syphilis negative, Lyme negative, HSV, VZV, CMV are negative. HbA1c: 5.9, MMA was normal * Pending paraneosplastic panel. Pending additional antibodies testing on 04/06/2024 since not tested on paraneoplastic panel: Ri, Yo, Ma/Ma2, SoX1, Tr, KLH11, P/Q VGCC, SHAILA A, HNK-1, Gly R antibodies. * Pending Vitamin E level. * Patient received methylprednisone 125 mg IV by the ED physician and then in addition I also added another 750 mg for concern of MS on 04/04/2024 then resumed on 04/06/2024. She completed IV steroid 02/20 and last dose was on 04/09/2024. During this admission it was felt she has some improvement with IV steroids. 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 Liz. Patient became encephalopathic, which has been stopp ed. * EEG performed today was abnormal due to background slowing and disorganization, suggestive of moderate encephalopathy. No focal, lateralized or epileptiform activity was seen. * Patient may benefit from repeat lumbar puncture to assess for proteins, cell count. Patient may benefit from either repeat IVIG course versus treatment with plasma exchange. However patient has been accepted at [facility]. We will defer any other management to their discretion. Discussed with patient's , agree with holding off on any treatment at this time. * Continue folic acid 1mg daily. * Recommend EMG with NCS as outpatient of uppers and lowers. I understand she had EMG of uppers in 01/2024 of uppers by her neurologist as outpatient and she stated was told normal. 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 * PT and OT are consulted * Pulmonary team is consulted for lung nodule. They recommend outpatient PET scan. * Inpatient rehab is consulted and they felt she is inpatient candidate. * Dr. Liz has stopped Lyrica since patient is not having any benefit and I started the patient on gabapentin 300 mg 1 tablet 3 times daily * Defer the rest of the medical management to primary team and other specialist. * Recommend the patient to follow-up with neurologist as outpatient within 1-2 weeks. She was following-up with Dr. Ramirez's team as outpatient. Her will attempt to have her follow-up with [facility]. * MRI of the brain with and without contrast revealed no intracranial mass, acute/subacute infarct or abnormal enhancement. I personally reviewed MRI, agree with the findings. * Continue aspirin 81 mg daily. * Carotid Doppler revealed scattered atherosclerotic disease without sonographic evidence of significant stenosis. Antegrade flow in both vertebral arteries. * MRI of the cervical spine revealed no evidence for disc herniation or significant spinal canal stenosis. No abnormal postcontrast enhancement. Minimal disc degeneration with associated osteoarthritic changes. I personally reviewed MRI agree with the findings.. * ESR 7, CRP <0.5, quantitative immunoglobulins are normal. Serum immuno fixation electrophoresis negative for any monoclonal protein. Sjogren's antibodies negative. RPR negative. Lyme titer negative. * Vitamin B6 145 (5-50). Repeat vitamin B6 5, which is somewhat low (5-50) * Vitamin B1 124 (38-1 22) * Vitamin B12: 1139, methylmalonic acid 0.15 normal * Serum folate: 4.70 (normal is 4.4-31) * TSH: 3.62 * HbA1c: 5.9 * CSF with WBC 0, RBC 350, CSF glucose 65 normal, CSF protein 139 (12-60). MS panel came positive for oligoclonal bands. They were 2 or more oligoclonal bands seen, which were not seen in the corresponding serum therefore is considered a positive oligoclonal banding study. IgG index 0.83/0.77, IgG synthesis rate 28.55/3.0. Although MS panel is positive in the CSF, but radiographically, there are no lesions to support central demyelination. 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 * CSF BARBIE level normal <5. * CSF viral cultures negative and CSF NMDA antibodies results not available. * CT of the chest abdomen pelvis revealed right middle lobe subsolid/groundglass 9 mm pulmonary nodule. Further evaluation with CT in 3 months versus PET/CT recommended. We will defer to IM. * DVT prophylaxis: Lovenox 40 mg subcu daily.
--- NOTE | 2024-04-12 10:26 | P.PN ---
Progress Note - Text Progress Note Date: 04/11/24 patient is a 58-year-old female with medical history of stroke, coronary artery disease, fibromyalgia who presented to the ER with complaint of progressive weakness. Patient was recently admitted to the hospital couple of weeks ago with similar complaints at which time patient had brain CT showing no acute intracranial process,Carotid Doppler showing scattered atherosclerotic disease without sonographic evidence of significant stenosis, MRI brain reviewed reveals no evidence of intracranial mass/subacute/acute infarct or abnormal enhancement, MRI cervical spine revealed no evidence for disc herniation or significant spinal canal stenosis there is no abnormal postcontrast enhancement. Patient did had an LP done at the time and was given IVIG for suspicion of Guillain- Lewis syndrome. Patient was discharged but states that ever since discharge she has having worsening slurred speech. Patient also having problems with her balance. Patient also complaining of blurred vision. Patient denies any weakness of any extremity. Patient is complaining of numbness of her left hand. Because of the symptoms, patient came to the ER Initial lab work done in the ER showed WBC 4, hemoglobin 12.7, platelet count 267, sodium 140, potassium 4.1, BUN 14, creatinine 0.85, lactate 1.1 calcium 9 .4, magnesium 2, AST 25, ALT 13, UA negative for infection EKG done in the ER showed heart rate of56 , no ST segment elevation or depression seen, no T-wave inversions seen. Chest x-ray done in the ER no acute cardiopulmonary process CT head done showed age-related atrophic and chronic small vessel ischemic changes without acute intracranial process Patient admitted to internal medicine service 04/06. Patient seen and examined. Still have lethargy and weakness. Still complaining of numbness of her extremities. MRI brain done showed scattered punctate foci of white matter changes, no evidence for active demyelination within the brain or spine. MRI cervical spine negative for any evidence of disc herniation or spinal stenosis April 07: Recent admission in February to the hospital patient was seen by Dr. De León from neurology. 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 Patient received IV immunoglobulin a 5-day course. Patient CSF had shown high protein. Patient this admission be seen by Dr. LIZ from neurology. Getting IV methylprednisolone 500 mg every 12. Paraneoplastic syndrome workup sent out by neurology. Pulmonary nodule for outpatient PET scan by pulmonary. From her left eye patient can visualize shapes. On the right eye she does see double. Speech is slow. Also has paresthesia of hand and feet. Also nystagmus. Ataxia. April 08: Patient being followed by Dr. LIZ. Last dose of steroids tomorrow. Family is considering taking the patient home tomorrow. Rehab has been recommended. 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 Morning dose for tomorrow to be changed to 1000 mg. Patient walked with physical therapy about 8 feet. With moderate assist April 09: Patient finished her last dose of steroids this morning. at the bedside. Patient feels she cannot be taken care of at home. Agreeable to rehab. Other medications to continue.: Overall better blood pressure control change Zestril to Zestoretic 20/12.5 twice daily and add amlodipine 5 mg a day April 10: Patient is a bit more lethargic. Speech more drawn out. Slow. Dr. Liz spoke to the patient's . Plan is to transfer the patient to [facility] for higher level of care. I spoke to Dr. Grullon the accepting physician at [facility] neurology service. Patient has been accepted. Total time spent today about 1 hour with over 40 minutes of discussion. April 11: Patient more awake. Moving better. Pending transfer to [facility]. Blood pressure running low. Amlodipine discontinued. Discussed with at the bedside. Discussed with Dr. De León from neurology. Current medications reviewed Physical examination: VITAL SIGNS: patient is a 58-year-old female with medical history of stroke, coronary artery disease, fibromyalgia who presented to the ER with complaint of progressive weakness. Patient was recently admitted to the hospital couple of weeks ago with similar complaints at which time patient had brain CT showing no acute intracranial process,Carotid Doppler showing scattered atherosclerotic disease without sonographic evidence of significant stenosis, MRI brain reviewed reveals no evidence of intracranial mass/subacute/acute infarct or abnormal enhancement, MRI cervical spine revealed no evidence for disc herniation or significant spinal canal stenosis there is no abnormal postcontrast enhancement. Patient did had an LP done at the time and was given IVIG for suspicion of Guillain-Lewis syndrome. Patient was discharged but states that ever since discharge she has having worsening slurred speech. Patient also having problems with her balance. Patient also complaining of blurred vision. Patient denies any weakness of any extremity. Patient is complaining of numbness of her left hand. Because of the symptoms, patient came to the ER Initial lab work done in the ER showed WBC 4, hemoglobin 12.7, platelet count 267, sodium 140, potassium 4.1, BUN 14, creatinine 0.85, lactate 1.1 calcium 9.4, magnesium 2, AST 25, ALT 13, UA negative for infection EKG done in the ER showed heart rate of56 , no ST segment elevation or depression seen, no T-wave inversions seen. Chest x-ray done in the ER no acute cardiopulmonary process CT head done showed age-related atrophic and chronic small vessel ischemic changes without acute intracranial process Patient admitted to internal medicine service 04/06. Patient seen and examined. Still have lethargy and weakness. Still complaining of numbness of her extremities. MRI brain done showed scattered punctate foci of white matter changes, no evidence for active demyelination within the brain or spine. MRI cervical spine negative for any evidence of disc herniation or spinal stenosis April 07: Recent admission in February to the hospital patient was seen by Dr. De León from neurology. 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 Patient received IV immunoglobulin a 5-day course. Patient CSF had shown high protein. Patient this admission be seen by Dr. LIZ from neurology. Getting IV methylprednisolone 500 mg every 12. Paraneoplastic syndrome workup sent out by neurology. Pulmonary nodule for outpatient PET scan by pulmonary. From her left eye patient can visualize shapes. On the right eye she does see double. Speech is slow. Also has paresthesia of hand and feet. Also nystagmus. Ataxia. April 08: Patient being followed by Dr. LIZ. Last dose of steroids tomorrow. Family is considering taking the patient home tomorrow. Rehab has been recommended. 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 Morning dose for tomorrow to be changed to 1000 mg. Patient walked with physical therapy about 8 feet. With moderate assist April 09: Patient finished her last dose of steroids this morning. at the bedside. Patient feels she cannot be taken care of at home. Agreeable to rehab. Other medications to continue.: Overall better blood pressure control change Zestril to Zestoretic 20/12.5 twice daily and add amlodipine 5 mg a day April 10: Patient is a bit more lethargic. Speech more drawn out. Slow. Dr. Liz spoke to the patient's . Plan is to transfer the patient to [facility] for higher level of care. I spoke to Dr. Grullon the accepting physician at [facility] neurology service. Patient has been accepted. Total time spent today about 1 hour with over 40 minutes of discussion. Potassium down to 2.6. Being replaced Medications reviewed Physical examination: VITAL SIGNS: 98, 65, 18, 123 x 75, 96% room air GENERAL: Resting in bed, l more today EYES: Pupils equal. Conjunctiva kami l. HEENT: External appearance of nose and ears normal, oral cavity grossly normal. NECK: JVD not raised; masses not palpable. HEART: First and second heart sounds are normal; no edema. LUNGS: Respiratory rate normal; decreased breath sounds. ABDOMEN: Soft, nontender, liver spleen not palpable, no masses palpable. PSYCH: More awake and answering questions MUSCULOSKELETAL:No Clubbing/cyanosis;muscles-grossly intact NEUROLOGICAL: Left eye: She can see shapes. Right eye: Double vision. Numbness in hand and feet. Speech drawn out. Decrease in sodium INVESTIGATIONS, reviewed in the clinical context: April 11: White count 6.5 hemoglobin 14.3 platelets 365 potassium 2.6 creatinine 0.99 April 07: White count 4.2 hemoglobin 13.1 platelets 312 potassium 3.7 creatinine 0.71 From recent admission IgG 903 IgA 131 IgM 109 Lyme screen IgG and IgM negative Treponema pallidum antibody nonreactive CSF: IgG MS 13.2 serum albumin 3.7 CSF IgG albumin ratio MS 0.83 CSF IgG synthetic rate MS 28.55 CSF: Total protein 139 glucose 65 nucleated cells 0 RBC 350 MRI C-spine: Negative MRI brain-unremarkable Assessment and plan: -Neurological disorder complaining of nystagmus, slurred speech, paresthesia and 11 feet, as ataxia. Extensive workup done on recent admission. Outpatient worked up by Dr. Ramirez. On this admission being followed by Dr. Koo from neurology. On IV steroids. Patient received 5 days of methylprednisolone. Per Dr. LIZ neurology:Opsoclonus myoclonus ataxia syndrome Topamax being discontinued Patient being transferred to [facility] destroyed for higher level of care. Spoke to Dr. Grullon the accepting neurologist. -History of vitamin B6 toxicity -Right middle lobe subsolid/groundglass 9 mm pulmonary nodule Outpatient PET scan by pulmonary -Severe hypokalemia likely from diuretic: New diagnosis Replace potassium -Chronic fibromyalgia Lyrica switched over to Neurontin -Hyperlipidemia Zetia 10 mg with breakfast -Primary osteoarthritis Motrin as needed -Chronic urine incontinence -COPD in a previous smoker Albuterol as needed. -CAD with stent Lopressor. Resume aspirin -Essential hypertension:, Running on the lower side. DC amlodipine. Continue Zestoretic -GERD PPI -Full code Disposition: [facility]
--- NOTE | 2024-04-12 11:18 | P.PN ---
Subjective Progress Note Date: 04/12/24 This is a 59-year-old female, 52-mcys-ijop smoking history, quit smoking few years ago. Patient had history of fibromyalgia, dyslipidemia, degenerative joint disease, previous NV, presented to the hospital with progressive weakness for the last 6 months. Patient also describes slurred speech, weakness in the legs, and she is at a point she cannot even ambulate on her own. Her weakness has been again very progressive over the last 6 months, and she is following up with the neurology clinic supposed to have further workup for her weakness. However considering the worsening of her symptoms, patient was admitted this time and she was seen by neurology again. On her last visit she was seen by Dr. De León, and now she is being seen by Dr. Liz. In addition to her weakness, patient has been complaining of diplopia, poor balance/dysarthria, workup so far included spinal fluid study which showed elevated protein and the CSF was positive for oligoclonal bands. MRI of the brain did not show any evidence of demyelinating disease. Patient did receive IVIG, she received 4 out of 5 doses of IVIG, however no significant improvement. On this admission the patient had a CT of the chest abdomen and pelvis and there was evidence of a right middle lobe nodule, measuring 9 mm in size, hence this consult was initiated. Patient has no significant pulmonary symptoms, she has mostly symptoms of occasional cough and congestion. No hemoptysis no fever no chills no chest pain, no wheezing. I reviewed the CT of the chest, noted 9 mm nodule, and my recommendation for this nodule is to have a PET scan on outpatient basis or possibly repeat CT of the chest in 3 months The patient is seen today April 06, 2024 in follow-up on the regular medical floor. She is currently sitting up in bed. Awake and alert in no acute distress. Maintaining O2 saturation in the upper 90s on room air. She has been afebrile. Hemodynamically stable. She has been worked up for possible multiple sclerosis. She is feeling a bit stronger today compared to yesterday. She is being initiated on high-dose steroids per neurology. She remains on normal saline at 75 MLS per hour. HERVE screen was negative. Double-stranded DNA antibodies were negative. Anti-DNA antibodies were 1.0. MRI revealed scattered punctate foci of white matter changes. No evidence for active demyelination within the brain or spine. No evidence for disc herniation or significant spinal canal stenosis. No evidence of intracranial mass or acute/subacute infarct. Patient was evaluated today on 04/07/2024, patient is basically about the same. So far the workup again remains nondiagnostic, there is no evidence of demyelination noted on the MRI of the brain. Pulmonary guardado, patient has no active pulmonary symptoms whatsoever. No cough no wheezing no shortness of breath, patient continues to develop progressive muscle weakness. CBC is normal basic metabolic profile is normal renal profile is normal The patient is seen today April 08, 2024 in follow-up on the regular medical floor. She is currently awake and alert in no acute distress. Resting in bed. She denies any shortness of breath, cough or congestion. No difficulty in breathing. Afebrile. Hemodynamically stable. Neurologically she has not shown much improvement. She is continued on IV Solu-Medrol 500 mg twice daily. No new labs today. The patient is seen today April 09, 2024 in follow-up on the regular medical floor. She is awake and alert in no acute distress. She denies any shortness of breath, cough or congestion. She remains afebrile. Hemodynamically stable. Maintaining good O2 saturations in the 90s on room air. She is feeling a bit stronger today compared to yesterday. Her voice remains weak. Her double vision has improved. She received 1 g of methylprednisone IV piggyback today per neurology. She remains on Lovenox for DVT prophylaxis. Protonix for GI prophylaxis. The patient is seen today April 10, 2024 in follow-up on the regular medical floor. She is currently resting comfortably in bed. Awake and alert in no acute distress. She feels she is about the same. Her voice remains weak and slow to respond. She has continued ataxia of the upper and lower extremities. Still having some double vision. She is on Lovenox for DVT prophylaxis. Remains on updraft treatments. No pulmonary complaints. Maintaining good O2 saturations in the 90s on room air. Remains afebrile. Hemodynamically stable. Glucose 131. Follow-up CT scan of the brain revealed no acute intracranial process. The patient is seen today April 11, 2024 in follow-up on the regular medical floor. She is awake and alert in no acute distress. Maintaining O2 saturations in the 90s on room air. Afebrile. Hemodynamically stable. She states she fee ls about the same today as compared to yesterday. No significant improvement. She still has a weak voice, delayed, ataxia of the upper and lower extremities. Her double vision may have improved somewhat. No new labs today. EEG reveals background slowing and disorganization, suggestive of moderate encephalopathy. She remains on Lovenox for DVT prophylaxis. The patient is seen today April 12, 2024 in follow-up on the regular medical floor. She is currently resting comfortably in bed. Awake and alert in no acute distress. Her is at the bedside. She is maintaining good O2 saturation in the 90s on room air. No IV fluids. She seems to be a little stronger in the mornings but by evening she is much weaker according to the patient and her . She still has a slow response time. Voice is weak. Most recent labs with a white count of 6.5. Hemoglobin 14.3. Platelets 365. Sodium 133. Potassium 3.2. Bicarb 27. BUN 34. Creatinine 0.99. Glucose 146. She remains on bronchodilators as needed. Lovenox for DVT prophylaxis. Objective - Vital Signs Vital signs: Vital Signs Temp 97.7 F 04/12/24 07:21 Pulse 73 04/12/24 08:27 Resp 18 04/12/24 07:21 BP 97/65 04/12/24 07:21 Pulse Ox 99 04/12/24 08:11 FiO2 21 04/08/24 08:20 Intake & Output 04/11/24 04/12/24 04/12/24 18:59 06:59 18:59 Intake Total 0 118 Balance 0 118 Weight 63.049 kg Intake: Oral 0 118 Other: Voiding Method Bedside Commode Bedpan Bedpan Diaper # Voids 2 3 - Exam General: Revealed a 59-year-old female, with weak delayed voice, resting in bed, on room air. Head: Atraumatic, normocephalic Skin: Skin is warm and dry and no rashes or lesions are noted. Eye: Eye patch is off currently. Her double vision remains. Ears, nose, mouth and throat: There are moist mucous membranes and no oral lesions. Neck: The neck is supple, there is no tenderness or JVD. Cardiovascular: There is a regular rate and rhythm. No murmur, rub or gallop is appreciated. Respiratory: Clear throughout no crackles, rhonchi or wheezes Gastrointestinal: Soft, non-distended, non-tender abdomen without masses or organomegaly noted. Bowel sounds are unremarkable. Back: There is no tenderness to palpation in the midline. There is no obvious deformity. Musculoskeletal: Normal ROM, no tenderness, There is no pedal edema. There is no calf tenderness or swelling. Generalized weakness Neurological: Ataxia of the upper and lower extremities bilaterally. Patient does have diplopia, no evidence of nystagmus - Labs CBC & Chem 7: 04/11/24 14:03 04/11/24 19:23 Labs: Abnormal Lab Results - Last 24 Hours (Table) 04/06/24 04/11/24 04/11/24 Range/Units 18:43 14:03 19:23 Sodium 133 L (137-145) mmol/L Potassium 2.6 L* 3.2 L (3.5-5.1) mmol/L BUN 34 H (7-17) mg/dL Glucose 146 H (74-99) mg/dL ALT 78 H (4-34) U/L Vitamin B1 124 H (38-122) ug/L Assessment and Plan Assessment: Progressive weakness, ataxia of the upper and lower extremities bilaterally, diplopia, nystagmus, suspect multiple sclerosis, workup is in progress, MRI revealed scattered punctate foci of white matter changes. No evidence for active demyelination within the brain or spine. No evidence for disc herniation or significant spinal canal stenosis. No evidence of intracranial mass or acute/subacute infarct. Completed a coarse of high dose steroids. EEG reveals background slowing and disorganization, consistent with moderate encephalopathy. 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 Doubt paraneoplastic syndrome as the lung nodule is not highly suspicious for malignancy although malignancy is not entirely ruled out, either a PET scan on outpatient basis or repeat CT of the chest in 3 to 4 months Solitary lung nodule, low index of suspicion for malignancy, although patient is made aware that malignancy is not entirely ruled out and will need further follow-up on outpatient basis History of fibromyalgia Degenerative joint disease Ex-smoker but no clear-cut evidence of COPD symptoms Benign essential hypertension GERD without esophagitis Degenerative joint disease Plan: The patient was seen and evaluated She remains stable and on room air Medications and labs reviewed No significant improvement in her symptoms Pending transfer to [facility] once bed available This patient was seen independently by the pulmonary nurse practitioner addressing pulmonary issues I have personally seen and examined the patient, performed the documentation and the assessment and plan as written. Number of minutes spent on the visit: 23.
[2024-04-12 16:07] VITALS: BP 90/53; PULSE 59
--- NOTE | 2024-04-12 20:55 | P.DS ---
Providers Date of admission: 04/04/24 13:59 Expected date of discharge: 04/12/24 Attending physician: Nolan Narvaez Consults: 04/04/24 13:53 Consult Physician Routine Consulting Provider: Eyal Liz Consult Reason/Comments: Progressive weakness, dysarthria Do you want consulting provider notified?: Yes 04/05/24 09:05 Consult Physician Routine Consulting Provider: [facility] Donis Consult Reason/Comments: for inpt rehab Do you want consulting provider notified?: Yes 04/05/24 14:21 Consult Physician Urgent Consulting Provider: Ever Pisano Consult Reason/Comments: pulm nodule? concern for neoplastic syndrome Do you want consulting provider notified?: Yes Primary care physician: Nish Osunamley [facility] Course: patient is a 58-year-old female with medical history of stroke, coronary artery disease, fibromyalgia who presented to the ER with complaint of progressive weakness. Patient was recently admitted to the hospital couple of weeks ago with similar complaints at which time patient had brain CT showing no acute intracranial process,Carotid Doppler showing scattered atherosclerotic disease without sonographic evidence of significant stenosis, MRI brain reviewed reveals no evidence of intracranial mass/subacute/acute infarct or abnormal enhancement, MRI cervical spine revealed no evidence for disc herniation or significant spinal canal stenosis there is no abnormal postcontrast enhancement. Patient did had an LP done at the time and was given IVIG for suspicion of Guillain- Lewis syndrome. Patient was discharged but states that ever since discharge she has having worsening slurred speech. Patient also having problems with her balance. Patient also complaining of blurred vision. Patient denies any weakness of any extremity. Patient is complaining of numbness of her left hand. Because of the symptoms, patient came to the ER Initial lab work done in the ER showed WBC 4, hemoglobin 12.7, platelet count 267, sodium 140, potassium 4.1, BUN 14, creatinine 0.85, lactate 1.1 calcium 9.4, magnesium 2, AST 25, ALT 13, UA negative for infection EKG done in the ER showed heart rate of56 , no ST segment elevation or depression seen, no T-wave inversions seen. Chest x-ray done in the ER no acute cardiopulmonary process CT head done showed age-related atrophic and chronic small vessel ischemic changes without acute intracranial process Patient admitted to internal medicine service 04/06. Patient seen and examined. Still have lethargy and weakness. Still complaining of numbness of her extremities. MRI brain done showed scattered punctate foci of white matter changes, no evidence for active demyelination within the brain or spine. MRI cervical spine negative for any evidence of disc herniation or spinal stenosis April 07: Recent admission in February to the hospital patient was seen by Dr. De León from neurology. 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 Patient received IV immunoglobulin a 5-day course. Patient CSF had shown high protein. Patient this admission be seen by Dr. LIZ from neurology. Getting IV methylprednisolone 500 mg every 12. Paraneoplastic syndrome workup sent out by neurology. Pulmonary nodule for outpatient PET scan by pulmonary. From her left eye patient can visualize shapes. On the right eye she does see double. Speech is slow. Also has paresthesia of hand and feet. Also nystagmus. Ataxia. April 08: Patient being followed by Dr. LIZ. Last dose of steroids tomorrow. Family is considering taking the patient home tomorrow. Rehab has been recommended. 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 Morning dose for tomorrow to be changed to 1000 mg. Patient walked with physical therapy about 8 feet. With moderate assist April 09: Patient finished her last dose of steroids this morning. at the bedside. Patient feels she cannot be taken care of at home. Agreeable to rehab. Other medications to continue.: Overall better blood pressure control change Zestril to Zestoretic 20/12.5 twice daily and add amlodipine 5 mg a day April 10: Patient is a bit more lethargic. Speech more drawn out. Slow. Dr. Liz spoke to the patient's . Plan is to transfer the patient to [facility] for higher level of care. I spoke to Dr. Grullon the accepting physician at [facility] neurology service. Patient has been accepted. Total time spent today about 1 hour with over 40 minutes of discussion. April 11: Patient more awake. Moving better. Pending transfer to [facility]. Blood pressure running low. Amlodipine discontinued. Discussed with at the bedside. Discussed with Dr. De León from neurology. April 12: at the bedside. Head. Patient getting transferred to [facility] today. Physical examination: VITAL SIGNS:97.7, 59, 18, 90/53, 97% room air GENERAL: Resting in bed, answering questions slowly y EYES: Pupils equal. Conjunctiva kami l. HEENT: External appearance of nose and ears normal, oral cavity grossly normal. NECK: JVD not raised; masses not palpable. HEART: First and second heart sounds are normal; no edema. LUNGS: Respiratory rate normal; decreased breath sounds. ABDOMEN: Soft, nontender, liver spleen not palpable, no masses palpable. PSYCH: A bit awake and answering questions slowly MUSCULOSKELETAL:No Clubbing/cyanosis;muscles-grossly intact NEUROLOGICAL: Left eye: She can see shapes. Right eye: Double vision. Numbness in hand and feet. Speech drawn out. Decrease in sensorium. Nystagmus to the right INVESTIGATIONS, reviewed in the clinical context: April 11: White count 6.5 hemoglobin 14.3 platelets 365 potassium 2.6 creatinine 0.99 April 07: White count 4.2 hemoglobin 13.1 platelets 312 potassium 3.7 creatinine 0.71 From recent admission IgG 903 IgA 131 IgM 109 Lyme screen IgG and IgM negative Treponema pallidum antibody nonreactive CSF: IgG MS 13.2 serum albumin 3.7 CSF IgG albumin ratio MS 0.83 CSF IgG synthetic rate MS 28.55 CSF: Total protein 139 glucose 65 nucleated cells 0 RBC 350 MRI C-spine: Negative MRI brain-unremarkable Assessment and plan: -Neurological disorder complaining of nystagmus, slurred speech, paresthesia and 11 feet, as ataxia. Extensive workup done on recent admission. Outpatient worked up by Dr. Ramirez. On this admission being followed by Dr. Koo from neurology. On IV steroids. Patient received 5 days of methylprednisolone. Per Dr. LIZ neurology:Opsoclonus myoclonus ataxia syndrome Topamax being discontinued Patient being transferred to [facility] for higher level of care. Spoke to Dr. Grullon the accepting neurologist. -History of vitamin B6 toxicity -Right middle lobe subsolid/groundglass 9 mm pulmonary nodule Outpatient PET scan by pulmonary -Severe hypokalemia likely from diuretic: New diagnosis Replace potassium -Chronic fibromyalgia Lyrica switched over to Neurontin -Hyperlipidemia Zetia 10 mg with breakfast -Primary osteoarthritis Motrin as needed -Chronic urine incontinence -COPD in a previous smoker Albuterol as needed. -CAD with stent Lopressor. Resume aspirin -Essential hypertension:, Running on the lower side. -GERD PPI -Full code Disposition: [facility] Plan - Discharge Summary New Discharge Prescriptions: Continue Albuterol Inhaler [Ventolin Hfa Inhaler] 1 puff INHALATION RT-Q4H PRN PRN Reason: Shortness Of Breath Nitroglycerin Sl Tabs [Nitrostat] 0.4 mg SL Q5M PRN PRN Reason: Chest Pain Aspirin EC [Ecotrin Low Dose] 81 mg PO W/BRKFST Albuterol Nebulized [Ventolin Nebulized] 2.5 mg INHALATION RT-Q6H PRN PRN Reason: Shortness Of Breath Ubidecarenone [Coenzyme Q10] 200 mg PO W/LUNCH Magnesium 250 mg PO W/LUNCH Pyridoxine [Vitamin B-6] 25 mg PO W/LUNCH Cyanocobalamin (Vitamin B-12) [Vitamin B-12] 1,000 mcg PO W/LUNCH Metoprolol Tartrate [Lopressor] 50 mg PO BID Ibuprofen [Motrin] 800 mg PO Q8H PRN PRN Reason: Pain Pregabalin [Lyrica] 150 mg PO TID Ezetimibe [Zetia] 10 mg PO W/BRKFST Baclofen [Lioresal] 10 mg PO BID Formoterol Fumarate [Perforomist] 20 mcg INHALATION RT-BID Folic Acid 1 mg PO DAILY #30 tab Esomeprazole Magnesium [NexIUM 24Hr] 20 mg PO W/BRKFST Cholecalciferol [Vitamin D3 (25 Mcg = 1000 Iu)] 50 mcg PO W/LUNCH Meclizine [Antivert] 12.5 - 25 mg PO BID-W/MEALS Potassium Gluconate 90 mg PO W/LUNCH Thiamine [Vitamin B-1] 100 mg PO DAILY #30 tab Discontinued amLODIPine [Norvasc] 5 mg PO W/BRKFST lisinopriL [Zestril] 20 mg PO W/BRKFST Discharge Medication List Albuterol Inhaler [Ventolin Hfa Inhaler] 1 puff INHALATION RT-Q4H PRN 09/26/20 [History] Aspirin EC [Ecotrin Low Dose] 81 mg PO W/BRKFST 09/26/20 [History] Nitroglycerin Sl Tabs [Nitrostat] 0.4 mg SL Q5M PRN 09/26/20 [History] Albuterol Nebulized [Ventolin Nebulized] 2.5 mg INHALATION RT-Q6H PRN 06/08/23 [History] Baclofen [Lioresal] 10 mg PO BID 02/24/24 [History] Cholecalciferol [Vitamin D3 (25 Mcg = 1000 Iu)] 50 mcg PO W/LUNCH 02/24/24 [History] Cyanocobalamin (Vitamin B-12) [Vitamin B-12] 1,000 mcg PO W/LUNCH 02/24/24 [History] Esomeprazole Magnesium [NexIUM 24Hr] 20 mg PO W/BRKFST 02/24/24 [History] Ezetimibe [Zetia] 10 mg PO W/BRKFST 02/24/24 [History] Formoterol Fumarate [Perforomist] 20 mcg INHALATION RT-BID 02/24/24 [History] Ibuprofen [Motrin] 800 mg PO Q8H PRN 02/24/24 [History] Magnesium 250 mg PO W/LUNCH 02/24/24 [History] Meclizine [Antivert] 12.5 - 25 mg PO BID-W/MEALS 02/24/24 [History] Metoprolol Tartrate [Lopressor] 50 mg PO BID 02/24/24 [History] Potassium Gluconate 90 mg PO W/LUNCH 02/24/24 [History] Pregabalin [Lyrica] 150 mg PO TID 02/24/24 [History] Pyridoxine [Vitamin B-6] 25 mg PO W/LUNCH 02/24/24 [History] Ubidecarenone [Coenzyme Q10] 200 mg PO W/LUNCH 02/24/24 [History] Folic Acid 1 mg PO DAILY #30 tab 03/07/24 [Rx] Thiamine [Vitamin B-1] 100 mg PO DAILY #30 tab 03/07/24 [Rx] Follow up Appointment(s)/Referral(s): Nish Lew MD [Primary Care Provider] - 1-2 days Discharge Disposition: OTHER INSTITUTION NOT DEFINED
[2024-04-12] MEDS ORDERED: LISINOPRIL-HCTZ 10-12.5 MG 1 EACH TAB PO SCH (21:00)
[2024-04-12] MEDS ORDERED: lisinopriL 10 MG TAB PO SCH (21:00)
--- NOTE | 2024-04-13 08:16 | P.PN ---
Subjective Progress Note Date: 04/12/24 04/12/2024: Patient was seen for a follow-up. Patient's was also present today. Patient continues to be getting worse, with increased slurring from cerebellar dysarthria, continues to have significant cerebellar dysfunction. Patient is not getting better. Patient has been accepted at [facility], but bed not available. 04/11/2024: Patient was seen for follow-up. Patient initially seen by Dr. Eyal Liz. Please refer to his note for details. Patient was recently admitted to our facility for cerebellar ataxia, nystagmus on 02/25/2024. Patient was treated with IVIG, discharged home on 03/07/2024. Patient has very minimal improvement with IVIG and then slowly started getting worse, readmitted on 04/04/2024, has received 5-day treatment with high-dose steroids, which was completed on Thursday, 2 days ago. Patient's has not noticed any improvement with it. She had some seizure-like episode in which she stiffened up and could not talk. CT head showed no acute process. Dr. Liz has recommended transfer to higher level of care. Patient accepted in [facility], awaiting bed placement. Objective - Vital Signs Vital signs: Vital Signs Temp 97.7 F 04/12/24 07:21 Pulse 73 04/12/24 08:27 Resp 18 04/12/24 07:21 BP 97/65 04/12/24 07:21 Pulse Ox 99 04/12/24 08:11 FiO2 21 04/08/24 08:20 Intake & Output 04/11/24 04/12/24 04/12/24 18:59 06:59 18:59 Intake Total 0 118 Balance 0 118 Weight 63.049 kg Intake: Oral 0 118 Other: Voiding Method Bedside Commode Bedpan Bedpan Diaper # Voids 2 3 - Exam Mental status, patient is quite groggy, somnolent but does wake up and answers appropriately. Speech has moderate cerebellar dysarthria and language functio ns are normal. On cranial examination pupils are equal, round and reactive to light, visual rowland are full, with no neglect, extraocular muscles has very prominent horizontal nystagmus bilaterally on the end gaze. Slight vertical nystagmus in the vertical gazes. Face is symmetric and tongue protrudes to midline. On muscle strength testing there is no pronator drift and the strength is normal in arms and legs distally and proximally, except hip flexion which may be 5- bilaterally. Sensory to touch is equal. No neglect. Patient has subjective numbness of the left hand up to the elbow but not the right upper limb. Patient has numbness of both feet past the ankles. Patient has moderate to severe ataxia for [id number] bilaterally. Patient has very mild ataxia for [id number] testing bilaterally. Deep tendon reflexes are (right/left) 1+2/2+ at the biceps, 1+2/2 brachiorad ialis, 2/2 at the knees, 0/trace ankles and plantars are downgoing bilaterally. - Labs CBC & Chem 7: 04/11/24 14:03 04/11/24 19:23 Labs: Abnormal Lab Results - Last 24 Hours (Table) 04/11/24 04/11/24 Range/Units 14:03 19:23 Sodium 133 L (137-145) mmol/L Potassium 2.6 L* 3.2 L (3.5-5.1) mmol/L BUN 34 H (7-17) mg/dL Glucose 146 H (74-99) mg/dL ALT 78 H (4-34) U/L Assessment and Plan Assessment: 58-year-old female who has developed paresthesias of the hands and feet since 2022. Symptoms suggestive of possible peripheral neuropathy. New onset nystagmus, diplopia and gait ataxia since 02/20/2024. Patient has elevated CSF proteins. Patient has bilateral nystagmus, and ataxia. 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 Abnormal CSF, with positive oligoclonal bands, IgG index and IgG synthesis rate, suggestive of multiple sclerosis. No abnormal lesions seen in the brain MRI however. MRI of the brain and cervical spine negative for demyelinating disease. Very low folate and is borderline normal level is 4.70 (normal is 4.4-31) Underlying history of hypertension Hypercholesterolemia Ex tobacco use Altered mental status: Unsure if encephalopathy is due medication induced (Topamax which was started day before yesterday, now discontinued) Had vitamin B6 toxicity on 02/2024 as high as 145. Her neuropathy can be due to Vitamin B6 toxicity. Repeat level during this admission is borderline normal 5 History of very low folate of 4.7 History of right middle lobe subsolid/groundglass 9 mm pulmonary nodule at that time and 02/[address] History of NSTEMI Plan: * On 02/2024 work-up: SSA/SSB negative, Serum immunofixation was no monoclonal paraprotein, NMDA negative, B12: 1139, TSH: 3.620. CSF is clear, colorless, nucleated cells 0, rbc 350, total protein is 139 (normal is 12-60), glucose 65. Positive oligoclonal band, BARBIE <5. Syphilis negative, Lyme negative, HSV, VZV, CMV are negative. HbA1c: 5.9, MMA was normal * Dr. Liz has ordered antibodies testing on 04/06/2024 since not tested on paraneoplastic panel: Ri, Yo, Ma/Ma2, SoX1, Tr, KLH11, P/Q VGCC, SHAILA A, HNK- 1, Gly R antibodies. * Vitamin E level 1327(500-1800) is. * Patient completed IV steroid 02/20 and last dose was on 04/09/2024. IV steroids did not help at all. 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 Liz. Patient became encephalopathic, which has been stopped. * EEG 04/11/2024 was abnormal due to background slowing and disorganization, suggestive of moderate encephalopathy. No focal, lateralized or epileptiform activity was seen. * Patient may benefit from repeat lumbar puncture to assess for proteins, cell count. Patient may benefit from either repeat IVIG course versus treatment with plasma exchange. I discussed with patient and her about repeating lumbar puncture and she declined. Patient is positive that IVIG did not help and does not want to go back on IVIG. She probably may require plasma exchange. This cannot be performed at our hospital. * I called, spoke to transfer team to expedite transfer to [facility]. Discussed with [facility] neurologist presales consultant. * Patient's NIF is > -40, vital capacity is 1.98. * Continue folic acid 1mg daily. * Recommend EMG with NCS as outpatient of uppers and lowers. I understand she had EMG of uppers in 01/2024 of uppers by her neurologist as outpatient and she stated was told normal. 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 * PT and OT are consulted * Pulmonary team is consulted for lung nodule. They recommend outpatient PET scan. * Dr. Liz has stopped Lyrica since patient is not having any benefit and started the patient on gabapentin 300 mg 1 tablet 3 times daily * Defer the rest of the medical management to primary team and other specialist. * MRI of the brain with and without contrast revealed no intracranial mass, acute/subacute infarct or abnormal enhancement. I personally reviewed MRI, agree with the findings. * Continue aspirin 81 mg daily. * Carotid Doppler revealed scattered atherosclerotic disease without sonographic evidence of significant stenosis. Antegrade flow in both vertebral arteries. * MRI of the cervical spine revealed no evidence for disc herniation or significant spinal canal stenosis. No abnormal postcontrast enhancement. Minimal disc degeneration with associated osteoarthritic changes. I personally reviewed MRI agree with the findings.. * ESR 7, CRP <0.5, quantitative immunoglobulins are normal. Serum immunofixation electrophoresis negative for any monoclonal protein. Sjogren's antibodies negative. RPR negative. Lyme titer negative. * Vitamin B6 145 (5-50). Repeat vitamin B6 5, which is somewhat low (5-50) * Vitamin B1 124 (38-1 22) * Vitamin B12: 1139, methylmalonic acid 0.15 normal * Serum folate: 4.70 (normal is 4.4-31) * TSH: 3.62 * HbA1c: 5.9 * CSF with WBC 0, RBC 350, CSF glucose 65 normal, CSF protein 139 (12-60). MS panel came positive for oligoclonal bands. They were 2 or more oligoclonal bands seen, which were not seen in the corresponding serum therefore is considered a positive oligoclonal banding study. IgG index 0.83/0.77, IgG synthesis rate 28.55/3.0. Viral cultures all came back negative. CSF BARBIE level normal <5. * CSF NMDA negative < 1:10 * CSF NMDA antibodies results not available. * CT of the chest abdomen pelvis revealed right middle lobe subsolid/groundglass 9 mm pulmonary nodule. Further evaluation with CT in 3 months versus PET/CT recommended. We will defer to IM. * DVT prophylaxis: Lovenox 40 mg subcu daily. Addendum (05/05/2024): Patient's antibody panel results have arrived. PONCE-1 immunoblotting antibodies reactive with a titer of 1:7680 (normal < 1:240) PONCE-2 antibodies negative CRMP-5-IgG Titer reactive, with a titer of 1:7680 (normal < 1:240) All these following antibodies came back negative including PCA1, PCA2, PCATR, Amphiphysin Ab, AGNA-1, AGNA-2, AGNA-3, Anti-Ri, Weston antibody, Anti-Yo, SHAILA-AR, glycine alpha 1 LCBA, SOX1 antibodies, VGCC I spoke to patient's on the phone. He mentioned that after patient was transferred to [facility], patient underwent series of plasma exchange. She was diagnosed with Shell's thyroiditis. He says that she is strong, bu t gets tired easily. Vision still gets double vision. Informed patient's about above test results including positive antibodies, which can be seen with parent new plastic syndrome. Patient to follow-up with medical health researcher to rule out occult lung cancer. Patient's was informed that paraneoplastic syndrome needs very close thorough monitoring to rule out any occult cancer. I did text him on his cell phone the screen shot of the positive test results as above. Time with Patient: Greater than 30
== END 2024-04-12 20:17 | disposition short-term general hospital (02) | DRG 93 ==
LOC: EC 11:02 → 5NMEDONC 13:59 → 1SOBS 04-06 19:52 → 6NMEDSUR 04-07 17:57
PROVIDERS: ADMIT Hospitalist; ATTEND Hospitalist
PROC: 4A10X4Z Monitoring of Central Nervous Electrical Activity, External Approach (ICD-10-PCS; principal; 2024-04-11)
DX: G25.3 Myoclonus (principal); R47.1 Dysarthria and anarthria; M79.7 Fibromyalgia; R53.1 Weakness; E87.6 Hypokalemia; M19.90 Unspecified osteoarthritis, unspecified site; R32 Unspecified urinary incontinence; T50.2X5A Adverse effect of carbonic-anhydrase inhibitors, benzothiadiazides and other diuretics, initial encounter; K21.9 Gastro-esophageal reflux disease without esophagitis; I10 Essential (primary) hypertension; E78.00 Pure hypercholesterolemia, unspecified; I25.2 Old myocardial infarction; X58.XXXA Exposure to other specified factors, initial encounter; T42.6X5A Adverse effect of other antiepileptic and sedative-hypnotic drugs, initial encounter; J44.9 Chronic obstructive pulmonary disease, unspecified; H55.00 Unspecified nystagmus; F17.210 Nicotine dependence, cigarettes, uncomplicated; I25.10 Atherosclerotic heart disease of native coronary artery without angina pectoris; R91.1 Solitary pulmonary nodule; Z79.899 Other long term (current) drug therapy; Z82.49 Family history of ischemic heart disease and other diseases of the circulatory system; G62.9 Polyneuropathy, unspecified; Z86.73 Personal history of transient ischemic attack (TIA), and cerebral infarction without residual deficits; Z95.5 Presence of coronary angioplasty implant and graft; Z90.710 Acquired absence of both cervix and uterus; Z98.51 Tubal ligation status
CPT/HCPCS: 36415; 70450; 70553; 71046; 72156; 80053; 80074; 81003; 82533; 82550; 83519; 83520; 83605; 83735; 84132; 84207; 84425; 84446; 84484; 85025; 85027; 85610; 85652; 85730; 86038; 86225; 86255; 86256; 87390; 87529; 87635; 93005; 94640; 94760; 95816; 96361; 96374; 99285